=== PATIENT | female | born 1960 | race Caucasian/White ===

== ENCOUNTER → 2024-12-25 | Outpatient (REF) | payer MEDICARE, MEDICAID, SELFPAY ==
[2024-12-25 09:00] LABS: Hematocrit 30.3 % (37-47); Hemoglobin 9.2 g/dL (12.0-15.0); Mean Corp Hgb Conc 30.4 g/dL (32-36); Mean Corpuscular Hgb 22.8 pg (27.0-32.0); Mean Corpuscular Volume 75.2 fL (81-99); Mean Platelet Vol. 8.2 fl (6.2-12.0); Platelet Count 273 K/mm3 (150-450); RBC Distribution Width CV 18.7 % (11.6-14.6); RBC Distribution Width SD 51.8 fl (35.1-43.9); Red Blood Count 4.03 M/mm3 (4.2-5.4); White Blood Count 6.9 K/mm3 (4.4-11.0)
[2024-12-25 09:31] LABS: Cholesterol 108 mg/dL (<=200); High Density Lipoprotein 30 mg/dL; Low Density Lipoprotein Calc. 57 mg/dL; Magnesium 2.3 mg/dL (1.5-2.2); Triglycerides 107 mg/dL; Very Low Density Lipoprotein 21 mg/dL (5-40); Vitamin D,25 Hydroxy 40.4 ng/mL (30-100)
[2024-12-25 09:35] LABS: ALB/GLOB Ratio 0.8 RATIO (0.9-2.4); AST(SGOT) 18 U/L (<=31); Alanine Aminotransfer ALT/SGPT 11 U/L (<=34); Albumin, Serum 3.2 g/dL (3.4-4.8); Alkaline Phosphatase 61 U/L (35-104); Anion Gap 10 (5-15); BUN 22 mg/dL (4-19); BUN/Creat Ratio 24.3 RATIO (10-20); Calcium,Total 8.7 mg/dL (7.6-11.0); Carbon Dioxide 22.4 mmol/L (21.0-32.0); Chloride 106 mmol/L (98-108); Creatinine, Serum 0.89 mg/dL (0.70-1.20); EST Glomerular Filtration Rate 71 (>60); Glucose 84 mg/dL (70-99); Potassium 3.9 mmol/L (3.3-5.1); Protein, Total 7.1 g/dL (5.9-8.4); Sodium Level 139 mmol/L (133-145); Total Bilirubin < 0.15 mg/dL (0.00-1.30)
== END ==
LOC: OLS.ACW300 04:00
PROVIDERS: PCP Student in an Organized Health Care Education/Training Program; Referring Provider Family Medicine; Visit Provider Family Medicine
DX: E55.9 Vitamin D deficiency, unspecified (principal); E11.9 Type 2 diabetes mellitus without complications; E78.5 Hyperlipidemia, unspecified; F42.4 Excoriation (skin-picking) disorder; F03.94 Unspecified dementia, unspecified severity, with anxiety
CPT/HCPCS: 36415; 80053; 80061; 82306; 83735; 84443; 85027

== ENCOUNTER → 2025-01-18 | Outpatient (REF) | payer MEDICARE, MEDICAID, SELFPAY ==
--- OUTSIDE RECORDS SUMMARY | 2025-01-18 04:42 | XMS RPT_ITS | CCD ---
Author Organization [facility] Care Team Providers Care Drums Teacher Name Role Phone Rola Manning LPN Unavailable Unavailab DR DEJON Johnson DO Primary Care Physician [phone] PHYSICIAN, NONE Primary Care Physician Unavailab Dejon Johnson DO Primary Care Provider DR OXANA GRAHAM DO Attending Unavailania e PHYSICIAN, NONE Primary Care Unavailable Cecilia Hassan MD Primary Care Provider GRISELDA LATHAM Attending Unavailable CECILIA HASSAN Primary Care Unavailable Yudy Mantilla MD Primary Care Provider Dr. Aram Morris DO Primary Care Provider Yudy Francois Attending Provider Yudy Harper Referring Provider Aram Butler Primary Care Unavailable Yudy Francois Referring Unavailable Yudy Francois Attending Unavailable YUDY MANTILLA Primary Care Unavailable ANGEL ORTIZ Attending Unavailable SADA SAMUELS Attending Unavailable YUDY MANTILLA Primary Care Unavailable Allergies Allergy Classification Reported Allergen(s) Allergy Type Date of Onset Reaction(s) Facility (13 sources) Morphine; Translations: [Morphine] Drug Allergy 01-29-2013 Mental Status Change, Unknown Pulmonary [facility] Work Phone: Medications Current Medications Medication Drug Class(es) Dates Sig (Normalized) Sig (Original) Albuterol (Eqv-Proventil HFA) 90 mcg/inh inhalation aerosol (1 source) Start: 10-24-2024 take 2 doses by inhalation every six hours Albuterol (Eqv-Proventil HFA) 90 mcg/inh inhalation aerosol Dose : 180 mcg = 2 inh, Inhalation, q6hr, 0 Refill(s) Start Date: 10/24/24 Status: Ordered Repeat number: 1 amitriptyline hydrochloride 50 mg oral tablet (3 sources) Tricyclic Antidepressant Start: 05-21-2021 amitriptyline 50 mg oral tablet Dose : 50 mg = 1 tab(s), Oral, qHS, # 90 tab(s), 0 Refill(s), [facility], 157.5, cm, 06/25/19 15:01:00 EST, Height, kg, 09/25/19 17:06:00 EST, Dosing Weight Start Date: 05/21/21 Status: Ordered Start: 05-20-2017 take 1 tablet by rene th once daily AMITRIPTYLINE HCL 50 MG TABS One tablet by mouth daily AMITRIPTYLINE HCL [id number] Rola Manning LPN atorvastatin 20 mg oral tablet (6 sources) HMG-CoA Reductase Inhibitor Start: 05-21-2021 atorvastatin 20 mg oral tablet Dose : 20 mg = 1 tab(s), Oral, qDay, # 90 tab(s), 0 Refill(s), [email or web address] 157[facility]5, cm, 06/25/19 15:01:00 EST, Height, kg, 09/25/19 17:06:00 EST, Dosing Weight Start Date: 05/21/21 Status: Ordered benztropine mesylate 0.5 mg oral tablet (9 sources) Anticholinergic, Antihistamine Start: 05-21-2021 benztropine 0.5 mg oral tablet Dose : 0.5 mg = 1 tab(s), Oral, qDay, # 90 tab(s), 0 Refill(s), [email or web address], 157.5, cm, 06/25/19 15:01:00 EST, Height, kg, 09/25/19 17:06:00 EST, Dosing Weight Start Date: 05/21/21 Status: Ordered Quantity: 90.0 Unit: tab(s) Repeat number: 1 Start: 05-20-2017 take 1 tablet by rene th once daily BENZTROPINE MESYLATE 0.5 MG TABS One tablet by mouth daily BENZTROPINE MESYLATE [id number] Rola Manning LPN take 1 tablet by rene th twice daily benztropine (Cogentin) 0.5 MG tablet Take 0.5 mg by mouth twice a day. Active 12 hr buPROPion hydrochloride 150 mg extended release oral tablet (6 sources) Aminoketone Start: 05-21-2021 take 1 tablet by mouth every hour, then take 1 tablet by mouth once daily Wellbutrin SR 150 mg/12 hours oral tablet, extended release Dose : 150 mg = 1 tab(s), Oral, qDay, # 90 tab(s), 0 Refill(s), Pharmacy: [address], 157.5, cm, 06/25/19 15:01:00 EST, Height, kg, 09/25/19 17:06:00 EST, Dosing Weight Start Date: 05/21/21 Status: Ordered Start: 05-20-2017 take 1 tablet by rene th once daily BUDEPRION SR 150 MG [id number] One tablet by mouth daily BUPROPION HCL [id number] Rola Manning LPN Start: 01-18-2017 take 1 tablet by rene th once daily buPROPion HCl, smoking deter, 150 mg Tb12 take 1 tablet by mouth once daily 30 tablet 2 01/18/2017 Active Start: 01-29-2013 End: 05-20-2017 take 1 tablet by mouth once daily BUPROPION HCL ER (SR) 150 MG [id number] One tablet by mouth daily BUPROPION HCL [id number] Rola A Rohithho CABLE COVERER busPIRone hydrochloride 10 mg oral tablet (4 sources) busPIRone (Buspa r) 10 MG tablet Take by mouth 2 times daily. Active cephalexin 500 mg oral capsule (1 source) Cephalosporin Antibacterial Start: 10-24-2024 End: 10-31-2024 cephalexin 500 mg oral capsule Dose : 500 mg = 1 cap(s), Oral, TID, X 7 day(s), # 21 cap(s), 0 Refill(s), 10/31/24 9:16:00 PM EDT, 136.4 Start Date: 10/24/24 Stop Date: 10/31/24 Status: Ordered Quantity: 21.0 Unit: cap(s) Repeat number: 1 cetirizine hydrochloride 5 mg chewable tablet (4 sources) Histamine-1 Receptor Antagonist cetirizine (ZyrTEC) 5 MG chewable tablet Chew daily. Active COMPOUNDED PRESCRIPTION (1 source) Start: 11-01-2014 COMPOUNDED PRESCRIPTION KNEE HIGH COMPRESSION STOCKINGS 18 TO 20 COMPRESSION NEGRO HOSE DX 457.1 1 Act 0 11/01/2014 Active CPAP (3 sources) Start: 09-04-2014 CPAP Pt is due for new supplies. Mask (per patient preference) and new filters. Dx. JOHNATHAN 327.23 1 Units 0 09/04/2014 Active Start: 02-18-2014 CPAP Indicatio ns: JOHNATHAN (obstructive sleep apnea) CHIN STRAP, USED WITH CPAP DEVICE 1 Each 0 02/18/2014 Active Start: 01-30-2014 CPAP Initiate CPAP @ 13 cm of water with humidification. Mask (per patient preference) optional chin strap (if indicated) , filters, tubing, humidifier and lifetime supplies. Dx. JOHNATHAN 327.23 1 Units 0 01/30/2014 Active diazePAM 2 mg oral tablet (1 source) Benzodiazepine Start: 11-06-2016 take 1 tablet by mouth three times daily as needed Diazepam 2 MG tablet Active 2 mg PO 3 TIMES DAILY NEEDED as needed for Vertigo November 06, 2016 12:00am causes drowsiness DME [facility] (2 sources) Start: 03-24-2021 DME MISCellane ous See Instructions, freestyle lite test strips for once daily use - QS for 3 month supply. E11.9, # 1 EA, 3 Refill(s), [facility], 157.5, cm, 06/25/19 15:01:00 EST, Height, 129.1, kg, 09/25/19 17:06:00 EST, Dosing Weight Start Date: 03/24/21 Status: Ordered Start: 06-25-2019 DME MISCellane ous See Instructions, Lancets to test glucose daily and PRN, # 1 EA, 3 Refill(s), [facility]acy: [facility] Diabetes mellitus type 2 Start Date: 06/25/19 Status: Ordered docusate sodium 100 mg oral capsule (8 sources) Start: 09-16-2015 Colace 100 mg oral capsule Dose : 100 mg = 1 cap(s), Oral, qDay, # 90 cap(s), 0 Refill(s), [facility], 157.5, cm, 06/25/19 15:01:00 EST, Height, kg, 09/25/19 17:06:00 EST, Dosing Weight Start Date: 05/21/21 Status: Ordered Quantity: 90.0 Unit: cap(s) Repeat number: 1 empagliflozin 10 mg oral tablet (1 source) Sodium-Glucose Cotransporter 2 Inhibitor Start: 10-24-2024 Jardiance 10 mg oral tablet Dose : 10 mg = 1 tab(s), Oral, qAM, 0 Refill(s) Start Date: 10/24/24 Status: Ordered Repeat number: 1 ferrous sulfate 325 mg delayed release oral tablet (4 sources) take 1 tablet by mouth three times daily at mealtime ferrous sulfate 325 (65 Fe) MG EC tablet Take 325 mg by mouth 3 times daily (with meals). Do not crush, chew, or split. Active fluticasone furoate 0.0275 mg/actuat metered dose nasal spray (4 sources) Corticosteroid take 2 spray(s) nasal route once daily fluticasone (Flonase Sensimist) 27.5 MCG/SPRAY nasal spray Administer 2 sprays into each nostril daily. Active glipiZIDE er 5 mg 24 hr extended release oral tablet (6 sources) Sulfonylurea Start: 05-21-2021 glipiZIDE 5 mg oral tablet, extended release Dose : 5 mg = 1 tab(s), Oral, qDay, # 90 tab(s), 0 Refill(s), [facility], 157.5, cm, 06/25/19 15:01:00 EST, Height, kg, 09/25/19 17:06:00 EST, Dosing Weight Start Date: 05/21/21 Status: Ordered Start: 05-21-2021 glipiZIDE 5 mg oral tablet, extended release Dose : 5 mg = 1 tab(s), Oral, qDay, # 90 tab(s), 0 Refill(s), Pharmacy: [facility], 157.5, cm, 06/25/19 15:01:00 EST, Height, kg, 09/25/19 17:06:00 EST, Dosing Weight Start Date: 05/21/21 Status: Ordered hydroCHLOROthiazide 12.5 mg / lisinopril 20 mg oral tablet (1 source) Thiazide Diuretic, Angiotensin Converting Enzyme Inhibitor Start: 10-24-2024 take 1 tablet by mouth once daily hydrochlorothiazide-lisinopril 12.5 mg-20 mg oral tablet Dose = 1 tab(s), Oral, qDay, 0 Refill(s) Start Date: 10/24/24 Status: Ordered Repeat number: 1 24 hr isosorbide mononitrate 60 mg extended release oral tablet (8 sources) Nitrate Vasodilator Start: 05-21-2021 isosorbide mononitrate 60 mg oral tablet, extended release Dose : 60 mg = 1 tab(s), Oral, qAM, # 90 tab(s), 0 Refill(s), [facility], 157.5, cm, 06/25/19 15:01:00 EST, Height, kg, 09/25/19 17:06:00 EST, Dosing Weight Start Date: 05/21/21 Status: Ordered Quantity: 90.0 Unit: tab(s) Repeat number: 1 Start: 05-20-2017 take 1 tablet by rene th once daily ISOSORBIDE MONONITRATE ER 60 MG [id number] One tablet by mouth daily ISOSORBIDE MONONITRATE [id number] Rola Manning LPN take 1 tablet by rene th once daily, then take 1 tablet by mouth every twenty-four hours isosorbide mononitrate ER (Imdur) 60 MG 24 hr tablet Take 60 mg by mouth daily. Do not crush or chew. Active linagliptin 5 mg oral tablet (2 sources) Dipeptidyl Peptidase 4 Inhibitor Start: 05-21-2021 Tradjenta 5 mg oral tablet Dose : 5 mg = 1 tab(s), Oral, Daily, # 90 tab(s), 0 Refill(s), [facility], 157.5, cm, 06/25/19 15:01:00 EST, Height, kg, 09/25/19 17:06:00 EST, Dosing Weight Start Date: 05/21/21 Status: Ordered meclizine hydrochloride 25 mg oral tablet (3 sources) Antiemetic Start: 04-12-2016 meclizine 25 m g oral tablet Dose : 25 mg = 1 tab(s), Oral, TID, PRN vertigo, # 90 tab(s), 1 Refill(s), [facility], 157.5, cm, 06/25/19 15:01:00 EST, Height, kg, 09/25/19 17:06:00 EST, Dosing Weight Start Date: 09/25/19 Status: Ordered omeprazole 20 mg delayed release oral capsule (11 sources) Proton Pump Inhibitor Start: 05-21-2021 omeprazole 20 mg ora l delayed release capsule Dose : 20 mg = 1 cap(s), Oral, qDay, # 90 cap(s), 0 Refill(s), Pharm[facility]: [email or web address], 157.5, cm, 06/25/19 15:01:00 EST, Height, kg, 09/25/19 17:06:00 EST, Dosing Weight Start Date: 05/21/21 Status: Ordered Quantity: 90.0 Unit: cap(s) Repeat number: 1 Start: 05-20-2017 take 1 tablet by mouth once da [facility] OMEPRAZOLE 20 MG TBEC One tablet by mouth daily OMEPRAZOLE [id number] Rola Manning LPN Start: 12-15-2016 take 1 tablet by rene once daily before breakfast Omeprazole 20 mg TbEC take 1 tablet by mouth once daily 1/2 HR BEFORE BREAKFAST 90 tablet 3 12/15/2016 Active Start: 01-29-2013 End: 05-20-2017 take 1 tablet by mouth once daily OMEPRAZOLE 20 MG CPD R One tablet by mouth daily OMEPRAZOLE [id number] Rola Manning LPN potassium chloride 10 meq extended release oral capsule (3 sources) Start: 05-21-2021 potassium chlo ride 10 mEq oral capsule, extended release Dose : 10 mEq = 1 cap(s), Oral, qDay, # 90 cap(s), 0 Refill(s), [facility]: [facility] [place] [address], 157.5, cm, 06/25/19 15:01:00 EST, Height, kg, 09/25/19 17:06:00 EST, Dosing Weight Start Date: 05/21/21 Status: Ordered Quantity: 90.0 Unit: cap(s) Repeat number: 1 Start: 05-21-2021 potassium chlo ride 10 mEq oral capsule, extended release Dose : 10 mEq = 1 cap(s), Oral, qDay, # 90 cap(s), 0 Refill(s), [facility]: [facility] [place] [address], 157.5, cm, 06/25/19 15:01:00 EST, Height, kg, 09/25/19 17:06:00 EST, Dosing Weight Start Date: 05/21/21 Status: Ordered QUEtiapine 25 mg oral tablet (5 sources) Atypical Antipsychotic Start: 10-24-2024 QUEtiap ine 25 mg oral tablet Dose : 25 mg = 1 tab(s), Oral, qHS, 0 Refill(s) Start Date: 10/24/24 Status: Ordered Repeat number: 1 take 1 tablet by mouth once min y QUEtiapine (SEROquel) 50 MG tablet Indications: Agitation Take 50 mg by mouth Nightly. Active risperiDONE 1 mg oral tablet (4 sources) Atypical Antipsychotic Start: 05-21-2021 risperi DONE 1 mg oral tablet Dose : 1 mg = 1 tab(s), Oral, qHS, # 90 tab(s), 0 Refill(s), [facility], 157.5, cm, 06/25/19 15:01:00 EST, Height, kg, 09/25/19 17:06:00 EST, Dosing Weight Start Date: 05/21/21 Status: Ordered Start: 05-20-2017 take 1 tablet by rene th once daily RISPERDAL 1 MG TABS One tablet by mouth daily RISPERIDONE [id number] Rola Manning CABLE COVERER take 1 tablet by rene th twice daily risperiDONE (RISPERDAL) 2 mg tablet Take 2 mg by mouth twice daily. 0 Active rosuvastatin calcium 20 mg oral tablet (1 source) HMG-CoA Reductase Inhibitor Start: 10-24-2024 rosuvastatin 20 mg oral tablet Dose : 20 mg = 1 tab(s), Oral, qPM, 0 Refill(s) Start Date: 10/24/24 Status: Ordered Repeat number: 1 sAXagliptin 5 mg oral tablet (4 sources) Dipeptidyl Peptidase 4 Inhibitor take 1 tablet by mouth once daily sAXagliptin (Onglyza) 5 MG tablet Take 5 mg by mouth daily. Active sertraline 20 mg/ml oral solution (4 sources) Serotonin Reuptake Inhibitor take 25 mg by mouth once daily, then take 125 mg by mouth once daily sertraline (Zoloft) 20 MG/ML concentrated solution Take 25 mg by mouth daily. 125mg day Active Symbicort 160 mcg-4.5 mcg/inh Inhaler (2 sources) Start: 05-21-2021 take 1 dose by inhalation twice daily Symbicort 160 mcg-4.5 mcg/inh Inhaler Dose = 2 puff(s), Inhalation, BID, # 3 EA, 0 Refill(s), Pharmacy: [address], 157.5, cm, 06/25/19 15:01:00 EST, Height, kg, 09/25/19 17:06:00 EST, Dosing Weight Start Date: 05/21/21 Status: Ordered traZODone hydrochloride 150 mg oral tablet (3 sources) Serotonin Reuptake Inhibitor Start: 12-12-2013 take 2 tablets by mouth once daily at bedtime traZODone 150 mg tablet Indications: Depressive disorder, not elsewhere classified Take 2 tablets by mouth daily at bedtime. 30 tablet 6 12/12/2013 Active Start: 01-29-2013 End: 05-20-2017 take 1 tablet by mouth once daily TRAZODONE HCL 150 MG TABS One tablet by mouth daily every night TRAZODONE HCL [id number] Amelia Ayala MD divalproex sodium 250 mg delayed release oral tablet (4 sources) Mood Stabilizer, Anti-epileptic Agent take 1 tablet by mouth three times daily divalproex (Depakote) 250 MG EC tablet Take 250 mg by mouth 3 times daily. Do not crush, chew, or split. Active Vitamin D2 1.25 mg (50,000 intl units) oral capsule (1 source) Start: 5 Vitamin D2 1.25 mg (50,000 intl units) oral capsule Dose : 50,000 International_Unit = 1 cap(s), Oral, qWeek, 0 Refill(s) Start Date: 10/24/24 Status: Ordered Repeat number: 1 Vitamin D3 50 mcg (2000 intl units) oral tablet (2 sources) Start: 1 Vitamin D3 50 mcg (2000 intl units) oral tablet Dose : 2,000 International_Unit = 1 tab(s), Oral, qDay, # 90 tab(s), 0 Refill(s), [facility], 157.5, cm, 06/25/19 15:01:00 EST, Height, kg, 09/25/19 17:06:00 EST, Dosing Weight Start Date: 05/21/21 Status: Ordered Completed/Discontinued Medications Medication Drug Class(es) Dates Sig (Normalized) Sig (Original) albuterol 0.833 mg/ml / ipratropium bromide 0.167 mg/ml inhalation solution (2 sources) Anticholinergic, beta2-Adrenergic Agonist Start: 01-09-2025 End: 01-09-2025 3 mL, Nebulization, Once, On Tue01/09/25 at 2250, For 1 dose Breo Ellipta 200 mcg-25 mcg/inh inhalation powder (2 sources) Start: 05-21-2021 End: 06-20-2021 take 1 dose by inhalation once daily Breo Ellipta 200 mcg-25 mcg/inh inhalation powder Dose = 1 puff(s), Inhalation, Daily, # 3 EA, 0 Refill(s), [email or web address], 157.5, cm, 06/25/19 15:01:00 EST, Height, kg, 09/25/19 17:06:00 EST, Dosing Weight Start Date: 05/21/21 Stop Date: 06/20/21 Status: Ordered 120 actuat budesonide 0.16 mg/actuat / formoterol fumarate 0.0045 mg/actuat metered dose inhaler (1 source) Corticosteroid, beta2-Adrenergic Agonist Start: 05-20-2017 take 2 puff(s) by inhalation twice daily SYMBICORT 160-4.5 MCG/ACT AERO INH 2 puffs twice daily. BUDESONIDE-FORMOTE ROL FUMARATE [id number] Rola A Yensho CABLE COVERER Start: 05-20-2017 take 2 puff(s) by in halation twice daily SYMBICORT 160-4.5 MCG/ACT AERO INH 2 puffs twice daily. BUDESONIDE-FORMOTEROL FUMARATE [id number] Rola A Yensho CABLE COVERER cholecalciferol 2000 unt oral tablet (2 sources) Vitamin D Start: 05-20-2017 take 1 tablet by mouth once daily [facility] D3 2000 UNIT CAPS Take one tablet by mouth once daily CHOLECALCIFEROL [id number] Rola A Leonelnsho CABLE COVERER Start: 09-16-2015 take 1 tablet by rene th once daily Cholecalciferol, Vitamin D3, 2,000 unit cap Indications: Vitamin D deficiency Take 1 tablet by mouth once daily. 30 capsule 6 09/16/2015 Active DOCUSATE SODIUM (1 source) Start: 05-20-2017 take 1 tablet by mouth once daily [facility] STOOL SOFTENER 100 MG CAPS One tablet by mouth daily DOCUSATE SODIUM [id number] Rola A Rohithho CABLE COVERER DULoxetine 60 mg delayed release oral capsule (7 sources) Serotonin and Norepinephrine Reuptake Inhibitor Start: 05-21-2021 End: 08-19-2021 take 1 capsule by mouth once daily in the morning DULoxetine 60 mg oral delayed release capsule Dose : 60 mg =, Oral, qAM, # 90 cap(s), 0 Refill(s), Pharmacy: [address], 157.5, cm, 06/25/19 15:01:00 EST, Height, kg, 09/25/19 17:06:00 EST, Dosing Weight Start Date: 05/21/21 Stop Date: 08/19/21 Status: Ordered Quantity: 90.0 Unit: cap(s) Repeat number: 1 Start: 05-20-2017 take 1 tablet by rene th once daily in the morning CYMBALTA 60 MG CPEP One tablet by mouth daily every morning DULOXETINE HCL [id number] Rola Manning LPN Start: 01-14-2011 End: 05-20-2017 take 1 tablet by mouth once daily CYMBALTA 60 MG CPEP One tablet by mouth daily DULOXETINE HCL [id number] Amelia Ayala MD 14 actuat fluticasone propionate 0.1 mg/actuat / salmeterol 0.05 mg/actuat dry powder inhaler (2 sources) Corticosteroid, beta2-Adrenergic Agonist Start: 01-29-2013 End: 05-20-2017 take 1 puff(s) by mouth once daily ADVAIR DISKUS 100-50 MCG/DOSE AEPB one puff once daily, rinse mouth well after use FLUTICASONE-SALMETEROL [id number] Amelia Ayala MD 14 actuat fluticasone furoate 0.2 mg/actuat / vilanterol 0.025 mg/actuat dry powder inhaler (2 sources) Corticosteroid, beta2-Adrenergic Agonist Start: 05-20-2017 take 1 puff(s) by mouth once daily BREO ELLIPTA 200-25 MCG/INH AEPB INH one puff by mouth daily. FLUTICASONE FUROATE-VILANTEROL [id number] Rola Manning LPN Start: 10-13-2016 take 1 puff(s) by in halation once daily fluticasone-vilanterol (BREO ELLIPTA) 200-25 mcg/dose inhaler Inhale 1 Inhalation as instructed once daily. Inhale one puff once daily. DO NOT CLICK OPEN UNTIL READY FOR DOSE 1 Each 3 10/13/2016 Active hydroCHLOROthiazide 25 mg oral tablet (4 sources) Thiazide Diuretic Start: 05-20-2017 take 1 tablet by mouth once daily HYDROCHLOROTHIAZIDE 25 MG TABS One tablet by mouth daily HYDROCHLOROTHIAZIDE [id number] Rola Manning LPN Start: 01-29-2013 End: 05-20-2017 take 1 tablet by mouth once daily hydroCHLOROthiazide (HYDRODIURIL, ESIDRIX) 25 mg tablet TAKE 1 TABLET BY MOUTH ONCE DAILY. 30 tablet 11 08/09/2016 Active hydrOXYzine pamoate 25 mg oral capsule (14 sources) Antihistamine Start: 01-02-2025 End: 01-02-2025 take 25 mg by mouth once 25 mg, Oral, Once, On Tue01/02/25 at 2014, For 1 dose Start: 01-02-2025 End: 01-05-2025 take 1 tablet by mouth every six hours as needed for anxiety hydrOXYzine HCl (Atarax) 25 MG tablet Take 1 tablet (25 mg) by mouth every 6 hours as needed for anxiety for up to 3 days. 12 tablet 01/02/2025 01/05/2025 Active Start: 05-20-2017 take 1 tablet by rene th twice daily HYDROXYZINE HCL 25 MG TABS One tablet by mouth twice daily HYDROXYZINE HCL [id number] Rola Manning LPN Start: 01-29-2013 End: 05-20-2017 take 1 tablet by mouth twice daily HYDROXYZINE HCL 25 MG TABS One tablet by mouth twice daily HYDROXYZINE HCL [id number] Rola Manning LPN take 1 capsule by mo [facility] every eight hours as needed hydrOXYzine pamoate (VISTARIL) 25 mg capsule Take 25 mg by mouth three times daily as needed. 0 Active lisinopril 10 mg oral tablet (3 sources) Angiotensin Converting Enzyme Inhibitor Start: 01-14-2011 End: 05-20-2017 take 1 tablet by mouth once daily LISINOPRIL 10 MG TABS One tablet by mouth daily LISINOPRIL [id number] Amelia Ayala MD loratadine 10 mg oral tablet (4 sources) Start: 05-21-2021 End: 06-20-2021 Claritin 10 mg oral tablet Dose : 10 mg = 1 tab(s), Oral, qDay, # 30 tab(s), 0 Refill(s), Pharmacy: [address], 157.5, cm, 06/25/19 15:01:00 EST, Height, kg, 09/25/19 17:06:00 EST, Dosing Weight Start Date: 05/21/21 Stop Date: 06/20/21 Status: Ordered Start: 05-20-2017 take 1 tablet by rene once daily as needed ALAVERT 10 MG TABS One tablet by mouth daily as needed for cold or allergy symptoms LORATADINE [id number] Rola A Rohithho CABLE COVERER Start: 12-20-2016 take 1 tablet by rene th once daily as needed loratadine (CLARITIN) 10 mg tablet Take 1 tablet by mouth once daily as needed for Cold/Allergy Symptoms. 90 tablet 3 12/20/2016 Active meloxicam 15 mg oral tablet (2 sources) Nonsteroidal Anti-inflammatory Drug Start: 05-20-2017 take 1 tablet by mouth once daily MELOXICAM 15 MG TABS One tablet by mouth daily MELOXICAM [id number] Rola A Rohithho CABLE COVERER Start: 09-29-2015 take 1 tablet by rene th once daily at mealtime meloxicam (MOBIC) 15 mg tablet TAKE 1 TABLET BY MOUTH ONCE DAILY. TAKE WITH FOOD. 30 tablet 1 09/29/2015 Active metoprolol tartrate 50 mg oral tablet (2 sources) beta-Adrenergic Shelli Start: 01-29-2013 End: 05-20-2017 take 1 tablet by mouth twice daily METOPROLOL TARTRATE 50 MG TABS One tablet by mouth twice daily METOPROLOL TARTRATE [id number] Rola A Leoneljihanho CABLE COVERER nitroglycerin 0.4 mg sublingual tablet (2 sources) Nitrate Vasodilator Start: 06-25-2019 End: 07-25-2019 Nitrostat 0.4 mg sublingual tablet Dose : 0.4 mg = 1 tab(s), Sublingual, q5min, PRN Chest pain, # 100 tab(s), 0 Refill(s), Pharmacy: [address] Start Date: 06/25/19 Stop Date: 07/25/19 Status: Ordered Start: 05-20-2017 NITROGLYCERIN 0.4 MG SUBL One tablet by mouth daily as needed for chest pain, repeat every 5 minutes for a maximum for 3 tablets NITROGLYCERIN [id number] Rola A Leonelnsho CABLE COVERER Nitrostat 0.4 mg sublingual tablet (1 source) Start: 06-25-2019 End: 07-25-2019 Nitrostat 0.4 mg sublingual tablet Dose : 0.4 mg = 1 tab(s), Sublingual, q5min, PRN Chest pain, # 100 tab(s), 0 Refill(s), Pharmacy: [address] Start Date: 06/25/19 Stop Date: 07/25/19 Status: Ordered pravastatin sodium 40 mg oral tablet (4 sources) HMG-CoA Reductase Inhibitor Start: 05-20-2017 take 1 tablet by mouth once daily PRAVACHOL 40 MG TABS One tablet by mouth daily PRAVASTATIN SODIUM [id number] Rola Manning LPN Start: 01-29-2013 End: 05-20-2017 take 1 tablet by mouth once daily at bedtime pravastatin (PRAVACHOL) 40 mg tablet TAKE 1 TABLET BY MOUTH DAILY AT BEDTIME. 30 tablet 11 08/09/2016 Active promethazine hydrochloride 25 mg oral tablet (2 sources) Phenothiazine Start: 05-20-2017 take 1 tablet by mouth once daily PROMETHAZINE HCL 25 MG TABS One tablet by mouth daily PROMETHAZINE HCL [id number] Rola Manning LPN take 1 tablet by rene th every six hours as needed promethazine (PHENERGAN) 25 mg tablet Ta ke 25 mg by mouth every 6 hours as needed. 0 Active 60 actuat tiotropium 0.0025 mg/actuat metered dose inhaler (4 sources) Anticholinergic Start: 05-20-2017 take 2 puff(s) by mouth once daily SPIRIVA RESPIMAT 2.5 MCG/ACT AERS INH 2 puffs by mouth daily. TIOTROPIUM BROMIDE MONOHYDRATE [id number] Rola Manning LPN Start: 10-13-2016 take 2 puff(s) by in halation once daily, then take 2 puff(s) by inhalation once daily tiotropium bromide (SPIRIVA RESPIMAT) 2.5 mcg/actuation mist Inhale 2 Puffs as instructed once daily. Inhale two puffs once daily. 1 Inhaler 3 10/13/2016 Active Start: 01-29-2013 End: 05-20-2017 take 1 capsule by inhalation once daily SPIRIVA HANDIHALER 18 MCG CAPS one capsule INH once daily TIOTROPIUM BROMIDE MONOHYDRATE [id number] Rola Manning LPN Problems Active Problems Problem Classification Problem Date Documented Date Episodic/Chronic Abdominal hernia (3 sources) Hiatal hernia 03-08-2019 Episodic Abdominal pain (1 source) Abdominal pain; Translations: [Unspecified abdominal pain] Onset: 11-05-2021 Episodic Anxiety disorders (9 sources) Panic disorder; Translations: [Anxiety] Onset: 01-02-2025 01-29-2013 Chronic Chronic obstructive pulmonary disease and bronchiectasis (10 sources) Chronic obstructive lung disease; Translations: [Chronic obstructive pulmonary disease, unspecified] Onset: 01-29-2013 01-29-2013 Chronic Coronary atherosclerosis and other heart disease (3 sources) Angina decubitus Onset: 03-22-2017 03-22-2017 Chronic Diabetes mellitus without complication (4 sources) Type 2 diabetes mellitus; Translations: [Type 2 diabetes mellitus without complications] Onset: 01-11-2025 03-08-2019 Chronic Disorders of lipid metabolism (6 sources) Hyperlipidemia; Translations: [Hyperlipidemia, unspecified] Onset: 02-09-2006 01-29-2013 Chronic Esophageal disorders (6 sources) Gastroesophageal reflux disease; Translations: [Gastro-esophageal reflux disease without esophagitis] Onset: 02-09-2006 01-29-2013 Chronic Essential hypertension (5 sources) Essential hypertension; Translations: [Hypertensive disorder] Onset: 12-12-2013 01-29-2013 Chronic Fluid and electrolyte disorders (4 sources) Hypokalemia; Translations: [Hypokalemia] Onset: 07-24-2021 Episodic Genitourinary symptoms and ill-defined conditions (1 source) Female stress incontinence; Translations: [Stress incontinence (female) (male)] Onset: 06-06-2009 06-06-2009 Chronic Mood disorders (5 sources) Major depressive disorder; Translations: [Depressive disorder] Onset: 02-09-2006 01-29-2013 Chronic Nonspecific chest pain (10 sources) Chest pain; Translations: [Chest pain, unspecified] Onset: 12-07-2024 12-07-2024 Episodic Nutritional deficiencies (5 sources) Vitamin D deficiency; Translations: [Vitamin D deficiency, unspecified] Onset: 12-21-2013 09-25-2019 Chronic Osteoarthritis (4 sources) Osteoarthritis; Translations: [Degenerative joint disease involving multiple joints] Onset: 02-09-2006 03-08-2019 Chronic Comment on above: generalized, involvi ng multile sites Other nervous system disorders (3 sources) Tremor 09-25-2019 Episodic Other nutritional; endocrine; and metabolic disorders (3 sources) Morbid obesity 09-25-2019 Chronic Other nutritional; endocrine; and metabolic disorders (1 source) Obesity; Translations: [Obesity, unspecified] Onset: 02-09-2006 02-09-2006 Chronic Other upper respiratory disease (1 source) Allergic rhinitis; Translations: [Allergic rhinitis, unspecified] Onset: 02-09-2006 02-09-2006 Chronic Residual codes; unclassified (1 source) Sleep apnea; Translations: [Sleep apnea, unspecified] Onset: 01-29-2013 01-29-2013 Chronic Residual codes; unclassified (1 source) Breathing-related sleep disorder; Translations: [Sleep apnea, unspecified] Onset: 12-12-2013 12-12-2013 Chronic Residual codes; unclassified (1 source) Obstructive sleep apnea syndrome; Translations: [Obstructive sleep apnea (adult) (pediatric)] Onset: 01-31-2014 07-27-2021 Chronic Residual codes; unclassified (3 sources) Noncompliance with treatment 09-25-2019 Episodic Unclassified (3 sources) Polypharmacy 09-25-2019 Unclassified (1 source) Unspecified dementia, unspecified severity, with anxiety; Translations: [Unspecified dementia, unspecified severity, with anxiety] Onset: 01-11-2025 Past or Other Problems Problem Classification Problem Date Documented Da te Episodic/Chronic Conditions associated with dizziness or vertigo (3 sources) Vertigo Onset: 7 03-22-2017 Episodic Deficiency and other anemia (1 source) Anemia; Translations: [Anemia, unspecified] Onset: 6 07-15-2006 Episodic Esophageal disorders (1 source) Gastroesophageal reflux disease with hiatal hernia; Translations: [Diaphragmatic hernia without obstruction or gangrene] 01-29-2013 Episodic Genitourinary symptoms and ill-defined conditions (1 source) Microscopic hematuria; Translations: [Other microscopic hematuria] Onset: 0 10-01-2009 Episodic Menstrual disorders (1 source) Amenorrhea; Translations: [Amenorrhea, unspecified] Onset: 9 Resolved: 5 04-08-2015 Chronic Other gastrointestinal disorders (1 source) Constipation; Translations: [Constipation, unspecified] Onset: 4 12-12-2013 Episodic Other lower respiratory disease (1 source) Dyspnea on exertion; Translations: [Other forms of dyspnea] Onset: 3 01-29-2013 Episodic Other lower respiratory disease (1 source) Snoring; Translations: [Snoring] Onset: 4 12-12-2013 Episodic Other lower respiratory disease (1 source) Dyspnea; Translations: [Shortness of breath] Onset: 4 12-12-2013 Episodic Residual codes; unclassified (1 source) Insomnia; Translations: [Insomnia, unspecified] Onset: 4 12-12-2013 Episodic Spondylosis; intervertebral disc disorders; other back problems (1 source) Low back pain; Translations: [Lumbago] Onset: 6 02-09-2006 Episodic Urinary tract infections (2 sources) Urinary tract infectious disease; Translations: [Urinary tract infection, site not specified] Onset: 0 Episodic Results Test Name Value Interpretation Reference Range Facility ECG 12-LEADon 01-10-2025 ECG 12-LEAD IMPRESSION: Sinus rhythm Inferior infarct, old Anterior infarct, old Compared to ECG 01/02/25 at 1839 No significant change Electronically Signed On 01-10-2025 04:44:20 EDT by Angel Ortiz [facility] No Panel Informationon 01-10 P [place] 45 degrees [facility] [place] Interval 178 ms [facility] QRS [place] -3 degrees [facility] QRSD Interval 72 ms [facility] QT Interval 402 ms [facility] QTC Interval 437 ms [facility] T Wave [place] 57 degrees [facility] Sinus rhythm Inferior infarct, old Anterior infarct, old Compared to ECG 01/02/25 at 1839 No significant change Electronically Signed On 01-10-2025 04:44:20 EDT by Angel Temple D O - 01/10/2025 IMPRESSION: Sinus rhythm Inferior infarct, old Anterior infarct, old Compared to ECG 01/02/25 at 1839 No significant change Electronically Signed On 01-10-2025 04:44:20 EDT by Angel Ortiz [facility] Vital signson 01-10-2025 Heart rate 71 /min bpm [facility] CBC W Auto Differential pane l (Bld)Ordered By: Guadalupe Lehman on 01-09-2025 Basophils (Bld) [#/Vol] 0.1 10*3/uL 0.0 - 0.2 10*3/uL [facility] Basophils/100 WBC (Bld) 1 % 0.0 - 2.0 % [facility] Eosinophils (Bld) [#/Vol] 0.2 10*3/uL 0.0 - 0.5 10*3/uL [facility] Eosinophils/100 WBC (Bld) 3.6 % 0.0 - 6.0 % [facility] Erythrocyte distribution width (RBC) [Ratio] 18.6 % High 11.5 - 15.0 % [facility] Hematocrit (Bld) [Volume fraction] 31 % Low 35.0 - 47.0 % [facility] Hemoglobin (Bld) [Mass/Vol] 10 g/dL Low 11.7 - 16.0 g/dL [facility] [employer] Immature granulocytes (Bld) [#/Vol] 0.1 10*3/uL High NINF - 0.1 10*3/uL [facility] [employer] Immature granulocytes/100 WBC (Bld) 1.6 % 0.0 - 2.0 % [facility] Interpretation and review of laboratory results Abnormal [facility] Lymphocytes (Bld) [#/Vol] 1.8 10*3/uL 1.0 - 4.3 10*3/uL [facility] Lymphocytes/100 WBC (Bld) 36.4 % 15.0 - 45.0 % [facility] MCH (RBC) [Entitic mass] 23.6 pg Low 26.0 - 34.0 pg [facility] MCHC (RBC) [Mass/Vol] 32.3 % 30.5 - 36.0 % [facility] MCV (RBC) [Entitic vol] 73.1 fL Low 77.0 - 99.0 fL [facility] Monocytes (Bld) [#/Vol] 0.6 10*3/uL 0.0 - 0.9 10*3/uL [facility] Monocytes/100 WBC (Bld) 12.6 % 5.0 - 13.0 % [facility] Neutrophils (Bld) [#/Vol] 2.3 10*3/uL 1.8 - 7.5 10*3/uL [facility] Neutrophils/100 WBC (Bld) 44.8 % 38.0 - 82.0 % [facility] Nucleated RBC/100 WBC (Bld) [Ratio] 0 % [facility] Platelet mean volume (Bld) [Entitic vol] 9 fL 9.0 - 12.7 fL [facility] Comment on above: MPV is a calculated measurement using platelet volume ratio Platelets (Bld) [#/Vol] 171 10*3/uL 140 - 440 10*3/uL [facility] RBC (Bld) [#/Vol] 4.24 10*6/uL 3.80 - 5.2 0 10*6/uL [facility] WBC (Bld) [#/Vol] 5.1 10*3/uL 3.6 - 10.7 10*3/uL [facility] CBC WITH AUTO DIFFERENTIALon 01-09-2025 Basophils (Bld) [#/Vol] 0.1 10*3/uL Normal 0.0-0.2 [facility] Comment on above: Performed By: #### L [id number] #### Press Setup Operator: OLEG DAVIDSON ([id number]) [facility] [place] [employer] ([employer]) [address] [place] [address] [place] Basophils/100 WBC (Bld) 1.0 % Normal 0.0-2.0 [facility] Comment on above: Performed By: #### L [id number] #### Press Setup Operator: OLEG DAVIDSON ([id number]) [facility] [place] [employer] ([employer]) [address] [place] [address] [place] Eosinophils (Bld) [#/Vol] 0.2 10*3/uL Normal 0.0-0.5 [facility] Comment on above: Performed By: #### L [id number] #### Press Setup Operator: OLEG DAVIDSON ([id number]) [facility] [place] [employer] ([employer]) [address] [place] [address] [place] Eosinophils/100 WBC (Bld) 3.6 % Normal 0.0-6.0 [facility] Comment on above: Performed By: #### L [id number] #### Press Setup Operator: OLEG DAVIDSON ([id number]) [facility] [place] [employer] ([employer]) [address] [place] [address] Erythrocyte distribution width (RBC) [Ratio] 18.6 % High 11.5-15.0 [facility] Comment on above: Performed By: #### L [id number] #### Press Setup Operator: OLEG DAVIDSON ([id number]) [facility] [place] [employer] ([employer]) [address] [place] [address] Hematocrit (Bld) [Volume fraction] 31.0 % Low 35.0-47.0 [facility] Comment on above: Performed By: #### L [id number] #### Press Setup Operator: OLEG DAVIDSON ([id number]) [facility] [place] [employer] ([employer]) [address] [place] [address] Hemoglobin (Bld) [Mass/Vol] 10.0 g/dL Low 11.7-16.0 [facility] Comment on above: Performed By: #### L [id number] #### Press Setup Operator: OLEG DAVIDSON ([id number]) [facility] [place] [employer] ([employer]) [address] [place] [address] IMMATURE GRANS % 1.6 % Normal 0.0-2.0 [facility] Comment on above: Performed By: #### L [id number] #### Press Setup Operator: OLEG DAVIDSON ([id number]) [facility] [place] [employer] ([employer]) [address] [place] [address] IMMATURE GRANS ABSOLUTE 0.1 10*3/uL High <0.1 [facility] Comment on above: Performed By: #### L [id number] #### Press Setup Operator: OLEG DAVIDSON ([id number]) [facility] [place] [employer] ([employer]) [address] [place] [address] Lymphocytes (Bld) [#/Vol] 1.8 10*3/uL Normal 1.0-4.3 [facility] Comment on above: Performed By: #### L [id number] #### Press Setup Operator: OLEG DAVIDSON ([id number]) [facility] [place] [employer] ([employer]) [address] [place] [address] Lymphocytes/100 WBC (Bld) 36.4 % Normal 15.0-45.0 [facility] Comment on above: Performed By: #### L [id number] #### Press Setup Operator: OLEG DAVIDSON ([id number]) [facility] [place] [employer] ([employer]) [address] [place] [address] MCH (RBC) [Entitic mass] 23.6 pg Low 26.0-34.0 [facility] Comment on above: Performed By: #### L [id number] #### Press Setup Operator: OLEG DAVIDSON ([id number]) [facility] [place] [employer] ([employer]) [address] [place] [address] MCHC 32.3 % Normal 30.5-36.0 [facility] Comment on above: Performed By: #### L [id number] #### Press Setup Operator: OLEG DAVIDSON ([id number]) [facility] [place] [employer] ([employer]) [address] [place] [address] MCV (RBC) [Entitic vol] 73.1 fL Low 77.0-99.0 [facility] Comment on above: Performed By: #### L [id number] #### Press Setup Operator: OLEG DAVIDSON ([id number]) [facility] [place] [employer] ([employer]) [address] [place] [address] [place] Monocytes (Bld) [#/Vol] 0.6 10*3/uL Normal 0.0-0.9 [facility] Comment on above: Performed By: #### L [id number] #### Press Setup Operator: OLEG DAVIDSON ([id number]) [facility] [place] [employer] ([employer]) [address] [place] [address] [place] Monocytes/100 WBC (Bld) 12.6 % Normal 5.0-13.0 [facility] Comment on above: Performed By: #### L [id number] #### Press Setup Operator: OLEG DAVIDSON ([id number]) [facility] [place] [employer] ([employer]) [address] [place] [address] NEUTROPHILS ABSOLUTE 2.3 10*3/uL Normal 1.8-7.5 [facility] Comment on above: Performed By: #### L [id number] #### Press Setup Operator: OLEG DAVIDSON ([id number]) [facility] [place] [employer] ([employer]) [address] [place] [address] [place] Neutrophils/100 WBC (Bld) 44.8 % Normal 38.0-82.0 [facility] Comment on above: Performed By: #### L [id number] #### Press Setup Operator: OLEG DAVIDSON ([id number]) [facility] [place] [employer] ([employer]) [address] [place] [address] NRBC 0.0 /100 WBCs Normal 0.0-2.0 [facility] Comment on above: Performed By: #### L [id number] #### Press Setup Operator: OLEG DAVIDSON ([id number]) [facility] [place] [employer] ([employer]) [address] [place] [address] Platelet mean volume (Bld) [Entitic vol] 9.0 fL Normal 9.0-12.7 [facility] Comment on above: Result Comment: MPV is a calculated measurement using platelet volume ratio Performed By: #### L [id number] #### Press Setup Operator: OLEG DAVIDSON ([id number]) [facility] [place] [employer] ([employer]) [address] [place] [address] [place] Platelets (Bld) [#/Vol] 171 10*3/uL Normal 140-440 [facility] Comment on above: Performed By: #### L [id number] #### Press Setup Operator: OLEG DAVIDSON ([id number]) [facility] [place] [employer] ([employer]) [address] [place] [address] RBC (Bld) [#/Vol] 4.24 10*6/uL Normal 3.80-5.20 [facility] Comment on above: Performed By: #### L [id number] #### Press Setup Operator: OLEG DAVIDSON ([id number]) [facility] [place] [employer] ([employer]) [address] [place] [address] WBC (Bld) [#/Vol] 5.1 10*3/uL Normal 3.6-10.7 [facility] Comment on above: Performed By: #### L [id number] #### Press Setup Operator: OLEG DAVIDSON ([id number]) [facility] [place] [employer] ([employer]) [address] [place] [address] COMPREHENSIVE METABOLIC PANE Jose 01-09-2025 Albumin [Mass/Vol] 2.6 g/dL Low 3.4-4.8 [facility] Comment on above: Performed By: #### Abdoulaye AB17, [id number] #### Press Setup Operator: OLEG DAVIDSON ([id number]) [facility] [place] [employer] ([employer]) [address] [place] [address] ALP [Catalytic activity/Vol] 83 U/L Normal 40-150 [facility] Comment on above: Performed By: #### Abdoulaye AB17, [id number] #### Press Setup Operator: OLEG DAVIDSON ([id number]) [facility] [place] [employer] ([employer]) [address] [place] [address] ALT [Catalytic activity/Vol] 14 U/L Normal <30 [facility] Comment on above: Performed By: #### L [id number], [id number] #### Press Setup Operator: OLEG DAVIDSON ([id number]) [facility] [place] [employer] ([employer]) [address] [place] [address] Anion gap [Moles/Vol] 9 mmol/L Normal 3-13 [facility] Comment on above: Performed By: #### L [id number], [id number] #### Press Setup Operator: OLEG DAVIDSON ([id number]) [facility] [place] [employer] ([employer]) [address] [place] [address] [place] AST [Catalytic activity/Vol] 31 U/L Normal <34 [facility] Comment on above: Performed By: #### Abdoulaye ROGERS, [id number] #### Press Setup Operator: OLEG DAVIDSON ([id number]) [facility] [place] [employer] ([employer]) [address] [place] [address] Bilirubin [Mass/Vol] 0.1 mg/dL Normal <1.2 [facility] Comment on above: Performed By: #### Abdoulaye ROGERS, [id number] #### Press Setup Operator: OLEG DAVIDSON ([id number]) [facility] [place] [employer] ([employer]) [address] [place] [address] [place] Calcium [Mass/Vol] 8.5 mg/dL Low 8.8-10.0 [facility] Comment on above: Performed By: #### Abdoulaye ROGERS, [id number] #### Press Setup Operator: OLEG DAVIDSON ([id number]) [facility] [place] [employer] ([employer]) [address] [place] [address] [place] Chloride [Moles/Vol] 99 mmol/L Normal 98-107 [facility] Comment on above: Performed By: #### Abdoulaye ROGERS, [id number] #### Press Setup Operator: OLEG DAVIDSON ([id number]) [facility] [place] [employer] ([employer]) [address] [place] [address] [place] CO2 [Moles/Vol] 26 mmol/L Normal 23-31 [facility] Comment on above: Performed By: #### Abdoulaye ROGERS, [id number] #### Press Setup Operator: OLEG DAVIDSON ([id number]) [facility] [place] [employer] ([employer]) [address] [place] [address] [place] Creatinine [Mass/Vol] 0.94 mg/dL Normal 0.57-1.11 [facility] Comment on above: Performed By: #### Abdoulaye ROGERS, [id number] #### Press Setup Operator: OLEG DAVIDSON ([id number]) [facility] [place] ([employer]) [address] [place] [address] [place] GLOMERULAR FILTRATION RATE ML/MIN/1.73 SQ M.PREDICTED 67.1 mL/min/1.73m*2 Normal >60.0 [facility] Comment on above: Result Comment: Calc ulation based on the Chronic Kidney Disease Epidemiology Collaboration (CKD-EPI) equation refit without adjustment for race Performed By: #### Abdoulaye ROGERS, [id number] #### Press Setup Operator: OLEG DAVIDSON ([id number]) [facility] [place] [employer] ([employer]) [address] [place] [address] [place] Glucose [Mass/Vol] 77 mg/dL Low 82-115 [facility] Comment on above: Performed By: #### Abdoulaye ROGERS, [id number] #### Press Setup Operator: OLEG DAVIDSON ([id number]) [facility] [place] [employer] ([employer]) [address] [place] [address] [place] Potassium [Moles/Vol] 4.2 mmol/L Normal 3.5-5.1 [facility] Comment on above: Result Comment: [facility] potassium values may be up to 0.5 mmol/L lower than serum values. Performed By: #### Abdoulaye ROGERS, [id number] #### Press Setup Operator: OLEG DAVIDSON ([id number]) [facility] [place] [employer] ([employer]) [address] [place] [address] [place] Protein [Mass/Vol] 7.6 g/dL Normal 6.4-8.3 [facility] Comment on above: Performed By: #### Abdoulaye ROGERS, [id number] #### Press Setup Operator: OLEG DAVIDSON ([id number]) [facility] [place] [employer] ([employer]) [address] [place] [address] [place] Sodium [Moles/Vol] 134 mmol/L Low 136-145 [facility] Comment on above: Performed By: #### Abdoulaye AB17, [id number] #### Press Setup Operator: OLEG DAVIDSON ([id number]) [facility] ([facility]) [address] [place] [address] Urea nitrogen [Mass/Vol] 24 mg/dL High 9-23 [facility] Comment on above: Performed By: #### Abdoualye AB17, [id number] #### Press Setup Operator: OLEG DAVIDSON ([id number]) [facility] ([employer]) [address] [place] [address] Comprehensive metabolic 1998 panelon 01-09-2025 Albumin [Mass/Vol] 2.6 g/dL Low 3.4 - 4.8 g/dL [facility] ALP [Catalytic activity/Vol] 83 U/L 40 - 150 U/L [facility] ALT [Catalytic activity/Vol] 14 U/L NINF - 30 U/L [facility] Anion gap [Moles/Vol] 9 mmol/L 3 - 13 mmol/L [facility] AST [Catalytic activity/Vol] 31 U/L NINF - 34 U/L [facility] Bilirubin [Mass/Vol] 0.1 mg/dL NINF - 1.2 mg/dL [facility] Calcium [Mass/Vol] 8.5 mg/dL Low 8.8 - 10. 0 mg/dL [facility] Chloride [Moles/Vol] 99 mmol/L 98 - 10 7 mmol/L [facility] CO2 [Moles/Vol] 26 mmol/L 23 - 31 mmol/L [facility] Creatinine [Mass/Vol] 0.94 mg/dL 0.57 - 1.11 mg/dL [facility] GFR/1.73 sq M.predicted (S/P/Bld) [Vol rate/Area] 67.1 mL/min - PINF [facility] Comment on above: Calculation based on the Chronic Kidney Disease Epidemiology Collaboration (CKD-EPI) equation refit without adjustment for race Glucose [Mass/Vol] 77 mg/dL Low 82 - 115 mg/dL [facility] Interpretation and review of laboratory results Abnormal [facility] Potassium [Moles/Vol] 4.2 mmol/L 3.5 - 5.1 mmol/L [facility] Comment on above: Plasma potassium elsy ues may be up to 0.5 mmol/L lower than serum values. Protein [Mass/Vol] 7.6 g/dL 6.4 - 8.3 g/dL [facility] Sodium [Moles/Vol] 134 mmol/L Low 136 - 145 mmol/L [facility] Urea nitrogen [Mass/Vol] 24 mg/dL High 9 - 23 mg/dL [facility] ED Nursing Noteon 01-09-2025 ED Nursing Note WF age 64, alert/oriented x4, to ED via Ems with chief c/o intermittent chest pain. Midstaernal for a couple days. + occassional cough, = sob. Resp even. Skuin warm and dry. EKG done on arival.. IV per EMS left AC benign. . Blood drawn per IV site. Pt placed on radiation monitor. NSR Normal [facility] ED Provider Noteon ED Provider Note Emergency Department Encounter [facility] ED Patient: Carline Pastrana : 1960 Date of Evaluation: 01/09/2025 ED Provider: Angel Ortiz DO Chief Complaint Chief Complaint Patient presents with Chest Pain HOPLANDBridget Pastrana is a 64 y.o. female who presents to the emergency department complaining of chest pain. Patient reports chest pain ongoing for 2 weeks. Has been seen in the department before. States this may be related to stress. Also has COPD and has had some wheezing. Has not used her albuterol inhalers because I did not feel like it ". Additional history obtained from : n/a Barriers to obtaining history from patient: n/a ROS: Review of Systems completed as follows: (Bold = positive, Not bold = negative) GENERAL: fevers, chills, malaise ENT: runny nose, congestion, sore throat, ear pain NEURO: weakness, numbness of tingling, headache CARDIOVASCULAR: chest pain, syncope PULMONARY: shortness of breath, cough, wheezing GASTROINTESTINAL: nausea, vomiting, abdominal pain, diarrhea, constipation, MUSCULOSKELETAL: pain GENITAL/URINARY: dysuria, hematuria, increased urinary frequency, hesitancy, flank pain SKIN: rash, lesions, wound Past History Medical History[1] Surgical History[2] Social History[3] I have reviewed the history above as provided by nursing notes. Medications/Allergies Discharge Medication List as of 01/09/2025 11:56 PM CONTINUE these medications which have NOT CHANGED Details atorvastatin (Lipitor) 20 MG tablet Take 20 mg by mouth daily., Historical Med benztropine (Cogentin) 0.5 MG tablet Take 0.5 mg by mouth twice a day., Historical Med busPIRone (Buspar) 10 MG tablet Take by mouth 2 times daily., Historical Med cetirizine (ZyrTEC) 5 MG chewable tablet Chew daily., Historical Med divalproex (Depakote) 250 MG EC tablet Take 250 mg by mouth 3 times daily. Do not crush, chew, or split., Historical Med docusate sodium (Colace) 100 MG capsule Take 100 mg by mouth 2 times daily., Historical Med ferrous sulfate 325 (65 Fe) MG EC tablet Take 325 mg by mouth 3 times daily (with meals). Do not crush, chew, or split., Historical Med fluticasone (Flonase Sensimist) 27.5 MCG/SPRAY nasal spray Administer 2 sprays into each nostril daily., Historical Med glipiZIDE XL (Glucotrol XL) 5 MG 24 hr tablet Take 5 mg by mouth daily. Do not crush, chew, or split., Historical Med hydrOXYzine HCl (Atarax) 25 MG tablet Take 25 mg by mouth every 6 hours as needed for itching., Historical Med isosorbide mononitrate ER (Imdur) 60 MG 24 hr tablet Take 60 mg by mouth daily. Do not crush or chew., Historical Med omeprazole OTC (PriLOSEC OTC) 20 MG EC tablet Take 20 mg by mouth every morning (before breakfast). Do not crush, chew, or split., Historical Med QUEtiapine (SEROquel) 50 MG tablet Take 50 mg by mouth Nightly., Historical Med sAXagliptin (Onglyza) 5 MG tablet Take 5 mg by mouth daily., Historical Med sertraline (Zoloft) 20 MG/ML concentrated solution Take 25 mg by mouth daily. 125mg day, Historical Med Allergies[4] I have reviewed the history above as provided by nursing notes. Physical Exam ED Triage Vitals [01/09/25 2221] Temp Heart Rate Resp BP 36.8 ?C (98.2 ?F) 72 16 102/58 SpO2 Temp Source Heart Rate Source Patient Position 96 % Tympanic -- -- BP Location FiO2 (%) Right arm -- GENERAL: The patient appears nourished and normally developed. Vital signs as documented. EYES: PERRL. No scleral icterus or orbital trauma noted. HEENT: Mucous membranes moist. Nares patent without copious rhinorrhea. LUNGS: End expiratory wheezing without increased work of breathing. CARDIAC: Rhythm is regular. No murmur appreciated ABDOMEN: Nontender, soft, with no obvious masses, and no peritoneal signs. EXTREMITIES: Non edematous, with no obvious deformities. SKIN: Several areas of ulceration on the scalp, right shoulder from previous picking. No evidence of infection. NEURO: No obvious neurological deficits, normal sensation and strength bilaterally. Diagnostics Labs: Results for orders placed or performed during the hospital encounter of 01/09/25 ECG 12 lead Collection Time: 01/09/25 10:17 PM Result Value Ref Range Heart Rate 71 bpm QRSD Interval 72 ms QT Interval 402 ms QTC Interval 437 ms P [place] 45 degrees QRS [place] -3 degrees T Wave [place] 57 degrees [place] Interval 178 ms CBC auto differential Collection Time: 01/09/25 10:52 PM Result Value Ref Range Auto WBC 5.1 3.6 - 10.7 10*3/uL RBC 4.24 3.80 - 5.20 10*6/uL Hemoglobin 10.0 (L) 11.7 - 16.0 g/dL Hematocrit 31.0 (L) 35.0 - 47.0 % MCV 73.1 (L) 77.0 - 99.0 fL MCH 23.6 (L) 26.0 - 34.0 pg MCHC 32.3 30.5 - 36.0 % RDW 18.6 (H) 11.5 - 15.0 % Platelets 171 140 - 440 10*3/uL MPV 9.0 9.0 - 12.7 fL nRBC 0.0 0.0 - 2.0 /100 WBCs Neutrophils Relative 44.8 38.0 - 82.0 % Lymphocytes Relative 36.4 15.0 - 45.0 % Monocytes Relative 12.6 5.0 - 13.0 % (more content not included)... Normal [facility] HIGH SENSITIVITY TROPONIN, S ERIAL BASELINEon 01-09-2025 TROPONIN HS SERIAL BASELINE <3 Normal <=14 [facility] Comment on above: Result Comment: In i ndividuals presenting with symptoms > 2h, a baseline troponin <= 5 ng/L suggests acute cardiac injury is unlikely and further serial testing is generally not indicated. Performed By: #### L AB17, [id number] #### Press Setup Operator: OLEG DAVIDSON ([id number]) [facility] ([facility]) [address] [place] [address] No Panel Informationon 01-09 Interpretation and review of laboratory results Normal [facility] Troponin HS Serial Baseline ng/L NINF - 14 ng/L [facility] Comment on above: In individuals prese nting with symptoms > 2h, a baseline troponin <= 5 ng/L suggests acute cardiac injury is unlikely and further serial testing is generally not indicated. [facility] XR Chest Single viewon 01-09 Lines, tubes, and devices: None. Lungs and pleura: No consolidation. No pleural effusion or pneumothorax. Cardiomediastinal silhouette: Stable cardiac silhouette. Other: Degenerative changes of the spine and shoulders. Report Dictated on Electronically Signed By: Fred Antonio MD Electronically Signed Date/Time: 01/09/2025 11:48 PM [facility] Patient Name: CARLINE PASTRANA : 1960 Exam Date/Time: 01/09/2025 23:15 Procedure: XR CHEST 1 VIEW Ordering Provider: ORTIZ DUSTIN Reason For Exam: CHEST PAIN; Chest Pain EXAMINATION: CHEST RADIOGRAPH (SINGLE VIEW AP OR PA) Clinical History: CHEST PAIN Comparison: Radiograph 01/02/2025 RESULT: See [facility] RADIOLOGY SYSTEM Fred Antonio MD - 01/09/2025 Patient Name: CARLINE PASTRANA : 1960 Exam Date/Time: 01/09/2025 23:15 Procedure: XR CHEST 1 VIEW Ordering Provider: ORTIZ DUSTIN Reason For Exam: CHEST PAIN; Chest Pain EXAMINATION: CHEST RADIOGRAPH (SINGLE VIEW AP OR PA) Clinical History: CHEST PAIN Comparison: Radiograph 01/02/2025 RESULT: See impression IMPRESSION: Lines, tubes, and devices: None. Lungs and pleura: No consolidation. No pleural effusion or pneumothorax. Cardiomediastinal silhouette: Stable cardiac silhouette. Other: Degenerative changes of the spine and shoulders. Report Dictated on Electronically Signed By: Fred Antonio MD Electronically Signed Date/Time: 01/09/2025 11:48 PM EDT [facility] Radiology Study observation (narrative) [facility] [employer] XR Chest Single viewOrdered By: Fred Antonio on 01-09-2025 [facility] [employer] Work Phone: ECG 12-LEADon 01-03-2025 ECG 12-LEAD IMPRESSION: Sinus rhythm Inferior infarct, old Anterior infarct, old Electronically Signed On 01-03-2025 06:11:05 EDT by Sada Alvarado [facility] No Panel Informationon 01-03 P [place] 58 degrees [facility] [place] Interval 184 ms [facility] QRS [place] -7 degrees [facility] QRSD Interval 70 ms [facility] QT Interval 371 ms [facility] QTC Interval 436 ms [facility] T Wave [place] 46 degrees [facility] Sinus rhythm Inferior infarct, old Anterior infarct, old Electronically Signed On 01-03-2025 06:11:05 EDT by Sada Dubois DO - 01/03/2025 IMPRESSION: Sinus rhythm Inferior infarct, old Anterior infarct, old Electronically Signed On 01-03-2025 06:11:05 EDT by Sada Samuels [facility] Vital signson 01-03-2025 Heart rate 83 /min bpm [facility] [employer] BASIC METABOLIC PANELon Anion gap [Moles/Vol] 11 mmol/L Normal 3-13 [facility] Comment on above: Performed By: #### L AB15, [id number] #### Press Setup Operator: OLEG DAVIDSON ([id number]) [facility] ([facility]) [address] [place] [address] [place] Calcium [Mass/Vol] 8.5 mg/dL Low 8.8-10.0 [facility] Comment on above: Performed By: #### Abdoulaye THOMAS, [id number] #### Press Setup Operator: OLEG DAVIDSON ([id number]) [facility] ([facility]) [address] [place] [address] [place] Chloride [Moles/Vol] 105 mmol/L Normal 98-107 [facility] Comment on above: Performed By: #### Abdoulaye THOMAS, [id number] #### Press Setup Operator: OLEG DAVIDSON ([id number]) [facility] ([facility]) [address] [place] [address] CO2 [Moles/Vol] 23 mmol/L Normal 23-31 [facility] Comment on above: Performed By: #### Abdoulaye THOMAS, [id number] #### Press Setup Operator: OLEG DAVIDSON ([id number]) [facility] ([facility]) [address] [place] [address] [place] Creatinine [Mass/Vol] 0.89 mg/dL Normal 0.57-1.11 [facility] Comment on above: Performed By: #### Abdoulaye KC15, [id number] #### Press Setup Operator: OLEG DAVIDSON ([id number]) [facility] ([facility]) [address] [place] [address] [place] GLOMERULAR FILTRATION RATE ML/MIN/1.73 SQ M.PREDICTED 71.6 mL/min/1.73m*2 Normal >60.0 [facility] Comment on above: Result Comment: Calc ulation based on the Chronic Kidney Disease Epidemiology Collaboration (CKD-EPI) equation refit without adjustment for race Performed By: #### L AB15, [id number] #### Press Setup Operator: OLEG DAVIDSON ([id number]) [facility] ([facility]) [address] [place] [address] [place] Glucose [Mass/Vol] 108 mg/dL Normal 82-115 [facility] Comment on above: Performed By: #### L AB15, [id number] #### Press Setup Operator: OLEG DAVIDSON ([id number]) [facility] ([facility]) [address] [place] [address] Potassium [Moles/Vol] 4.3 mmol/L Normal 3.5-5.1 [facility] Comment on above: Result Comment: [facility] potassium values may be up to 0.5 mmol/L lower than serum values. Performed By: #### Abdoulaye AB15, [id number] #### Press Setup Operator: OLEG DAVIDSON ([id number]) [facility] ([facility]) [address] [place] [address] Sodium [Moles/Vol] 139 mmol/L Normal 136-145 [facility] Comment on above: Performed By: #### Abdoulaye KC15, [id number] #### Press Setup Operator: OLEG DAVIDSON ([id number]) [facility] ([facility]) [address] [place] [address] Urea nitrogen [Mass/Vol] 17 mg/dL Normal 9-23 [facility] Comment on above: Performed By: #### L AB15, [id number] #### Press Setup Operator: OLEG DAVIDSON ([id number]) [facility] ([facility]) [address] [place] [address] Basic metabolic 1998 panelon 01-02-2025 Anion gap [Moles/Vol] 11 mmol/L 3 - 13 mmol/L [facility] Calcium [Mass/Vol] 8.5 mg/dL Low 8.8 - 10. 0 mg/dL [facility] Chloride [Moles/Vol] 105 mmol/L 98 - 10 7 mmol/L [facility] CO2 [Moles/Vol] 23 mmol/L 23 - 31 mmol/L [facility] Creatinine [Mass/Vol] 0.89 mg/dL 0.57 - 1.11 mg/dL [facility] GFR/1.73 sq M.predicted (S/P/Bld) [Vol rate/Area] 71.6 mL/min - PINF [facility] Comment on above: Calculation based on the Chronic Kidney Disease Epidemiology Collaboration (CKD-EPI) equation refit without adjustment for race Glucose [Mass/Vol] 108 mg/dL 82 - 115 mg/dL [facility] [employer] [facility] Interpretation and review of laboratory results Abnormal [facility] Potassium [Moles/Vol] 4.3 mmol/L 3.5 - 5.1 mmol/L [facility] Comment on above: Plasma potassium elsy ues may be up to 0.5 mmol/L lower than serum values. Sodium [Moles/Vol] 139 mmol/L 136 - 145 mmol/L [facility] Urea nitrogen [Mass/Vol] 17 mg/dL 9 - 23 mg/dL [facility] [employer] [facility] CBC W Auto Differential pane l (Bld)Ordered By: Farhan Daily on 01-02-2025 Basophils (Bld) [#/Vol] 0.1 10*3/uL 0.0 - 0.2 10*3/uL [facility] Basophils/100 WBC (Bld) 0.7 % 0.0 - 2.0 % [facility] Eosinophils (Bld) [#/Vol] 0.3 10*3/uL 0.0 - 0.5 10*3/uL [facility] Eosinophils/100 WBC (Bld) 3.2 % 0.0 - 6.0 % [facility] Erythrocyte distribution width (RBC) [Ratio] 18.8 % High 11.5 - 15.0 % [facility] Hematocrit (Bld) [Volume fraction] 31.4 % Low 35.0 - 47.0 % [facility] Hemoglobin (Bld) [Mass/Vol] 10.1 g/dL Low 11.7 - 16.0 g/dL [facility] Immature granulocytes (Bld) [#/Vol] 0.1 10*3/uL High NINF - 0.1 10*3/uL [facility] Immature granulocytes/100 WBC (Bld) 0.8 % 0.0 - 2.0 % [facility] Interpretation and review of laboratory results Abnormal [facility] Lymphocytes (Bld) [#/Vol] 1.9 10*3/uL 1.0 - 4.3 10*3/uL [facility] Lymphocytes/100 WBC (Bld) 22.6 % 15.0 - 45.0 % [facility] MCH (RBC) [Entitic mass] 23.8 pg Low 26.0 - 34.0 pg [facility] MCHC (RBC) [Mass/Vol] 32.2 % 30.5 - 36.0 % [facility] MCV (RBC) [Entitic vol] 73.9 fL Low 77.0 - 99.0 fL [facility] Monocytes (Bld) [#/Vol] 0.9 10*3/uL 0.0 - 0.9 10*3/uL [facility] Monocytes/100 WBC (Bld) 10.4 % 5.0 - 13.0 % [facility] Neutrophils (Bld) [#/Vol] 5.2 10*3/uL 1.8 - 7.5 10*3/uL [facility] Neutrophils/100 WBC (Bld) 62.3 % 38.0 - 82.0 % [facility] Nucleated RBC/100 WBC (Bld) [Ratio] 0 % [facility] Platelet mean volume (Bld) [Entitic vol] 8.6 fL Low 9.0 - 12.7 fL [facility] Comment on above: MPV is a calculated measurement using platelet volume ratio Platelets (Bld) [#/Vol] 265 10*3/uL 140 - 440 10*3/uL [facility] RBC (Bld) [#/Vol] 4.25 10*6/uL 3.80 - 5.2 0 10*6/uL [facility] WBC (Bld) [#/Vol] 8.4 10*3/uL 3.6 - 10.7 10*3/uL [facility] CBC WITH AUTO DIFFERENTIALon 01-02-2025 Basophils (Bld) [#/Vol] 0.1 10*3/uL Normal 0.0-0.2 [facility] Comment on above: Performed By: #### Abdoulaye KC17, [id number] #### Press Setup Operator: OLEG DAVIDSON ([id number]) [facility] ([address] Basophils/100 WBC (Bld) 0.7 % Normal 0.0-2.0 [facility] Comment on above: Performed By: #### Abdoulaye AB17, [id number] #### Press Setup Operator: OLEG DAVIDSON ([id number]) [facility] ([facility]) [address] [place] [address] Eosinophils (Bld) [#/Vol] 0.3 10*3/uL Normal 0.0-0.5 [facility] Comment on above: Performed By: #### Abdoulaye ROGERS, [id number] #### Press Setup Operator: OLEG DAVIDSON ([id number]) [facility] ([facility]) [address] [place] [address] Eosinophils/100 WBC (Bld) 3.2 % Normal 0.0-6.0 [facility] Comment on above: Performed By: #### Abdoulaye ROGERS, [id number] #### Press Setup Operator: OLEG DAVIDSON ([id number]) [facility] ([facility]) [address] [place] [address] Erythrocyte distribution width (RBC) [Ratio] 18.8 % High 11.5-15.0 [facility] Comment on above: Performed By: #### Abdoulaye ROGERS, [id number] #### Press Setup Operator: OLEG DAVIDSON ([id number]) [facility] ([facility]) [address] [place] [address] Hematocrit (Bld) [Volume fraction] 31.4 % Low 35.0-47.0 [facility] Comment on above: Performed By: #### Abdoulaye ROGERS, [id number] #### Press Setup Operator: OLEG DAVIDSON ([id number]) [facility] ([facility]) [address] [place] [address] Hemoglobin (Bld) [Mass/Vol] 10.1 g/dL Low 11.7-16.0 [facility] Comment on above: Performed By: #### Abdoulaye AB17, [id number] #### Press Setup Operator: OLEG DAVIDSON ([id number]) [facility] ([facility]) [address] [place] [address] IMMATURE GRANS % 0.8 % Normal 0.0-2.0 [facility] Comment on above: Performed By: #### Abdoulaye ROGERS, [id number] #### Press Setup Operator: OLEG DAVIDSON ([id number]) [facility] ([facility]) [address] [place] [address] IMMATURE GRANS ABSOLUTE 0.1 10*3/uL High <0.1 [facility] Comment on above: Performed By: #### Abdoulaye ROGERS, [id number] #### Press Setup Operator: OLEG DAVIDSON ([id number]) [facility] ([facility]) [address] [place] [address] Lymphocytes (Bld) [#/Vol] 1.9 10*3/uL Normal 1.0-4.3 [facility] Comment on above: Performed By: #### Abdoulaye ROGERS, [id number] #### Press Setup Operator: OLEG DAVIDSON ([id number]) [facility] ([facility]) [address] [place] [address] Lymphocytes/100 WBC (Bld) 22.6 % Normal 15.0-45.0 [facility] Comment on above: Performed By: #### Abdoulaye ROGERS, [id number] #### Press Setup Operator: OLEG DAVIDSON ([id number]) [facility] ([facility]) [address] [place] [address] MCH (RBC) [Entitic mass] 23.8 pg Low 26.0-34.0 [facility] Comment on above: Performed By: #### Abdoulaye ROGERS, [id number] #### Press Setup Operator: OLEG DAVIDSON ([id number]) [facility] ([facility]) [address] [place] [address] MCHC 32.2 % Normal 30.5-36.0 [facility] Comment on above: Performed By: #### Abdoulaye ROGERS, [id number] #### Press Setup Operator: OLEG DAVIDSON ([id number]) [facility] [place] [facility] ([facility]) [address] [place] [address] [place] MCV (RBC) [Entitic vol] 73.9 fL Low 77.0-99.0 [facility] Comment on above: Performed By: #### Abdoulaye KC17, [id number] #### Press Setup Operator: OLEG DAVIDSON ([id number]) [facility] ([facility]) [address] [place] [address] [place] Monocytes (Bld) [#/Vol] 0.9 10*3/uL Normal 0.0-0.9 [facility] Comment on above: Performed By: #### Abdoulaye ROGERS, [id number] #### Press Setup Operator: OLEG DAVIDSON ([id number]) [facility] ([facility]) [address] [place] [address] [place] Monocytes/100 WBC (Bld) 10.4 % Normal 5.0-13.0 [facility] Comment on above: Performed By: #### Abdoulaye ROGERS, [id number] #### Press Setup Operator: OLEG DAVIDSON ([id number]) [facility] ([facility]) [address] [place] [address] [place] NEUTROPHILS ABSOLUTE 5.2 10*3/uL Normal 1.8-7.5 [facility] Comment on above: Performed By: #### Abdoulaye ROGERS, [id number] #### Press Setup Operator: OLEG DAVIDSON ([id number]) [facility] ([facility]) [address] [place] [address] [place] Neutrophils/100 WBC (Bld) 62.3 % Normal 38.0-82.0 [facility] Comment on above: Performed By: #### Abdoulaye ROGERS, [id number] #### Press Setup Operator: OLEG DAVIDSON ([id number]) [facility] ([facility]) [address] [place] [address] [place] NRBC 0.0 /100 WBCs Normal 0.0-2.0 [facility] Comment on above: Performed By: #### Abdoulaye ROGERS, [id number] #### Press Setup Operator: OLEG DAVIDSON ([id number]) [facility] ([facility]) [address] [place] [address] Platelet mean volume (Bld) [Entitic vol] 8.6 fL Low 9.0-12.7 [facility] Comment on above: Result Comment: MPV is a calculated measurement using platelet volume ratio Performed By: #### Abdoulaye ROGERS, [id number] #### Press Setup Operator: OLEG DAVIDSON ([id number]) [facility] ([facility]) [address] [place] [address] Platelets (Bld) [#/Vol] 265 10*3/uL Normal 140-440 [facility] Comment on above: Performed By: #### Abdoulaye ROGERS, [id number] #### Press Setup Operator: OLEG DAVIDSON ([id number]) [facility] ([facility]) [address] [place] [address] RBC (Bld) [#/Vol] 4.25 10*6/uL Normal 3.80-5.20 [facility] Comment on above: Performed By: #### Abdoulaye ROGERS, [id number] #### Press Setup Operator: OLEG DAVIDSON ([id number]) [facility] ([facility]) [address] [place] [address] WBC (Bld) [#/Vol] 8.4 10*3/uL Normal 3.6-10.7 [facility] Comment on above: Performed By: #### Abdoulaye ROGERS, [id number] #### Press Setup Operator: OLEG DAVIDSON ([id number]) [facility] ([facility]) [address] [place] [address] ED Nursing Noteon 01-02-2025 ED Nursing Note #20 saline lock removed intact from right hand, dressing applied. VS obtained. Normal [facility] ED Nursing Note To rooom 14 via EMS from [facility]. Pt states is "having trouble with my kids" and became very anxious-tearful and hyperventilating. States then started with chest pain and [facility]. EKG on arrival to room. Had 324mg aspirin per EMS. 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 I wore appropriate PPE for the entirety of this encounter. HPI Carline Pastrana is a 64 y.o. who presents to the emergency department for chest pain and anxiety. Patient endorsing nonradiating chest pressure since this morning brought on by anxiety. Patient endorses increased rest and anxiety depression with family relationship issues. Patient was very anxious and tearful and hyperventilating. Patient resides [facility]. Patient was given 324 aspirin by EMS. Patient has no history of CAD unknown family history. She denies any exertional component vomiting diarrhea rash to the chest shortness of breath numbness tingling focal deficits. She endorses some nausea but has been tolerating p.o. without issue. Patient is chest pain-free on my exam. Nursing Notes were reviewed. Limitations to history: Outside historians: REVIEW OF SYSTEMS Review of Systems Pertinent positives and negatives as per HPI PAST MEDICAL HISTORY Medical History[1] SURGICAL HISTORY Surgical History[2] CURRENT MEDICATIONS Current Discharge Medication List CONTINUE these medications which have NOT CHANGED Details atorvastatin (Lipitor) 20 MG tablet Take 20 mg by mouth daily. benztropine (Cogentin) 0.5 MG tablet Take 0.5 mg by mouth twice a day. busPIRone (Buspar) 10 MG tablet Take by mouth 2 times daily. cetirizine (ZyrTEC) 5 MG chewable tablet Chew daily. divalproex (Depakote) 250 MG EC tablet Take 250 mg by mouth 3 times daily. Do not crush, chew, or split. docusate sodium (Colace) 100 MG capsule Take 100 mg by mouth 2 times daily. ferrous sulfate 325 (65 Fe) MG EC tablet Take 325 mg by mouth 3 times daily (with meals). Do not crush, chew, or split. fluticasone (Flonase Sensimist) 27.5 MCG/SPRAY nasal spray Administer 2 sprays into each nostril daily. glipiZIDE XL (Glucotrol XL) 5 MG 24 hr tablet Take 5 mg by mouth daily. Do not crush, chew, or split. !! hydrOXYzine HCl (Atarax) 25 MG tablet Take 25 mg by mouth every 6 hours as needed for itching. isosorbide mononitrate ER (Imdur) 60 MG 24 hr tablet Take 60 mg by mouth daily. Do not crush or chew. omeprazole OTC (PriLOSEC OTC) 20 MG EC tablet Take 20 mg by mouth every morning (before breakfast). Do not crush, chew, or split. QUEtiapine (SEROquel) 50 MG tablet Take 50 mg by mouth Nightly. sAXagliptin (Onglyza) 5 MG tablet Take 5 mg by mouth daily. sertraline (Zoloft) 20 MG/ML concentrated solution Take 25 mg by mouth daily. 125mg day !! - Potential duplicate medications found. Please discuss with provider. ALLERGIES Morphine FAMILY HISTORY Family History[3] SOCIAL HISTORY Social History[4] PHYSICAL EXAM ED Triage Vitals Temp Heart Rate Resp BP 01/02/25 2142 01/02/25 1836 01/02/25 18301/02/251835 36.6 ?C (97.9 ?F) 88 16 113/63 SpO2 Temp Source Heart Rate Source Patient Position 01/02/25183501/02/252141 -- -- 97 % Temporal BP Location FiO2 (%) -- -- Physical Exam Vitals and nursing note reviewed. Constitutional: General: She is not in acute distress. Appearance: She is not toxic-appearing. HENT: Head: Normocephalic and atraumatic. Mouth/Throat: Pharynx: Oropharynx is clear. Eyes: Pupils: Pupils are equal, round, and reactive to light. Cardiovascular: Rate and Rhythm: Normal rate and regular rhythm. Pulses: Normal pulses. Pulmonary: Effort: Pulmonary effort is normal. No respiratory distress. Breath sounds: Normal breath sounds. Abdominal: Palpations: Abdomen is soft. Tenderness: There is no abdominal tenderness. There is no right CVA tenderness, left CVA tenderness, guarding or rebound. Musculoskeletal: General: Normal range of motion. Skin: General: Skin is warm and dry. Neurological: General: No focal deficit present. Mental Status: She is alert and oriented to person, place, and time. GCS: GCS eye subscore is 4. GCS verbal subscore is 5. GCS motor subscore is 6. Psychiatric: Mood and Affect: Mood is anxious. Speech: Speech is rapid and pressured. Behavior: Behavior is cooperative. DIAGNOSTIC RESULTS RADIOLOGY (Per Emergency Physician): Interpretation per the Radiologist below, if available at the time of this note: XR chest 1 view Final Result 1. No acute finding. Report Dictated on Electronically Signed By: Rafita Cardenas MD Electronically Signed Date/Time: 01/02/2025 7:52 PM EDT LABS: Labs Reviewed BASIC METABOLIC PANEL - Abnormal Result Value SODIUM 139 POTASSIUM 4.3 CHLORIDE 105 CARBON DIOXIDE 23 UREA NITROGEN 17 CREATININE 0.8 (more content not included)... Normal [facility] HIGH SENSITIVITY TROPONIN, S ERIAL BASELINEon 01-02-2025 TROPONIN HS SERIAL BASELINE <3 Normal <=14 [facility] Comment on above: Result Comment: In i ndividuals presenting with symptoms > 2h, a baseline troponin <= 5 ng/L suggests acute cardiac injury is unlikely and further serial testing is generally not indicated. Performed By: #### L AB15, [id number] #### Press Setup Operator: OLEG DAVIDSON ([id number]) [facility] [address] [place] [address] No Panel Informationon 01-02 Interpretation and review of laboratory results Normal [facility] Troponin HS Serial Baseline ng/L NINF - 14 ng/L [facility] Comment on above: In individuals prese nting with symptoms > 2h, a baseline troponin <= 5 ng/L suggests acute cardiac injury is unlikely and further serial testing is generally not indicated. [facility] XR Chest Single viewon 01-02 1. No acute finding. Report Dictated on Electronically Signed By: Rafita Cardenas MD Electronically Signed Date/Time: 01/02/2025 7:52 PM EDT [facility] Patient Name: CARLINE PASTRANA : 1960 Exam Date/Time: 01/02/2025 19:21 Procedure: XR CHEST 1 VIEW Ordering Provider: SAMUELS MARY Reason For Exam: CHEST PAIN; Chest Pain SINGLE FRONTAL VIEW OF THE CHEST CLINICAL INDICATION: CHEST PAIN; Chest Pain TECHNIQUE: Single frontal view of the chest COMPARISON: None FINDINGS: Lungs are show no significant consolidation. No pleural effusion or pneumothorax. No vascular congestion. Heart size mildly enlarged. [facility] Rafita Cardenas MD - 01/02/2025 Patient Name: CARLINE PASTRANA : 1960 Exam Date/Time: 01/02/2025 19:21 Procedure: XR CHEST 1 VIEW Ordering Provider: SAMUELS MARY Reason For Exam: CHEST PAIN; Chest Pain SINGLE FRONTAL VIEW OF THE CHEST CLINICAL INDICATION: CHEST PAIN; Chest Pain TECHNIQUE: Single frontal view of the chest COMPARISON: None FINDINGS: Lungs are show no significant consolidation. No pleural effusion or pneumothorax. No vascular congestion. Heart size mildly enlarged. IMPRESSION: 1. No acute finding. Report Dictated on Electronically Signed By: Rafita Cardenas MD Electronically Signed Date/Time: 01/02/2025 7:52 PM EDT [facility] Radiology Study observation (narrative) [facility] [employer] XR Chest Single viewOrdered By: Rafita Cardenas on 01-02-2025 [facility] [employer] Work Phone: Anion gap in Serum or Plasma Ordered By: Yudy Mantilla on 12-25-2024 Anion gap [Moles/Vol] 10 mmol/L 5-15 [facility] BUN/creatinine ratioOrdered By: Yudy Mantilla on 12-25-2024 Urea nitrogen/Creatinine [Mass ratio] 24.3 mg/mg High 10- [facility] Bilirubin, totalOrdered By: Yudy Mantilla on 12-25-2024 Bilirubin [Mass/Vol] mg/dL 0.00-1.30 [facility] Calculated very low density lipoprotein (VLDL) cholesterol measurementOrdered By: Yudy Mantilla on 12-25-2024 Calculated very low density lipoprotein (VLDL) cholesterol measurement 21 mg/dL 5-40 [facility] Carbon dioxide, total [Moles /volume] in Central venous bloodOrdered By: Yudy Mantilla on 12-25-2024 CO2 [Moles/Vol] 22.4 mmol/L 21.0-32.0 [facility] Chloride assayOrdered By: corrie Mantilla on 12-25-2024 Chloride [Moles/Vol] 106 mmol/L 98-108 [facility] Erythrocyte distribution wid th ratioOrdered By: Yudy Mantilla on 12-25-2024 Erythrocyte distribution width (RBC) [Ratio] 18.7 % High 11.6-14.6 [facility] Erythrocyte distribution wid th standard deviationOrdered By: Yudy Mantilla on 12-25-2024 Erythrocyte distribution width (RBC) [Ratio] 51.8 fl High 35.1-43.9 [facility] Glomerular filtration rate ( GFR) estimation/1.73 sq m using serum, plasma, or whole bOrdered By: Yudy Mantilla on 12-25-2024 GFR/1.73 sq M.predicted among non-blacks MDRD (S/P/Bld) [Vol rate/Area] 71 mL/min/{1.73_m2} >60 [facility] Comment on above: mL/min/1.73m2 CKD-EP I Creatinine Equation (2020) Hematocrit Auto (Bld) [Volum e fraction]Ordered By: Yudy Mantilla on 12-25-2024 Hematocrit (Bld) [Volume fraction] 30.3 % Low 37-47 [facility] Hemoglobin measurementOrdere d By: Yudy Mantilla on 12-25-2024 Hemoglobin (Bld) [Mass/Vol] 9.2 g/dL Low 12.0-15.0 [facility] LDL calc ser/plasOrdered By: Yudy Mantilla on 12-25-2024 Cholesterol in LDL [Mass/Vol] 57 mg/dL [facility] Comment on above: Dzsugesjzr=538-101 m g/dL & Higher Yala=327 mg/dL or greater Laboratory - Chemistry and C hemistry - challengeOrdered By: Yudy Mantilla on 12-25-2024 AST [Catalytic activity/Vol] 18 U/L <32 [facility] MCV (mean corpuscular volume ) determinationOrdered By: Yudy Mantilla on 12-25-2024 MCV (RBC) [Entitic vol] 75.2 fL Low 81-99 [facility] Magnesium measurement (mass/ volume)Ordered By: Yudy Mantilla on 12-25-2024 Magnesium (Unsp spec) [Mass/Vol] 2.3 mg/dL High 1.5-2.2 [facility] Mean corpuscular hemoglobin (MCH) determinationOrdered By: Yudy Mantilla on 12-25-2024 MCH (RBC) [Entitic mass] 22.8 pg Low 27.0-32.0 [facility] Mean corpuscular hemoglobin concentration (MCHC) determinationOrdered By: Yudy Mantilla on 12-25-2024 MCHC (RBC) [Mass/Vol] 30.4 g/dL Low 32-36 [facility] Mean platelet volume determi nationOrdered By: Yudy Mantilla on 12-25-2024 Platelet mean volume (Bld) [Entitic vol] 8.2 fL 6.2-12.0 [facility] Platelet countOrdered By: Jose Mantilla on 12-25-2024 Platelets (Bld) [#/Vol] 273 10*3/uL 150-450 [facility] Potassium measurement (mass/ volume)Ordered By: Yudy Mantilla on 12-25-2024 Potassium (Unsp spec) [Mass/Vol] 3.9 mmol/L 3.3-5.1 [facility] RBC Auto (Bld) [#/Vol]Ordere d By: Yudy Mantilla on 12-25-2024 RBC (Bld) [#/Vol] 4.03 10*6/uL Low 4.2-5.4 [facility] total cholesterol/ high density lipoprotein (HDL) cholesterol ratioOrdered By: Yudy Mantilla on 12-25-2024 Cholesterol.total/Chol esterol in HDL [Mass ratio] 3.60 {ratio} [facility] Serum creatinine measurement (mass/volume)Ordered By: Yudy Mantilla on 12-25-2024 Creatinine [Mass/Vol] 0.89 mg/dL 0.70-1.20 [facility] Serum globulin measurementOr dered By: Yudy Mantilla on 12-25-2024 Globulin (S) [Mass/Vol] 4.0 g/dL 2.2-4.2 [facility] Serum glucose measurement (m ass/volume)Ordered By: Yudy Mantilla on 12-25-2024 Glucose [Mass/Vol] 84 mg/dL 70-99 [facility] Serum or plasma alanine jimenez otransferase (ALT) measurementOrdered By: Yudy Mantilla on 12-25-2024 ALT [Catalytic activity/Vol] 11 U/L <35 [facility] Serum or plasma albumin le urement (mass/volume)Ordered By: Yudy Mantilla on 12-25-2024 Albumin [Mass/Vol] 3.2 g/dL Low 3.4-4.8 [facility] Serum or plasma albumin/glob ulin mass ratioOrdered By: Yudy Mantilla on 12-25-2024 Albumin/Globulin [Mass ratio] 0.8 {ratio} Low 0.9-2.4 [facility] Serum or plasma alkaline jaya sphatase measurementOrdered By: Yudy Mantilla on 12-25-2024 ALP [Catalytic activity/Vol] 61 U/L 35-104 [facility] Serum or plasma calcium le urement (mass/volume)Ordered By: Yudy Mantilla on 12-25-2024 Calcium [Mass/Vol] 8.7 mg/dL 7.6-11.0 [facility] Serum or plasma cholesterol in HDL measurement (mass/volume)Ordered By: Yudy Mantilla on 12-25-2024 Cholesterol in HDL [Mass/Vol] 30 mg/dL Low >40 [facility] Comment on above: National Cholesterol Education Program (NCEP) guidelines:<40 mg/dL: Low HDL-cholesterol (major risk factor for CHD)>= 60 mg/dL: High HDL-cholesterol (negative risk factor for CHD)HDL-cholesterol is affected by a number of factors, e.g. smoking, exercise, hormones, sex and age. Serum or plasma cholesterol measurement (mass/volume)Ordered By: Yudy Mantilla on 12-25-2024 Cholesterol [Mass/Vol] 108 mg/dL <201 [facility] Comment on above: Cholesterol level, D esirable <200 mg/dLBorderline high cholesterol 200-239 mg/dLHigh cholesterol >=240 mg/dLRecommendations of the NCEP Adult Treatment Panel for the following risk-cutoff thresholds for the [place] population. Serum or plasma urea nitroge n measurement (mass/volume)Ordered By: Yudy Mantilla on 12-25-2024 Urea nitrogen [Mass/Vol] 22 mg/dL High 4-19 [facility] Sodium levelOrdered By: Jarred Mantilla on 12-25-2024 Sodium [Moles/Vol] 139 mmol/L 133-145 [facility] TSH DL <= 0.005 mIU/L QnOrde red By: Yudy Mantilla on 12-25-2024 TSH Qn 3.430 uIU/mL 0.300-4.200 [facility] Total proteinOrdered By: Abad Mantilla on 12-25-2024 Protein [Mass/Vol] 7.1 g/dL 5.9-8.4 [facility] Triglycerides measurementOrd ered By: Yudy Mantilla on 12-25-2024 Triglyceride [Mass/Vol] 107 mg/dL <199 [facility] Comment on above: The drugs N-Acetylcy steine and Metamizole may falsely depress this assay. Normal range: <150 mg/dLBorderline High: 150-199 mg/dLHigh: 200-499 mg/dLVery High: >500 mg/dL White blood cell (WBC) count Ordered By: Yudy Mantilla on 12-25-2024 WBC (Bld) [#/Vol] 6.9 10*3/uL 4.4-11.0 [facility] CBC W Auto Differential pane l (Bld)on 12-07-2024 Basophils (Bld) [#/Vol] 0.08 10*3/uL [facility] Basophils/100 WBC (Bld) 0.8 % 0.0 - 2.0 % [facility] Eosinophils (Bld) [#/Vol] 0.17 10*3/uL [facility] Eosinophils/100 WBC (Bld) 1.8 % 0.0 - 6.0 % [facility] Erythrocyte distribution width (RBC) [Ratio] 18.9 % High 11.5 - 14.5 % [facility] Hematocrit (Bld) [Volume fraction] 29.8 % Low 36.0 - 46.0 % [facility] Hemoglobin (Bld) [Mass/Vol] 9.1 g/dL Low 12.0 - 16.0 g/dL [facility] Immature granulocytes (Bld) [#/Vol] 0.04 10*3/uL [facility] Immature granulocytes/100 WBC (Bld) 0.4 % 0.0 - 0.9 % [facility] Comment on above: Immature Granulocyte Count (IG) includes promyelocytes, myelocytes and metamyelocytes but does not include bands. Percent differential counts (%) should be interpreted in the context of the absolute cell counts (cells/UL). Interpretation and review of laboratory results Abnormal [facility] Lymphocytes (Bld) [#/Vol] 1.79 10*3/uL [facility] Lymphocytes/100 WBC (Bld) 19 % 13.0 - 44.0 % [facility] MCH (RBC) [Entitic mass] 23.5 pg Low 26.0 - 34.0 pg [facility] MCHC (RBC) [Mass/Vol] 30.5 g/dL Low 32.0 - 36.0 g/dL [facility] MCV (RBC) [Entitic vol] 77 fL Low 80 - 100 fL [facility] Monocytes (Bld) [#/Vol] 0.86 10*3/uL [facility] Monocytes/100 WBC (Bld) 9.1 % 2.0 - 10.0 % [facility] Neutrophils (Bld) [#/Vol] 6.48 10*3/uL [facility] Comment on above: Percent differential counts (%) should be interpreted in the context of the absolute cell counts (cells/uL). Neutrophils/100 WBC (Bld) 68.9 % 40.0 - 80.0 % [facility] Nucleated RBC/100 WBC (Bld) [Ratio] 0 % [facility] Platelets (Bld) [#/Vol] 193 10*3/uL [facility] RBC (Bld) [#/Vol] 3.87 10*6/uL Low [facility] WBC (Bld) [#/Vol] 9.4 10*3/uL [facility] Basophils (Bld) [#/Vol] 0.08 x10*3/uL Normal 0.00-0.10 [facility] Comment on above: Performed By: #### 5 7021-8 #### NUBIA Dutton ([id number]) [facility] ([facility]) [address] [place] [address] Basophils/100 WBC (Bld) 0.8 % Normal 0.0-2.0 [facility] Comment on above: Performed By: #### 5 7021-8 #### NUBIA Dutton ([id number]) [facility] ([facility]) [address] [place] [address] Eosinophils (Bld) [#/Vol] 0.17 x10*3/uL Normal 0.00-0.70 [facility] Comment on above: Performed By: #### 5 7021-8 #### NUBIA Dutton ([id number]) [facility] ([facility]) [address] [place] [address] Eosinophils/100 WBC (Bld) 1.8 % Normal 0.0-6.0 [facility] Comment on above: Performed By: #### 5 7021-8 #### NUBIA Dutton ([id number]) [facility] ([facility]) [address] [place] [address] Erythrocyte distribution width (RBC) [Ratio] 18.9 % High 11.5-14.5 [facility] Comment on above: Performed By: #### 5 7021-8 #### NUBIA Dutton ([id number]) [facility] ([facility]) [address] [facility] [address] Hematocrit (Bld) [Volume fraction] 29.8 % Low 36.0-46.0 [facility] Comment on above: Performed By: #### 5 7021-8 #### NUBIA Dutton ([id number]) [facility] ([facility]) [address] [place] [address] Hemoglobin (Bld) [Mass/Vol] 9.1 g/dL Low 12.0-16.0 [facility] Comment on above: Performed By: #### 5 7021-8 #### NUBIA Dutton ([id number]) [facility] ([facility]) [address] [facility] [place] [address] Immature granulocytes (Bld) [#/Vol] 0.04 x10*3/uL Normal 0.00-0.70 [facility] Comment on above: Performed By: #### 5 7021-8 #### NUBIA Dutton ([id number]) [facility] ([facility]) [address] [place] [address] Immature granulocytes/100 WBC (Bld) 0.4 % Normal 0.0-0.9 [facility] Comment on above: Result Comment: Priscilla ture Granulocyte Count (IG) includes promyelocytes, myelocytes and metamyelocytes but does not include bands. Percent differential counts (%) should be interpreted in the context of the absolute cell counts (cells/UL). Performed By: #### 5 7021-8 #### NUBIA Dutton ([id number]) [facility] ([facility]) [address] [facility] [place] [address] Lymphocytes (Bld) [#/Vol] 1.79 x10*3/uL Normal 1.20-4.80 [facility] Comment on above: Performed By: #### 5 7021-8 #### NUBIA Dutton ([id number]) [facility] ([facility]) [address] [place] [address] Lymphocytes/100 WBC (Bld) 19.0 % Normal 13.0-44.0 [facility] Comment on above: Performed By: #### 5 7021-8 #### NUBIA Dutton ([id number]) [facility] ([facility]) [address] [place] [address] MCH (RBC) [Entitic mass] 23.5 pg Low 26.0-34.0 [facility] Comment on above: Performed By: #### 5 7021-8 #### NUBIA Dutton ([id number]) [facility] ([facility]) [address] [place] [address] MCHC (RBC) [Mass/Vol] 30.5 g/dL Low 32.0-36.0 [facility] Comment on above: Performed By: #### 5 7021-8 #### NUBIA Dutton ([id number]) [facility] ([facility]) [address] [place] [address] MCV (RBC) [Entitic vol] 77 fL Low 80-100 [facility] Comment on above: Performed By: #### 5 7021-8 #### NUBIA Dutton ([id number]) [facility] ([facility]) [address] [place] [address] Monocytes (Bld) [#/Vol] 0.86 x10*3/uL Normal 0.10-1.00 [facility] Comment on above: Performed By: #### 5 7021-8 #### NUBIA Dutton ([id number]) [facility] ([facility]) [address] [place] [address] Monocytes/100 WBC (Bld) 9.1 % Normal 2.0-10.0 [facility] Comment on above: Performed By: #### 5 7021-8 #### NUBIA Dutton ([id number]) [facility] ([facility]) [address] [place] [address] Neutrophils (Bld) [#/Vol] 6.48 x10*3/uL Normal 1.20-7.70 [facility] Comment on above: Result Comment: Perc ent differential counts (%) should be interpreted in the context of the absolute cell counts (cells/uL). Performed By: #### 5 7021-8 #### NUBIA Dutton ([id number]) [facility] ([facility]) [address] [place] [address] Neutrophils/100 WBC (Bld) 68.9 % Normal 40.0-80.0 [facility] Comment on above: Performed By: #### 5 7021-8 #### NUBIA Dutton ([id number]) [facility] ([facility]) [address] [place] [address] Nucleated RBC/100 WBC (Bld) [Ratio] 0.0 /100 WBCs Normal 0.0-0.0 [facility] Comment on above: Performed By: #### 5 7021-8 #### NUBIA Dutton ([id number]) [facility] ([facility]) [address] [place] [address] Platelets (Bld) [#/Vol] 193 x10*3/uL Normal 150-450 [facility] Comment on above: Performed By: #### 5 7021-8 #### NUBIA Dutton ([id number]) [facility] ([facility]) [address] [place] [address] RBC (Bld) [#/Vol] 3.87 x10*6/uL Low 4.00-5.20 [facility] Comment on above: Performed By: #### 5 7021-8 #### NUBIA Dutton ([id number]) [facility] ([facility]) [address] [place] [address] WBC (Bld) [#/Vol] 9.4 x10*3/uL Normal 4.4-11.3 [facility] Comment on above: Performed By: #### 5 7021-8 #### NUBIA Dutton ([id number]) [facility] ([facility]) [address] [place] [address] Comprehensive metabolic 2000 panelon 12-07-2024 Albumin BCP dye [Mass/Vol] 3.2 g/dL Low 3.4 - 5.0 g/dL [facility] ALP [Catalytic activity/Vol] 51 U/L 33 - 136 U/L [facility] ALT With P-5'-P [Catalytic activity/Vol] 9 U/L 7 - 45 U/L [facility] Comment on above: Patients treated wit h Sulfasalazine may generate falsely decreased results for ALT. Anion gap [Moles/Vol] 12 mmol/L 10 - 2 0 mmol/L [facility] AST With P-5'-P [Catalytic activity/Vol] 15 U/L 9 - 39 U/L [facility] Comment on above: MILD HEMOLYSIS DETEC NEGRO. The result may be falsely elevated due to hemolysis or other interferents. Clinical correlation is recommended. Repeat testing may be considered. Bilirubin [Mass/Vol] 0.2 mg/dL 0.0 - 1 .2 mg/dL [facility] Calcium [Mass/Vol] 8.2 mg/dL Low 8.6 - 10. 3 mg/dL [facility] Chloride [Moles/Vol] 100 mmol/L 98 - 10 7 mmol/L [facility] CO2 [Moles/Vol] 26 mmol/L 21 - 32 mmol/L [facility] Creatinine [Mass/Vol] 0.83 mg/dL 0.50 - 1.05 mg/dL [facility] GFR/1.73 sq M.predicted among non-blacks MDRD (S/P/Bld) [Vol rate/Area] 78 mL/min/{1.73_m2} - PINF [facility] Comment on above: Calculations of marva mated GFR are performed using the 2020 CKD-EPI Study Refit equation without the race variable for the IDMS-Traceable creatinine methods. https://jasn.asnjournals.org/content//ASN.24927 61880 Glucose [Mass/Vol] 102 mg/dL High 74 - 99 mg/dL [facility] Interpretation and review of laboratory results Abnormal [facility] Potassium [Moles/Vol] 4.2 mmol/L 3.5 - 5.3 mmol/L [facility] Comment on above: MILD HEMOLYSIS DETEC NEGRO. The result may be falsely elevated due to hemolysis or other interferents. Clinical correlation is recommended. Repeat testing may be considered. Protein [Mass/Vol] 7.5 g/dL 6.4 - 8.2 g/dL [facility] Sodium [Moles/Vol] 134 mmol/L Low 136 - 145 mmol/L [facility] Urea nitrogen [Mass/Vol] 15 mg/dL 6 - 23 mg/dL [facility] Albumin BCP dye [Mass/Vol] 3.2 g/dL Low 3.4-5.0 [facility] Comment on above: Performed By: #### 2 4323-8 #### NUBIA Dutton ([id number]) [facility] ([facility]) [address] [place] [address] ALP [Catalytic activity/Vol] 51 U/L Normal 33-136 [facility] Comment on above: Performed By: #### 2 4323-8 #### NUBIA Dutton ([id number]) [facility] ([facility]) [address] [place] [address] ALT With P-5'-P [Catalytic activity/Vol] 9 U/L Normal 7-45 [facility] Comment on above: Result Comment: Soraya ents treated with Sulfasalazine may generate falsely decreased results for ALT. Performed By: #### 2 4323-8 #### NUBIA Dutton ([id number]) [facility] ([facility]) [address] [place] [address] Anion gap [Moles/Vol] 12 mmol/L Normal 10-20 [facility] Comment on above: Performed By: #### 2 4323-8 #### NUBIA Dutton ([id number]) [facility] ([facility]) [address] [place] [address] AST With P-5'-P [Catalytic activity/Vol] 15 U/L Normal 9-39 [facility] Comment on above: Result Comment: MILD HEMOLYSIS DETECTED. The result may be falsely elevated due to hemolysis or other interferents. Clinical correlation is recommended. Repeat testing may be considered. Performed By: #### 2 4323-8 #### NUBIA Dutton ([id number]) [facility] ([facility]) [address] [place] [address] Bilirubin [Mass/Vol] 0.2 mg/dL Normal 0.0-1.2 [facility] Comment on above: Performed By: #### 2 4323-8 #### NUBIA Dutton ([id number]) [facility] ([facility]) [address] [place] [address] Calcium [Mass/Vol] 8.2 mg/dL Low 8.6-10.3 [facility] Comment on above: Performed By: #### 2 4323-8 #### NUBIA Dutton ([id number]) [facility] ([facility]) [address] [place] [address] Chloride [Moles/Vol] 100 mmol/L Normal 98-107 [facility] Comment on above: Performed By: #### 2 4323-8 #### NUBIA Dutton ([id number]) [facility] ([facility]) [address] [place] [address] CO2 [Moles/Vol] 26 mmol/L Normal 21-32 [facility] Comment on above: Performed By: #### 2 4323-8 #### NUBIA Dutton ([id number]) [facility] ([facility]) [address] [place] [address] Creatinine [Mass/Vol] 0.83 mg/dL Normal 0.50-1.05 [facility] Comment on above: Performed By: #### 2 4323-8 #### NUBIA Dutton ([id number]) [facility] ([facility]) [address] [facility] [place] [address] Glomerular filtration rate/1.73 sq M.predicted 78 mL/min/1.73m*2 Normal >60 [facility] Comment on above: Result Comment: Calc ulations of estimated GFR are performed using the 2020 CKD-EPI Study Refit equation without the race variable for the IDMS-Traceable creatinine methods. https://jasn.asnjournals.org/content//ASN.02328 36760 Performed By: #### 2 4323-8 #### NUBIA Dutton ([id number]) [facility] ([facility]) [address] [place] [address] Glucose [Mass/Vol] 102 mg/dL High 74-99 [facility] Comment on above: Performed By: #### 2 4323-8 #### NUBIA Dutton ([id number]) [facility] ([facility]) [address] [place] [address] Potassium [Moles/Vol] 4.2 mmol/L Normal 3.5-5.3 [facility] Comment on above: Result Comment: MILD HEMOLYSIS DETECTED. The result may be falsely elevated due to hemolysis or other interferents. Clinical correlation is recommended. Repeat testing may be considered. Performed By: #### 2 4323-8 #### NUBIA Dutton ([id number]) [facility] ([facility]) [address] [place] [address] Protein [Mass/Vol] 7.5 g/dL Normal 6.4-8.2 [facility] Comment on above: Performed By: #### 2 4323-8 #### NUBIA Dutton ([id number]) [facility] ([facility]) [address] [place] [address] Sodium [Moles/Vol] 134 mmol/L Low 136-145 [facility] Comment on above: Performed By: #### 2 4323-8 #### NUBIA Dutton ([id number]) [facility] ([facility]) [address] [place] [address] Urea nitrogen [Mass/Vol] 15 mg/dL Normal 6-23 [facility] Comment on above: Performed By: #### 2 4323-8 #### NUBIA Dutton ([id number]) [facility] ([facility]) [address] [place] [address] ECG 12-LEADon 12-07-2024 ECG 12-LEAD Ventricular Rate 78 Atrial Rate 78 P-R Interval 192 QRS Duration 68 Q-T Interval 374 QTC Calculation(Bazett) 426 P [place] 63 R [place] 19 T [place] 58 QRS Count 13 Q Onset 226 P Onset 130 P Offset 180 T Offset 413 QTC Fredericia 408 Diagnosis Normal sinus rhythm Septal infarct (cited on or before 07-DEC-2024) Abnormal ECG When compared with ECG of 07-DEC-2024 18:07, (unconfirmed) No significant change was found See ED provider note for full interpretation and clinical correlation Confirmed by Lala De Anda ([id number]) on 12/13/2024 7:58:52 PM Normal [facility] ECG 12-LEAD Ventricular Rate 84 Atrial Rate 84 P-R Interval 190 QRS Duration 58 Q-T Interval 360 QTC Calculation(Bazett) 425 P Van Buren 73 R Van Buren 18 T [place] 62 QRS Count 14 Q Onset 227 P Onset 132 P Offset 179 T Offset 407 QTC Fredericia 402 Diagnosis Normal sinus rhythm Low voltage QRS Septal infarct , age undetermined Abnormal ECG No previous ECGs available See ED provider note for full interpretation and clinical correlation Confirmed by Lala De Anda ([id number]) on 12/13/2024 7:56:28 PM Normal [facility] Magnesiumon 12-07-2024 Magnesium [Mass/Vol] 2.01 mg/dL 1.60 - 2.40 mg/dL [facility] Magnesium [Mass/Vol] 2.01 mg/dL Normal 1.60-2.40 [facility] Comment on above: Performed By: #### 1 9123-9 #### NUBIA Dutton ([id number]) [facility] ([facility]) [address] [place] [address] Magnesium [Mass/Vol]on 12-07 Interpretation and review of laboratory results Normal [facility] Natriuretic peptide B [Mass/ Vol]on 12-07-2024 Interpretation and review of laboratory results Normal [facility] Natriuretic peptide B (Bld) [Mass/Vol] 48 pg/mL 0 - 99 pg/mL [facility] <100 pg/mL - Heart failure unlikely 100-299 pg/mL - Intermediate probability of acute heart failure exacerbation. Correlate with clinical context and patient history. >=300 pg/mL - Heart Failure likely. Correlate with clinical context and patient history. BNP testing is performed using different testing methodology at [facility] than at other [facility]. Direct result comparisons should only be made within the same method. [facility] Natriuretic peptide B (Bld) [Mass/Vol] 48 pg/mL Normal 0-99 [facility] Comment on above: Order Comment: <100 pg/mL - Heart failure unlikely 100-299 pg/mL - Intermediate probability of acute heart failure exacerbation. Correlate with clinical context and patient history. >=300 pg/mL - Heart Failure likely. Correlate with clinical context and patient history. BNP testing is performed using different testing methodology at [facility] than at other [facility]. Direct result comparisons should only be made within the same method. Performed By: #### 3 0934-4 #### NUBIA Dutton ([id number]) [facility] ([facility]) [address] [place] [address] No Panel Informationon 12-07 [facility] Radiology Study observation (narrative) [facility] Work Phone: Tropinin I.cardiac panel Hig h sensitivity methodon 12-07-2024 Interpretation and review of laboratory results Normal [facility] Less than 99th percentile of normal range cutoff- Female and children under 18 years old <14 ng/L; Male <21 ng/L: Negative Repeat testing should be performed if clinically indicated. Female and children under 18 years old 14-50 ng/L; Male 21-50 ng/L: Consistent with possible cardiac damage and possible increased clinical risk. Serial measurements may help to assess extent of myocardial damage. >50 ng/L: Consistent with cardiac damage, increased clinical risk and myocardial infarction. Serial measurements may help assess extent of myocardial damage. NOTE: Children less than 1 year old may have higher baseline troponin levels and results should be interpreted in conjunction with the overall clinical context. NOTE: Troponin I testing is performed using a different testing methodology at [facility] than at other [facility]. Direct result comparisons should only be made within the same method. [facility] Interpretation and review of laboratory results Normal [facility] Less than 99th percentile of normal range cutoff- Female and children under 18 years old <14 ng/L; Male <21 ng/L: Negative Repeat testing should be performed if clinically indicated. Female and children under 18 years old 14-50 ng/L; Male 21-50 ng/L: Consistent with possible cardiac damage and possible increased clinical risk. Serial measurements may help to assess extent of myocardial damage. >50 ng/L: Consistent with cardiac damage, increased clinical risk and myocardial infarction. Serial measurements may help assess extent of myocardial damage. NOTE: Children less than 1 year old may have higher baseline troponin levels and results should be interpreted in conjunction with the overall clinical context. NOTE: Troponin I testing is performed using a different testing methodology at [facility] than at other [facility]. Direct result comparisons should only be made within the same method. [facility] Troponin I, High Sensitivity , Initialon 12-07-2024 Tropinin I.cardiac panel High sensitivity method 3 ng/L 0 - 13 ng/L [facility] Troponin I.cardiac panelon 0 12-07-2024 Tropinin I.cardiac panel High sensitivity method 3 ng/L Normal 0-13 [facility] Comment on above: Order Comment: Less than 99th percentile of normal range cutoff- Female and children under 18 years old <14 ng/L; Male <21 ng/L: Negative Repeat testing should be performed if clinically indicated. Female and children under 18 years old 14-50 ng/L; Male 21-50 ng/L: Consistent with possible cardiac damage and possible increased clinical risk. Serial measurements may help to assess extent of myocardial damage. >50 ng/L: Consistent with cardiac damage, increased clinical risk and myocardial infarction. Serial measurements may help assess extent of myocardial damage. NOTE: Children less than 1 year old may have higher baseline troponin levels and results should be interpreted in conjunction with the overall clinical context. NOTE: Troponin I testing is performed using a different testing methodology at [facility] than at other [facility]. Direct result comparisons should only be made within the same method. Performed By: #### 8 9577-1 #### NUBIA Dutton ([id number]) [facility] ([facility]) [address] [place] [address] Tropinin I.cardiac panel High sensitivity method 3 ng/L Normal 0-13 [facility] Comment on above: Order Comment: Less than 99th percentile of normal range cutoff- Female and children under 18 years old <14 ng/L; Male <21 ng/L: Negative Repeat testing should be performed if clinically indicated. Female and children under 18 years old 14-50 ng/L; Male 21-50 ng/L: Consistent with possible cardiac damage and possible increased clinical risk. Serial measurements may help to assess extent of myocardial damage. >50 ng/L: Consistent with cardiac damage, increased clinical risk and myocardial infarction. Serial measurements may help assess extent of myocardial damage. NOTE: Children less than 1 year old may have higher baseline troponin levels and results should be interpreted in conjunction with the overall clinical context. NOTE: Troponin I testing is performed using a different testing methodology at [facility] than at other [facility]. Direct result comparisons should only be made within the same method. Performed By: #### 8 9577-1 #### NUBIA Dutton ([id number]) [facility] ([facility]) [address] [place] [address] Troponin, High Sensitivity, 1 Houron 12-07-2024 Tropinin I.cardiac panel High sensitivity method 3 ng/L 0 - 13 ng/L [facility] XR CHEST 2 VIEWSon XR CHEST 2 VIEWS STUDY: Chest Radiographs; 12/07/2024 6:28 PM INDICATION: Chest pain. COMPARISON: None available. ACCESSION NUMBER(S): [id number] ORDERING CLINICIAN: FAITH BEGUM TECHNIQUE: Frontal and lateral chest. FINDINGS: CARDIOMEDIASTINAL SILHOUETTE: Cardiomediastinal silhouette is normal in size and configuration. There is mild elevation of the right hemidiaphragm. LUNGS: Lungs are clear. There is no pneumothorax or pleural effusion. ABDOMEN: No remarkable upper abdominal findings. BONES: No acute osseous changes. There are anterior bridging osteophytes of the thoracic spine. IMPRESSION: No acute cardiopulmonary disease. Signed by Marc Becerra DO [facility] XR Chest 2 Viewson No acute cardiopulmonary disease. Signed by Marc Becerra DO TELERADIOLOGY STUDY: Chest Radiographs; 12/07/2024 6:28 PM INDICATION: Chest pain. COMPARISON: None available. ACCESSION NUMBER(S): [id number] ORDERING CLINICIAN: FAITH BEGUM TECHNIQUE: Frontal and lateral chest. FINDINGS: CARDIOMEDIASTINAL SILHOUETTE: Cardiomediastinal silhouette is normal in size and configuration. There is mild elevation of the right hemidiaphragm. LUNGS: Lungs are clear. There is no pneumothorax or pleural effusion. ABDOMEN: No remarkable upper abdominal findings. BONES: No acute osseous changes. There are anterior bridging osteophytes of the thoracic spine. TELERADIOLOGY Marc Becerra DO - 12/07/2024 STUDY: Chest Radiographs; 12/07/2024 6:28 PM INDICATION: Chest pain. COMPARISON: None available. ACCESSION NUMBER(S): [id number] ORDERING CLINICIAN: FAITH BEGUM TECHNIQUE: Frontal and lateral chest. FINDINGS: CARDIOMEDIASTINAL SILHOUETTE: Cardiomediastinal silhouette is normal in size and configuration. There is mild elevation of the right hemidiaphragm. LUNGS: Lungs are clear. There is no pneumothorax or pleural effusion. ABDOMEN: No remarkable upper abdominal findings. BONES: No acute osseous changes. There are anterior bridging osteophytes of the thoracic spine. IMPRESSION: No acute cardiopulmonary disease. Signed by Marc Becerra DO [facility] Work Phone: XR Chest 2 ViewsOrdered By: Marc Becerra on 12-07-2024 [facility] Work Phone: XR SHOULDER RIGHT 2+ VIEWSon 12-07-2024 XR SHOULDER RIGHT 2+ VIEWS STUDY: Shoulder Radiographs; 12/07/2024 6:28 PM INDICATION: Right shoulder pain. COMPARISON: None available. ACCESSION NUMBER(S): [id number] ORDERING CLINICIAN: FAITH BEGUM TECHNIQUE: Three views of the right shoulder. FINDINGS: There is no displaced fracture. 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 There is mild calcific tendinopathy supraspinatus insertion. There is a small subchondral cystic formation in the humeral head. No soft tissue abnormality is seen. IMPRESSION: No acute fracture or malalignment. Mild degenerative changes. Signed by Macr Becerra DO [facility] XR Shoulder - right 2 Viewso n 12-07-2024 No acute fracture or malalignment. Mild degenerative changes. Signed by Marc Becerra DO TELERADIOLOGY STUDY: Shoulder Radiographs; 12/07/2024 6:28 PM INDICATION: Right shoulder pain. COMPARISON: None available. ACCESSION NUMBER(S): [id number] ORDERING CLINICIAN: FAITH SCHOEFFLER TECHNIQUE: Three views of the right shoulder. FINDINGS: There is no displaced fracture. 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 There is mild calcific tendinopathy supraspinatus insertion. There is a small subchondral cystic formation in the humeral head. No soft tissue abnormality is seen. TELERADIOLOGY Marc Becerra DO - 12/07/2024 STUDY: Shoulder Radiographs; 12/07/2024 6:28 PM INDICATION: Right shoulder pain. COMPARISON: None available. ACCESSION NUMBER(S): [id number] ORDERING CLINICIAN: FAITH BEGUM TECHNIQUE: Three views of the right shoulder. FINDINGS: There is no displaced fracture. 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 There is mild calcific tendinopathy supraspinatus insertion. There is a small subchondral cystic formation in the humeral head. No soft tissue abnormality is seen. IMPRESSION: No acute fracture or malalignment. Mild degenerative changes. Signed by Marc Becerra DO [facility] Work Phone: [facility] Work Phone: .Auto Diffon 10-24-2024 Basophil, Absolute 0.1 10 3/mcL Normal 0.0-0.[address] [facility] Comment on above: Performed By: #### A BARTOLO, GFR, MDW, CBC, CMP, ADIFF #### [address] [address] Basophils/100 WBC (Bld) 1.0 % Normal 0.0-2.5 [facility] Comment on above: Performed By: #### A BARTOLO, GFR, MDW, CBC, CMP, ADIFF #### [address] [address] Eosinophil, Absolute 0.4 10 3/mcL Normal 0.0-0.7 [facility] Comment on above: Performed By: #### A BARTOLO, GFR, MDW, CBC, CMP, ADIFF #### [address] [address] Eosinophils/100 WBC (Bld) 3.8 % Normal 0.0-6.0 [facility] Comment on above: Performed By: #### A BARTOLO, GFR, MDW, CBC, CMP, ADIFF #### [address] [address] Lymphocyte, Absolute 1.7 10 3/mcL Normal 0.9-4.3 [facility] Comment on above: Performed By: #### A BARTOLO, GFR, MDW, CBC, CMP, ADIFF #### [address] [address] Lymphocytes/100 WBC (Bld) 17.7 % Low 20.0-40.0 [facility] Comment on above: Performed By: #### A BARTOLO, GFR, MDW, CBC, CMP, ADIFF #### [address] [address] Monocyte, Absolute 0.7 10 3/mcL Normal 0.1-1.[address] [facility] Comment on above: Performed By: #### A BARTOLO, GFR, MDW, CBC, CMP, ADIFF #### [address] [address] Monocytes/100 WBC (Bld) 6.7 % Normal 2.0-13.0 [facility] Comment on above: Performed By: #### A BARTOLO, GFR, MDW, CBC, CMP, ADIFF #### [address] [address] Neutrophils/100 WBC (Bld) 70.8 % Normal 50.0-75.0 [facility] Comment on above: Performed By: #### A BARTOLO, GFR, MDW, CBC, CMP, ADIFF #### [address] [address] .GFRon 10-24-2024 Estimated Glomerular Filtration Rate 82 ml/min/1.73sqm Normal [facility] Comment on above: Result Comment: Stages of Chronic Kidney Disease (CKD) Stage Description eGFR(ml/min/1.73 sq.m.) CKD 1 Normal kidney function or >=90 normal kindney function with possible kidney damage (ex. Proteinuria) CKD 2 Kidney damage with mild loss 60-89 of kidney function CKD 3a Mild to moderate loss of kidney 45-59 function CKD 3b Moderate to severe loss of 30-44 of kindey function CKD 4 Severe loss of kidney function 15-29 CKD 5 Kidney failure <15 Note: (go live 2024) the eGFR calculation was updated to the 2020 CKD-EPI creatinine equation without a race factor to calculate the eGFR results. Performed By: #### A BARTOLO, GFR, MDW, CBC, CMP, ADIFF #### [place] [address] .MDWon 10-24-2024 Monocyte Distribution Width 18.42 Normal 0.00-20.00 [facility] Comment on above: Result Comment: For ED adult patients suspected of sepsis, MDW<=20.0 does not rule out sepsis or risk of sepsis Performed By: #### A BARTOLO, GFR, MDW, CBC, CMP, ADIFF #### [place] [address] .NEUABSon 10-24-2024 Neutrophil, Absolute 6.9 10 3/mcL Normal 2.3-8.1 [facility] Comment on above: Performed By: #### A BARTOLO, GFR, MDW, CBC, CMP, ADIFF #### [place] [address] CBCon 10-24-2024 Erythrocyte distribution width (RBC) [Ratio] 19.4 % High 11.5-15.5 [facility] Comment on above: Performed By: #### A BARTOLO, GFR, MDW, CBC, CMP, ADIFF #### [place] [address] Hematocrit (Bld) [Volume fraction] 30.3 % Low 34.0-46.0 [facility] Comment on above: Performed By: #### A BARTOLO, GFR, MDW, CBC, CMP, ADIFF #### [place] [address] Hgb 9.7 G/dL Low 12.0-16.0 [facility] Comment on above: Performed By: #### A BARTOLO, GFR, MDW, CBC, CMP, ADIFF #### [place] [address] MCH (RBC) [Entitic mass] 22.6 pg Low 27.0-33.0 [facility] Comment on above: Performed By: #### A BARTOLO, GFR, MDW, CBC, CMP, ADIFF #### [place] [address] MCHC 32.1 G/dL Normal 32.0-36.0 [facility] Comment on above: Performed By: #### A BARTOLO, GFR, MDW, CBC, CMP, ADIFF #### [place] [address] MCV (RBC) [Entitic vol] 70.6 fL Low 80.0-99.0 [facility] Comment on above: Performed By: #### A BARTOLO, GFR, MDW, CBC, CMP, ADIFF #### [place] [address] Platelet 515 10 3/mcL High 150-450 [facility] Comment on above: Performed By: #### A BARTOLO, GFR, MDW, CBC, CMP, ADIFF #### [place] [address] Platelet mean volume (Bld) [Entitic vol] 5.9 fL Low 6.6-10.5 [facility] Comment on above: Performed By: #### A BARTOLO, GFR, MDW, CBC, CMP, ADIFF #### [place] [id number] RBC 4.29 10 6/mcL Normal 4.10-5.30 [facility] Comment on above: Performed By: #### A BARTOLO, GFR, MDW, CBC, CMP, ADIFF #### [place] [id number] WBC 9.7 10 3/mcL Normal 4.5-10.8 [facility] Comment on above: Performed By: #### A BARTOLO, GFR, MDW, CBC, CMP, ADIFF #### [place] [address] CMPon 10-24-2024 Albumin Level 2.6 G/dL Low 3.2-4.8 [facility] Comment on above: Performed By: #### A BARTOLO, GFR, MDW, CBC, CMP, ADIFF #### [place] [id number] Albumin/Globulin [Mass ratio] 0.4 {ratio} Low 0.9-1.6 [facility] Comment on above: Performed By: #### A BARTOLO, GFR, MDW, CBC, CMP, ADIFF #### [address] [address] ALP [Catalytic activity/Vol] 120 U/L Normal 38-126 [facility] Comment on above: Performed By: #### A BARTOLO, GFR, MDW, CBC, CMP, ADIFF #### [place] [id number] ALT [Catalytic activity/Vol] 14 U/L Normal 10-49 [facility] Comment on above: Performed By: #### A BARTOLO, GFR, MDW, CBC, CMP, ADIFF #### [place] [id number] AST [Catalytic activity/Vol] 16 U/L Normal 8-34 [facility] Comment on above: Performed By: #### A BARTOLO, GFR, MDW, CBC, CMP, ADIFF #### [place] [id number] Bili Total 0.40 mg/dL Normal 0.20-1.20 [facility] Comment on above: Result Comment: Use of this assay is not recommended for patients undergoing treatment with eltrombopag due to the potential for falsely elevated results. Performed By: #### A BARTOLO, GFR, MDW, CBC, CMP, ADIFF #### [place] [id number] BUN/Creatinine Ratio 12.7 ratio Normal 10.0-22.[address] [facility] Comment on above: Performed By: #### A BARTOLO, GFR, MDW, CBC, CMP, ADIFF #### [place] [id number] Calcium [Mass/Vol] 9.5 mg/dL Normal 8.7-10.4 [facility] Comment on above: Performed By: #### A BARTOLO, GFR, MDW, CBC, CMP, ADIFF #### [address] [address] Chloride [Moles/Vol] 102 mmol/L Normal 98-[address] [facility] Comment on above: Performed By: #### A BARTOLO, GFR, MDW, CBC, CMP, ADIFF #### [address] [address] CO2 [Moles/Vol] 26 mmol/L Normal 22-32 [facility] Comment on above: Performed By: #### A BARTOLO, GFR, MDW, CBC, CMP, ADIFF #### [address] [address] Creatinine [Mass/Vol] 0.79 mg/dL Normal 0.50-1.20 [facility] Comment on above: Result Comment: Test ing performed on goBalto analyzer using enzymatic creatinine methodology. Performed By: #### A BARTOLO, GFR, MDW, CBC, CMP, ADIFF #### [address] [address] Electrolyte Balance 5.0 mEq/L Normal 4.0-15.0 [facility] Comment on above: Performed By: #### A BARTOLO, GFR, MDW, CBC, CMP, ADIFF #### [address] [address] Globulin 6.6 G/dL High 1.5-3.8 [facility] Comment on above: Performed By: #### A BARTOLO, GFR, MDW, CBC, CMP, ADIFF #### [address] [address] Glucose [Mass/Vol] 143 mg/dL High 82-115 [facility] Comment on above: Performed By: #### A BARTOLO, GFR, MDW, CBC, CMP, ADIFF #### [address] [address] Potassium [Moles/Vol] 4.1 mmol/L Normal 3.5-5.0 [facility] Comment on above: Performed By: #### A BARTOLO, GFR, MDW, CBC, CMP, ADIFF #### [place] [address] Sodium [Moles/Vol] 133 mmol/L Low 136-145 [facility] Comment on above: Performed By: #### A BARTOLO, GFR, MDW, CBC, CMP, ADIFF #### [place] [address] Total Protein 9.2 G/dL High 5.7-8.2 [facility] Comment on above: Performed By: #### A BARTOLO, GFR, MDW, CBC, CMP, ADIFF #### [place] [address] Urea nitrogen [Mass/Vol] 10.0 mg/dL Normal 8.0-22.0 [facility] Comment on above: Performed By: #### A BARTOLO, GFR, MDW, CBC, CMP, ADIFF #### [place] [address] CVFLURVon 10-24-2024 FLU A PCR Negative Normal Negative [facility] Comment on above: Result Comment: [place] s [id number] Performed By: #### D RUGS #### [place] [address] FLU B PCR Negative Normal Negative [facility] Comment on above: Result Comment: [place] s [id number] Performed By: #### D RUGS #### [place] [address] RSV PCR Negative Normal Negative [facility] Comment on above: Result Comment: Note s [id number] Performed By: #### D RUGS #### [place] [address] SARS-CoV-2 (COVID-19) RNA LEMUEL+probe Ql (Unsp spec) Negative Normal Negative [facility] Comment on above: Result Comment: Note s [id number] This test has been authorized by FDA under an EUA for use by authorized laboratories and has not been FDA cleared or approved. Results from the Xpert Xpress SARS-CoV-2/Flu/RSV or Xpert Xpress SARS-CoV-2 only test should be correlated with the clinical history, epidemiological data, and other data available to the clinician evaluating the patient. Performance of the Xpert Xpress SARS-CoV-2/Flu/RSV or Xpert Xpress SARS-CoV-2 only test has only been established in nasopharyngeal swab specimens. Erroneous test results might occur from improper specimen collection; failure to follow the recommended sample collection, handling, and storage procedures; technical error; or sample mix-up.False negative results may occur if virus is present at levels below the analytical limit of detection. Viral nucleic acid may persist in vivo, independent of virus viability. Detection of analyte target(s) does not imply that the corresponding virus(es) are infectious or are the causative agents for clinical symptoms.Recent patient exposure to FluMist or other live attenuated influenza vaccines may cause inaccurate positive results. Performed By: #### D RUGS #### [place] [address] DRUGSon 10-24-2024 Acetaminophen [Mass/Vol] ug/mL Low 10.0-20.0 [facility] Comment on above: Performed By: #### D RUGS #### [place] [address] Ethanol Level <10.0 [facility] Comment on above: Performed By: #### D RUGS #### [place] [address] Salicylate Lvl (ds) <3.0 Low 10.0-25.0 [facility] Comment on above: Performed By: #### D RUGS #### [place] [address] Serum Drugs screened: See Below Normal [facility] Comment on above: Result Comment: This drug screen is a presumptive screening only. No confirmation will be performed unless requested. Drugs included in the serum drug screen are: Threshold Ethanol 10.0 mg/dL Salicylate 2.0 mg/dl Acetaminophen 2.0 mcg/mL Testing has been performed FOR MEDICAL PURPOSES ONLY. Performed By: #### D RUGS #### [place] [address] LABORATORYOrdered By: Remi Galeas on 10-24-2024 Acetaminophen [Mass/Vol] mcg/mL Low 10.0 - 20.0 mcg/mL ADM SS Ethanol [Mass/Vol] mg/dL Invalid Interpretation Code AH ADM SS Salicylates [Mass/Vol] mg/dL Low 10.0 - 25.0 mg/dL AH ADM SS Serum Drugs screened: See Below 5 (10/24/24 9:48 PM) Normal AH Chemistry S Comment on above: Interpretive Data: T his drug screen is a presumptive screening only. No confirmation will be performed unless requested. Drugs included in the serum drug screen are: Threshold Ethanol 10.0 mg/dL Salicylate 2.0 mg/dl Acetaminophen 2.0 mcg/mL Testing has been performed FOR MEDICAL PURPOSES ONLY. LABORATORYOrdered By: Erin Morillo on 10-24-2024 FLUAV RNA LEMUEL+probe Ql (Resp) Negative 9 (10/24/24 9:48 PM) Normal Negative AH Auto Viro/Sero SS Comment on above: [place]: [place] [id number] FLUBV RNA LEMUEL+probe Ql (Resp) Negative 10 (10/24/24 9:48 PM) Normal Negative AH Auto Viro/Sero SS Comment on above: Result Comment: [place] [id number] RSV PCR Negative 11 (10/24/24 9:48 PM) Normal Negative AH Auto Viro/Sero SS Comment on above: Result Comment: [place] [id number] SARS-CoV-2 (COVID-19) RNA LEMUEL+probe Ql (Resp) Negative 7, 8 (10/24/24 9:48 PM) Normal Negative AH Auto Viro/Sero SS Comment on above: Result Comment: Note s [id number] Interpretive Data: T his test has been authorized by FDA under an EUA for use by authorized laboratories and has not been FDA cleared or approved. Results from the Xpert Xpress SARS-CoV-2/Flu/RSV or Xpert Xpress SARS-CoV-2 only test should be correlated with the clinical history, epidemiological data, and other data available to the clinician evaluating the patient. Performance of the Xpert Xpress SARS-CoV-2/Flu/RSV or Xpert Xpress SARS-CoV-2 only test has only been established in nasopharyngeal swab specimens. Erroneous test results might occur from improper specimen collection; failure to follow the recommended sample collection, handling, and storage procedures; technical error; or sample mix-up.False negative results may occur if virus is present at levels below the analytical limit of detection. Viral nucleic acid may persist in vivo, independent of virus viability. Detection of analyte target(s) does not imply that the corresponding virus(es) are infectious or are the causative agents for clinical symptoms.Recent patient exposure to FluMist or other live attenuated influenza vaccines may cause inaccurate positive results. LABORATORYOrdered By: SYSTEM SYSTEM on 10-24-2024 Albumin BCP dye [Mass/Vol] 2.6 G/dL Low 3.2 - 4.8 G/dL ADM SS Albumin/Globulin [Mass ratio] 0.4 {ratio} Low 0.9 - 1.6 ratio AH ADM SS ALP [Catalytic activity/Vol] 120 U/L Normal 38 - 126 U/L ADM SS ALT No additional P-5'-P [Catalytic activity/Vol] 14 U/L Normal 10 - 49 U/L ADM SS AST [Catalytic activity/Vol] 16 U/L Normal 8 - 34 U/L ADM SS Basophils (Bld) [#/Vol] 0.1 103/mcL Normal 0.0 - 0.3 10^3/mcL Workflow SS Basophils/100 WBC (Bld) 1.0 % Normal 0.0 - 2.5 % Workflow SS Bilirubin [Mass/Vol] 0.40 mg/dL Normal 0.20 - 1.20 mg/dL ADM SS Comment on above: Interpretive Data: U se of this assay is not recommended for patients undergoing treatment with eltrombopag due to the potential for falsely elevated results. Calcium [Mass/Vol] 9.5 mg/dL Normal 8.7 - 10. 4 mg/dL ADM SS Chloride [Moles/Vol] 102 mmol/L Normal 98 - 11 0 mEq/L ADM SS CO2 [Moles/Vol] 26 mmol/L Normal 22 - 32 mEq/L ADM SS Creatinine [Mass/Vol] 0.79 mg/dL Normal 0.50 - 1.20 mg/dL ADM SS Comment on above: Interpretive Data: T esting performed on goBalto analyzer using enzymatic creatinine methodology. Electrolyte Balance 5.0 mEq/L Normal 4.0 - 15 .0 mEq/L ADM SS Eosinophils (Bld) [#/Vol] 0.4 103/mcL Normal 0.0 - 0.7 10^3/mcL Workflow SS Eosinophils/100 WBC (Bld) 3.8 % Normal 0.0 - 6.0 % Workflow SS Erythrocyte distribution width (RBC) [Ratio] 19.4 % High 11.5 - 15.5 % Workflow SS Estimated Glomerular Filtration Rate 82 ml/min/1.73sqm Invalid Interpretation Code ADM Comment on above: Interpretive Data: Stages of Chronic Kidney Disease (CKD) Stage Description eGFR(ml/min/1.73 sq.m.) CKD 1 Normal kidney function or >=90 normal kindney function with possible kidney damage (ex. Proteinuria) CKD 2 Kidney damage with mild loss 60-89 of kidney function CKD 3a Mild to moderate loss of kidney 45-59 function CKD 3b Moderate to severe loss of 30-44 of kindey function CKD 4 Severe loss of kidney function 15-29 CKD 5 Kidney failure <15 Note: (go live 2024) the eGFR calculation was updated to the 2020 CKD-EPI creatinine equation without a race factor to calculate the eGFR results. Globulin 6.6 G/dL High 1.5 - 3.8 G/dL ADM SS Glucose [Mass/Vol] 143 mg/dL High 82 - 115 mg/dL ADM SS Hematocrit (Bld) [Volume fraction] 30.3 % Low 34.0 - 46.0 % Workflow SS Hemoglobin (Bld) [Mass/Vol] 9.7 G/dL Low 12.0 - 16.0 G/dL Workflow SS Lymphocytes (Bld) [#/Vol] 1.7 103/mcL Normal 0.9 - 4.3 10^3/mcL AH Workflow SS Lymphocytes/100 WBC (Bld) 17.7 % Low 20.0 - 40.0 % AH Workflow SS MCH (RBC) [Entitic mass] 22.6 pg Low 27.0 - 33.0 pg AH Workflow SS MCHC 32.1 G/dL Normal 32.0 - 36.0 G/dL Workflow SS MCV (RBC) [Entitic vol] 70.6 fL Low 80.0 - 99.0 fL Workflow SS Monocyte distribution width Auto (Bld) [Entitic vol] 18.42 1 Normal 0.00 - 20.00 Workflow SS Comment on above: Result Comment: For ED adult patients suspected of sepsis, MDW<=20.0 does not rule out sepsis or risk of sepsis Monocytes (Bld) [#/Vol] 0.7 103/mcL Normal 0.1 - 1.4 10^3/mcL AH Workflow SS Monocytes/100 WBC (Bld) 6.7 % Normal 2.0 - 13.0 % AH Workflow SS Neutrophils (Bld) [#/Vol] 6.9 103/mcL Normal 2.3 - 8.1 10^3/mcL AH Workflow SS Neutrophils/100 WBC (Bld) 70.8 % Normal 50.0 - 75.0 % AH Workflow SS Platelet mean volume (Bld) [Entitic vol] 5.9 fL Low 6.6 - 10.5 fL AH Workflow SS Platelets (Bld) [#/Vol] 515 103/mcL High 150 - 450 10^3/mcL AH Workflow SS Potassium [Moles/Vol] 4.1 mmol/L Normal 3.5 - 5.0 mEq/L AH ADM SS Protein [Mass/Vol] 9.2 G/dL High 5.7 - 8.2 G/dL AH ADM SS RBC (Bld) [#/Vol] 4.29 106/mcL Normal 4.10 - 5.3 0 10^6/mcL AH Workflow SS Sodium [Moles/Vol] 133 mmol/L Low 136 - 145 mEq/L AH ADM SS Urea nitrogen [Mass/Vol] 10.0 mg/dL Normal 8.0 - 22.0 mg/dL AH ADM SS Urea nitrogen/Creatinine [Mass ratio] 12.7 ratio Normal 10.0 - 22.0 ratio AH ADM SS WBC (Bld) [#/Vol] 9.7 103/mcL Normal 4.5 - 10.8 10^3/mcL AH Workflow SS LABORATORYOrdered By: Rosa Bee on 10-24-2024 Appearance (U) Clear (10/24/24 7:10 PM) Normal Clear AH Auto Urine SS Bacteria LM.HPF (Urine sed) [#/Area] 3 /[HPF] Invalid Interpretation Code Negative AH Auto Urine SS Bilirubin Ql (U) Negative (10/24/24 7:10 PM) Normal Neg-Trace AH Auto Urine SS Color (U) Yellow (10/24/24 7:10 PM) Normal AH Auto Urine SS Glucose Test strip (U) [Mass/Vol] Negative Normal Negative AH Auto Urine SS Hemoglobin Auto test strip (U) [Mass/Vol] Moderate *ABN* (10/24/24 7:10 PM) Invalid Interpretation Code Neg-Trace AH Auto Urine SS Ketones Ql (U) Negative Normal Neg-Trace AH Auto Ur ine SS UA Fine Granular Casts Rare /LPF Normal AH Auto Urine SS UA Hyal Cast 0-2 /LPF Invalid Interpretation Code AH Auto Urine SS UA Leuk Est Small *ABN* (10/24/24 7:10 PM) Invalid Interpretation Code Negative AH Auto Urine SS UA Mucous 4+ /HPF Normal Auto Urine SS UA Nitrite Negative (10/24/24 7:10 PM) Normal Negative Auto Urine SS UA pH 5.5 (10/24/24 7:10 PM) Normal 5.0 - 8.0 AH Auto Urine SS UA Protein 30 mg/dL Normal Negative AH Auto Urine SS UA RBC 3-5 /HPF Invalid Interpretation Code 0-2 AH Auto Urine SS UA Spec Grav 1.015 (10/24/24 7:10 PM) Normal 1.006-1.029 Auto Urine SS UA Specimen Type Clean Catch (10/24/24 7:10 PM) Normal Auto Urine SS UA Squam Epithelial 3-5 /HPF Normal 0-20 Au to Urine SS UA Urobilinogen 0.2 E.U./dL Normal 0.2-1.0 Auto Urine SS WBC LM.HPF (Urine sed) [#/Area] 3-5 /HPF Normal 0-5 Auto Urine SS UAon 10-24-2024 Color (U) Yellow Normal [facility] Comment on above: Performed By: #### U AMIC, UA #### [address] [address] Glucose (U) [Mass/Vol] Negative Normal Negative [facility] Comment on above: Performed By: #### U AMIC, UA #### [address] [address] Ketones Ql (U) Negative Normal Neg-Trace [facility] Comment on above: Performed By: #### U AMIC, UA #### [address] [address] UA Appear Clear Normal Clear [facility] Comment on above: Performed By: #### U AMIC, UA #### [address] [address] UA Blood Moderate Abnormal Neg-Trace [facility] Comment on above: Performed By: #### U AMIC, UA #### [place] [address] UA Leuk Est Small Abnormal Negative [facility] Comment on above: Performed By: #### U AMIC, UA #### [place] [address] UA Nitrite Negative Normal Negative [facility] Comment on above: Performed By: #### U AMIC, UA #### [place] [address] UA pH 5.5 Normal 5.0 - 8.0 [facility] Comment on above: Performed By: #### U AMIC, UA #### [place] [address] UA Protein 30 mg/dL Normal Negative [facility] Comment on above: Performed By: #### U AMIC, UA #### [place] [address] UA Spec Grav 1.015 Normal 1.006-1.029 [facility] Comment on above: Performed By: #### U AMIC, UA #### [place] [address] UA Specimen Type Clean Catch Normal [facility] Comment on above: Performed By: #### U AMIC, UA #### [place] [address] UA Urobilinogen 0.2 E.U./dL Normal 0.2-1.0 [facility] Comment on above: Performed By: #### U AMIC, UA #### [place] [address] Urobilinogen (U) [Mass/Vol] Negative Normal Neg-Trace [facility] Comment on above: Performed By: #### U AMIC, UA #### [place] [address] UAMICon 10-24-2024 UA Bacteria 3+ /hpf Abnormal Negative [facility] Comment on above: Performed By: #### U AMIC, UA #### [place] [address] UA Fine Granular Casts Rare Normal [facility] Comment on above: Performed By: #### U AMIC, UA #### [facility] [address] [place] [address] UA Hyal Cast 0-2 Abnormal [facility] Comment on above: Performed By: #### U AMIC, UA #### [facility] [address] [place] [address] UA Mucous 4+ /hpf Normal [facility] Comment on above: Performed By: #### U AMIC, UA #### [facility] [address] [place] [address] UA RBC 3-5 Abnormal 0-2 [facility] Comment on above: Performed By: #### U AMIC, UA #### [facility] [address] [place], [place] [id number] UA Squam Epithelial 3-5 Normal 0-20 [facility] Comment on above: Performed By: #### U AMIC, UA #### [facility] [address] [place], [place] [id number] UA WBC 3-5 Normal 0-5 [facility] Comment on above: Performed By: #### U AMIC, UA #### [facility] [address] [place] [address] XR CHEST 1 VIEWon 10-24-2024 XR CHEST 1 VIEW ORIGINAL EXAMINATION: ONE XRAY VIEW OF THE CHEST 10/24/2024 8:53 pm COMPARISON: Radiograph of the chest November 05, 2021. HISTORY: ORDERING SYSTEM PROVIDED HISTORY: Reason for Exam: medical clearance FINDINGS: Suboptimal exam due to patient rotation. Cardiomediastinal silhouette is probably unchanged in size. Costophrenic angles are sharp. No radiographic pneumothorax. No definite focal consolidation. Osseous structures grossly unchanged. IMPRESSION: Suboptimal exam. No definite focal consolidation. Interpreted by: Rigoberto Page Preliminary Report By: Rigoberto Page Electronically signed By Rigoberto Page Dictated Date: 10/24/2024 8:55:10 PM Prelim Date: 10/24/2024 8:55:38 PM Sign Date: 10/24/2024 8:55:38 PM Ordering Provider: OXANA GRAHAM [facility] [place] 12-12-2023 THIEN Telephone ([facility]) CARLINE PASTRANA ([id number]) 1960 F Date Time Provider Department 12/12/23 JENNYFER LOCK During your visit today, we recorded the following information about you: Qi Tsang MA 12/12/2023 3:00 PM Signed Tried to contact patient regarding no show for appointment today. Her phone is not accepting calls at this time. Qi Tsang MA Allergies As of Date: 12/12/2023 Noted Allergy Reaction MORPHINE 01/07/2014 1 - Mental Status Change Date Reviewed: 04/12/2016 Reviewed by: Nahomy Segal LPN - Fully Assessed Reason for Visit: Appointment [186] Cmt: No Show #2 Prescriptions as of 12/12/2023 - buPROPion HCl, smoking deter, 150 mg Tb12 take 1 tablet by mouth once daily - loratadine (CLARITIN) 10 mg tablet Take 1 tablet by mouth once daily as needed for Cold/Allergy Symptoms. - Omeprazole 20 mg TbEC take 1 tablet by mouth once daily 1/2 HR BEFORE BREAKFAST - tiotropium bromide (SPIRIVA RESPIMAT) 2.5 mcg/actuation mist Inhale 2 Puffs as instructed once daily. Inhale two puffs once daily. - fluticasone-vilantero l (BREO ELLIPTA) 200-25 mcg/dose inhaler Inhale 1 Inhalation as instructed once daily. Inhale one puff once daily. DO NOT CLICK OPEN UNTIL READY FOR DOSE - hydroCHLOROthiazide (HYDRODIURIL, ESIDRIX) 25 mg tablet TAKE 1 TABLET BY MOUTH ONCE DAILY. - pravastatin (PRAVACHOL) 40 mg tablet TAKE 1 TABLET BY MOUTH DAILY AT BEDTIME. - promethazine (PHENERGAN) 25 mg tablet Take 25 mg by mouth every 6 hours as needed. - meclizine (ANTIVERT) 25 mg tab Take 1 tablet by mouth three times daily as needed (vertigo). - meloxicam (MOBIC) 15 mg tablet TAKE 1 TABLET BY MOUTH ONCE DAILY. TAKE WITH FOOD. - docusate sodium (COLACE) 100 mg capsule Take 1 capsule by mouth twice daily. - Cholecalciferol, Vitamin D3, 2,000 unit cap Take 1 tablet by mouth once daily. - risperiDONE (RISPERDAL) 2 mg tablet Take 2 mg by mouth twice daily. - benztropine (COGENTIN) 0.5 mg tablet Take 0.5 mg by mouth twice daily. - hydrOXYzine pamoate (VISTARIL) 25 mg capsule Take 25 mg by mouth three times daily as needed. - COMPOUNDED PRESCRIPTION KNEE HIGH COMPRESSION STOCKINGS 18 TO 20 COMPRESSION NEGRO HOSE DX 457.1 - CPAP Pt is due for new supplies. Mask (per patient preference) and new filters. Dx. JOHNATHAN 327.23 - CPAP CHIN STRAP, USED WITH CPAP DEVICE - CPAP Initiate CPAP @ 13 cm of water with humidification. Mask (per patient preference) optional chin strap (if indicated) , filters, tubing, humidifier and lifetime supplies. Dx. JOHNATHAN 327.23 - traZODone 150 mg tablet Take 2 tablets by mouth daily at bedtime. - duloxetine (CYMBALTA) 60 mg ORAL capsule Take 1 capsule by mouth once daily. - lisinopril (PRINIVIL) 10 mg ORAL tablet Take 1 tablet by mouth once daily. Problem List As Of Date 12/12/2023 Noted Resolved HYPERLIPIDEMIA NEC/NOS [E78.5] 02/09/2006 DEPRESSIVE DISORDER NEC [F32.89] 02/09/2006 GENERAL OSTEOARTHROSIS [M15.9] 02/09/2006 LUMBAGO [M54.50] 02/09/2006 ALLERGIC RHINITIS NOS [J30.9] 02/09/2006 OBESITY NOS [E66.9] 02/09/2006 ESOPHAGEAL REFLUX [K21.9] 02/09/2006 ANEMIA NOS [D64.9] 07/15/2006 Urine, Incontinence, Stress Female [N39.3] 06/06/2009 Amenorrhea [N91.2] 06/06/2009 04/08/2015 Microscopic Hematuria [R31.29] 10/01/2009 Trigonitis [N30.30] 10/01/2009 COPD (chronic obstructive pulmonary disease) (H*12/12/2013 Constipation [K59.00] 12/12/2013 GERD (gastroesophageal reflux disease) [K21.9] 12/12/2013 Hypertension [I10] 12/12/2013 Insomnia [G47.00] 12/12/2013 Snoring [R06.83] 12/12/2013 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0-2.5 [facility] ([place]) Comment on above: Performed By: #### L AC, APTT #### [address] [address] Eosinophil, Absolute 0.20 10 3/mcL Normal 0.00-0.65 [facility] ([place]) Comment on above: Performed By: #### L AC, APTT #### [address] [address] Eosinophils/100 WBC (Bld) 1.4 % Normal 0.0-6.0 [facility] ([place]) Comment on above: Performed By: #### L AC, APTT #### [address] [address] Lymphocyte, Absolute 2.20 10 3/mcL Normal 0.90-4.32 [facility] ([place]) Comment on above: Performed By: #### L AC, APTT #### [address] [address] Lymphocytes/100 WBC (Bld) 20.3 % Normal 20.0-40.0 [facility] ([place]) Comment on above: Performed By: #### L AC, APTT #### [address] [address] Monocyte, Absolute 0.50 10 3/mcL Normal 0.09-1.40 [facility] ([place]) Comment on above: Performed By: #### L AC, APTT #### [address] [address] Monocytes/100 WBC (Bld) 4.5 % Normal 2.0-13.0 [facility] ([place]) Comment on above: Performed By: #### L AC, APTT #### [address] [address] Neutrophils/100 WBC (Bld) 73.0 % Normal 50.0-75.0 [facility] ([place]) Comment on above: Performed By: #### L AC, APTT #### [address] [address] .GFRon 11-05-2021 GFR >60 Normal [facility] ([place]) Comment on above: Result Comment: GFR Population mean for , Non- Americans Ages 20-29 = 116 mL/min/1.73 sq.m. Ages 30-39 = 107 mL/min/1.73 sq.m. Ages 40-49 = 99 mL/min/1.73 sq.m. Ages 50-59 = 93 mL/min/1.73 sq.m. Ages 60-69 = 85 mL/min/1.73 sq.m. Ages 70+ = 75 mL/min/1.73 sq.m. Chronic Kidney Disease: Less than 60 mL/min/1.73 square meters End Stage Renal Disease: Less than 15 mL/min/1.73 square meters Performed By: #### L AC, APTT #### [address] [address] GFR Non- >60 Normal [facility] ([place]) Comment on above: Result Comment: GFR Population mean for , Non- Americans Ages 20-29 = 116 mL/min/1.73 sq.m. Ages 30-39 = 107 mL/min/1.73 sq.m. Ages 40-49 = 99 mL/min/1.73 sq.m. Ages 50-59 = 93 mL/min/1.73 sq.m. Ages 60-69 = 85 mL/min/1.73 sq.m. Ages 70+ = 75 mL/min/1.73 sq.m. Chronic Kidney Disease: Less than 60 mL/min/1.73 square meters End Stage Renal Disease: Less than 15 mL/min/1.73 square meters Performed By: #### L AC, APTT #### [address] [address] .NEUABSon 11-05-2021 Neutrophil, Absolute 8.00 10 3/mcL Normal 2.25-8.10 [facility] ([place]) Comment on above: Performed By: #### L AC, APTT #### [address] [address] CBCon 11-05-2021 Erythrocyte distribution width (RBC) [Ratio] 16.8 % High 11.5-15.5 [facility] ([place]) Comment on above: Performed By: #### L AC, APTT #### [place] [address] Hematocrit (Bld) [Volume fraction] 37.2 % Normal 34.0-46.0 [facility] ([place]) Comment on above: Performed By: #### L AC, APTT #### [place] [id number] Hgb 12.1 G/dL Normal 12.0-16.0 [facility] ([place]) Comment on above: Performed By: #### L AC, APTT #### [place] [id number] MCH (RBC) [Entitic mass] 26.4 pg Low 27.0-33.0 [facility] ([place]) Comment on above: Performed By: #### L AC, APTT #### [place] [id number] MCHC 32.5 G/dL Normal 32.0-36.0 [facility] ([place]) Comment on above: Performed By: #### L AC, APTT #### [address] [address] MCV (RBC) [Entitic vol] 81.1 fL Normal 80.0-99.0 [facility] ([place]) Comment on above: Performed By: #### L AC, APTT #### [address] [address] Platelet 409 10 3/mcL Normal 150-450 [facility] ([place]) Comment on above: Performed By: #### L AC, APTT #### [place] [address] Platelet mean volume (Bld) [Entitic vol] 6.7 fL Normal 6.6-10.5 [facility] ([place]) Comment on above: Performed By: #### L AC, APTT #### [place] [id number] RBC 4.59 10 6/mcL Normal 4.10-5.30 [facility] ([place]) Comment on above: Performed By: #### L AC, APTT #### [place] [id number] WBC 11.00 10 3/mcL High 4.50-10.80 [facility] ([place]) Comment on above: Performed By: #### L AC, APTT #### [address] [address] CMPon 11-05-2021 Albumin Level 3.0 G/dL Low 3.2-4.8 [facility] ([place]) Comment on above: Performed By: #### L AC, APTT #### [place] [id number] Albumin/Globulin [Mass ratio] 0.5 {ratio} Low 0.9-1.6 [facility] ([place]) Comment on above: Performed By: #### L AC, APTT #### [place] [phone] ALP [Catalytic activity/Vol] 136 U/L High 38-126 [facility] ([place]) Comment on above: Performed By: #### L AC, APTT #### [address] [address] ALT [Catalytic activity/Vol] 22 U/L Normal 10-49 [facility] ([place]) Comment on above: Performed By: #### L AC, APTT #### [address] [address] AST [Catalytic activity/Vol] 16 U/L Normal 8-34 [facility] ([place]) Comment on above: Performed By: #### L AC, APTT #### [address] [address] Bili Total 0.40 mg/dL Normal 0.20-1.20 [facility] ([place]) Comment on above: Result Comment: Use of this assay is not recommended for patients undergoing treatment with eltrombopag due to the potential for falsely elevated results. Performed By: #### L AC, APTT #### [place] [id number] BUN/Creatinine Ratio 18.8 ratio Normal 10.0-22.0 [facility] ([place]) Comment on above: Performed By: #### L AC, APTT #### [place] [phone] Calcium [Mass/Vol] 9.8 mg/dL Normal 8.4-10.1 [facility] ([place]) Comment on above: Result Comment: No te - New Reference Range in effect 20 Performed By: #### L AC, APTT #### [address] [address] Chloride [Moles/Vol] 95 mmol/L Low 98-110 [facility] ([place]) Comment on above: Performed By: #### L AC, APTT #### [address] [address] CO2 [Moles/Vol] 27 mmol/L Normal 22-32 [facility] ([place]) Comment on above: Performed By: #### L AC, APTT #### [address] [address] Creatinine [Mass/Vol] 0.64 mg/dL Normal 0.50-1.20 [facility] ([place]) Comment on above: Performed By: #### L AC, APTT #### [address] [address] Electrolyte Balance 10.0 mEq/L Normal 4.0-15.0 [facility] ([place]) Comment on above: Performed By: #### L AC, APTT #### [address] [address] Globulin 5.8 G/dL High 1.5-3.8 [facility] ([place]) Comment on above: Performed By: #### L AC, APTT #### [address] [address] Glucose [Mass/Vol] 374 mg/dL High 82-115 [facility] ([place]) Comment on above: Performed By: #### L AC, APTT #### [address] [address] Potassium [Moles/Vol] 3.5 mmol/L Normal 3.5-5.0 [facility] ([place]) Comment on above: Performed By: #### L AC, APTT #### [address] [address] Sodium [Moles/Vol] 132 mmol/L Low 136-145 [facility] ([place]) Comment on above: Performed By: #### L AC, APTT #### [address] [address] Total Protein 8.8 G/dL High 6.0-8.5 [facility] ([place]) Comment on above: Result Comment: No te - New Reference Range in effect 20 Performed By: #### L AC, APTT #### [address] [address] Urea nitrogen [Mass/Vol] 12.0 mg/dL Normal 8.0-22.0 [facility] ([place]) Comment on above: Performed By: #### L AC, APTT #### [facility] [address] [place] [address] CT ABD/PELVIS W/ IV CONTRAST ONLYon 11-05-2021 CT ABD/PELVIS W/ IV CONTRAST ONLY ORIGINAL EXAMINATION: CT OF THE ABDOMEN AND PELVIS WITH CONTRAST 11/05/2021 3:01 pm TECHNIQUE: CT of the abdomen and pelvis was performed with the administration of intravenous contrast. Multiplanar reformatted images are provided for review. Dose modulation, iterative reconstruction, and/or weight based adjustment of the mA/kV was utilized to reduce the radiation dose to as low as reasonably achievable. COMPARISON: None. HISTORY: ORDERING SYSTEM PROVIDED HISTORY: Reason for Exam: abd pain Lower abdominal pain and nausea for 2 days. FINDINGS: The visualized lung bases are clear. There is no pleural or pericardial effusion. The heart is not enlarged. The liver demonstrates a hypodense appearance indicative of hepatic steatosis. The gallbladder is surgically absent. The spleen, bilateral adrenal glands, and pancreas are normal. Calcified splenic artery aneurysm is noted. The kidneys enhance symmetrically bilaterally. Small exophytic hypodensity of the inferior pole of the right kidney is nonspecific however is likely a 9 mm cyst. There is no hydronephrosis or obstructive uropathy. Evaluation of the gastrointestinal tract demonstrates no evidence of obstruction. The appendix is normal. There is demonstration of a 2 cm hypodense lesion seen of the mucosal wall of the gastric body with an overall appearance for gastric lipoma. There is no free intra-abdominal air or free fluid identified. No enlarged lymphadenopathy is appreciated. The aorta is nondilated. The bladder is unremarkable. The uterus and bilateral adnexa are unremarkable. The visualized subcutaneous soft tissues are unremarkable. The bony structures demonstrate no acute fracture or subluxation. Moderate degenerative changes are noted. No aggressive osseous lesion is identified. IMPRESSION: 2 cm gastric lipoma. Consider direct visualization for more definitive characterization. Hepatic steatosis. Likely right renal cyst. Otherwise no acute process is noted. Interpreted by: William Ferris MD Preliminary Report By: William Ferris MD Electronically signed By William Ferris MD Dictated Date: 11/05/2021 3:31:19 PM Prelim Date: 11/05/2021 3:37:42 PM Sign Date: 11/05/2021 3:37:42 PM Ordering Provider: BOLIVAR SHAW [facility] ([place]) LABORATORYOrdered By: SYSTEM SYSTEM on 11-05-2021 Albumin [Mass/Vol] 3.0 G/dL Invalid Interpretation Code 3.2 - 4.8 G/dL AH ADM SS Albumin/Globulin [Mass ratio] 0.5 {ratio} Invalid Interpretation Code 0.9 - 1.6 ratio AH ADM SS ALP [Catalytic activity/Vol] 136 U/L Invalid Interpretation Code 38 - 126 U/L AH ADM SS ALT [Catalytic activity/Vol] 22 U/L Invalid Interpretation Code 10 - 49 U/L AH ADM SS AST [Catalytic activity/Vol] 16 U/L Invalid Interpretation Code 8 - 34 U/L AH ADM SS Base excess Calc (BldMV) [Moles/Vol] 10.0 mEq/L Invalid Interpretation Code 4.0 - 15.0 mEq/L AH ADM SS Basophils (Bld) [#/Vol] 0.10 103/mcL Invalid Interpretation Code 0.00 - 0.27 10^3/mcL AH Remisol SS Basophils/100 WBC (Bld) 0.8 % Invalid Interpretation Code 0.0 - 2.5 % AH Remisol SS Bilirubin [Mass/Vol] 0.40 mg/dL Invalid Interpretation Code 0.20 - 1.20 mg/dL AH ADM SS Calcium [Mass/Vol] 9.8 mg/dL Invalid Interpretation Code 8.4 - 10.1 mg/dL AH ADM SS Chloride [Moles/Vol] 95 mmol/L Invalid Interpretation Code 98 - 110 mEq/L AH ADM SS CO2 [Moles/Vol] 27 mmol/L Invalid Interpretation Code 22 - 32 mEq/L AH ADM SS Creatinine [Mass/Vol] 0.64 mg/dL Invalid Interpretation Code 0.50 - 1.20 mg/dL AH ADM SS Eosinophils (Bld) [#/Vol] 0.20 103/mcL Invalid Interpretation Code 0.00 - 0.65 10^3/mcL AH Remisol SS Eosinophils/100 WBC (Bld) 1.4 % Invalid Interpretation Code 0.0 - 6.0 % AH Remisol SS Erythrocyte distribution width (RBC) [Ratio] 16.8 % Invalid Interpretation Code 11.5 - 15.5 % AH Remisol SS GFR/1.73 sq M.predicted among blacks MDRD (S/P/Bld) [Vol rate/Area] ml/min/1.73sqm Invalid Interpretation Code ADM SS GFR/1.73 sq M.predicted among non-blacks MDRD (S/P/Bld) [Vol rate/Area] ml/min/1.73sqm Invalid Interpretation Code AH ADM SS Globulin (S) [Mass/Vol] 5.8 G/dL Invalid Interpretation Code 1.5 - 3.8 G/dL AH ADM SS Glucose [Mass/Vol] 374 mg/dL Invalid Interpretation Code 82 - 115 mg/dL AH ADM SS Hematocrit (Bld) [Volume fraction] 37.2 % Invalid Interpretation Code 34.0 - 46.0 % Remisol SS Hemoglobin (Bld) [Mass/Vol] 12.1 G/dL Invalid Interpretation Code 12.0 - 16.0 G/dL Remisol SS Lipase [Catalytic activity/Vol] 21 U/L Invalid Interpretation Code 12 - 53 U/L AH ADM SS Lymphocytes (Bld) [#/Vol] 2.20 103/mcL Invalid Interpretation Code 0.90 - 4.32 10^3/mcL AH Remisol SS Lymphocytes/100 WBC (Bld) 20.3 % Invalid Interpretation Code 20.0 - 40.0 % Remisol SS MCH (RBC) [Entitic mass] 26.4 pg Invalid Interpretation Code 27.0 - 33.0 pg AH Remisol SS MCHC (RBC) [Mass/Vol] 32.5 G/dL Invalid Interpretation Code 32.0 - 36.0 G/dL AH Remisol SS MCV (RBC) [Entitic vol] 81.1 fL Invalid Interpretation Code 80.0 - 99.0 fL AH Remisol SS Monocytes (Bld) [#/Vol] 0.50 103/mcL Invalid Interpretation Code 0.09 - 1.40 10^3/mcL AH Remisol SS Monocytes/100 WBC (Bld) 4.5 % Invalid Interpretation Code 2.0 - 13.0 % AH Remisol SS Neutrophils (Bld) [#/Vol] 8.00 103/mcL Invalid Interpretation Code 2.25 - 8.10 10^3/mcL AH Remisol SS Neutrophils/100 WBC (Bld) 73.0 % Invalid Interpretation Code 50.0 - 75.0 % AH Remisol SS Platelet mean volume (Bld) [Entitic vol] 6.7 fL Invalid Interpretation Code 6.6 - 10.5 fL AH Remisol SS Platelets (Bld) [#/Vol] 409 103/mcL Invalid Interpretation Code 150 - 450 10^3/mcL AH Remisol SS Potassium [Moles/Vol] 3.5 mmol/L Invalid Interpretation Code 3.5 - 5.0 mEq/L AH ADM SS Protein [Mass/Vol] 8.8 G/dL Invalid Interpretation Code 6.0 - 8.5 G/dL AH ADM SS RBC (Bld) [#/Vol] 4.59 106/mcL Invalid Interpretation Code 4.10 - 5.30 10^6/mcL AH Remisol SS Sodium [Moles/Vol] 132 mmol/L Invalid Interpretation Code 136 - 145 mEq/L AH ADM SS Troponin I.cardiac DL <= 0.01 ng/mL [Mass/Vol] ng/L Invalid Interpretation Code 0.00 - 34.00 ng/L AH ADM SS Urea nitrogen [Mass/Vol] 12.0 mg/dL Invalid Interpretation Code 8.0 - 22.0 mg/dL AH ADM SS Urea nitrogen/Creatinine [Mass ratio] 18.8 ratio Invalid Interpretation Code 10.0 - 22.0 ratio AH ADM SS WBC (Bld) [#/Vol] 11.00 103/mcL Invalid Interpretation Code 4.50 - 10.80 10^3/mcL AH Remisol SS LIPon 11-05-2021 Lipase Level 21 U/L Normal 12-53 [facility] ([place]) Comment on above: Result Comment: No te - New Reference Range in effect 20 Performed By: #### L AC, APTT #### [address] [address] TROPHSon 11-05-2021 Troponin I High Sensitivity <2.50 Normal 0.00-34.00 [facility] ([place]) Comment on above: Performed By: #### L AC, APTT #### [address] [address] XR CHEST 1 VIEWon 11-05-2021 XR CHEST 1 VIEW ORIGINAL EXAMINATION: ONE XRAY VIEW OF THE CHEST11/05/2021 1:55 pm XR Chest portable upright COMPARISON: 07/28/2021 HISTORY: ORDERING SYSTEM PROVIDED HISTORY: Reason for Exam: CP, FINDINGS: No acute infiltrate, consolidation,mass, pneumothorax, pleural fluid, or vascular congestion is seen. Heart size and mediastinal contours are within normal limits for age and projection. No acute skeletal abnormality. IMPRESSION: No acute cardiopulmonary process. Interpreted by: Rhett Bailey MD Preliminary Report By: Rhett Bailey MD Electronically signed By Rhett Bailey MD Dictated Date: 11/05/2021 2:15:57 PM Prelim Date: 11/05/2021 2:16:14 PM Sign Date: 11/05/2021 2:16:14 PM Ordering Provider: BOLIVAR Alvarado [facility] ([place]) LABORATORYOrdered By: Kendra Ramirez on 08-06-2021 Glucose [Mass/Vol] 220 mg/dL Invalid Interpretation Code 82 - 115 mg/dL [facility] Glucose [Mass/Vol] 166 mg/dL Invalid Interpretation Code 82 - 115 mg/dL [facility] LABORATORYOrdered By: Poppy Haro on 08-05-2021 Blood Glucose Testing Reason Routine (08/05/21 9:29 PM) [facility] Glucose [Mass/Vol] 151 mg/dL Invalid Interpretation Code 82 - 115 mg/dL [facility] LABORATORYOrdered By: Jannet Bowie on 08-05-2021 Blood Glucose Testing Reason Routine (08/05/21 4:18 PM) [facility] LABORATORYOrdered By: Kari Castro on 08-04-2021 Blood Glucose Testing Reason Routine (08/04/21 9:49 PM) [facility] .Auto Diffon 08-02-2021 Basophil, Absolute 0.00 10 3/mcL Normal 0.00-0.27 [facility] ([place]) Comment on above: Performed By: #### L AC, APTT #### [facility] [address] [place] [id number] Basophils/100 WBC (Bld) 0.8 % Normal 0.0-2.5 [facility] ([place]) Comment on above: Performed By: #### L AC, APTT #### [address] [address] Eosinophil, Absolute 0.10 10 3/mcL Normal 0.00-0.65 [facility] ([place]) Comment on above: Performed By: #### L AC, APTT #### [address] [address] Eosinophils/100 WBC (Bld) 1.8 % Normal 0.0-6.0 [facility] ([place]) Comment on above: Performed By: #### L AC, APTT #### [address] [address] Lymphocyte, Absolute 1.50 10 3/mcL Normal 0.90-4.32 [facility] ([place]) Comment on above: Performed By: #### L AC, APTT #### [address] [address] Lymphocytes/100 WBC (Bld) 34.3 % Normal 20.0-40.0 [facility] ([place]) Comment on above: Performed By: #### L AC, APTT #### [address] [address] Monocyte, Absolute 0.40 10 3/mcL Normal 0.09-1.40 [facility] ([place]) Comment on above: Performed By: #### L AC, APTT #### [address] [address] Monocytes/100 WBC (Bld) 9.1 % Normal 2.0-13.0 [facility] ([place]) Comment on above: Performed By: #### L AC, APTT #### [address] [address] Neutrophils/100 WBC (Bld) 54.0 % Normal 50.0-75.0 [facility] ([place]) Comment on above: Performed By: #### L AC, APTT #### [address] [address] .GFRon 08-02-2021 GFR Non- >60 Normal [facility] ([place]) Comment on above: Result Comment: GFR Population mean for , Non- Americans Ages 20-29 = 116 mL/min/1.73 sq.m. Ages 30-39 = 107 mL/min/1.73 sq.m. Ages 40-49 = 99 mL/min/1.73 sq.m. Ages 50-59 = 93 mL/min/1.73 sq.m. Ages 60-69 = 85 mL/min/1.73 sq.m. Ages 70+ = 75 mL/min/1.73 sq.m. Chronic Kidney Disease: Less than 60 mL/min/1.73 square meters End Stage Renal Disease: Less than 15 mL/min/1.73 square meters Performed By: #### L AC, APTT #### [address] [address] GFR >60 Normal [facility] ([place]) Comment on above: Result Comment: GFR Population mean for , Non- Americans Ages 20-29 = 116 mL/min/1.73 sq.m. Ages 30-39 = 107 mL/min/1.73 sq.m. Ages 40-49 = 99 mL/min/1.73 sq.m. Ages 50-59 = 93 mL/min/1.73 sq.m. Ages 60-69 = 85 mL/min/1.73 sq.m. Ages 70+ = 75 mL/min/1.73 sq.m. Chronic Kidney Disease: Less than 60 mL/min/1.73 square meters End Stage Renal Disease: Less than 15 mL/min/1.73 square meters Performed By: #### L AC, APTT #### [address] [address] .NEUABSon 08-02-2021 Neutrophil, Absolute 2.40 10 3/mcL Normal 2.25-8.10 [facility] ([place]) Comment on above: Performed By: #### L AC, APTT #### [address] [address] APTTon 08-02-2021 aPTT Coag (Bld) [Time] 24.8 s Low 25.0-35.0 [facility] ([place]) Comment on above: Result Comment: For Heparin anticoagulation therapy, the recommended therapeutic range is: 54-77 seconds (APTT Correlation with Anti-Xa therapeutic range of 0.3-0.7 units/ml). PLEASE REFERENCE THE PHARMACY PROTOCOL FOR DOSING. Performed By: #### L AC, APTT #### [place] [address] Heparin dose (APTT) Unknown Normal [facility] ([place]) Comment on above: Performed By: #### L AC, APTT #### [address] [address] CBCon 08-02-2021 Erythrocyte distribution width (RBC) [Ratio] 20.1 % High 11.5-15.5 [facility] ([place]) Comment on above: Performed By: #### L AC, APTT #### [place] [address] Hematocrit (Bld) [Volume fraction] 29.0 % Low 34.0-46.0 [facility] ([place]) Comment on above: Performed By: #### L AC, APTT #### [place] [id number] Hgb 9.7 G/dL Low 12.0-16.0 [facility] ([place]) Comment on above: Performed By: #### L AC, APTT #### [address] [address] MCH (RBC) [Entitic mass] 27.5 pg Normal 27.0-33.0 [facility] ([place]) Comment on above: Performed By: #### L AC, APTT #### [place] [id number] MCHC 33.4 G/dL Normal 32.0-36.0 [facility] ([place]) Comment on above: Performed By: #### L AC, APTT #### [place] [id number] MCV (RBC) [Entitic vol] 82.4 fL Normal 80.0-99.0 [facility] ([place]) Comment on above: Performed By: #### L AC, APTT #### [address] [address] Platelet 372 10 3/mcL Normal 150-450 [facility] ([place]) Comment on above: Performed By: #### L AC, APTT #### [address] [address] Platelet mean volume (Bld) [Entitic vol] 6.5 fL Low 6.6-10.5 [facility] ([place]) Comment on above: Performed By: #### L AC, APTT #### [address] [address] RBC 3.52 10 6/mcL Low 4.10-5.30 [facility] ([place]) Comment on above: Performed By: #### L AC, APTT #### [address] [address] WBC 4.50 10 3/mcL Normal 4.50-10.80 [facility] ([place]) Comment on above: Performed By: #### L AC, APTT #### [address] [address] CMPon 08-02-2021 Albumin Level 2.2 G/dL Low 3.2-4.8 [facility] ([place]) Comment on above: Performed By: #### L AC, APTT #### [address] [address] Albumin/Globulin [Mass ratio] 0.6 {ratio} Low 0.9-1.6 [facility] ([place]) Comment on above: Performed By: #### L AC, APTT #### [address] [address] ALP [Catalytic activity/Vol] 93 U/L Normal 38-126 [facility] ([place]) Comment on above: Performed By: #### L AC, APTT #### [address] [address] ALT [Catalytic activity/Vol] 16 U/L Normal 10-49 [facility] ([place]) Comment on above: Performed By: #### L AC, APTT #### [address] [address] AST [Catalytic activity/Vol] 28 U/L Normal 8-34 [facility] ([place]) Comment on above: Performed By: #### L AC, APTT #### [address] [address] Bili Total 0.40 mg/dL Normal 0.20-1.20 [facility] ([place]) Comment on above: Result Comment: Use of this assay is not recommended for patients undergoing treatment with eltrombopag due to the potential for falsely elevated results. Performed By: #### L AC, APTT #### [address] [address] BUN/Creatinine Ratio 14.3 ratio Normal 10.0-22.0 [facility] ([place]) Comment on above: Performed By: #### L AC, APTT #### [address] [address] Calcium [Mass/Vol] 9.0 mg/dL Normal 8.7-10.4 [facility] ([place]) Comment on above: Result Comment: No te - New Reference Range in effect 20 Performed By: #### L AC, APTT #### [address] [address] Chloride [Moles/Vol] 108 mmol/L Normal 98-110 [facility] ([place]) Comment on above: Performed By: #### L AC, APTT #### [address] [address] CO2 [Moles/Vol] 28 mmol/L Normal 22-32 [facility] ([place]) Comment on above: Performed By: #### L AC, APTT #### [address] [address] Creatinine [Mass/Vol] 0.77 mg/dL Normal 0.50-1.20 [facility] ([place]) Comment on above: Performed By: #### L AC, APTT #### [address] [address] Electrolyte Balance 8.0 mEq/L Normal 4.0-15.0 [facility] ([place]) Comment on above: Performed By: #### L AC, APTT #### [address] [address] Globulin 3.8 G/dL Normal 1.5-3.8 [facility] ([place]) Comment on above: Performed By: #### L AC, APTT #### [address] [address] Glucose [Mass/Vol] 158 mg/dL High 82-115 [facility] ([place]) Comment on above: Performed By: #### L AC, APTT #### [address] [address] Potassium [Moles/Vol] 3.9 mmol/L Normal 3.5-5.0 [facility] ([place]) Comment on above: Performed By: #### L AC, APTT #### [address] [address] Sodium [Moles/Vol] 144 mmol/L Normal 136-145 [facility] ([place]) Comment on above: Performed By: #### L AC, APTT #### [address] [address] Total Protein 6.0 G/dL Normal 5.7-8.2 [facility] ([place]) Comment on above: Result Comment: No te - New Reference Range in effect 20 Performed By: #### L AC, APTT #### [address] [address] Urea nitrogen [Mass/Vol] 11.0 mg/dL Normal 8.0-22.0 [facility] ([place]) Comment on above: Performed By: #### L AC, APTT #### [address] [address] CRPon 08-02-2021 C-Reactive Protein 0.8 mg/dL Normal 0.0-1.0 [facility] ([place]) Comment on above: Result Comment: No te - New Reference Range in effect 20 Performed By: #### L AC, APTT #### [place] [id number] DIMERon 08-02-2021 D-Dimer 223 ng/mL D-DU Normal 0-230 [facility] ([place]) Comment on above: Result Comment: Resu lts reported in D-DU ng/ml. Negative for D-dimer. DVT/PE is highly unlikely. Note: False negative results may be seen in patients on anticoagulant therapy. The result of the D-Dimer test should be evaluated in the context of all the clinical and laboratory data available. In those instances where the laboratory result does not agree with the clinical evaluation, additional tests should be performed accordingly. Performed By: #### L AC, APTT #### [place] [id number] Mario 08-02-2021 Ferritin [Mass/Vol] 103.3 ng/mL Normal 8.0-252.0 [facility] ([place]) Comment on above: Performed By: #### L AC, APTT #### [place] [id number] FIBon 08-02-2021 Fibrinogen 588 mg/dL High 250-550 [facility] ([place]) Comment on above: Performed By: #### L AC, APTT #### [place] [address] LABORATORYOrdered By: SYSTEM SYSTEM on 08-02-2021 Albumin BCP dye [Mass/Vol] 2.2 G/dL Invalid Interpretation Code 3.2 - 4.8 G/dL ADM SS Albumin/Globulin [Mass ratio] 0.6 {ratio} Invalid Interpretation Code 0.9 - 1.6 ratio ADM SS ALP [Catalytic activity/Vol] 93 U/L Invalid Interpretation Code 38 - 126 U/L ADM SS ALT No additional P-5'-P [Catalytic activity/Vol] 16 U/L Invalid Interpretation Code 10 - 49 U/L ADM SS AST [Catalytic activity/Vol] 28 U/L Invalid Interpretation Code 8 - 34 U/L AH ADM SS Basophils (Bld) [#/Vol] 0.00 103/mcL Invalid Interpretation Code 0.00 - 0.27 10^3/mcL AH Remisol SS Basophils/100 WBC (Bld) 0.8 % Invalid Interpretation Code 0.0 - 2.5 % AH Remisol SS Bilirubin [Mass/Vol] 0.40 mg/dL Invalid Interpretation Code 0.20 - 1.20 mg/dL AH ADM SS Calcium [Mass/Vol] 9.0 mg/dL Invalid Interpretation Code 8.7 - 10.4 mg/dL AH ADM SS Chloride [Moles/Vol] 108 mmol/L Invalid Interpretation Code 98 - 110 mEq/L AH ADM SS CO2 [Moles/Vol] 28 mmol/L Invalid Interpretation Code 22 - 32 mEq/L ADM SS Creatinine [Mass/Vol] 0.77 mg/dL Invalid Interpretation Code 0.50 - 1.20 mg/dL AH ADM SS CRP [Mass/Vol] 0.8 mg/dL Invalid Interpretation Code 0.0 - 1.0 mg/dL AH ADM SS Electrolyte Balance 8.0 mEq/L Invalid Interpretation Code 4.0 - 15.0 mEq/L AH ADM SS Eosinophils (Bld) [#/Vol] 0.10 103/mcL Invalid Interpretation Code 0.00 - 0.65 10^3/mcL Remisol SS Eosinophils/100 WBC (Bld) 1.8 % Invalid Interpretation Code 0.0 - 6.0 % AH Remisol SS Erythrocyte distribution width (RBC) [Ratio] 20.1 % Invalid Interpretation Code 11.5 - 15.5 % Remisol SS Ferritin [Mass/Vol] 103.3 ng/mL Invalid Interpretation Code 8.0 - 252.0 ng/mL AH ADM SS GFR/1.73 sq M.predicted among blacks MDRD (S/P/Bld) [Vol rate/Area] ml/min/1.73sqm Invalid Interpretation Code AH Chemistry S GFR/1.73 sq M.predicted among non-blacks MDRD (S/P/Bld) [Vol rate/Area] ml/min/1.73sqm Invalid Interpretation Code Chemistry S Globulin 3.8 G/dL Invalid Interpretation Code 1.5 - 3.8 G/dL ADM SS Glucose [Mass/Vol] 158 mg/dL Invalid Interpretation Code 82 - 115 mg/dL AH ADM SS Hematocrit (Bld) [Volume fraction] 29.0 % Invalid Interpretation Code 34.0 - 46.0 % AH Remisol SS Hemoglobin (Bld) [Mass/Vol] 9.7 G/dL Invalid Interpretation Code 12.0 - 16.0 G/dL AH Remisol SS Lymphocytes (Bld) [#/Vol] 1.50 103/mcL Invalid Interpretation Code 0.90 - 4.32 10^3/mcL AH Remisol SS Lymphocytes/100 WBC (Bld) 34.3 % Invalid Interpretation Code 20.0 - 40.0 % AH Remisol SS MCH (RBC) [Entitic mass] 27.5 pg Invalid Interpretation Code 27.0 - 33.0 pg AH Remisol SS MCHC (RBC) [Mass/Vol] 33.4 G/dL Invalid Interpretation Code 32.0 - 36.0 G/dL AH Remisol SS MCV (RBC) [Entitic vol] 82.4 fL Invalid Interpretation Code 80.0 - 99.0 fL AH Remisol SS Monocytes (Bld) [#/Vol] 0.40 103/mcL Invalid Interpretation Code 0.09 - 1.40 10^3/mcL AH Remisol SS Monocytes/100 WBC (Bld) 9.1 % Invalid Interpretation Code 2.0 - 13.0 % AH Remisol SS Neutrophils (Bld) [#/Vol] 2.40 103/mcL Invalid Interpretation Code 2.25 - 8.10 10^3/mcL AH Remisol SS Neutrophils/100 WBC (Bld) 54.0 % Invalid Interpretation Code 50.0 - 75.0 % AH Remisol SS Platelet mean volume (Bld) [Entitic vol] 6.5 fL Invalid Interpretation Code 6.6 - 10.5 fL AH Remisol SS Platelets (Bld) [#/Vol] 372 103/mcL Invalid Interpretation Code 150 - 450 10^3/mcL AH Remisol SS Potassium [Moles/Vol] 3.9 mmol/L Invalid Interpretation Code 3.5 - 5.0 mEq/L AH ADM SS Protein [Mass/Vol] 6.0 G/dL Invalid Interpretation Code 5.7 - 8.2 G/dL AH ADM SS RBC (Bld) [#/Vol] 3.52 106/mcL Invalid Interpretation Code 4.10 - 5.30 10^6/mcL AH Remisol SS Sodium [Moles/Vol] 144 mmol/L Invalid Interpretation Code 136 - 145 mEq/L AH ADM SS Troponin I.cardiac DL <= 0.01 ng/mL [Mass/Vol] ng/L Invalid Interpretation Code 0.00 - 34.00 ng/L ADM SS Urea nitrogen [Mass/Vol] 11.0 mg/dL Invalid Interpretation Code 8.0 - 22.0 mg/dL ADM SS Urea nitrogen/Creatinine [Mass ratio] 14.3 ratio Invalid Interpretation Code 10.0 - 22.0 ratio AH ADM SS WBC (Bld) [#/Vol] 4.50 103/mcL Invalid Interpretation Code 4.50 - 10.80 10^3/mcL Remisol SS LABORATORYOrdered By: Fernanda on 08-02-2021 aPTT Coag (PPP) [Time] 24.8 s Invalid Interpretation Code 25.0 - 35.0 seconds AH Auto Coag SS Fibrin D-dimer DDU (PPP) [Mass/Vol] 223 ng/mL D-DU Invalid Interpretation Code 0 - 230 ng/mL D-DU AH Auto Coag SS Comment on above: Result Comment: Resu lts reported in D-DU ng/ml. Negative for D-dimer. DVT/PE is highly unlikely. Note: False negative results may be seen in patients on anticoagulant therapy. Fibrinogen Coag (PPP) [Mass/Vol] 588 mg/dL Invalid Interpretation Code 250 - 550 mg/dL Auto Coag SS Heparin dose (APTT) Unknown (08/02/21 5:12 AM) Invalid Interpretation Code AH Auto Coag SS INR Coag (PPP) [Relative time] 1.0 {INR} Invalid Interpretation Code AH Auto Coag SS PT Coag (PPP) [Time] 11.9 s Invalid Interpretation Code 9.0 - 14.8 seconds AH Auto Coag SS PROon 08-02-2021 INR Coag (PPP) [Relative time] 1.0 {INR} Normal [facility] ([place]) Comment on above: Result Comment: [employer] (CHEST, 1992, 102:312S-[id number]) recommended therapeutic range for oral anticoagulant therapy is: LOW RISK: Prophylaxis of venous thrombosis INR: 2.0-3.0 Treatment of pulmonary embolism 2.0-3.0 Prevention of systemic embolism 2.0-3.0 HIGH RISK: Mechanical prosthetic valves 2.5-3.5 Performed By: #### L AC, APTT #### [place] [address] PT Coag (PPP) [Time] 11.9 s Normal 9.0-14.8 [facility] ([place]) Comment on above: Result Comment: Effe ctive 02/13/08, Protime results may be affected by some antibiotics (i.e. Ciprofloxacin, Azithromycin, Bactrim) which may potentiate the action of oral anticoagulants, with further increases in Protime/INR. Performed By: #### L AC, APTT #### [address] [address] TROPHSon 08-02-2021 Troponin I High Sensitivity <2.50 Normal 0.00-34.00 [facility] ([place]) Comment on above: Performed By: #### L AC, APTT #### [address] [address] XR ABDOMEN APon 08-02-2021 XR ABDOMEN AP ORIGINAL EXAMINATION: ONE SUPINE XRAY VIEW(S) OF THE ABDOMEN08/02/2021 8:07 am TECHNIQUE: Supine AP abdomen and upright portable chest COMPARISON: 07/30/2021 HISTORY: ORDERING SYSTEM PROVIDED HISTORY: Reason for Exam: colon distension, pain FINDINGS: There is a nonobstructive bowel gas pattern. There is moderate gas throughout the large bowel most of which is nondilated. A solitary prominent segment of colon is mildly dilated of no clinical significance in isolation. No supine evidence of free air. Frontal chest shows normal heart and mediastinum for projection. There are some coarse interstitial opacities bilaterally but no discrete consolidation, pleural effusion or pneumothorax. IMPRESSION: Nonobstructive bowel gas pattern. Interstitial prominence in the lungs may be interstitial edema. No consolidation or pleural effusion. Interpreted by: Rhett Bailey MD Preliminary Report By: Rhett Bailey MD Electronically signed By Rhett Bailey MD Dictated Date: 08/02/2021 8:13:43 AM Prelim Date: 08/02/2021 8:15:56 AM Sign Date: 08/02/2021 8:15:56 AM Ordering Provider: LOURDES Alvarado [facility] ([place]) .Auto Diffon 08-01-2021 Basophil, Absolute 0.00 10 3/mcL Normal 0.00-0.27 [facility] ([place]) Comment on above: Performed By: #### L AC, APTT #### [address] [address] Basophils/100 WBC (Bld) 0.9 % Normal 0.0-2.5 [facility] ([place]) Comment on above: Performed By: #### L AC, APTT #### [address] [address] Eosinophil, Absolute 0.10 10 3/mcL Normal 0.00-0.65 [facility] ([place]) Comment on above: Performed By: #### L AC, APTT #### [address] [address] Eosinophils/100 WBC (Bld) 2.3 % Normal 0.0-6.0 [facility] ([place]) Comment on above: Performed By: #### L AC, APTT #### [address] [address] Lymphocyte, Absolute 1.50 10 3/mcL Normal 0.90-4.32 [facility] ([place]) Comment on above: Performed By: #### L AC, APTT #### [address] [address] Lymphocytes/100 WBC (Bld) 37.9 % Normal 20.0-40.0 [facility] ([place]) Comment on above: Performed By: #### L AC, APTT #### [address] [address] Monocyte, Absolute 0.40 10 3/mcL Normal 0.09-1.40 [facility] ([place]) Comment on above: Performed By: #### L AC, APTT #### [address] [address] Monocytes/100 WBC (Bld) 10.0 % Normal 2.0-13.0 [facility] ([place]) Comment on above: Performed By: #### L AC, APTT #### [address] [address] Neutrophils/100 WBC (Bld) 48.9 % Low 50.0-75.0 [facility] ([place]) Comment on above: Performed By: #### L AC, APTT #### [facility] [address] [place], [place] [address] .GFRon 08-01-2021 GFR Non- >60 Normal [facility] ([place]) Comment on above: Result Comment: GFR Population mean for , Non- Americans Ages 20-29 = 116 mL/min/1.73 sq.m. Ages 30-39 = 107 mL/min/1.73 sq.m. Ages 40-49 = 99 mL/min/1.73 sq.m. Ages 50-59 = 93 mL/min/1.73 sq.m. Ages 60-69 = 85 mL/min/1.73 sq.m. Ages 70+ = 75 mL/min/1.73 sq.m. Chronic Kidney Disease: Less than 60 mL/min/1.73 square meters End Stage Renal Disease: Less than 15 mL/min/1.73 square meters Performed By: #### L AC, APTT #### [address] [address] GFR >60 Normal [facility] ([place]) Comment on above: Result Comment: GFR Population mean for , Non- Americans Ages 20-29 = 116 mL/min/1.73 sq.m. Ages 30-39 = 107 mL/min/1.73 sq.m. Ages 40-49 = 99 mL/min/1.73 sq.m. Ages 50-59 = 93 mL/min/1.73 sq.m. Ages 60-69 = 85 mL/min/1.73 sq.m. Ages 70+ = 75 mL/min/1.73 sq.m. Chronic Kidney Disease: Less than 60 mL/min/1.73 square meters End Stage Renal Disease: Less than 15 mL/min/1.73 square meters Performed By: #### L AC, APTT #### [address] [address] .Morphon 08-01-2021 Anisocytosis Ql (Bld) Slight Normal [facility] ([place]) Comment on above: Performed By: #### L AC, APTT #### [address] [address] Platelet Estimate Normal Normal [facility] ([place]) Comment on above: Performed By: #### L AC, APTT #### [address] [address] .NEUABSon 08-01-2021 Neutrophil, Absolute 1.90 10 3/mcL Low 2.25-8.10 [facility] ([place]) Comment on above: Performed By: #### L AC, APTT #### [place] [id number] APTTon 08-01-2021 aPTT Coag (Bld) [Time] 26.9 s Normal 25.0-35.0 [facility] ([place]) Comment on above: Result Comment: For Heparin anticoagulation therapy, the recommended therapeutic range is: 54-77 seconds (APTT Correlation with Anti-Xa therapeutic range of 0.3-0.7 units/ml). PLEASE REFERENCE THE PHARMACY PROTOCOL FOR DOSING. Performed By: #### L AC, APTT #### [place] [address] Heparin dose (APTT) Unknown Normal [facility] ([place]) Comment on above: Performed By: #### L AC, APTT #### [place] [id number] CBCon 08-01-2021 Erythrocyte distribution width (RBC) [Ratio] 20.6 % High 11.5-15.5 [facility] ([place]) Comment on above: Performed By: #### L AC, APTT #### [place] [address] Hematocrit (Bld) [Volume fraction] 29.2 % Low 34.0-46.0 [facility] ([place]) Comment on above: Performed By: #### L AC, APTT #### [place] [id number] Hgb 9.6 G/dL Low 12.0-16.0 [facility] ([place]) Comment on above: Performed By: #### L AC, APTT #### [place] [address] MCH (RBC) [Entitic mass] 27.1 pg Normal 27.0-33.0 [facility] ([place]) Comment on above: Performed By: #### L AC, APTT #### [address] [address] MCHC 32.9 G/dL Normal 32.0-36.0 [facility] ([place]) Comment on above: Performed By: #### L AC, APTT #### [address] [address] MCV (RBC) [Entitic vol] 82.3 fL Normal 80.0-99.0 [facility] ([place]) Comment on above: Performed By: #### L AC, APTT #### [address] [address] Platelet 356 10 3/mcL Normal 150-450 [facility] ([place]) Comment on above: Performed By: #### L AC, APTT #### [address] [address] Platelet mean volume (Bld) [Entitic vol] 6.7 fL Normal 6.6-10.5 [facility] ([place]) Comment on above: Performed By: #### L AC, APTT #### [address] [address] RBC 3.55 10 6/mcL Low 4.10-5.30 [facility] ([place]) Comment on above: Performed By: #### L AC, APTT #### [address] [address] WBC 3.90 10 3/mcL Low 4.50-10.80 [facility] ([place]) Comment on above: Performed By: #### L AC, APTT #### [address] [address] CMPon 08-01-2021 Albumin Level 2.0 G/dL Low 3.2-4.8 [facility] ([place]) Comment on above: Performed By: #### L AC, APTT #### [address] [address] Albumin/Globulin [Mass ratio] 0.5 {ratio} Low 0.9-1.6 [facility] ([place]) Comment on above: Performed By: #### L AC, APTT #### [address] [address] ALP [Catalytic activity/Vol] 95 U/L Normal 38-126 [facility] ([place]) Comment on above: Performed By: #### L AC, APTT #### [address] [address] ALT [Catalytic activity/Vol] 15 U/L Normal 10-49 [facility] ([place]) Comment on above: Performed By: #### L AC, APTT #### [address] [address] AST [Catalytic activity/Vol] 29 U/L Normal 8-34 [facility] ([place]) Comment on above: Performed By: #### L AC, APTT #### [place] [address] Bili Total 0.40 mg/dL Normal 0.20-1.20 [facility] ([place]) Comment on above: Result Comment: Use of this assay is not recommended for patients undergoing treatment with eltrombopag due to the potential for falsely elevated results. Performed By: #### L AC, APTT #### [place] [address] BUN/Creatinine Ratio 13.0 ratio Normal 10.0-22.0 [facility] ([place]) Comment on above: Performed By: #### L AC, APTT #### [address] [address] Calcium [Mass/Vol] 8.7 mg/dL Normal 8.7-10.4 [facility] ([place]) Comment on above: Result Comment: No te - New Reference Range in effect 20 Performed By: #### L AC, APTT #### [place] [phone] Chloride [Moles/Vol] 109 mmol/L Normal 98-110 [facility] ([place]) Comment on above: Performed By: #### L AC, APTT #### [address] [address] CO2 [Moles/Vol] 26 mmol/L Normal 22-32 [facility] ([place]) Comment on above: Performed By: #### L AC, APTT #### [address] [address] Creatinine [Mass/Vol] 0.77 mg/dL Normal 0.50-1.20 [facility] ([place]) Comment on above: Performed By: #### L AC, APTT #### [address] [address] Electrolyte Balance 8.0 mEq/L Normal 4.0-15.0 [facility] ([place]) Comment on above: Performed By: #### L AC, APTT #### [address] [address] Globulin 3.8 G/dL Normal 1.5-3.8 [facility] ([place]) Comment on above: Performed By: #### L AC, APTT #### [address] [address] Glucose [Mass/Vol] 179 mg/dL High 82-115 [facility] ([place]) Comment on above: Performed By: #### L AC, APTT #### [address] [address] Potassium [Moles/Vol] 3.8 mmol/L Normal 3.5-5.0 [facility] ([place]) Comment on above: Performed By: #### L AC, APTT #### [address] [address] Sodium [Moles/Vol] 143 mmol/L Normal 136-145 [facility] ([place] Comment on above: Performed By: #### L AC, APTT #### [address] [address] Total Protein 5.8 G/dL Normal 5.7-8.2 [facility] ([place]) Comment on above: Result Comment: No te - New Reference Range in effect 20 Performed By: #### L AC, APTT #### [place] [id number] Urea nitrogen [Mass/Vol] 10.0 mg/dL Normal 8.0-22.0 [facility] ([place]) Comment on above: Performed By: #### L AC, APTT #### [place] [id number] CRPon 08-01-2021 C-Reactive Protein 1.1 mg/dL High 0.0-1.0 [facility] ([place]) Comment on above: Result Comment: No te - New Reference Range in effect 20 Performed By: #### L AC, APTT #### [place] [address] DIMERon 08-01-2021 D-Dimer 215 ng/mL D-DU Normal 0-230 [facility] ([place]) Comment on above: Result Comment: Resu lts reported in D-DU ng/ml. Negative for D-dimer. DVT/PE is highly unlikely. Note: False negative results may be seen in patients on anticoagulant therapy. The result of the D-Dimer test should be evaluated in the context of all the clinical and laboratory data available. In those instances where the laboratory result does not agree with the clinical evaluation, additional tests should be performed accordingly. Performed By: #### L DARRICK, APTT #### [place] [address] Mario 08-01-2021 Ferritin [Mass/Vol] 112.4 ng/mL Normal 8.0-252.0 [facility] ([place]) Comment on above: Performed By: #### L DARRICK, APTT #### [place] [id number] FIBon 08-01-2021 Fibrinogen 609 mg/dL High 250-550 [facility] ([place]) Comment on above: Performed By: #### L AC, APTT #### [place] [address] LABORATORYOrdered By: SYSTEM SYSTEM on 08-01-2021 Albumin BCP dye [Mass/Vol] 2.0 G/dL Invalid Interpretation Code 3.2 - 4.8 G/dL AH ADM SS Albumin/Globulin [Mass ratio] 0.5 {ratio} Invalid Interpretation Code 0.9 - 1.6 ratio AH ADM SS ALP [Catalytic activity/Vol] 95 U/L Invalid Interpretation Code 38 - 126 U/L ADM SS ALT No additional P-5'-P [Catalytic activity/Vol] 15 U/L Invalid Interpretation Code 10 - 49 U/L AH ADM SS Anisocytosis Ql (Bld) Slight *NA* (08/01/21 5:17 AM) Invalid Interpretation Code AH Remisol SS AST [Catalytic activity/Vol] 29 U/L Invalid Interpretation Code 8 - 34 U/L AH ADM SS Basophils (Bld) [#/Vol] 0.00 103/mcL Invalid Interpretation Code 0.00 - 0.27 10^3/mcL AH Remisol SS Basophils/100 WBC (Bld) 0.9 % Invalid Interpretation Code 0.0 - 2.5 % Remisol SS Bilirubin [Mass/Vol] 0.40 mg/dL Invalid Interpretation Code 0.20 - 1.20 mg/dL AH ADM SS Calcium [Mass/Vol] 8.7 mg/dL Invalid Interpretation Code 8.7 - 10.4 mg/dL ADM SS Chloride [Moles/Vol] 109 mmol/L Invalid Interpretation Code 98 - 110 mEq/L ADM SS CO2 [Moles/Vol] 26 mmol/L Invalid Interpretation Code 22 - 32 mEq/L AH ADM SS Creatinine [Mass/Vol] 0.77 mg/dL Invalid Interpretation Code 0.50 - 1.20 mg/dL AH ADM SS CRP [Mass/Vol] 1.1 mg/dL Invalid Interpretation Code 0.0 - 1.0 mg/dL AH ADM SS Electrolyte Balance 8.0 mEq/L Invalid Interpretation Code 4.0 - 15.0 mEq/L AH ADM SS Eosinophils (Bld) [#/Vol] 0.10 103/mcL Invalid Interpretation Code 0.00 - 0.65 10^3/mcL AH Remisol SS Eosinophils/100 WBC (Bld) 2.3 % Invalid Interpretation Code 0.0 - 6.0 % AH Remisol SS Erythrocyte distribution width (RBC) [Ratio] 20.6 % Invalid Interpretation Code 11.5 - 15.5 % AH Remisol SS Ferritin [Mass/Vol] 112.4 ng/mL Invalid Interpretation Code 8.0 - 252.0 ng/mL AH ADM SS GFR/1.73 sq M.predicted among blacks MDRD (S/P/Bld) [Vol rate/Area] ml/min/1.73sqm Invalid Interpretation Code AH Chemistry S GFR/1.73 sq M.predicted among non-blacks MDRD (S/P/Bld) [Vol rate/Area] ml/min/1.73sqm Invalid Interpretation Code Chemistry S Globulin 3.8 G/dL Invalid Interpretation Code 1.5 - 3.8 G/dL ADM SS Glucose [Mass/Vol] 179 mg/dL Invalid Interpretation Code 82 - 115 mg/dL ADM SS Hematocrit (Bld) [Volume fraction] 29.2 % Invalid Interpretation Code 34.0 - 46.0 % Remisol SS Hemoglobin (Bld) [Mass/Vol] 9.6 G/dL Invalid Interpretation Code 12.0 - 16.0 G/dL Remisol SS Lymphocytes (Bld) [#/Vol] 1.50 103/mcL Invalid Interpretation Code 0.90 - 4.32 10^3/mcL AH Remisol SS Lymphocytes/100 WBC (Bld) 37.9 % Invalid Interpretation Code 20.0 - 40.0 % Remisol SS MCH (RBC) [Entitic mass] 27.1 pg Invalid Interpretation Code 27.0 - 33.0 pg AH Remisol SS MCHC (RBC) [Mass/Vol] 32.9 G/dL Invalid Interpretation Code 32.0 - 36.0 G/dL Remisol SS MCV (RBC) [Entitic vol] 82.3 fL Invalid Interpretation Code 80.0 - 99.0 fL Remisol SS Monocytes (Bld) [#/Vol] 0.40 103/mcL Invalid Interpretation Code 0.09 - 1.40 10^3/mcL AH Remisol SS Monocytes/100 WBC (Bld) 10.0 % Invalid Interpretation Code 2.0 - 13.0 % AH Remisol SS Neutrophils (Bld) [#/Vol] 1.90 103/mcL Invalid Interpretation Code 2.25 - 8.10 10^3/mcL AH Remisol SS Neutrophils/100 WBC (Bld) 48.9 % Invalid Interpretation Code 50.0 - 75.0 % AH Remisol SS Platelet mean volume (Bld) [Entitic vol] 6.7 fL Invalid Interpretation Code 6.6 - 10.5 fL AH Remisol SS Platelets (Bld) [#/Vol] 356 103/mcL Invalid Interpretation Code 150 - 450 10^3/mcL AH Remisol SS Platelets LM Ql (Bld) Normal *NA* (08/01/21 5:17 AM) Invalid Interpretation Code AH Remisol SS Potassium [Moles/Vol] 3.8 mmol/L Invalid Interpretation Code 3.5 - 5.0 mEq/L AH ADM SS Protein [Mass/Vol] 5.8 G/dL Invalid Interpretation Code 5.7 - 8.2 G/dL AH ADM SS RBC (Bld) [#/Vol] 3.55 106/mcL Invalid Interpretation Code 4.10 - 5.30 10^6/mcL AH Remisol SS Sodium [Moles/Vol] 143 mmol/L Invalid Interpretation Code 136 - 145 mEq/L AH ADM SS Troponin I.cardiac DL <= 0.01 ng/mL [Mass/Vol] ng/L Invalid Interpretation Code 0.00 - 34.00 ng/L AH ADM SS Urea nitrogen [Mass/Vol] 10.0 mg/dL Invalid Interpretation Code 8.0 - 22.0 mg/dL AH ADM SS Urea nitrogen/Creatinine [Mass ratio] 13.0 ratio Invalid Interpretation Code 10.0 - 22.0 ratio AH ADM SS WBC (Bld) [#/Vol] 3.90 103/mcL Invalid Interpretation Code 4.50 - 10.80 10^3/mcL AH Remisol SS LABORATORYOrdered By: Julio Cesar Serna on 08-01-2021 aPTT Coag (PPP) [Time] 26.9 s Invalid Interpretation Code 25.0 - 35.0 seconds AH Auto Coag SS Fibrin D-dimer DDU (PPP) [Mass/Vol] 215 ng/mL D-DU Invalid Interpretation Code 0 - 230 ng/mL D-DU AH Auto Coag SS Comment on above: Result Comment: Resu lts reported in D-DU ng/ml. Negative for D-dimer. DVT/PE is highly unlikely. Note: False negative results may be seen in patients on anticoagulant therapy. Fibrinogen Coag (PPP) [Mass/Vol] 609 mg/dL Invalid Interpretation Code 250 - 550 mg/dL AH Auto Coag SS Heparin dose (APTT) Unknown (08/01/21 5:17 AM) Invalid Interpretation Code AH Auto Coag SS INR Coag (PPP) [Relative time] 1.0 {INR} Invalid Interpretation Code AH Auto Coag SS PT Coag (PPP) [Time] 12.1 s Invalid Interpretation Code 9.0 - 14.8 seconds AH Auto Coag SS PROon 08-01-2021 INR Coag (PPP) [Relative time] 1.0 {INR} Normal [facility] ([place]) Comment on above: Result Comment: [employer] (CHEST, 1992, 102:312S-[id number]) recommended therapeutic range for oral anticoagulant therapy is: LOW RISK: Prophylaxis of venous thrombosis INR: 2.0-3.0 Treatment of pulmonary embolism 2.0-3.0 Prevention of systemic embolism 2.0-3.0 HIGH RISK: Mechanical prosthetic valves 2.5-3.5 Performed By: #### L AC, APTT #### [address] [address] PT Coag (PPP) [Time] 12.1 s Normal 9.0-14.8 [facility] ([place]) Comment on above: Result Comment: Effe ctive 02/13/08, Protime results may be affected by some antibiotics (i.e. Ciprofloxacin, Azithromycin, Bactrim) which may potentiate the action of oral anticoagulants, with further increases in Protime/INR. Performed By: #### L AC, APTT #### [address] [address] TROPHSon 08-01-2021 Troponin I High Sensitivity <2.50 Normal 0.00-34.00 [facility] ([place]) Comment on above: Performed By: #### L AC, APTT #### [address] [address] .Auto Diffon 07-31-2021 Basophil, Absolute 0.00 10 3/mcL Normal 0.00-0.27 [facility] ([place]) Comment on above: Performed By: #### L AC, APTT #### [address] [address] Basophils/100 WBC (Bld) 0.7 % Normal 0.0-2.5 [facility] ([place]) Comment on above: Performed By: #### L AC, APTT #### [address] [address] Eosinophil, Absolute 0.10 10 3/mcL Normal 0.00-0.65 [facility] ([place]) Comment on above: Performed By: #### L AC, APTT #### [address] [address] Eosinophils/100 WBC (Bld) 1.6 % Normal 0.0-6.0 [facility] ([place]) Comment on above: Performed By: #### L AC, APTT #### [address] [address] Lymphocyte, Absolute 1.20 10 3/mcL Normal 0.90-4.32 [facility] ([place]) Comment on above: Performed By: #### L AC, APTT #### [address] [address] Lymphocytes/100 WBC (Bld) 35.2 % Normal 20.0-40.0 [facility] ([place]) Comment on above: Performed By: #### L AC, APTT #### [address] [address] Monocyte, Absolute 0.30 10 3/mcL Normal 0.09-1.40 [facility] ([place]) Comment on above: Performed By: #### L AC, APTT #### [address] [address] Monocytes/100 WBC (Bld) 9.5 % Normal 2.0-13.0 [facility] ([place]) Comment on above: Performed By: #### L AC, APTT #### [address] [address] Neutrophils/100 WBC (Bld) 53.0 % Normal 50.0-75.0 [facility] ([place]) Comment on above: Performed By: #### L AC, APTT #### [address] [address] .GFRon 07-31-2021 GFR >60 Normal [facility] ([place]) Comment on above: Result Comment: GFR Population mean for , Non- Americans Ages 20-29 = 116 mL/min/1.73 sq.m. Ages 30-39 = 107 mL/min/1.73 sq.m. Ages 40-49 = 99 mL/min/1.73 sq.m. Ages 50-59 = 93 mL/min/1.73 sq.m. Ages 60-69 = 85 mL/min/1.73 sq.m. Ages 70+ = 75 mL/min/1.73 sq.m. Chronic Kidney Disease: Less than 60 mL/min/1.73 square meters End Stage Renal Disease: Less than 15 mL/min/1.73 square meters Performed By: #### L AC, APTT #### [address] [address] GFR Non- >60 Normal [facility] ([place]) Comment on above: Result Comment: GFR Population mean for , Non- Americans Ages 20-29 = 116 mL/min/1.73 sq.m. Ages 30-39 = 107 mL/min/1.73 sq.m. Ages 40-49 = 99 mL/min/1.73 sq.m. Ages 50-59 = 93 mL/min/1.73 sq.m. Ages 60-69 = 85 mL/min/1.73 sq.m. Ages 70+ = 75 mL/min/1.73 sq.m. Chronic Kidney Disease: Less than 60 mL/min/1.73 square meters End Stage Renal Disease: Less than 15 mL/min/1.73 square meters Performed By: #### L DARRICK APTT #### [address] [address] .NEUABSon 07-31-2021 Neutrophil, Absolute 1.90 10 3/mcL Low 2.25-8.10 A [facility] ([place]) Comment on above: Performed By: #### L AC APTT #### [address] [address] Brad 07-31-2021 Ammonia 35 mcmol/l High 11-32 [facility] ([place]) Comment on above: Result Comment: Spec imen slightly hemolyzed. Performed By: #### L AC, APTT #### [place] [address] APTTon 07-31-2021 aPTT Coag (Bld) [Time] 31.4 s Normal 25.0-35.0 [facility] ([place]) Comment on above: Result Comment: For Heparin anticoagulation therapy, the recommended therapeutic range is: 54-77 seconds (APTT Correlation with Anti-Xa therapeutic range of 0.3-0.7 units/ml). PLEASE REFERENCE THE PHARMACY PROTOCOL FOR DOSING. Performed By: #### L AC, APTT #### [place] [address] Heparin dose (APTT) LMW Heparin Normal [facility] ([place]) Comment on above: Performed By: #### L AC, APTT #### [place] [address] CBCon 07-31-2021 Erythrocyte distribution width (RBC) [Ratio] 20.5 % High 11.5-15.5 [facility] ([place]) Comment on above: Performed By: #### L AC, APTT #### [place] [address] Hematocrit (Bld) [Volume fraction] 31.2 % Low 34.0-46.0 [facility] ([place]) Comment on above: Performed By: #### L AC, APTT #### [place] [address] Hgb 10.1 G/dL Low 12.0-16.0 [facility] ([place]) Comment on above: Performed By: #### L AC, APTT #### [address] [address] MCH (RBC) [Entitic mass] 26.7 pg Low 27.0-33.0 [facility] ([place]) Comment on above: Performed By: #### L AC, APTT #### [place] [id number] MCHC 32.5 G/dL Normal 32.0-36.0 [facility] ([place]) Comment on above: Performed By: #### L AC, APTT #### [facility] [address] [place], [place] [address] MCV (RBC) [Entitic vol] 82.4 fL Normal 80.0-99.0 [facility] ([place]) Comment on above: Performed By: #### L AC, APTT #### [address] [address] Platelet 360 10 3/mcL Normal 150-450 [facility] ([place]) Comment on above: Performed By: #### L AC, APTT #### [address] [address] Platelet mean volume (Bld) [Entitic vol] 6.9 fL Normal 6.6-10.5 [facility] ([place]) Comment on above: Performed By: #### L AC, APTT #### [place] [id number] RBC 3.79 10 6/mcL Low 4.10-5.30 [facility] ([place]) Comment on above: Performed By: #### L AC, APTT #### [place] [id number] WBC 3.50 10 3/mcL Low 4.50-10.80 [facility] ([place]) Comment on above: Performed By: #### L AC, APTT #### [address] [address] CMPon 07-31-2021 Albumin Level 2.2 G/dL Low 3.2-4.8 [facility] ([place]) Comment on above: Performed By: #### L AC, APTT #### [address] [address] Albumin/Globulin [Mass ratio] 0.6 {ratio} Low 0.9-1.6 [facility] ([place]) Comment on above: Performed By: #### L AC, APTT #### [address] [address] ALP [Catalytic activity/Vol] 110 U/L Normal 38-126 [facility] ([place]) Comment on above: Performed By: #### L AC, APTT #### [address] [address] ALT [Catalytic activity/Vol] 20 U/L Normal 10-49 [facility] ([place]) Comment on above: Performed By: #### L AC, APTT #### [address] [address] AST [Catalytic activity/Vol] 44 U/L High 8-34 [facility] ([place]) Comment on above: Performed By: #### L AC, APTT #### [address] [address] Bili Total 0.40 mg/dL Normal 0.20-1.20 [facility] ([place]) Comment on above: Result Comment: Use of this assay is not recommended for patients undergoing treatment with eltrombopag due to the potential for falsely elevated results. Performed By: #### L AC, APTT #### [address] [address] BUN/Creatinine Ratio 11.4 ratio Normal 10.0-22.0 [facility] ([place] Comment on above: Performed By: #### L AC, APTT #### [address] [address] Calcium [Mass/Vol] 8.7 mg/dL Normal 8.7-10.4 [facility] ([place]) Comment on above: Result Comment: No te - New Reference Range in effect 20 Performed By: #### L AC, APTT #### [address] [address] Chloride [Moles/Vol] 107 mmol/L Normal 98-110 [facility] ([place]) Comment on above: Performed By: #### L AC, APTT #### [address] [address] CO2 [Moles/Vol] 22 mmol/L Normal 22-32 [facility] ([place]) Comment on above: Performed By: #### L AC, APTT #### [address] [address] Creatinine [Mass/Vol] 0.70 mg/dL Normal 0.50-1.20 [facility] ([place]) Comment on above: Performed By: #### L AC, APTT #### [address] [address] Electrolyte Balance 9.0 mEq/L Normal 4.0-15.0 [facility] ([place]) Comment on above: Performed By: #### L AC, APTT #### [address] [address] Globulin 4.0 G/dL High 1.5-3.8 [facility] ([place]) Comment on above: Performed By: #### L AC, APTT #### [address] [address] Glucose [Mass/Vol] 174 mg/dL High 82-115 [facility] ([place] Comment on above: Performed By: #### L AC, APTT #### [address] [address] Potassium [Moles/Vol] 4.1 mmol/L Normal 3.5-5.0 [facility] ([place]) Comment on above: Performed By: #### L AC, APTT #### [address] [address] Sodium [Moles/Vol] 138 mmol/L Normal 136-145 [facility] ([place] Comment on above: Performed By: #### L AC, APTT #### [address] [address] Total Protein 6.2 G/dL Normal 5.7-8.2 [facility] ([place] Comment on above: Result Comment: No te - New Reference Range in effect 20 Performed By: #### L AC, APTT #### [address] [address] Urea nitrogen [Mass/Vol] 8.0 mg/dL Normal 8.0-22.0 [facility] ([place]) Comment on above: Performed By: #### L AC, APTT #### [address] [address] CRPon 07-31-2021 C-Reactive Protein 1.9 mg/dL High 0.0-1.0 [facility] ([place]) Comment on above: Result Comment: No te - New Reference Range in effect 20 Performed By: #### L AC, APTT #### [address] [address] DIMERon 07-31-2021 D-Dimer 243 ng/mL D-DU High 0-230 [facility] ([place]) Comment on above: Result Comment: Resu lts reported in D-DU ng/ml. Positive for D-dimer. A positive D-dimer may occur in the following: DVT, PE, DIC, Trauma, Cancer, Sepsis, , Rheumatoid arthritis, Myocardial infarction and Cirrhosis. Note: Not affected by Rheumatoid Factor <=1400 IU/mL The result of the D-Dimer test should be evaluated in the context of all the clinical and laboratory data available. In those instances where the laboratory result does not agree with the clinical evaluation, additional tests should be performed accordingly. Performed By: #### L AC, APTT #### [place] [id number] Mario 07-31-2021 Ferritin [Mass/Vol] 157.8 ng/mL Normal 8.0-252.0 [facility] ([place]) Comment on above: Performed By: #### L DARRICK, APTT #### [place] [id number] FIBon 07-31-2021 Fibrinogen >700 High 250-550 [facility] ([place]) Comment on above: Performed By: #### L AC, APTT #### [place] [address] LABORATORYOrdered By: SYSTEM SYSTEM on 07-31-2021 Albumin BCP dye [Mass/Vol] 2.2 G/dL Invalid Interpretation Code 3.2 - 4.8 G/dL AH ADM SS Albumin/Globulin [Mass ratio] 0.6 {ratio} Invalid Interpretation Code 0.9 - 1.6 ratio AH ADM SS ALP [Catalytic activity/Vol] 110 U/L Invalid Interpretation Code 38 - 126 U/L AH ADM SS ALT No additional P-5'-P [Catalytic activity/Vol] 20 U/L Invalid Interpretation Code 10 - 49 U/L AH ADM SS Ammonia (P) [Moles/Vol] 35 umol/L Invalid Interpretation Code 11 - 32 mcmol/L AH ADM SS Comment on above: Result Comment: Spec imen slightly hemolyzed. AST [Catalytic activity/Vol] 44 U/L Invalid Interpretation Code 8 - 34 U/L AH ADM SS Basophils (Bld) [#/Vol] 0.00 103/mcL Invalid Interpretation Code 0.00 - 0.27 10^3/mcL AH Remisol SS Basophils/100 WBC (Bld) 0.7 % Invalid Interpretation Code 0.0 - 2.5 % Remisol SS Bilirubin [Mass/Vol] 0.40 mg/dL Invalid Interpretation Code 0.20 - 1.20 mg/dL AH ADM SS Calcium [Mass/Vol] 8.7 mg/dL Invalid Interpretation Code 8.7 - 10.4 mg/dL AH ADM SS Chloride [Moles/Vol] 107 mmol/L Invalid Interpretation Code 98 - 110 mEq/L ADM SS CO2 [Moles/Vol] 22 mmol/L Invalid Interpretation Code 22 - 32 mEq/L ADM SS Creatinine [Mass/Vol] 0.70 mg/dL Invalid Interpretation Code 0.50 - 1.20 mg/dL ADM SS CRP [Mass/Vol] 1.9 mg/dL Invalid Interpretation Code 0.0 - 1.0 mg/dL AH ADM SS Electrolyte Balance 9.0 mEq/L Invalid Interpretation Code 4.0 - 15.0 mEq/L AH ADM SS Eosinophils (Bld) [#/Vol] 0.10 103/mcL Invalid Interpretation Code 0.00 - 0.65 10^3/mcL Remisol SS Eosinophils/100 WBC (Bld) 1.6 % Invalid Interpretation Code 0.0 - 6.0 % AH Remisol SS Erythrocyte distribution width (RBC) [Ratio] 20.5 % Invalid Interpretation Code 11.5 - 15.5 % AH Remisol SS Ferritin [Mass/Vol] 157.8 ng/mL Invalid Interpretation Code 8.0 - 252.0 ng/mL AH ADM SS GFR/1.73 sq M.predicted among blacks MDRD (S/P/Bld) [Vol rate/Area] ml/min/1.73sqm Invalid Interpretation Code Chemistry S GFR/1.73 sq M.predicted among non-blacks MDRD (S/P/Bld) [Vol rate/Area] ml/min/1.73sqm Invalid Interpretation Code Chemistry S Globulin 4.0 G/dL Invalid Interpretation Code 1.5 - 3.8 G/dL AH ADM SS Glucose [Mass/Vol] 174 mg/dL Invalid Interpretation Code 82 - 115 mg/dL AH ADM SS Hematocrit (Bld) [Volume fraction] 31.2 % Invalid Interpretation Code 34.0 - 46.0 % AH Remisol SS Hemoglobin (Bld) [Mass/Vol] 10.1 G/dL Invalid Interpretation Code 12.0 - 16.0 G/dL AH Remisol SS Lymphocytes (Bld) [#/Vol] 1.20 103/mcL Invalid Interpretation Code 0.90 - 4.32 10^3/mcL AH Remisol SS Lymphocytes/100 WBC (Bld) 35.2 % Invalid Interpretation Code 20.0 - 40.0 % AH Remisol SS MCH (RBC) [Entitic mass] 26.7 pg Invalid Interpretation Code 27.0 - 33.0 pg AH Remisol SS MCHC (RBC) [Mass/Vol] 32.5 G/dL Invalid Interpretation Code 32.0 - 36.0 G/dL AH Remisol SS MCV (RBC) [Entitic vol] 82.4 fL Invalid Interpretation Code 80.0 - 99.0 fL AH Remisol SS Monocytes (Bld) [#/Vol] 0.30 103/mcL Invalid Interpretation Code 0.09 - 1.40 10^3/mcL AH Remisol SS Monocytes/100 WBC (Bld) 9.5 % Invalid Interpretation Code 2.0 - 13.0 % AH Remisol SS Neutrophils (Bld) [#/Vol] 1.90 103/mcL Invalid Interpretation Code 2.25 - 8.10 10^3/mcL AH Remisol SS Neutrophils/100 WBC (Bld) 53.0 % Invalid Interpretation Code 50.0 - 75.0 % AH Remisol SS Platelet mean volume (Bld) [Entitic vol] 6.9 fL Invalid Interpretation Code 6.6 - 10.5 fL AH Remisol SS Platelets (Bld) [#/Vol] 360 103/mcL Invalid Interpretation Code 150 - 450 10^3/mcL AH Remisol SS Potassium [Moles/Vol] 4.1 mmol/L Invalid Interpretation Code 3.5 - 5.0 mEq/L AH ADM SS Protein [Mass/Vol] 6.2 G/dL Invalid Interpretation Code 5.7 - 8.2 G/dL AH ADM SS RBC (Bld) [#/Vol] 3.79 106/mcL Invalid Interpretation Code 4.10 - 5.30 10^6/mcL AH Remisol SS Sodium [Moles/Vol] 138 mmol/L Invalid Interpretation Code 136 - 145 mEq/L AH ADM SS Troponin I.cardiac DL <= 0.01 ng/mL [Mass/Vol] ng/L Invalid Interpretation Code 0.00 - 34.00 ng/L AH ADM SS Urea nitrogen [Mass/Vol] 8.0 mg/dL Invalid Interpretation Code 8.0 - 22.0 mg/dL AH ADM SS Urea nitrogen/Creatinine [Mass ratio] 11.4 ratio Invalid Interpretation Code 10.0 - 22.0 ratio AH ADM SS WBC (Bld) [#/Vol] 3.50 103/mcL Invalid Interpretation Code 4.50 - 10.80 10^3/mcL AH Remisol SS LABORATORYOrdered By: Qian Atwood on 07-31-2021 aPTT Coag (PPP) [Time] 31.4 s Invalid Interpretation Code 25.0 - 35.0 seconds AH Auto Coag SS Fibrin D-dimer DDU (PPP) [Mass/Vol] 243 ng/mL D-DU Invalid Interpretation Code 0 - 230 ng/mL D-DU AH Auto Coag SS Comment on above: Result Comment: Resu lts reported in D-DU ng/ml. Positive for D-dimer. A positive D-dimer may occur in the following: DVT, PE, DIC, Trauma, Cancer, Sepsis, , Rheumatoid arthritis, Myocardial infarction and Cirrhosis. Note: Not affected by Rheumatoid Factor <=1400 IU/mL Fibrinogen Coag (PPP) [Mass/Vol] mg/dL Invalid Interpretation Code 250 - 550 mg/dL AH Auto Coag SS Heparin dose (APTT) LMW Heparin (07/31/21 11:27 AM) Invalid Interpretation Code AH Auto Coag SS INR Coag (PPP) [Relative time] 1.1 {INR} Invalid Interpretation Code AH Auto Coag SS PT Coag (PPP) [Time] 13.1 s Invalid Interpretation Code 9.0 - 14.8 seconds AH Auto Coag SS PROon 07-31-2021 INR Coag (PPP) [Relative time] 1.1 {INR} Normal [facility] ([place]) Comment on above: Result Comment: [employer] (CHEST, 1992, 102:312S-25S) recommended therapeutic range for oral anticoagulant therapy is: LOW RISK: Prophylaxis of venous thrombosis INR: 2.0-3.0 Treatment of pulmonary embolism 2.0-3.0 Prevention of systemic embolism 2.0-3.0 HIGH RISK: Mechanical prosthetic valves 2.5-3.5 Performed By: #### L AC, APTT #### [address] [address] PT Coag (PPP) [Time] 13.1 s Normal 9.0-14.8 [facility] ([place]) Comment on above: Result Comment: Effe ctive 02/13/08, Protime results may be affected by some antibiotics (i.e. Ciprofloxacin, Azithromycin, Bactrim) which may potentiate the action of oral anticoagulants, with further increase in Protime/INR. Performed By: #### L AC, APTT #### [address] [address] TROPHSon 07-31-2021 Troponin I High Sensitivity <2.50 Normal 0.00-34.00 [facility] ([place]) Comment on above: Performed By: #### L AC, APTT #### [address] [address] .Auto Diffon 07-30-2021 Basophil, Absolute 0.00 10 3/mcL Normal 0.00-0.27 [facility] ([place]) Comment on above: Performed By: #### L AC, APTT #### [address] [address] Basophils/100 WBC (Bld) 0.3 % Normal 0.0-2.5 [facility] ([place]) Comment on above: Performed By: #### L AC, APTT #### [address] [address] Eosinophil, Absolute 0.10 10 3/mcL Normal 0.00-0.65 [facility] ([place]) Comment on above: Performed By: #### L AC, APTT #### [address] [address] Eosinophils/100 WBC (Bld) 1.8 % Normal 0.0-6.0 [facility] ([place]) Comment on above: Performed By: #### L AC, APTT #### [address] [address] Lymphocyte, Absolute 1.10 10 3/mcL Normal 0.90-4.32 [facility] ([place]) Comment on above: Performed By: #### L AC, APTT #### [address] [address] Lymphocytes/100 WBC (Bld) 35.2 % Normal 20.0-40.0 [facility] ([place]) Comment on above: Performed By: #### L AC, APTT #### [address] [address] Monocyte, Absolute 0.30 10 3/mcL Normal 0.09-1.40 [facility] ([place]) Comment on above: Performed By: #### L AC, APTT #### [address] [address] Monocytes/100 WBC (Bld) 9.4 % Normal 2.0-13.0 [facility] ([place]) Comment on above: Performed By: #### L AC, APTT #### [address] [address] Neutrophils/100 WBC (Bld) 53.3 % Normal 50.0-75.0 [facility] ([place]) Comment on above: Performed By: #### L AC, APTT #### [address] [address] .GFRon 07-30-2021 GFR >60 Normal [facility] ([place]) Comment on above: Result Comment: GFR Population mean for , Non- Americans Ages 20-29 = 116 mL/min/1.73 sq.m. Ages 30-39 = 107 mL/min/1.73 sq.m. Ages 40-49 = 99 mL/min/1.73 sq.m. Ages 50-59 = 93 mL/min/1.73 sq.m. Ages 60-69 = 85 mL/min/1.73 sq.m. Ages 70+ = 75 mL/min/1.73 sq.m. Chronic Kidney Disease: Less than 60 mL/min/1.73 square meters End Stage Renal Disease: Less than 15 mL/min/1.73 square meters Performed By: #### L AC, APTT #### [address] [address] GFR Non- >60 Normal [facility] ([place]) Comment on above: Result Comment: GFR Population mean for , Non- Americans Ages 20-29 = 116 mL/min/1.73 sq.m. Ages 30-39 = 107 mL/min/1.73 sq.m. Ages 40-49 = 99 mL/min/1.73 sq.m. Ages 50-59 = 93 mL/min/1.73 sq.m. Ages 60-69 = 85 mL/min/1.73 sq.m. Ages 70+ = 75 mL/min/1.73 sq.m. Chronic Kidney Disease: Less than 60 mL/min/1.73 square meters End Stage Renal Disease: Less than 15 mL/min/1.73 square meters Performed By: #### L AC, APTT #### [place] [address] .NEUABSon 07-30-2021 Neutrophil, Absolute 1.70 10 3/mcL Low 2.25-8.10 [facility] ([place]) Comment on above: Performed By: #### L AC, APTT #### [place] [address] APTTon 07-30-2021 aPTT Coag (Bld) [Time] 28.4 s Normal 25.0-35.0 [facility] ([place]) Comment on above: Result Comment: For Heparin anticoagulation therapy, the recommended therapeutic range is: 54-77 seconds (APTT Correlation with Anti-Xa therapeutic range of 0.3-0.7 units/ml). PLEASE REFERENCE THE PHARMACY PROTOCOL FOR DOSING. Performed By: #### L AC, APTT #### [address] [address] Heparin dose (APTT) LMW Heparin Normal [facility] ([place]) Comment on above: Performed By: #### L AC, APTT #### [place] [id number] CBCon 07-30-2021 Erythrocyte distribution width (RBC) [Ratio] 20.3 % High 11.5-15.5 [facility] ([place]) Comment on above: Performed By: #### L AC, APTT #### [place] [address] Hematocrit (Bld) [Volume fraction] 29.0 % Low 34.0-46.0 [facility] ([place]) Comment on above: Performed By: #### L AC, APTT #### [place] [id number] Hgb 9.4 G/dL Low 12.0-16.0 [facility] ([place]) Comment on above: Performed By: #### L AC, APTT #### [place] [id number] MCH (RBC) [Entitic mass] 26.6 pg Low 27.0-33.0 [facility] ([place]) Comment on above: Performed By: #### L AC, APTT #### [place] [address] MCHC 32.5 G/dL Normal 32.0-36.0 [facility] ([place]) Comment on above: Performed By: #### L AC, APTT #### [place] [id number] MCV (RBC) [Entitic vol] 81.9 fL Normal 80.0-99.0 [facility] ([place]) Comment on above: Performed By: #### L AC, APTT #### [place] [id number] Platelet 285 10 3/mcL Normal 150-450 [facility] ([place]) Comment on above: Performed By: #### L AC, APTT #### [place] [id number] Platelet mean volume (Bld) [Entitic vol] 6.8 fL Normal 6.6-10.5 [facility] ([place]) Comment on above: Performed By: #### L AC, APTT #### [address] [address] RBC 3.54 10 6/mcL Low 4.10-5.30 [facility] ([place]) Comment on above: Performed By: #### L AC, APTT #### [place] [address] WBC 3.20 10 3/mcL Low 4.50-10.80 [facility] ([place]) Comment on above: Performed By: #### L AC, APTT #### [place] [address] CMPon 07-30-2021 Albumin Level 1.8 G/dL Low 3.2-4.8 [facility] ([place]) Comment on above: Performed By: #### U A UAMIC #### [place] [address] Albumin/Globulin [Mass ratio] 0.5 {ratio} Low 0.9-1.6 [facility] ([place]) Comment on above: Performed By: #### U A UAMIC #### [address] [address] ALP [Catalytic activity/Vol] 91 U/L Normal 38-126 [facility] ([place]) Comment on above: Performed By: #### U A UAMIC #### [place] [id number] ALT [Catalytic activity/Vol] 19 U/L Normal 10-49 [facility] ([place]) Comment on above: Performed By: #### U A UAMIC #### [address] [address] AST [Catalytic activity/Vol] 45 U/L High 8-34 [facility] ([place]) Comment on above: Performed By: #### U A UAMIC #### [place] [address] Bili Total 0.50 mg/dL Normal 0.20-1.20 [facility] ([place]) Comment on above: Result Comment: Use of this assay is not recommended for patients undergoing treatment with eltrombopag due to the potential for falsely elevated results. Performed By: #### U A UAMIC #### [place] [id number] BUN/Creatinine Ratio 11.9 ratio Normal 10.0-22.0 [facility] ([place]) Comment on above: Performed By: #### U A, UAMIC #### [place] [id number] Calcium [Mass/Vol] 7.6 mg/dL Low 8.7-10.4 [facility] ([place]) Comment on above: Result Comment: No te - New Reference Range in effect 20 Performed By: #### U David UAMIC #### [place] [id number] Chloride [Moles/Vol] 108 mmol/L Normal 98-110 [facility] ([place]) Comment on above: Performed By: #### U A UAMIC #### [place] [id number] CO2 [Moles/Vol] 27 mmol/L Normal 22-32 [facility] ([place]) Comment on above: Performed By: #### U A, UAMIC #### [address] [address] Creatinine [Mass/Vol] 0.67 mg/dL Normal 0.50-1.20 [facility] ([place]) Comment on above: Performed By: #### U A, UAMIC #### [address] [address] Electrolyte Balance 6.0 mEq/L Normal 4.0-15.0 [facility] ([place]) Comment on above: Performed By: #### U A, UAMIC #### [address] [address] Globulin 3.6 G/dL Normal 1.5-3.8 [facility] ([place]) Comment on above: Performed By: #### U A UAMIC #### [address] [address] Glucose [Mass/Vol] 140 mg/dL High 82-115 [facility] ([place]) Comment on above: Performed By: #### U A, UAMIC #### [address] [address] Potassium [Moles/Vol] 3.6 mmol/L Normal 3.5-5.0 [facility] ([place]) Comment on above: Performed By: #### U A, UAMIC #### [address] [address] Sodium [Moles/Vol] 141 mmol/L Normal 136-145 [facility] ([place] Comment on above: Performed By: #### U A, UAMIC #### [address] [address] Total Protein 5.4 G/dL Low 5.7-8.2 [facility] ([place]) Comment on above: Result Comment: No te - New Reference Range in effect 20 Performed By: #### U A, UAMIC #### [address] [address] Urea nitrogen [Mass/Vol] 8.0 mg/dL Normal 8.0-22.0 [facility] ([place]) Comment on above: Performed By: #### U A, UAMIC #### [address] [address] CRPon 07-30-2021 C-Reactive Protein 2.9 mg/dL High 0.0-1.0 [facility] ([place]) Comment on above: Result Comment: No te - New Reference Range in effect 20 Performed By: #### U A, UAMIC #### [address] [address] DIMERon 07-30-2021 D-Dimer <200 Normal 0-230 [facility] ([place]) Comment on above: Result Comment: Resu lts reported in D-DU ng/ml. Negative for D-dimer. DVT/PE is highly unlikely. Note: False negative results may be seen in patients on anticoagulant therapy. The result of the D-Dimer test should be evaluated in the context of all the clinical and laboratory data available. In those instances where the laboratory result does not agree with the clinical evaluation, additional tests should be performed accordingly. Performed By: #### L AC, APTT #### [place] [id number] Mario 07-30-2021 Ferritin [Mass/Vol] 171.0 ng/mL Normal 8.0-252.0 [facility] ([place]) Comment on above: Performed By: #### U A, UAMIC #### [place] [id number] FIBon 07-30-2021 Fibrinogen >700 High 250-550 [facility] ([place]) Comment on above: Performed By: #### L AC, APTT #### [place] [id number] PROon 07-30-2021 INR Coag (PPP) [Relative time] 1.0 {INR} Normal [facility] ([place]) Comment on above: Result Comment: [employer] (CHEST, 1992, 102:312S-25S) recommended therapeutic range for oral anticoagulant therapy is: LOW RISK: Prophylaxis of venous thrombosis INR: 2.0-3.0 Treatment of pulmonary embolism 2.0-3.0 Prevention of systemic embolism 2.0-3.0 HIGH RISK: Mechanical prosthetic valves 2.5-3.5 Performed By: #### L AC, APTT #### [place] [address] PT Coag (PPP) [Time] 12.3 s Normal 9.0-14.8 [facility] ([place]) Comment on above: Result Comment: Effe ctive 02/13/08, Protime results may be affected by some antibiotics (i.e. Ciprofloxacin, Azithromycin, Bactrim) which may potentiate the action of oral anticoagulants, with further increases in Protime/INR. Performed By: #### L AC, APTT #### [place] [id number] TROPHSon 07-30-2021 Troponin I High Sensitivity <2.50 Normal 0.00-34.00 [facility] ([place]) Comment on above: Performed By: #### L AC, APTT #### [address] [address] XR ABDOMEN APon 07-30-2021 XR ABDOMEN AP ORIGINAL HISTORY: Pain COMPARISON: Previous day FINDINGS: The study is somewhat limited by habitus. There are distended loops of large bowel, up to about 9.5 cm in diameter. Small bowel is mostly obscured and not well evaluated. Free air is not well evaluated. IMPRESSION: Mild shifting of bowel gas; overall distension may be mildly improved since the comparison. Interpreted by: Flaco Coles MD Preliminary Report By: Flaco Coles MD Electronically signed By Flaco Coles MD Dictated Date: 07/30/2021 7:51:59 PM Prelim Date: 07/30/2021 7:53:24 PM Sign Date: 07/30/2021 7:53:24 PM Ordering Provider: LOURDES Alvarado [facility] ([place]) .Auto Diffon 07-29-2021 Basophil, Absolute 0.00 10 3/mcL Normal 0.00-0.27 [facility] ([place]) Comment on above: Performed By: #### U A UAMIC #### [address] [address] Basophils/100 WBC (Bld) 0.3 % Normal 0.0-2.5 [facility] ([place]) Comment on above: Performed By: #### U A, UAMIC #### [address] [address] Eosinophil, Absolute 0.00 10 3/mcL Normal 0.00-0.65 [facility] ([place]) Comment on above: Performed By: #### U A, UAMIC #### [address] [address] Eosinophils/100 WBC (Bld) 1.4 % Normal 0.0-6.0 [facility] ([place]) Comment on above: Performed By: #### U A, UAMIC #### [address] [address] Lymphocyte, Absolute 1.10 10 3/mcL Normal 0.90-4.32 [facility] ([place]) Comment on above: Performed By: #### U A, UAMIC #### [address] [address] Lymphocytes/100 WBC (Bld) 35.0 % Normal 20.0-40.0 [facility] ([place]) Comment on above: Performed By: #### U A, UAMIC #### [address] [address] Monocyte, Absolute 0.40 10 3/mcL Normal 0.09-1.40 [facility] ([place]) Comment on above: Performed By: #### U A, UAMIC #### [address] [address] Monocytes/100 WBC (Bld) 11.6 % Normal 2.0-13.0 [facility] ([place]) Comment on above: Performed By: #### U A, UAMIC #### [address] [address] Neutrophils/100 WBC (Bld) 51.7 % Normal 50.0-75.0 [facility] ([place]) Comment on above: Performed By: #### U A, UAMIC #### [address] [address] .GFRon 07-29-2021 GFR >60 Normal [facility] ([place]) Comment on above: Result Comment: GFR Population mean for , Non- Americans Ages 20-29 = 116 mL/min/1.73 sq.m. Ages 30-39 = 107 mL/min/1.73 sq.m. Ages 40-49 = 99 mL/min/1.73 sq.m. Ages 50-59 = 93 mL/min/1.73 sq.m. Ages 60-69 = 85 mL/min/1.73 sq.m. Ages 70+ = 75 mL/min/1.73 sq.m. Chronic Kidney Disease: Less than 60 mL/min/1.73 square meters End Stage Renal Disease: Less than 15 mL/min/1.73 square meters Performed By: #### U A, UAMIC #### [address] [address] GFR Non- >60 Normal [facility] ([place]) Comment on above: Result Comment: GFR Population mean for , Non- Americans Ages 20-29 = 116 mL/min/1.73 sq.m. Ages 30-39 = 107 mL/min/1.73 sq.m. Ages 40-49 = 99 mL/min/1.73 sq.m. Ages 50-59 = 93 mL/min/1.73 sq.m. Ages 60-69 = 85 mL/min/1.73 sq.m. Ages 70+ = 75 mL/min/1.73 sq.m. Chronic Kidney Disease: Less than 60 mL/min/1.73 square meters End Stage Renal Disease: Less than 15 mL/min/1.73 square meters Performed By: #### CATHY Hoyt #### [place] [address] .NEUABSon 07-29-2021 Neutrophil, Absolute 1.70 10 3/mcL Low 2.25-8.10 [facility] ([place]) Comment on above: Performed By: #### Anthony Hernandez UAMIC #### [place] [address] A1Con 07-29-2021 HbA1c (Bld) [Mass fraction] 11.7 % High 4.0-6.0 [facility] ([place]) Comment on above: Performed By: #### Anthony Hernandez UAMIC #### [place] [address] APTTon 07-29-2021 aPTT Coag (Bld) [Time] 28.3 s Normal 25.0-35.0 [facility] ([place]) Comment on above: Result Comment: For Heparin anticoagulation therapy, the recommended therapeutic range is: 54-77 seconds (APTT Correlation with Anti-Xa therapeutic range of 0.3-0.7 units/ml). PLEASE REFERENCE THE PHARMACY PROTOCOL FOR DOSING. Performed By: #### U CATHY Hernandez #### [place] [address] Heparin dose (APTT) Unknown Normal [facility] ([place]) Comment on above: Performed By: #### U A, UAMIC #### [address] [address] CBCon 07-29-2021 Erythrocyte distribution width (RBC) [Ratio] 20.2 % High 11.5-15.5 [facility] ([place]) Comment on above: Performed By: #### U A, UAMIC #### [address] [address] Hematocrit (Bld) [Volume fraction] 29.8 % Low 34.0-46.0 [facility] ([place]) Comment on above: Performed By: #### U A, UAMIC #### [address] [address] Hgb 9.8 G/dL Low 12.0-16.0 [facility] ([place]) Comment on above: Performed By: #### Anthony Hernandez, UAMIC #### [address] [address] MCH (RBC) [Entitic mass] 26.8 pg Low 27.0-33.0 [facility] ([place]) Comment on above: Performed By: #### U A, UAMIC #### [place] [id number] MCHC 32.7 G/dL Normal 32.0-36.0 [facility] ([place]) Comment on above: Performed By: #### U A, UAMIC #### [address] [address] MCV (RBC) [Entitic vol] 82.0 fL Normal 80.0-99.0 [facility] ([place]) Comment on above: Performed By: #### U A, UAMIC #### [address] [address] Platelet 228 10 3/mcL Normal 150-450 [facility] ([place]) Comment on above: Performed By: #### U A, UAMIC #### [place] [id number] Platelet mean volume (Bld) [Entitic vol] 6.6 fL Normal 6.6-10.5 [facility] ([place]) Comment on above: Performed By: #### U A, UAMIC #### [address] [address] RBC 3.64 10 6/mcL Low 4.10-5.30 [facility] ([place]) Comment on above: Performed By: #### Anthony Hernandez, UAMIC #### [address] [address] WBC 3.20 10 3/mcL Low 4.50-10.80 [facility] ([place]) Comment on above: Performed By: #### Anthony Hernandez UAMIC #### [address] [address] CMPon 07-29-2021 Albumin Level 1.8 G/dL Low 3.2-4.8 [facility] ([place] Comment on above: Performed By: #### Anthony Hernandez UAMIC #### [place] [address] Albumin/Globulin [Mass ratio] 0.5 {ratio} Low 0.9-1.6 [facility] ([place]) Comment on above: Performed By: #### Anthony Hernandez UAMIC #### [address] [address] ALP [Catalytic activity/Vol] 90 U/L Normal 38-126 [facility] ([place]) Comment on above: Performed By: #### Anthony Hernandez UAMIC #### [place] [address] ALT [Catalytic activity/Vol] 12 U/L Normal 10-49 [facility] ([place]) Comment on above: Performed By: #### U David UAMIC #### [address] [address] AST [Catalytic activity/Vol] 37 U/L High 8-34 [facility] ([place]) Comment on above: Performed By: #### Anthony Hernandez UAMIC #### [place] [id number] Bili Total 0.50 mg/dL Normal 0.20-1.20 [facility] ([place]) Comment on above: Result Comment: Use of this assay is not recommended for patients undergoing treatment with eltrombopag due to the potential for falsely elevated results. Performed By: #### U A UAMIC #### [place] [id number] BUN/Creatinine Ratio 9.2 ratio Low 10.0-22.0 [facility] ([place]) Comment on above: Performed By: #### U A, UAMIC #### [place] [id number] Calcium [Mass/Vol] 7.1 mg/dL Low 8.7-10.4 [facility] ([place]) Comment on above: Result Comment: No te - New Reference Range in effect 20 Performed By: #### U David UAMIC #### [place] [address] Chloride [Moles/Vol] 107 mmol/L Normal 98-110 [facility] ([place]) Comment on above: Performed By: #### U A UAMIC #### [place] [id number] CO2 [Moles/Vol] 28 mmol/L Normal 22-32 [facility] ([place]) Comment on above: Performed By: #### U David UAMIC #### [place] [address] Creatinine [Mass/Vol] 0.65 mg/dL Normal 0.50-1.20 [facility] ([place]) Comment on above: Performed By: #### U A UAMIC #### [place] [address] Electrolyte Balance 6.0 mEq/L Normal 4.0-15.0 [facility] ([place]) Comment on above: Performed By: #### U A UAMIC #### [place] [id number] Globulin 3.5 G/dL Normal 1.5-3.8 [facility] ([place]) Comment on above: Performed By: #### U A, UAMIC #### [place] [id number] Glucose [Mass/Vol] 126 mg/dL High 82-115 [facility] ([place]) Comment on above: Performed By: #### U A, UAMIC #### [address] [address] Potassium [Moles/Vol] 3.3 mmol/L Low 3.5-5.0 [facility] ([place]) Comment on above: Performed By: #### U A, UAMIC #### [address] [address] Sodium [Moles/Vol] 141 mmol/L Normal 136-145 [facility] ([place]) Comment on above: Performed By: #### U A, UAMIC #### [address] [address] Total Protein 5.3 G/dL Low 5.7-8.2 [facility] ([place]) Comment on above: Result Comment: No te - New Reference Range in effect 20 Performed By: #### U A, UAMIC #### [address] [address] Urea nitrogen [Mass/Vol] 6.0 mg/dL Low 8.0-22.0 [facility] ([place]) Comment on above: Performed By: #### U A, UAMIC #### [address] [address] CRPon 07-29-2021 C-Reactive Protein 4.5 mg/dL High 0.0-1.0 [facility] ([place]) Comment on above: Result Comment: No te - New Reference Range in effect 20 Performed By: #### U A, UAMIC #### [address] [address] DIMERon 07-29-2021 D-Dimer 221 ng/mL D-DU Normal 0-230 [facility] ([place]) Comment on above: Result Comment: Resu lts reported in D-DU ng/ml. Negative for D-dimer. DVT/PE is highly unlikely. Note: False negative results may be seen in patients on anticoagulant therapy. The result of the D-Dimer test should be evaluated in the context of all the clinical and laboratory data available. In those instances where the laboratory result does not agree with the clinical evaluation, additional tests should be performed accordingly. Performed By: #### CATHY Hoyt #### [place] [id number] Mario 07-29-2021 Ferritin [Mass/Vol] 216.2 ng/mL Normal 8.0-252.0 [facility] ([place]) Comment on above: Performed By: #### CATHY Hoyt #### [place] [address] FIBon 07-29-2021 Fibrinogen >700 High 250-550 [facility] ([place]) Comment on above: Performed By: #### CATHY Hoyt #### [place] [address] LABORATORYOrdered By: SYSTEM SYSTEM on 07-29-2021 HbA1c (Bld) [Mass fraction] 11.7 % Invalid Interpretation Code 4.0 - 6.0 % Auto Chem SS Magnesium [Mass/Vol] 1.6 mg/dL Invalid Interpretation Code 1.6 - 2.4 mg/dL ADM SS TSH Qn 4.285 mIU/mL Invalid Interpretation Code 0.550 - 4.780 mIU/mL AH ADM SS MGon 07-29-2021 Magnesium [Mass/Vol] 1.6 mg/dL Normal 1.6-2.4 [facility] ([place]) Comment on above: Performed By: #### CATHY Hoyt #### [place] [id number] PROon 07-29-2021 INR Coag (PPP) [Relative time] 1.1 {INR} Normal [facility] ([place]) Comment on above: Result Comment: [employer] (CHEST, 1992, 102:312S-25S) recommended therapeutic range for oral anticoagulant therapy is: LOW RISK: Prophylaxis of venous thrombosis INR: 2.0-3.0 Treatment of pulmonary embolism 2.0-3.0 Prevention of systemic embolism 2.0-3.0 HIGH RISK: Mechanical prosthetic valves 2.5-3.5 Performed By: #### CATHY Hoyt #### [address] [address] PT Coag (PPP) [Time] 12.9 s Normal 9.0-14.8 [facility] ([place]) Comment on above: Result Comment: Effe ctive 02/13/08, Protime results may be affected by some antibiotics (i.e. Ciprofloxacin, Azithromycin, Bactrim) which may potentiate the action of oral anticoagulants, with further increases in Protime/INR. Performed By: #### U A, UAMIC #### [place] [id number] TROPHSon 07-29-2021 Troponin I High Sensitivity 3.12 ng/L Normal 0.00-34.00 [facility] ([place]) Comment on above: Performed By: #### U A, UAMIC #### [place] [address] TSHon 07-29-2021 TSH 4.285 mIU/mL Normal 0.550-4.780 [facility] ([place]) Comment on above: Result Comment: No te - New Reference Range in effect 20 Performed By: #### U A, UAMIC #### [place] [address] XR ABDOMEN APon 07-29-2021 XR ABDOMEN AP ORIGINAL EXAMINATION: ONE SUPINE XRAY VIEW(S) OF THE ABDOMEN 07/29/2021 7:31 pm COMPARISON: None. HISTORY: ORDERING SYSTEM PROVIDED HISTORY: Reason for Exam: Constipation FINDINGS: Somewhat dilated colonic loops are seen, maximum 11 cm in diameter. However, no significantly dilated small bowel loops are visualized. No apparent pneumoperitoneum on these supine films. No significant stool burden is seen. IMPRESSION: Colonic dilatation, maximum 11 cm. In the absence of significant small bowel dilatation, this may be due to colonic ileus although distal colonic obstruction not excluded. Depending on clinical grounds, follow-up in 24-[address] evaluation suggested. Interpreted by: Grady Olivia DO Preliminary Report By: Grady Olivia DO Electronically signed By Grady Olivia DO Dictated Date: 07/29/2021 8:39:14 PM Prelim Date: 07/29/2021 8:52:07 PM Sign Date: 07/29/2021 8:52:07 PM Ordering Provider: LOURDES Alvarado [facility] ([place]) .Auto Diffon 07-28-2021 Basophil, Absolute 0.00 10 3/mcL Normal 0.00-0.27 [facility] ([place]) Comment on above: Performed By: #### C BC, ADIFF, ANEU, BMP, GFR, TROPHS #### [address] [address] Basophils/100 WBC (Bld) 0.3 % Normal 0.0-2.5 [facility] ([place]) Comment on above: Performed By: #### C BC, ADIFF, ANEU, BMP, GFR, TROPHS #### [address] [address] Eosinophil, Absolute 0.00 10 3/mcL Normal 0.00-0.65 [facility] ([place]) Comment on above: Performed By: #### C BC, ADIFF, ANEU, BMP, GFR, TROPHS #### [address] [address] Eosinophils/100 WBC (Bld) 1.0 % Normal 0.0-6.0 [facility] ([place]) Comment on above: Performed By: #### C BC, ADIFF, ANEU, BMP, GFR, TROPHS #### [address] [address] Lymphocyte, Absolute 1.10 10 3/mcL Normal 0.90-4.32 [facility] ([place]) Comment on above: Performed By: #### C BC, ADIFF, ANEU, BMP, GFR, TROPHS #### [address] [address] Lymphocytes/100 WBC (Bld) 33.4 % Normal 20.0-40.0 [facility] ([place]) Comment on above: Performed By: #### C BC, ADIFF, ANEU, BMP, GFR, TROPHS #### [address] [address] Monocyte, Absolute 0.30 10 3/mcL Normal 0.09-1.40 [facility] ([place]) Comment on above: Performed By: #### C BC, ADIFF, ANEU, BMP, GFR, TROPHS #### [address] [address] Monocytes/100 WBC (Bld) 8.2 % Normal 2.0-13.0 [facility] ([place]) Comment on above: Performed By: #### C BC, ADIFF, ANEU, BMP, GFR, TROPHS #### [address] [address] Neutrophils/100 WBC (Bld) 57.1 % Normal 50.0-75.0 [facility] ([place]) Comment on above: Performed By: #### C BC, ADIFF, ANEU, BMP, GFR, TROPHS #### [address] [address] .GFRon 07-28-2021 GFR >60 Normal [facility] ([place]) Comment on above: Result Comment: GFR Population mean for , Non- Americans Ages 20-29 = 116 mL/min/1.73 sq.m. Ages 30-39 = 107 mL/min/1.73 sq.m. Ages 40-49 = 99 mL/min/1.73 sq.m. Ages 50-59 = 93 mL/min/1.73 sq.m. Ages 60-69 = 85 mL/min/1.73 sq.m. Ages 70+ = 75 mL/min/1.73 sq.m. Chronic Kidney Disease: Less than 60 mL/min/1.73 square meters End Stage Renal Disease: Less than 15 mL/min/1.73 square meters Performed By: #### C BC, ADIFF, ANEU, BMP, GFR, TROPHS #### [address] [address] GFR Non- >60 Normal [facility] ([place]) Comment on above: Result Comment: GFR Population mean for , Non- Americans Ages 20-29 = 116 mL/min/1.73 sq.m. Ages 30-39 = 107 mL/min/1.73 sq.m. Ages 40-49 = 99 mL/min/1.73 sq.m. Ages 50-59 = 93 mL/min/1.73 sq.m. Ages 60-69 = 85 mL/min/1.73 sq.m. Ages 70+ = 75 mL/min/1.73 sq.m. Chronic Kidney Disease: Less than 60 mL/min/1.73 square meters End Stage Renal Disease: Less than 15 mL/min/1.73 square meters Performed By: #### C BC, ADIFF, ANEU, BMP, GFR, TROPHS #### [address] [address] .NEUABSon 07-28-2021 Neutrophil, Absolute 1.90 10 3/mcL Low 2.25-8.10 [facility] ([place]) Comment on above: Performed By: #### C BC, ADIFF, ANEU, BMP, GFR, TROPHS #### [place] [address] APTTon 07-28-2021 aPTT Coag (Bld) [Time] 31.0 s Normal 25.0-35.0 [facility] ([place]) Comment on above: Result Comment: For Heparin anticoagulation therapy, the recommended therapeutic range is: 54-77 seconds (APTT Correlation with Anti-Xa therapeutic range of 0.3-0.7 units/ml). PLEASE REFERENCE THE PHARMACY PROTOCOL FOR DOSING. Performed By: #### C BC, ADIFF, ANEU, BMP, GFR, TROPHS #### [place] [address] Heparin dose (APTT) Unknown Normal [facility] ([place]) Comment on above: Performed By: #### C BC, ADIFF, ANEU, BMP, GFR, TROPHS #### [address] [address] CBCon 07-28-2021 Erythrocyte distribution width (RBC) [Ratio] 20.3 % High 11.5-15.5 [facility] ([place]) Comment on above: Performed By: #### C BC, ADIFF, ANEU, BMP, GFR, TROPHS #### [address] [address] Hematocrit (Bld) [Volume fraction] 30.3 % Low 34.0-46.0 [facility] ([place]) Comment on above: Performed By: #### C BC, ADIFF, ANEU, BMP, GFR, TROPHS #### [place] [address] Hgb 9.9 G/dL Low 12.0-16.0 [facility] ([place]) Comment on above: Performed By: #### C BC, ADIFF, ANEU, BMP, GFR, TROPHS #### [place] [address] MCH (RBC) [Entitic mass] 26.9 pg Low 27.0-33.0 [facility] ([place]) Comment on above: Performed By: #### C BC, ADIFF, ANEU, BMP, GFR, TROPHS #### [place] [address] MCHC 32.6 G/dL Normal 32.0-36.0 [facility] ([place]) Comment on above: Performed By: #### C BC, ADIFF, ANEU, BMP, GFR, TROPHS #### [place] [address] MCV (RBC) [Entitic vol] 82.5 fL Normal 80.0-99.0 [facility] ([place]) Comment on above: Performed By: #### C BC, ADIFF, ANEU, BMP, GFR, TROPHS #### [place] [address] Platelet 198 10 3/mcL Normal 150-450 [facility] ([place]) Comment on above: Performed By: #### C BC, ADIFF, ANEU, BMP, GFR, TROPHS #### [place] [address] Platelet mean volume (Bld) [Entitic vol] 6.7 fL Normal 6.6-10.5 [facility] ([place]) Comment on above: Performed By: #### C BC, ADIFF, ANEU, BMP, GFR, TROPHS #### [place] [address] RBC 3.67 10 6/mcL Low 4.10-5.30 [facility] ([place]) Comment on above: Performed By: #### C BC, ADIFF, ANEU, BMP, GFR, TROPHS #### [address] [address] WBC 3.20 10 3/mcL Low 4.50-10.80 [facility] ([place]) Comment on above: Performed By: #### C BC, ADIFF, ANEU, BMP, GFR, TROPHS #### [address] [address] CMPon 07-28-2021 Calcium [Mass/Vol] 6.6 mg/dL Critically abnormal 8.7-10.4 [facility] ([place]) Comment on above: Result Comment: No te - New Reference Range in effect 20 Performed By: #### C BC, ADIFF, ANEU, BMP, GFR, TROPHS #### [place] [address] Albumin Level 1.8 G/dL Low 3.2-4.8 [facility] ([place]) Comment on above: Performed By: #### C BC, ADIFF, ANEU, BMP, GFR, TROPHS #### [place] [address] Albumin/Globulin [Mass ratio] 0.5 {ratio} Low 0.9-1.6 [facility] ([place]) Comment on above: Performed By: #### C BC, ADIFF, ANEU, BMP, GFR, TROPHS #### [address] [address] ALP [Catalytic activity/Vol] 90 U/L Normal 38-126 [facility] ([place]) Comment on above: Performed By: #### C BC, ADIFF, ANEU, BMP, GFR, TROPHS #### [address] [address] ALT [Catalytic activity/Vol] 10 U/L Normal 10-49 [facility] ([place]) Comment on above: Performed By: #### C BC, ADIFF, ANEU, BMP, GFR, TROPHS #### [address] [address] AST [Catalytic activity/Vol] 30 U/L Normal 8-34 [facility] ([place]) Comment on above: Performed By: #### C BC, ADIFF, ANEU, BMP, GFR, TROPHS #### [address] [address] Bili Total 0.50 mg/dL Normal 0.20-1.20 [facility] ([place]) Comment on above: Result Comment: Use of this assay is not recommended for patients undergoing treatment with eltrombopag due to the potential for falsely elevated results. Performed By: #### C BC, ADIFF, ANEU, BMP, GFR, TROPHS #### [place] [id number] BUN/Creatinine Ratio 12.9 ratio Normal 10.0-22.0 [facility] ([place]) Comment on above: Performed By: #### C BC, ADIFF, ANEU, BMP, GFR, TROPHS #### [address] [address] Chloride [Moles/Vol] 108 mmol/L Normal 98-110 [facility] ([place]) Comment on above: Performed By: #### C BC, ADIFF, ANEU, BMP, GFR, TROPHS #### [address] [address] CO2 [Moles/Vol] 28 mmol/L Normal 22-32 [facility] ([place]) Comment on above: Performed By: #### C BC, ADIFF, ANEU, BMP, GFR, TROPHS #### [address] [address] Creatinine [Mass/Vol] 0.62 mg/dL Normal 0.50-1.20 [facility] ([place]) Comment on above: Performed By: #### C BC, ADIFF, ANEU, BMP, GFR, TROPHS #### [address] [address] Electrolyte Balance 4.0 mEq/L Normal 4.0-15.0 [facility] ([place]) Comment on above: Performed By: #### C BC, ADIFF, ANEU, BMP, GFR, TROPHS #### [address] [address] Globulin 3.6 G/dL Normal 1.5-3.8 [facility] ([place]) Comment on above: Performed By: #### C BC, ADIFF, ANEU, BMP, GFR, TROPHS #### [address] [address] Glucose [Mass/Vol] 136 mg/dL High 82-115 [facility] ([place]) Comment on above: Performed By: #### C BC, ADIFF, ANEU, BMP, GFR, TROPHS #### [address] [address] Potassium [Moles/Vol] 3.0 mmol/L Low 3.5-5.0 [facility] ([place]) Comment on above: Performed By: #### C BC, ADIFF, ANEU, BMP, GFR, TROPHS #### [address] [address] Sodium [Moles/Vol] 140 mmol/L Normal 136-145 [facility] ([place]) Comment on above: Performed By: #### C BC, ADIFF, ANEU, BMP, GFR, TROPHS #### [address] [address] Total Protein 5.4 G/dL Low 5.7-8.2 [facility] ([place]) Comment on above: Result Comment: No te - New Reference Range in effect 20 Performed By: #### C BC, ADIFF, ANEU, BMP, GFR, TROPHS #### [address] [address] Urea nitrogen [Mass/Vol] 8.0 mg/dL Normal 8.0-22.0 [facility] ([place]) Comment on above: Performed By: #### C BC, ADIFF, ANEU, BMP, GFR, TROPHS #### [address] [address] CRPon 07-28-2021 C-Reactive Protein 6.0 mg/dL High 0.0-1.0 [facility] ([place]) Comment on above: Result Comment: No te - New Reference Range in effect 20 Performed By: #### C BC, ADIFF, ANEU, BMP, GFR, TROPHS #### [place] [id number] DIMERon 07-28-2021 D-Dimer <200 Normal 0-230 [facility] ([place]) Comment on above: Result Comment: Resu lts reported in D-DU ng/ml. Negative for D-dimer. DVT/PE is highly unlikely. Note: False negative results may be seen in patients on anticoagulant therapy. The result of the D-Dimer test should be evaluated in the context of all the clinical and laboratory data available. In those instances where the laboratory result does not agree with the clinical evaluation, additional tests should be performed accordingly. Performed By: #### C BC, MYRNA, ANEU, BMP, GFR, TROPHS #### [place] [address] Mario 07-28-2021 Ferritin [Mass/Vol] 213.9 ng/mL Normal 8.0-252.0 [facility] ([place]) Comment on above: Performed By: #### C MYRNA CAMPBELL, ANEU, BMP, GFR, TROPHS #### [place] [address] FIBon 07-28-2021 Fibrinogen >700 High 250-550 [facility] ([place]) Comment on above: Performed By: #### C BCMYRNA, ANEU, BMP, GFR, TROPHS #### [place] [address] LABORATORYOrdered By: SYSTEM SYSTEM on 07-28-2021 Magnesium [Mass/Vol] 1.6 mg/dL Invalid Interpretation Code 1.6 - 2.4 mg/dL ADM SS MGon 07-28-2021 Magnesium [Mass/Vol] 1.6 mg/dL Normal 1.6-2.4 [facility] ([place]) Comment on above: Performed By: #### C BC, ADIFF, ANEU, BMP, GFR, TROPHS #### [place] [address] PROon 07-28-2021 INR Coag (PPP) [Relative time] 1.1 {INR} Normal [facility] ([place]) Comment on above: Result Comment: [employer] (CHEST, 1992, 102:312S-25S) recommended therapeutic range for oral anticoagulant therapy is: LOW RISK: Prophylaxis of venous thrombosis INR: 2.0-3.0 Treatment of pulmonary embolism 2.0-3.0 Prevention of systemic embolism 2.0-3.0 HIGH RISK: Mechanical prosthetic valves 2.5-3.5 Performed By: #### C BC, ADIFF, ANEU, BMP, GFR, TROPHS #### [place] [id number] [address] [place] [address] PT Coag (PPP) [Time] 13.4 s Normal 9.0-14.8 [facility] ([place]) Comment on above: Result Comment: Effe ctive 02/13/08, Protime results may be affected by some antibiotics (i.e. Ciprofloxacin, Azithromycin, Bactrim) which may potentiate the action of oral anticoagulants, with further increases in Protime/INR. Performed By: #### C BC, ADIFF, ANEU, BMP, GFR, TROPHS #### [place] [id number] TROPHSon 07-28-2021 Troponin I High Sensitivity 4.93 ng/L Normal 0.00-34.00 [facility] ([place]) Comment on above: Performed By: #### C BC, ADIFF, ANEU, BMP, GFR, TROPHS #### [place] [id number] XR CHEST 1 VIEWon 07-28-2021 XR CHEST 1 VIEW ORIGINAL EXAMINATION: ONE XRAY VIEW OF THE CHEST 07/28/2021 11:44 am COMPARISON: 07/26/2021 HISTORY: ORDERING SYSTEM PROVIDED HISTORY: Reason for Exam: SOB Shortness of breath FINDINGS: Examination is compromised by patient body habitus and portable technique. The heart appears mildly enlarged but not significantly changed. There is mild opacity at the left costophrenic angle, perhaps mild airspace disease. No large effusion, vascular congestion, or pneumothorax. Degenerative changes are visible in the spine. IMPRESSION: Mild airspace opacity at the left base, perhaps mild airspace disease. Interpreted by: Eva Otto MD Preliminary Report By: Eva Otto MD Electronically signed By Eva Otto MD Dictated Date: 07/28/2021 12:42:12 PM Prelim Date: 07/28/2021 12:43:13 PM Sign Date: 07/28/2021 12:43:13 PM Ordering Provider: LOURDES Alvarado [facility] ([place]) .Auto Diffon 07-27-2021 Basophil, Absolute 0.00 10 3/mcL Normal 0.00-0.27 [facility] ([place]) Comment on above: Performed By: #### C BC, ADIFF, ANEU, BMP, GFR, TROPHS #### [address] [address] Basophils/100 WBC (Bld) 0.2 % Normal 0.0-2.5 [facility] ([place]) Comment on above: Performed By: #### C BC, ADIFF, ANEU, BMP, GFR, TROPHS #### [address] [address] Eosinophil, Absolute 0.00 10 3/mcL Normal 0.00-0.65 A [facility] ([place]) Comment on above: Performed By: #### C BC, ADIFF, ANEU, BMP, GFR, TROPHS #### [address] [address] Eosinophils/100 WBC (Bld) 0.9 % Normal 0.0-6.0 [facility] ([place]) Comment on above: Performed By: #### C BC, ADIFF, ANEU, BMP, GFR, TROPHS #### [address] [address] Lymphocyte, Absolute 1.20 10 3/mcL Normal 0.90-4.32 [facility] ([place]) Comment on above: Performed By: #### C BC, ADIFF, ANEU, BMP, GFR, TROPHS #### [address] [address] Lymphocytes/100 WBC (Bld) 34.1 % Normal 20.0-40.0 [facility] ([place]) Comment on above: Performed By: #### C BC, ADIFF, ANEU, BMP, GFR, TROPHS #### [address] [address] Monocyte, Absolute 0.20 10 3/mcL Normal 0.09-1.40 [facility] ([place]) Comment on above: Performed By: #### C BC, ADIFF, ANEU, BMP, GFR, TROPHS #### [address] [address] Monocytes/100 WBC (Bld) 6.0 % Normal 2.0-13.0 [facility] ([place]) Comment on above: Performed By: #### C BC, ADIFF, ANEU, BMP, GFR, TROPHS #### [address] [address] Neutrophils/100 WBC (Bld) 58.8 % Normal 50.0-75.0 [facility] ([place]) Comment on above: Performed By: #### C BC, ADIFF, ANEU, BMP, GFR, TROPHS #### [address] [address] .GFRon 07-27-2021 GFR >60 Normal [facility] ([place]) Comment on above: Result Comment: GFR Population mean for , Non- Americans Ages 20-29 = 116 mL/min/1.73 sq.m. Ages 30-39 = 107 mL/min/1.73 sq.m. Ages 40-49 = 99 mL/min/1.73 sq.m. Ages 50-59 = 93 mL/min/1.73 sq.m. Ages 60-69 = 85 mL/min/1.73 sq.m. Ages 70+ = 75 mL/min/1.73 sq.m. Chronic Kidney Disease: Less than 60 mL/min/1.73 square meters End Stage Renal Disease: Less than 15 mL/min/1.73 square meters Performed By: #### C BC, ADIFF, ANEU, BMP, GFR, TROPHS #### [address] [address] GFR Non- >60 Normal [facility] ([place]) Comment on above: Result Comment: GFR Population mean for , Non- Americans Ages 20-29 = 116 mL/min/1.73 sq.m. Ages 30-39 = 107 mL/min/1.73 sq.m. Ages 40-49 = 99 mL/min/1.73 sq.m. Ages 50-59 = 93 mL/min/1.73 sq.m. Ages 60-69 = 85 mL/min/1.73 sq.m. Ages 70+ = 75 mL/min/1.73 sq.m. Chronic Kidney Disease: Less than 60 mL/min/1.73 square meters End Stage Renal Disease: Less than 15 mL/min/1.73 square meters Performed By: #### C BC, ADIFF, ANEU, BMP, GFR, TROPHS #### [address] [address] .NEUABSon 07-27-2021 Neutrophil, Absolute 2.00 10 3/mcL Low 2.25-8.10 [facility] ([place]) Comment on above: Performed By: #### C BC, ADIFF, ANEU, BMP, GFR, TROPHS #### [place] [address] APTTon 07-27-2021 aPTT Coag (Bld) [Time] 32.2 s Normal 25.0-35.0 [facility] ([place]) Comment on above: Result Comment: For Heparin anticoagulation therapy, the recommended therapeutic range is: 54-77 seconds (APTT Correlation with Anti-Xa therapeutic range of 0.3-0.7 units/ml). PLEASE REFERENCE THE PHARMACY PROTOCOL FOR DOSING. Performed By: #### C BC, ADIFF, ANEU, BMP, GFR, TROPHS #### [place] [address] Heparin dose (APTT) Unknown Normal [facility] ([place]) Comment on above: Performed By: #### C BC, ADIFF, ANEU, BMP, GFR, TROPHS #### [address] [address] CBCon 07-27-2021 Erythrocyte distribution width (RBC) [Ratio] 20.4 % High 11.5-15.5 [facility] ([place]) Comment on above: Performed By: #### C BC, ADIFF, ANEU, BMP, GFR, TROPHS #### [address] [address] Hematocrit (Bld) [Volume fraction] 30.4 % Low 34.0-46.0 [facility] ([place]) Comment on above: Performed By: #### C BC, ADIFF, ANEU, BMP, GFR, TROPHS #### [place] [address] Hgb 10.0 G/dL Low 12.0-16.0 [facility] ([place]) Comment on above: Performed By: #### C BC, ADIFF, ANEU, BMP, GFR, TROPHS #### [place] [address] MCH (RBC) [Entitic mass] 26.9 pg Low 27.0-33.0 [facility] ([place]) Comment on above: Performed By: #### C BC, ADIFF, ANEU, BMP, GFR, TROPHS #### [place] [address] MCHC 33.0 G/dL Normal 32.0-36.0 [facility] ([place]) Comment on above: Performed By: #### C BC, ADIFF, ANEU, BMP, GFR, TROPHS #### [place] [address] MCV (RBC) [Entitic vol] 81.3 fL Normal 80.0-99.0 [facility] ([place]) Comment on above: Performed By: #### C BC, ADIFF, ANEU, BMP, GFR, TROPHS #### [place] [address] Platelet 155 10 3/mcL Normal 150-450 [facility] ([place]) Comment on above: Performed By: #### C BC, ADIFF, ANEU, BMP, GFR, TROPHS #### [place] [address] Platelet mean volume (Bld) [Entitic vol] 6.7 fL Normal 6.6-10.5 [facility] ([place]) Comment on above: Performed By: #### C BC, ADIFF, ANEU, BMP, GFR, TROPHS #### [place] [address] RBC 3.73 10 6/mcL Low 4.10-5.30 [facility] ([place]) Comment on above: Performed By: #### C BC, ADIFF, ANEU, BMP, GFR, TROPHS #### [place] [id number] WBC 3.50 10 3/mcL Low 4.50-10.80 [facility] [facility] ([place]) Comment on above: Performed By: #### C BC, ADIFF, ANEU, BMP, GFR, TROPHS #### [place] [id number] CKon 07-27-2021 CK [Catalytic activity/Vol] 102 U/L Normal 7-185 [facility] ([place]) Comment on above: Performed By: #### C BC, ADIFF, ANEU, BMP, GFR, TROPHS #### [place] [address] CMPon 07-27-2021 Albumin Level 1.9 G/dL Low 3.2-4.8 [facility] ([place]) Comment on above: Performed By: #### C BC, ADIFF, ANEU, BMP, GFR, TROPHS #### [place] [address] Albumin/Globulin [Mass ratio] 0.5 {ratio} Low 0.9-1.6 [facility] ([place]) Comment on above: Performed By: #### C BC, ADIFF, ANEU, BMP, GFR, TROPHS #### [address] [address] ALP [Catalytic activity/Vol] 88 U/L Normal 38-126 [facility] ([place]) Comment on above: Performed By: #### C BC, ADIFF, ANEU, BMP, GFR, TROPHS #### [place] [address] ALT/SGPT <7 Low 10-49 [facility] ([place]) Comment on above: Performed By: #### C BC, ADIFF, ANEU, BMP, GFR, TROPHS #### [place] [address] AST [Catalytic activity/Vol] 30 U/L Normal 8-34 [facility] ([place]) Comment on above: Performed By: #### C BC, ADIFF, ANEU, BMP, GFR, TROPHS #### [address] [address] Bili Total 0.50 mg/dL Normal 0.20-1.20 [facility] ([place]) Comment on above: Result Comment: Use of this assay is not recommended for patients undergoing treatment with eltrombopag due to the potential for falsely elevated results. Performed By: #### C BC, ADIFF, ANEU, BMP, GFR, TROPHS #### [place] [phone] BUN/Creatinine Ratio 9.1 ratio Low 10.0-22.0 [facility] ([place]) Comment on above: Performed By: #### C BC, ADIFF, ANEU, BMP, GFR, TROPHS #### [place] [address] Calcium [Mass/Vol] 7.0 mg/dL Low 8.7-10.4 [facility] ([place]) Comment on above: Result Comment: No te - New Reference Range in effect 20 Performed By: #### C BC, ADIFF, ANEU, BMP, GFR, TROPHS #### [place] [phone] Chloride [Moles/Vol] 104 mmol/L Normal 98-110 [facility] ([place]) Comment on above: Performed By: #### C BC, ADIFF, ANEU, BMP, GFR, TROPHS #### [place] [phone] CO2 [Moles/Vol] 31 mmol/L Normal 22-32 [facility] ([place]) Comment on above: Performed By: #### C BC, ADIFF, ANEU, BMP, GFR, TROPHS #### [place] [phone] Creatinine [Mass/Vol] 0.66 mg/dL Normal 0.50-1.20 [facility] ([place]) Comment on above: Performed By: #### C BC, ADIFF, ANEU, BMP, GFR, TROPHS #### [place] [phone] Electrolyte Balance 5.0 mEq/L Normal 4.0-15.0 [facility] ([place]) Comment on above: Performed By: #### C BC, ADIFF, ANEU, BMP, GFR, TROPHS #### [address] [address] Globulin 3.5 G/dL Normal 1.5-3.8 [facility] ([place]) Comment on above: Performed By: #### C BC, ADIFF, ANEU, BMP, GFR, TROPHS #### [address] [address] Glucose [Mass/Vol] 142 mg/dL High 82-115 [facility] ([place]) Comment on above: Performed By: #### C BC, ADIFF, ANEU, BMP, GFR, TROPHS #### [address] [address] Potassium [Moles/Vol] 2.7 mmol/L Critically abnormal 3.5-5.0 [facility] ([place]) Comment on above: Performed By: #### C BC, ADIFF, ANEU, BMP, GFR, TROPHS #### [address] [address] Sodium [Moles/Vol] 140 mmol/L Normal 136-145 [facility] ([place]) Comment on above: Performed By: #### C BC, ADIFF, ANEU, BMP, GFR, TROPHS #### [address] [address] Total Protein 5.4 G/dL Low 5.7-8.2 [facility] ([place]) Comment on above: Result Comment: No te - New Reference Range in effect 20 Performed By: #### C BC, ADIFF, ANEU, BMP, GFR, TROPHS #### [address] [address] Urea nitrogen [Mass/Vol] 6.0 mg/dL Low 8.0-22.0 [facility] ([place]) Comment on above: Performed By: #### C BC, ADIFF, ANEU, BMP, GFR, TROPHS #### [place] [address] CRPon 07-27-2021 C-Reactive Protein 6.5 mg/dL High 0.0-1.0 [facility] ([place]) Comment on above: Result Comment: No te - New Reference Range in effect 20 Performed By: #### C BC, ADIFF, ANEU, BMP, GFR, TROPHS #### [place] [address] DIMERon 07-27-2021 D-Dimer <200 Normal 0-230 [facility] ([place]) Comment on above: Result Comment: Resu lts reported in D-DU ng/ml. Negative for D-dimer. DVT/PE is highly unlikely. Note: False negative results may be seen in patients on anticoagulant therapy. The result of the D-Dimer test should be evaluated in the context of all the clinical and laboratory data available. In those instances where the laboratory result does not agree with the clinical evaluation, additional tests should be performed accordingly. Performed By: #### C BC, ADIFF, ANEU, BMP, GFR, TROPHS #### [place] [address] Mario 07-27-2021 Ferritin [Mass/Vol] 259.7 ng/mL High 8.0-252.0 [facility] ([place]) Comment on above: Performed By: #### C BC, ADIFF, ANEU, BMP, GFR, TROPHS #### [place] [address] FIBon 07-27-2021 Fibrinogen >700 High 250-550 [facility] ([place]) Comment on above: Performed By: #### C BC, ADIFF, ANEU, BMP, GFR, TROPHS #### [place] [phone] Trevor 07-27-2021 Potassium [Moles/Vol] 3.3 mmol/L Low 3.5-5.0 [facility] ([place]) Comment on above: Performed By: #### C BC, ADIFF, ANEU, BMP, GFR, TROPHS #### [place] [address] LABORATORYOrdered By: SYSTEM SYSTEM on 07-27-2021 CK [Catalytic activity/Vol] 102 U/L Invalid Interpretation Code 7 - 185 U/L AH ADM SS LDH Lactate to pyruvate reaction [Catalytic activity/Vol] 209 1 Invalid Interpretation Code 120 - 246 U/L AH ADM SS Magnesium [Mass/Vol] 1.1 mg/dL Invalid Interpretation Code 1.6 - 2.4 mg/dL AH ADM SS LDHon 07-27-2021 LDH 209 U/L Normal 120-246 [facility] ([place]) Comment on above: Performed By: #### C BC, ADIFF, ANEU, BMP, GFR, TROPHS #### [facility] [address] [place] [address] MGon 07-27-2021 Magnesium [Mass/Vol] 1.1 mg/dL Low 1.6-2.4 [facility] ([place]) Comment on above: Performed By: #### C BC, ADIFF, ANEU, BMP, GFR, TROPHS #### [address] [address] PROon 07-27-2021 INR Coag (PPP) [Relative time] 1.2 {INR} Normal [facility] ([place]) Comment on above: Result Comment: [employer] (CHEST, 1992, 102:312S-25S) recommended therapeutic range for oral anticoagulant therapy is: LOW RISK: Prophylaxis of venous thrombosis INR: 2.0-3.0 Treatment of pulmonary embolism 2.0-3.0 Prevention of systemic embolism 2.0-3.0 HIGH RISK: Mechanical prosthetic valves 2.5-3.5 Performed By: #### C BC, ADIFF, ANEU, BMP, GFR, TROPHS #### [facility] [address] [place] [id number] PT Coag (PPP) [Time] 13.9 s Normal 9.0-14.8 [facility] ([place]) Comment on above: Result Comment: Effe ctive 02/13/08, Protime results may be affected by some antibiotics (i.e. Ciprofloxacin, Azithromycin, Bactrim) which may potentiate the action of oral anticoagulants, with further increases in Protime/INR. Performed By: #### C BC, ADIFF, ANEU, BMP, GFR, TROPHS #### [address] [address] TROPHSon 07-27-2021 Troponin I High Sensitivity 8.69 ng/L Normal 0.00-34.00 [facility] ([place]) Comment on above: Performed By: #### C BC, ADIFF, ANEU, BMP, GFR, TROPHS #### [address] [address] .Auto Diffon 07-26-2021 Basophil, Absolute 0.00 10 3/mcL Normal 0.00-0.27 [facility] ([place]) Comment on above: Performed By: #### C BC, ADIFF, ANEU, BMP, GFR, TROPHS #### [address] [address] Basophils/100 WBC (Bld) 0.4 % Normal 0.0-2.5 [facility] ([place]) Comment on above: Performed By: #### C BC, ADIFF, ANEU, BMP, GFR, TROPHS #### [address] [address] Eosinophil, Absolute 0.00 10 3/mcL Normal 0.00-0.65 [facility] ([place]) Comment on above: Performed By: #### C BC, ADIFF, ANEU, BMP, GFR, TROPHS #### [address] [address] Eosinophils/100 WBC (Bld) 0.6 % Normal 0.0-6.0 [facility] ([place]) Comment on above: Performed By: #### C BC, ADIFF, ANEU, BMP, GFR, TROPHS #### [address] [address] Lymphocyte, Absolute 1.00 10 3/mcL Normal 0.90-4.32 [facility] ([place]) Comment on above: Performed By: #### C BC, ADIFF, ANEU, BMP, GFR, TROPHS #### [address] [address] Lymphocytes/100 WBC (Bld) 29.7 % Normal 20.0-40.0 [facility] ([place]) Comment on above: Performed By: #### C BC, ADIFF, ANEU, BMP, GFR, TROPHS #### [address] [address] Monocyte, Absolute 0.20 10 3/mcL Normal 0.09-1.40 [facility] ([place]) Comment on above: Performed By: #### C BC, ADIFF, ANEU, BMP, GFR, TROPHS #### [address] [address] Monocytes/100 WBC (Bld) 5.3 % Normal 2.0-13.0 [facility] ([place]) Comment on above: Performed By: #### C BC, ADIFF, ANEU, BMP, GFR, TROPHS #### [address] [address] Neutrophils/100 WBC (Bld) 64.0 % Normal 50.0-75.0 [facility] ([place]) Comment on above: Performed By: #### C BC, ADIFF, ANEU, BMP, GFR, TROPHS #### [address] [address] .GFRon 07-26-2021 GFR >60 Normal [facility] ([place]) Comment on above: Result Comment: GFR Population mean for , Non- Americans Ages 20-29 = 116 mL/min/1.73 sq.m. Ages 30-39 = 107 mL/min/1.73 sq.m. Ages 40-49 = 99 mL/min/1.73 sq.m. Ages 50-59 = 93 mL/min/1.73 sq.m. Ages 60-69 = 85 mL/min/1.73 sq.m. Ages 70+ = 75 mL/min/1.73 sq.m. Chronic Kidney Disease: Less than 60 mL/min/1.73 square meters End Stage Renal Disease: Less than 15 mL/min/1.73 square meters Performed By: #### C BC, ADIFF, ANEU, BMP, GFR, TROPHS #### [address] [address] GFR Non- >60 Normal [facility] ([place]) Comment on above: Result Comment: GFR Population mean for , Non- Americans Ages 20-29 = 116 mL/min/1.73 sq.m. Ages 30-39 = 107 mL/min/1.73 sq.m. Ages 40-49 = 99 mL/min/1.73 sq.m. Ages 50-59 = 93 mL/min/1.73 sq.m. Ages 60-69 = 85 mL/min/1.73 sq.m. Ages 70+ = 75 mL/min/1.73 sq.m. Chronic Kidney Disease: Less than 60 mL/min/1.73 square meters End Stage Renal Disease: Less than 15 mL/min/1.73 square meters Performed By: #### C BC, ADIFF, ANEU, BMP, GFR, TROPHS #### [address] [address] .NEUABSon 07-26-2021 Neutrophil, Absolute 2.20 10 3/mcL Low 2.25-8.10 [facility] ([place]) Comment on above: Performed By: #### C BC, ADIFF, ANEU, BMP, GFR, TROPHS #### [place] [address] APTTon 07-26-2021 aPTT Coag (Bld) [Time] 31.9 s Normal 25.0-35.0 [facility] ([place]) Comment on above: Result Comment: For Heparin anticoagulation therapy, the recommended therapeutic range is: 54-77 seconds (APTT Correlation with Anti-Xa therapeutic range of 0.3-0.7 units/ml). PLEASE REFERENCE THE PHARMACY PROTOCOL FOR DOSING. Performed By: #### C BC, ADIFF, ANEU, BMP, GFR, TROPHS #### [place] [address] Heparin dose (APTT) Unknown Normal [facility] ([place]) Comment on above: Performed By: #### C BC, ADIFF, ANEU, BMP, GFR, TROPHS #### [place] [address] CBCon 07-26-2021 Erythrocyte distribution width (RBC) [Ratio] 20.1 % High 11.5-15.5 [facility] ([place]) Comment on above: Performed By: #### C BC, ADIFF, ANEU, BMP, GFR, TROPHS #### [place] [address] Hematocrit (Bld) [Volume fraction] 31.1 % Low 34.0-46.0 [facility] ([place]) Comment on above: Performed By: #### C BC, ADIFF, ANEU, BMP, GFR, TROPHS #### [place] [phone] Hgb 10.2 G/dL Low 12.0-16.0 [facility] ([place]) Comment on above: Performed By: #### C BC, ADIFF, ANEU, BMP, GFR, TROPHS #### [place] [address] MCH (RBC) [Entitic mass] 26.5 pg Low 27.0-33.0 [facility] ([place]) Comment on above: Performed By: #### C BC, ADIFF, ANEU, BMP, GFR, TROPHS #### [place] [address] MCHC 32.8 G/dL Normal 32.0-36.0 [facility] ([place]) Comment on above: Performed By: #### C BC, ADIFF, ANEU, BMP, GFR, TROPHS #### [place] [address] MCV (RBC) [Entitic vol] 80.9 fL Normal 80.0-99.0 [facility] ([place]) Comment on above: Performed By: #### C BC, ADIFF, ANEU, BMP, GFR, TROPHS #### [place] [address] Platelet 162 10 3/mcL Normal 150-450 [facility] ([place]) Comment on above: Performed By: #### C BC, ADIFF, ANEU, BMP, GFR, TROPHS #### [place] [address] Platelet mean volume (Bld) [Entitic vol] 6.6 fL Normal 6.6-10.5 [facility] ([place]) Comment on above: Performed By: #### C BC, ADIFF, ANEU, BMP, GFR, TROPHS #### [place] [phone] RBC 3.84 10 6/mcL Low 4.10-5.30 [facility] ([place]) Comment on above: Performed By: #### C BC, ADIFF, ANEU, BMP, GFR, TROPHS #### [place] [address] WBC 3.40 10 3/mcL Low 4.50-10.80 [facility] ([place]) Comment on above: Performed By: #### C BC, ADIFF, ANEU, BMP, GFR, TROPHS #### [place] [address] CMPon 07-26-2021 Albumin Level 2.0 G/dL Low 3.2-4.8 [facility] ([place]) Comment on above: Performed By: #### C BC, ADIFF, ANEU, BMP, GFR, TROPHS #### [place] [address] Albumin/Globulin [Mass ratio] 0.5 {ratio} Low 0.9-1.6 [facility] ([place]) Comment on above: Performed By: #### C BC, ADIFF, ANEU, BMP, GFR, TROPHS #### [place] [address] ALP [Catalytic activity/Vol] 91 U/L Normal 38-126 [facility] ([place]) Comment on above: Performed By: #### C BC, ADIFF, ANEU, BMP, GFR, TROPHS #### [place] [address] ALT [Catalytic activity/Vol] 9 U/L Low 10-49 [facility] ([place]) Comment on above: Performed By: #### C BC, ADIFF, ANEU, BMP, GFR, TROPHS #### [place] [address] AST [Catalytic activity/Vol] 30 U/L Normal 8-34 [facility] ([place]) Comment on above: Performed By: #### C BC, ADIFF, ANEU, BMP, GFR, TROPHS #### [address] [address] Bili Total 0.50 mg/dL Normal 0.20-1.20 [facility] ([place]) Comment on above: Result Comment: Use of this assay is not recommended for patients undergoing treatment with eltrombopag due to the potential for falsely elevated results. Performed By: #### C BC, ADIFF, ANEU, BMP, GFR, TROPHS #### [place] [phone] BUN/Creatinine Ratio 10.4 ratio Normal 10.0-22.0 [facility] ([place]) Comment on above: Performed By: #### C BC, ADIFF, ANEU, BMP, GFR, TROPHS #### [address] [address] Calcium [Mass/Vol] 7.3 mg/dL Low 8.7-10.4 [facility] ([place]) Comment on above: Result Comment: No te - New Reference Range in effect 20 Performed By: #### C BC, ADIFF, ANEU, BMP, GFR, TROPHS #### [address] [address] Chloride [Moles/Vol] 104 mmol/L Normal 98-110 [facility] ([place]) Comment on above: Performed By: #### C BC, ADIFF, ANEU, BMP, GFR, TROPHS #### [address] [address] CO2 [Moles/Vol] 32 mmol/L Normal 22-32 [facility] ([place]) Comment on above: Performed By: #### C BC, ADIFF, ANEU, BMP, GFR, TROPHS #### [address] [address] Creatinine [Mass/Vol] 0.67 mg/dL Normal 0.50-1.20 [facility] ([place]) Comment on above: Performed By: #### C BC, ADIFF, ANEU, BMP, GFR, TROPHS #### [address] [address] Electrolyte Balance 4.0 mEq/L Normal 4.0-15.0 [facility] ([place]) Comment on above: Performed By: #### C BC, ADIFF, ANEU, BMP, GFR, TROPHS #### [address] [address] Globulin 3.8 G/dL Normal 1.5-3.8 [facility] ([place]) Comment on above: Performed By: #### C BC, ADIFF, ANEU, BMP, GFR, TROPHS #### [address] [address] Glucose [Mass/Vol] 145 mg/dL High 82-115 [facility] ([place]) Comment on above: Performed By: #### C BC, ADIFF, ANEU, BMP, GFR, TROPHS #### [address] [address] Potassium [Moles/Vol] 2.9 mmol/L Low 3.5-5.0 [facility] ([place]) Comment on above: Performed By: #### C BC, ADIFF, ANEU, BMP, GFR, TROPHS #### [address] [address] Sodium [Moles/Vol] 140 mmol/L Normal 136-145 [facility] ([place]) Comment on above: Performed By: #### C BC, ADIFF, ANEU, BMP, GFR, TROPHS #### [address] [address] Total Protein 5.8 G/dL Normal 5.7-8.2 [facility] ([place]) Comment on above: Result Comment: No te - New Reference Range in effect 20 Performed By: #### C BC, ADIFF, ANEU, BMP, GFR, TROPHS #### [address] [address] Urea nitrogen [Mass/Vol] 7.0 mg/dL Low 8.0-22.0 [facility] ([place]) Comment on above: Performed By: #### C BC, ADIFF, ANEU, BMP, GFR, TROPHS #### [address] [address] CRPon 07-26-2021 C-Reactive Protein 6.6 mg/dL High 0.0-1.0 [facility] ([place]) Comment on above: Result Comment: No te - New Reference Range in effect 20 Performed By: #### C BC, ADIFF, ANEU, BMP, GFR, TROPHS #### [address] [address] DIMERon 07-26-2021 D-Dimer <200 Normal 0-230 [facility] ([place]) Comment on above: Result Comment: Resu lts reported in D-DU ng/ml. Negative for D-dimer. DVT/PE is highly unlikely. Note: False negative results may be seen in patients on anticoagulant therapy. The result of the D-Dimer test should be evaluated in the context of all the clinical and laboratory data available. In those instances where the laboratory result does not agree with the clinical evaluation, additional tests should be performed accordingly. Performed By: #### C BC, ADIFF, ANEU, BMP, GFR, TROPHS #### [place] [id number] Mario 07-26-2021 Ferritin [Mass/Vol] 288.0 ng/mL High 8.0-252.0 [facility] ([place]) Comment on above: Performed By: #### C BC, ADIFF, ANEU, BMP, GFR, TROPHS #### [address] [address] FIBon 07-26-2021 Fibrinogen >700 High 250-550 [facility] ([place]) Comment on above: Performed By: #### C BC, ADIFF, ANEU, BMP, GFR, TROPHS #### [address] [address] LABORATORYOrdered By: Leesa Villeda on 07-26-2021 Cholesterol [Mass/Vol] 71 mg/dL Invalid Interpretation Code 50 - 199 mg/dL AH ADM SS Cholesterol in HDL [Mass/Vol] mg/dL Invalid Interpretation Code 40 - 59 mg/dL AH ADM SS Cholesterol in LDL [Mass/Vol] Unable to Calculate Invalid Interpretation Code 0 - 129 AH ADM SS Comment on above: Result Comment: Unab le to calculate this test result accurately. Results used to calculate this test are outside the reportable range. Unable to calculate this test result accurately. Results used to calculate this test are outside the reportable range. Triglyceride [Mass/Vol] 115 mg/dL Invalid Interpretation Code 3 - 149 mg/dL ADM SS LABORATORYOrdered By: Dina Hartmann on 07-26-2021 Blood Glucose Interventions Administered agent to decrease blood sugar (07/26/21 4:21 PM) [facility] LIPIDon 07-26-2021 Cholesterol [Mass/Vol] 71 mg/dL Normal 50-199 [facility] ([place]) Comment on above: Result Comment: Chol esterol Reference Interval: Less than 200 Desirable 200-239 Borderline high risk 240 and above High risk Performed By: #### C BC, ADIFF, ANEU, BMP, GFR, TROPHS #### [address] [address] Cholesterol in HDL [Mass/Vol] mg/dL Low 40-59 [facility] ([place]) Comment on above: Performed By: #### C BC, ADIFF, ANEU, BMP, GFR, TROPHS #### [address] [address] LDL Cholesterol Unable to Calculate Normal 0-129 [facility] ([place]) Comment on above: Result Comment: Unab le to calculate this test result accurately. Results used to calculate this test are outside the reportable range. Unable to calculate this test result accurately. Results used to calculate this test are outside the reportable range. Performed By: #### C BC, ADIFF, ANEU, BMP, GFR, TROPHS #### [address] [address] Triglyceride [Mass/Vol] 115 mg/dL Normal 3-149 [facility] ([place]) Comment on above: Performed By: #### C BC, ADIFF, ANEU, BMP, GFR, TROPHS #### [address] [address] MGon 07-26-2021 Magnesium [Mass/Vol] 1.1 mg/dL Low 1.6-2.4 [facility] ([place]) Comment on above: Performed By: #### C BC, ADIFF, ANEU, BMP, GFR, TROPHS #### [address] [address] PROon 07-26-2021 INR Coag (PPP) [Relative time] 1.1 {INR} Normal [facility] ([place]) Comment on above: Result Comment: [employer] (CHEST, 1992, 102:312S-25S) recommended therapeutic range for oral anticoagulant therapy is: LOW RISK: Prophylaxis of venous thrombosis INR: 2.0-3.0 Treatment of pulmonary embolism 2.0-3.0 Prevention of systemic embolism 2.0-3.0 HIGH RISK: Mechanical prosthetic valves 2.5-3.5 Performed By: #### C ADRIAN, ADIFF, ANEU, BMP, GFR, TROPHS #### [place] [address] PT Coag (PPP) [Time] 13.5 s Normal 9.0-14.8 [facility] ([place]) Comment on above: Result Comment: Effe ctive 02/13/08, Protime results may be affected by some antibiotics (i.e. Ciprofloxacin, Azithromycin, Bactrim) which may potentiate the action of oral anticoagulants, with further increases in Protime/INR. Performed By: #### C BC ADIFF, ANEU, BMP, GFR, TROPHS #### [place] [address] TROPHSon 07-26-2021 Troponin I High Sensitivity 8.56 ng/L Normal 0.00-34.00 [facility] ([place]) Comment on above: Performed By: #### C BC ADIFF, ANEU, BMP, GFR, TROPHS #### [address] [address] XR CHEST 1 VIEWon 07-26-2021 XR CHEST 1 VIEW ORIGINAL EXAMINATION: ONE XRAY VIEW OF THE CHEST07/26/2021 6:18 pm COMPARISON: 07/24/2021 HISTORY: ORDERING SYSTEM PROVIDED HISTORY: Reason for Exam: cough/short of breath FINDINGS: The patient is markedly rotated which limits evaluation. There are also hypoventilatory change in the lower lungs. Within these constraints, no significant consolidation, pleural effusion or pneumothorax is seen. IMPRESSION: Suboptimal evaluation due to patient rotation and hypoventilatory changes. Within these constraints, no definite acute process. Interpreted by: Rhett Bailey MD Preliminary Report By: Rhett Bailey MD Electronically signed By Rhett Bailey MD Dictated Date: 07/26/2021 6:35:14 PM Prelim Date: 07/26/2021 6:36:02 PM Sign Date: 07/26/2021 6:36:02 PM Ordering Provider: VIMAL Alvarado [facility] ([place]) .Auto Diffon 07-25-2021 Basophil, Absolute 0.00 10 3/mcL Normal 0.00-0.27 [facility] ([place]) Comment on above: Performed By: #### L AC, APTT #### [address] [address] Basophils/100 WBC (Bld) 0.5 % Normal 0.0-2.5 [facility] ([place]) Comment on above: Performed By: #### L AC, APTT #### [address] [address] Eosinophil, Absolute 0.00 10 3/mcL Normal 0.00-0.65 [facility] ([place]) Comment on above: Performed By: #### L AC, APTT #### [address] [address] Eosinophils/100 WBC (Bld) 0.5 % Normal 0.0-6.0 [facility] ([place]) Comment on above: Performed By: #### L AC, APTT #### [address] [address] Lymphocyte, Absolute 0.80 10 3/mcL Low 0.90-4.32 [facility] ([place]) Comment on above: Performed By: #### L AC, APTT #### [address] [address] Lymphocytes/100 WBC (Bld) 23.9 % Normal 20.0-40.0 [facility] ([place]) Comment on above: Performed By: #### L AC, APTT #### [address] [address] Monocyte, Absolute 0.30 10 3/mcL Normal 0.09-1.40 [facility] ([place]) Comment on above: Performed By: #### L AC, APTT #### [address] [address] Monocytes/100 WBC (Bld) 7.8 % Normal 2.0-13.0 [facility] ([place]) Comment on above: Performed By: #### L AC, APTT #### [address] [address] Neutrophils/100 WBC (Bld) 67.3 % Normal 50.0-75.0 [facility] ([place]) Comment on above: Performed By: #### L AC, APTT #### [address] [address] .GFRon 07-25-2021 GFR >60 Normal [facility] ([place]) Comment on above: Result Comment: GFR Population mean for , Non- Americans Ages 20-29 = 116 mL/min/1.73 sq.m. Ages 30-39 = 107 mL/min/1.73 sq.m. Ages 40-49 = 99 mL/min/1.73 sq.m. Ages 50-59 = 93 mL/min/1.73 sq.m. Ages 60-69 = 85 mL/min/1.73 sq.m. Ages 70+ = 75 mL/min/1.73 sq.m. Chronic Kidney Disease: Less than 60 mL/min/1.73 square meters End Stage Renal Disease: Less than 15 mL/min/1.73 square meters Performed By: #### C BC, ADIFF, ANEU, BMP, GFR, TROPHS #### [address] [address] GFR Non- >60 Normal [facility] ([place]) Comment on above: Result Comment: GFR Population mean for , Non- Americans Ages 20-29 = 116 mL/min/1.73 sq.m. Ages 30-39 = 107 mL/min/1.73 sq.m. Ages 40-49 = 99 mL/min/1.73 sq.m. Ages 50-59 = 93 mL/min/1.73 sq.m. Ages 60-69 = 85 mL/min/1.73 sq.m. Ages 70+ = 75 mL/min/1.73 sq.m. Chronic Kidney Disease: Less than 60 mL/min/1.73 square meters End Stage Renal Disease: Less than 15 mL/min/1.73 square meters Performed By: #### C BC, ADIFF, ANEU, BMP, GFR, TROPHS #### [place] [address] .NEUABSon 07-25-2021 Neutrophil, Absolute 2.20 10 3/mcL Low 2.25-8.10 [facility] ([place]) Comment on above: Performed By: #### L AC, APTT #### [place] [address] A1Con 07-25-2021 HbA1c (Bld) [Mass fraction] 12.2 % High 4.0-6.0 [facility] ([place]) Comment on above: Performed By: #### C BC, ADIFF, ANEU, BMP, GFR, TROPHS #### [place] [address] APTTon 07-25-2021 aPTT Coag (Bld) [Time] 25.6 s Normal 25.0-35.0 [facility] ([place]) Comment on above: Result Comment: For Heparin anticoagulation therapy, the recommended therapeutic range is: 54-77 seconds (APTT Correlation with Anti-Xa therapeutic range of 0.3-0.7 units/ml). PLEASE REFERENCE THE PHARMACY PROTOCOL FOR DOSING. Performed By: #### C BC, ADIFF, ANEU, BMP, GFR, TROPHS #### [place] [address] Heparin dose (APTT) Unknown Normal [facility] ([place]) Comment on above: Performed By: #### C BC, ADIFF, ANEU, BMP, GFR, TROPHS #### [place] [address] CBCon 07-25-2021 Erythrocyte distribution width (RBC) [Ratio] 20.1 % High 11.5-15.5 [facility] ([place]) Comment on above: Performed By: #### L AC, APTT #### [address] [address] Hematocrit (Bld) [Volume fraction] 31.5 % Low 34.0-46.0 [facility] ([place]) Comment on above: Performed By: #### L AC, APTT #### [address] [address] Hgb 10.4 G/dL Low 12.0-16.0 [facility] ([place]) Comment on above: Performed By: #### L AC, APTT #### [address] [address] MCH (RBC) [Entitic mass] 26.8 pg Low 27.0-33.0 [facility] ([place]) Comment on above: Performed By: #### L AC, APTT #### [address] [address] MCHC 33.0 G/dL Normal 32.0-36.0 [facility] ([place]) Comment on above: Performed By: #### L AC, APTT #### [address] [address] MCV (RBC) [Entitic vol] 81.2 fL Normal 80.0-99.0 [facility] ([place]) Comment on above: Performed By: #### L AC, APTT #### [address] [address] Platelet 157 10 3/mcL Normal 150-450 [facility] ([place]) Comment on above: Performed By: #### L AC, APTT #### [address] [address] Platelet mean volume (Bld) [Entitic vol] 6.5 fL Low 6.6-10.5 [facility] ([place]) Comment on above: Performed By: #### L AC, APTT #### [address] [address] RBC 3.89 10 6/mcL Low 4.10-5.30 [facility] ([place]) Comment on above: Performed By: #### L AC, APTT #### [address] [address] WBC 3.30 10 3/mcL Low 4.50-10.80 [facility] ([place]) Comment on above: Performed By: #### L AC, APTT #### [place] [id number] CKon 07-25-2021 CK [Catalytic activity/Vol] 112 U/L Normal 7-185 [facility] ([place]) Comment on above: Performed By: #### C BC, ADIFF, ANEU, BMP, GFR, TROPHS #### [address] [address] CMPon 07-25-2021 Albumin Level 1.9 G/dL Low 3.2-4.8 [facility] ([place]) Comment on above: Performed By: #### C BC, ADIFF, ANEU, BMP, GFR, TROPHS #### [place] [id number] Albumin/Globulin [Mass ratio] 0.4 {ratio} Low 0.9-1.6 [facility] ([place]) Comment on above: Performed By: #### C BC, ADIFF, ANEU, BMP, GFR, TROPHS #### [place] [address] ALP [Catalytic activity/Vol] 83 U/L Normal 38-126 [facility] ([place]) Comment on above: Performed By: #### C BC, ADIFF, ANEU, BMP, GFR, TROPHS #### [place] [id number] ALT [Catalytic activity/Vol] 14 U/L Normal 10-49 [facility] ([place]) Comment on above: Performed By: #### C BC, ADIFF, ANEU, BMP, GFR, TROPHS #### [place] [id number] AST [Catalytic activity/Vol] 28 U/L Normal 8-34 [facility] ([place]) Comment on above: Performed By: #### C BC, ADIFF, ANEU, BMP, GFR, TROPHS #### [place] [id number] Bili Total 0.3 mg/dL Normal 0.2-1.2 [facility] ([place]) Comment on above: Result Comment: Use of this assay is not recommended for patients undergoing treatment with eltrombopag due to the potential for falsely elevated results. Performed By: #### C BC, ADIFF, ANEU, BMP, GFR, TROPHS #### [address] [address] BUN/Creatinine Ratio 9.7 ratio Low 10.0-22.0 [facility] ([place]) Comment on above: Performed By: #### C BC, ADIFF, ANEU, BMP, GFR, TROPHS #### [place] [id number] Calcium [Mass/Vol] 7.6 mg/dL Low 8.4-10.1 [facility] ([place]) Comment on above: Result Comment: No te - New Reference Range in effect 20 Performed By: #### C BC, ADIFF, ANEU, BMP, GFR, TROPHS #### [place] [address] Chloride [Moles/Vol] 102 mmol/L Normal 98-110 [facility] ([place]) Comment on above: Performed By: #### C BC, ADIFF, ANEU, BMP, GFR, TROPHS #### [place] [phone] CO2 [Moles/Vol] 31 mmol/L Normal 22-32 [facility] ([place]) Comment on above: Performed By: #### C BC, ADIFF, ANEU, BMP, GFR, TROPHS #### [address] [address] Creatinine [Mass/Vol] 0.72 mg/dL Normal 0.50-1.20 [facility] ([place]) Comment on above: Performed By: #### C BC, ADIFF, ANEU, BMP, GFR, TROPHS #### [address] [address] Electrolyte Balance 6.0 mEq/L Normal 4.0-15.0 [facility] ([place]) Comment on above: Performed By: #### C BC, ADIFF, ANEU, BMP, GFR, TROPHS #### [address] [address] Globulin 4.6 G/dL High 1.5-3.8 [facility] ([place]) Comment on above: Performed By: #### C BC, ADIFF, ANEU, BMP, GFR, TROPHS #### [address] [address] Glucose [Mass/Vol] 209 mg/dL High 82-115 [facility] ([place]) Comment on above: Performed By: #### C BC, ADIFF, ANEU, BMP, GFR, TROPHS #### [address] [address] Potassium [Moles/Vol] 2.4 mmol/L Critically abnormal 3.5-5.0 [facility] ([place]) Comment on above: Performed By: #### C BC, ADIFF, ANEU, BMP, GFR, TROPHS #### [address] [address] Sodium [Moles/Vol] 139 mmol/L Normal 136-145 [facility] ([place]) Comment on above: Performed By: #### C BC, ADIFF, ANEU, BMP, GFR, TROPHS #### [address] [address] Total Protein 6.5 G/dL Normal 6.0-8.5 [facility] ([place]) Comment on above: Result Comment: No te - New Reference Range in effect 20 Performed By: #### C BC, ADIFF, ANEU, BMP, GFR, TROPHS #### [address] [address] Urea nitrogen [Mass/Vol] 7.0 mg/dL Low 8.0-22.0 [facility] ([place]) Comment on above: Performed By: #### C BC, ADIFF, ANEU, BMP, GFR, TROPHS #### [address] [address] CRPon 07-25-2021 C-Reactive Protein 4.6 mg/dL High 0.0-1.0 [facility] ([place]) Comment on above: Result Comment: No te - New Reference Range in effect 20 Performed By: #### C BC, ADIFF, ANEU, BMP, GFR, TROPHS #### [facility] [address] [place], [place] [id number] CT HEAD OR BRAIN W/O CONTRAS Ton 07-25-2021 CT HEAD OR BRAIN W/O CONTRAST ORIGINAL EXAMINATION: CT OF THE HEAD WITHOUT CONTRAST 07/24/2021 11:56 pm TECHNIQUE: CT of the head was performed without the administration of intravenous contrast. Dose modulation, iterative reconstruction, and/or weight based adjustment of the mA/kV was utilized to reduce the radiation dose to as low as reasonably achievable. COMPARISON: Earlier today 1318 hours HISTORY: ORDERING SYSTEM PROVIDED HISTORY: Reason for Exam: Fall FINDINGS: BRAIN/VENTRICLES: There is no acute intracranial hemorrhage, mass effect or midline shift. No abnormal extra-axial fluid collection. The brothers-white differentiation is maintained without evidence of an acute infarct. There is no evidence of hydrocephalus. ORBITS: The visualized portion of the orbits demonstrate no acute abnormality. SINUSES: Mild mucosal thickening is again demonstrated in the right maxillary and sphenoid sinus, and posterior ethmoid air cells. SOFT TISSUES/SKULL: No acute abnormality of the visualized skull or soft tissues. IMPRESSION: No interval change or acute intracranial abnormality. Incidental paranasal sinus disease. Interpreted by: Yudy Merritt MD Preliminary Report By: Yudy Merritt MD Electronically signed By Yudy Merritt MD Dictated Date: 07/25/2021 12:03:02 AM Prelim Date: 07/25/2021 12:06:17 AM Sign Date: 07/25/2021 12:06:17 AM Ordering Provider: BLAS DARLING Normal [facility] ([place]) DIMERon 07-25-2021 D-Dimer 212 ng/mL D-DU Normal 0-230 [facility] ([place]) Comment on above: Result Comment: Resu lts reported in D-DU ng/ml. Negative for D-dimer. DVT/PE is highly unlikely. Note: False negative results may be seen in patients on anticoagulant therapy. The result of the D-Dimer test should be evaluated in the context of all the clinical and laboratory data available. In those instances where the laboratory result does not agree with the clinical evaluation, additional tests should be performed accordingly. Performed By: #### C BC, ADIFF, ANEU, BMP, GFR, TROPHS #### [address] [address] Mario 07-25-2021 Ferritin [Mass/Vol] 228.2 ng/mL Normal 8.0-252.0 [facility] ([place]) Comment on above: Performed By: #### C BC, ADIFF, ANEU, BMP, GFR, TROPHS #### [place] [address] FIBon 07-25-2021 Fibrinogen >700 High 250-550 [facility] ([place]) Comment on above: Performed By: #### C BC, ADIFF, ANEU, BMP, GFR, TROPHS #### [place] [address] Trevor 07-25-2021 Potassium [Moles/Vol] 3.2 mmol/L Low 3.5-5.0 [facility] ([place]) Comment on above: Performed By: #### C BC, ADIFF, ANEU, BMP, GFR, TROPHS #### [place] [address] LABORATORYOrdered By: SYSTEM SYSTEM on 07-25-2021 TSH Qn 2.913 mIU/mL Invalid Interpretation Code 0.550 - 4.780 mIU/mL ADM SS CK [Catalytic activity/Vol] 112 U/L Invalid Interpretation Code 7 - 185 U/L ADM SS HbA1c (Bld) [Mass fraction] 12.2 % Invalid Interpretation Code 4.0 - 6.0 % Auto Chem SS LDH [Catalytic activity/Vol] 153 U/L Invalid Interpretation Code 120 - 246 U/L AH ADM SS LDHon 07-25-2021 LDH 153 U/L Normal 120-246 [facility] ([place]) Comment on above: Performed By: #### C BC, ADIFF, ANEU, BMP, GFR, TROPHS #### [place] [address] MGon 07-25-2021 Magnesium [Mass/Vol] 1.6 mg/dL Normal 1.6-2.4 [facility] ([place]) Comment on above: Performed By: #### C BC, ADIFF, ANEU, BMP, GFR, TROPHS #### [place] [id number] [address] [place] [address] PROon 07-25-2021 INR Coag (PPP) [Relative time] 1.0 {INR} Normal [facility] ([place]) Comment on above: Result Comment: [employer] (CHEST, 1991, 102:312S-[id number]) recommended therapeutic range for oral anticoagulant therapy is: LOW RISK: Prophylaxis of venous thrombosis INR: 2.0-3.0 Treatment of pulmonary embolism 2.0-3.0 Prevention of systemic embolism 2.0-3.0 HIGH RISK: Mechanical prosthetic valves 2.5-3.5 Performed By: #### C BC, ADIFF, ANEU, BMP, GFR, TROPHS #### [address] [address] PT Coag (PPP) [Time] 12.3 s Normal 9.0-14.8 [facility] ([place]) Comment on above: Result Comment: Effe ctive 02/13/08, Protime results may be affected by some antibiotics (i.e. Ciprofloxacin, Azithromycin, Bactrim) which may potentiate the action of oral anticoagulants, with further increases in Protime/INR. Performed By: #### C BC, ADIFF, ANEU, BMP, GFR, TROPHS #### [place] [address] TROPHSon 07-25-2021 Troponin I High Sensitivity 11.16 ng/L Normal 0.00-34.00 [facility] ([place]) Comment on above: Performed By: #### C BC, ADIFF, ANEU, BMP, GFR, TROPHS #### [address] [address] TSHon 07-25-2021 TSH 2.913 mIU/mL Normal 0.550-4.780 [facility] ([place]) Comment on above: Result Comment: No te - New Reference Range in effect 20 Performed By: #### C BC, ADIFF, ANEU, BMP, GFR, TROPHS #### [address] [address] .Auto Diffon 07-24-2021 Basophil, Absolute 0.00 10 3/mcL Normal 0.00-0.27 [facility] ([place]) Comment on above: Performed By: #### C BC, ADIFF, ANEU, BMP, GFR, TROPHS #### [address] [address] Basophils/100 WBC (Bld) 0.2 % Normal 0.0-2.5 [facility] ([place]) Comment on above: Performed By: #### C BC, ADIFF, ANEU, BMP, GFR, TROPHS #### [address] [address] Eosinophil, Absolute 0.00 10 3/mcL Normal 0.00-0.65 [facility] ([place]) Comment on above: Performed By: #### C BC, ADIFF, ANEU, BMP, GFR, TROPHS #### [address] [address] Eosinophils/100 WBC (Bld) 0.2 % Normal 0.0-6.0 [facility] ([place]) Comment on above: Performed By: #### C BC, ADIFF, ANEU, BMP, GFR, TROPHS #### [address] [address] Lymphocyte, Absolute 0.40 10 3/mcL Low 0.90-4.32 [facility] ([place]) Comment on above: Performed By: #### C BC, ADIFF, ANEU, BMP, GFR, TROPHS #### [address] [address] Lymphocytes/100 WBC (Bld) 9.4 % Low 20.0-40.0 [facility] ([place]) Comment on above: Performed By: #### C BC, ADIFF, ANEU, BMP, GFR, TROPHS #### [address] [address] Monocyte, Absolute 0.30 10 3/mcL Normal 0.09-1.40 [facility] ([place]) Comment on above: Performed By: #### C BC, ADIFF, ANEU, BMP, GFR, TROPHS #### [address] [address] Monocytes/100 WBC (Bld) 5.9 % Normal 2.0-13.0 [facility] ([place]) Comment on above: Performed By: #### C BC, ADIFF, ANEU, BMP, GFR, TROPHS #### [address] [address] Neutrophils/100 WBC (Bld) 84.3 % High 50.0-75.0 [facility] ([place]) Comment on above: Performed By: #### C BC, ADIFF, ANEU, BMP, GFR, TROPHS #### [address] [address] .GFRon 07-24-2021 GFR >60 Normal [facility] ([place]) Comment on above: Result Comment: GFR Population mean for , Non- Americans Ages 20-29 = 116 mL/min/1.73 sq.m. Ages 30-39 = 107 mL/min/1.73 sq.m. Ages 40-49 = 99 mL/min/1.73 sq.m. Ages 50-59 = 93 mL/min/1.73 sq.m. Ages 60-69 = 85 mL/min/1.73 sq.m. Ages 70+ = 75 mL/min/1.73 sq.m. Chronic Kidney Disease: Less than 60 mL/min/1.73 square meters End Stage Renal Disease: Less than 15 mL/min/1.73 square meters Performed By: #### C BC, ADIFF, ANEU, BMP, GFR, TROPHS #### [address] [address] GFR Non- >60 Normal [facility] ([place]) Comment on above: Result Comment: GFR Population mean for , Non- Americans Ages 20-29 = 116 mL/min/1.73 sq.m. Ages 30-39 = 107 mL/min/1.73 sq.m. Ages 40-49 = 99 mL/min/1.73 sq.m. Ages 50-59 = 93 mL/min/1.73 sq.m. Ages 60-69 = 85 mL/min/1.73 sq.m. Ages 70+ = 75 mL/min/1.73 sq.m. Chronic Kidney Disease: Less than 60 mL/min/1.73 square meters End Stage Renal Disease: Less than 15 mL/min/1.73 square meters Performed By: #### C BC, ADIFF, ANEU, BMP, GFR, TROPHS #### [address] [address] .NEUABSon 07-24-2021 Neutrophil, Absolute 3.90 10 3/mcL Normal 2.25-8.10 [facility] ([place]) Comment on above: Performed By: #### C BC, ADIFF, ANEU, BMP, GFR, TROPHS #### [address] [address] APTTon 07-24-2021 aPTT Coag (Bld) [Time] 29.7 s Normal 25.0-35.0 [facility] ([place]) Comment on above: Result Comment: For Heparin anticoagulation therapy, the recommended therapeutic range is: 54-77 seconds (APTT Correlation with Anti-Xa therapeutic range of 0.3-0.7 units/ml). PLEASE REFERENCE THE PHARMACY PROTOCOL FOR DOSING. Performed By: #### L AC, APTT #### [place] [address] Heparin dose (APTT) Unknown Normal [facility] ([place]) Comment on above: Performed By: #### L AC, APTT #### [address] [address] BMPon 07-24-2021 BUN/Creatinine Ratio 15.7 ratio Normal 10.0-22.0 [facility] ([place]) Comment on above: Performed By: #### C BC, ADIFF, ANEU, BMP, GFR, TROPHS #### [address] [address] Calcium [Mass/Vol] 9.2 mg/dL Normal 8.4-10.1 [facility] ([place]) Comment on above: Result Comment: No te - New Reference Range in effect 20 Performed By: #### C BC, ADIFF, ANEU, BMP, GFR, TROPHS #### [address] [address] Chloride [Moles/Vol] 92 mmol/L Low 98-110 [facility] ([place]) Comment on above: Performed By: #### C BC, ADIFF, ANEU, BMP, GFR, TROPHS #### [address] [address] CO2 [Moles/Vol] 29 mmol/L Normal 22-32 [facility] ([place]) Comment on above: Performed By: #### C BC, ADIFF, ANEU, BMP, GFR, TROPHS #### [address] [address] Creatinine [Mass/Vol] 0.83 mg/dL Normal 0.50-1.20 [facility] ([place]) Comment on above: Performed By: #### C BC, ADIFF, ANEU, BMP, GFR, TROPHS #### [place] [address] Electrolyte Balance 11.0 mEq/L Normal 4.0-15.0 [facility] ([place]) Comment on above: Performed By: #### C BC, ADIFF, ANEU, BMP, GFR, TROPHS #### [place] [address] Glucose [Mass/Vol] 296 mg/dL High 82-115 [facility] ([place]) Comment on above: Performed By: #### C BC, ADIFF, ANEU, BMP, GFR, TROPHS #### [place] [address] Potassium [Moles/Vol] 2.6 mmol/L Critically abnormal 3.5-5.0 [facility] ([place]) Comment on above: Performed By: #### C BC, ADIFF, ANEU, BMP, GFR, TROPHS #### [address] [address] Sodium [Moles/Vol] 132 mmol/L Low 136-145 [facility] ([place]) Comment on above: Performed By: #### C BC, ADIFF, ANEU, BMP, GFR, TROPHS #### [address] [address] Urea nitrogen [Mass/Vol] 13.0 mg/dL Normal 8.0-22.0 [facility] ([place]) Comment on above: Performed By: #### C BC, ADIFF, ANEU, BMP, GFR, TROPHS #### [place] [address] CBCon 07-24-2021 Erythrocyte distribution width (RBC) [Ratio] 19.8 % High 11.5-15.5 [facility] ([place]) Comment on above: Performed By: #### C BC, ADIFF, ANEU, BMP, GFR, TROPHS #### [place] [address] Hematocrit (Bld) [Volume fraction] 34.3 % Normal 34.0-46.0 [facility] ([place]) Comment on above: Performed By: #### C BC, ADIFF, ANEU, BMP, GFR, TROPHS #### [place] [address] Hgb 11.3 G/dL Low 12.0-16.0 [facility] ([place]) Comment on above: Performed By: #### C BC, ADIFF, ANEU, BMP, GFR, TROPHS #### [place] [address] MCH (RBC) [Entitic mass] 26.7 pg Low 27.0-33.0 [facility] ([place]) Comment on above: Performed By: #### C BC, ADIFF, ANEU, BMP, GFR, TROPHS #### [place] [address] MCHC 33.0 G/dL Normal 32.0-36.0 [facility] ([place]) Comment on above: Performed By: #### C BC, ADIFF, ANEU, BMP, GFR, TROPHS #### [place] [address] MCV (RBC) [Entitic vol] 80.9 fL Normal 80.0-99.0 [facility] ([place]) Comment on above: Performed By: #### C BC, ADIFF, ANEU, BMP, GFR, TROPHS #### [address] [address] Platelet 191 10 3/mcL Normal 150-450 [facility] ([place]) Comment on above: Performed By: #### C BC, ADIFF, ANEU, BMP, GFR, TROPHS #### [address] [address] Platelet mean volume (Bld) [Entitic vol] 6.4 fL Low 6.6-10.5 [facility] ([place]) Comment on above: Performed By: #### C BC, ADIFF, ANEU, BMP, GFR, TROPHS #### [place] [address] RBC 4.24 10 6/mcL Normal 4.10-5.30 [facility] ([place]) Comment on above: Performed By: #### C BC, ADIFF, ANEU, BMP, GFR, TROPHS #### [place] [phone] WBC 4.70 10 3/mcL Normal 4.50-10.80 [facility] ([place]) Comment on above: Performed By: #### C BC, ADIFF, ANEU, BMP, GFR, TROPHS #### [place] [address] CT HEAD OR BRAIN W/O CONTRAS Ton 07-24-2021 CT HEAD OR BRAIN W/O CONTRAST ORIGINAL EXAMINATION: CT OF THE HEAD WITHOUT CONTRAST 07/24/2021 1:31 pm TECHNIQUE: CT of the head was performed without the administration of intravenous contrast. Dose modulation, iterative reconstruction, and/or weight based adjustment of the mA/kV was utilized to reduce the radiation dose to as low as reasonably achievable. COMPARISON: None. HISTORY: ORDERING SYSTEM PROVIDED HISTORY: Reason for Exam: Altered mental status FINDINGS: Motion artifacts obscure some details despite reimaging. BRAIN/VENTRICLES: Within the constraints of this exam, no acute intracranial abnormality. There is mild generalized parenchymal volume loss. ORBITS: The visualized portion of the orbits demonstrate no acute abnormality. SINUSES: The mastoid air cells are predominantly clear. There is mild mucosal thickening of the ethmoidal air cells, right sphenoid sinus and right maxillary sinus. SOFT TISSUES/SKULL: No acute abnormality of the visualized skull or soft tissues. IMPRESSION: Within the constraints of this exam, no acute intracranial abnormality visualized. I have personally reviewed the images of this examination and agree with the resident's findings and interpretation. Interpreted by: Jorge Castillo Preliminary Report By: Aster Ellis Electronically signed By Jorge Castillo Dictated Date: 07/24/2021 1:41:09 PM Prelim Date: 07/24/2021 1:45:39 PM Sign Date: 07/24/2021 2:17:39 PM Ordering Provider: JENNIFER BAJWA [facility] ([place]) CVFLURVon 07-24-2021 Date of Onset [id number] Invalid Interpretation Code [facility] ([place]) Comment on above: Performed By: #### L AC, APTT #### [place] [address] [employer]ed in [employer] [facility] ([place] Comment on above: Performed By: #### L AC, APTT #### [place] [address] First Test [facility] ([place]) Comment on above: Performed By: #### L AC, APTT #### [place] [address] FLU A PCR Negative Normal [facility] ([place]) Comment on above: Result Comment: Note s Performed By: #### L AC, APTT #### [place] [address] FLU B PCR Negative Normal Negative [facility] ([place]) Comment on above: Result Comment: Note s [id number] Performed By: #### L AC, APTT #### [place] [address] Hospitalized [facility] ([place]) Comment on above: Performed By: #### L AC, APTT #### [place] [address] ICU No [facility] ([place]) Comment on above: Performed By: #### L AC, APTT #### [place] [address] Not [facility] ([place]) Comment on above: Performed By: #### L AC, APTT #### [facility] [address] [place] [id number] Resides in Congregate Care Setting No Normal [facility] ([place]) Comment on above: Performed By: #### L AC, APTT #### [facility] [address] [place] [phone] RSV PCR Negative Normal Negative [facility] ([place]) Comment on above: Result Comment: Note s Performed By: #### L AC, APTT #### [facility] [address] [place] [address] SARS-CoV-2 (COVID-19) RNA LEMUEL+probe Ql (Unsp spec) Positive Abnormal Negative [facility] ([place]) Comment on above: Result Comment: This test has been authorized by FDA under an EUA for use by authorized laboratories and has not been FDA cleared or approved. Results from the Xpert Xpress SARS-CoV-2/Flu/RSV or Xpert Xpress SARS-CoV-2 only test should be correlated with the clinical history, epidemiological data, and other data available to the clinician evaluating the patient. Performance of the Xpert Xpress SARS-CoV-2/Flu/RSV or Xpert Xpress SARS-CoV-2 only test has only been established in nasopharyngeal swab specimens. Erroneous test results might occur from improper specimen collection; failure to follow the recommended sample collection, handling, and storage procedures; technical error; or sample mix-up. False negative results may occur if virus is present at levels below the analytical limit of detection. Viral nucleic acid may persist in vivo, independent of virus viability. Detection of analyte target(s) does not imply that the corresponding virus(es) are infectious or are the causative agents for clinical symptoms. Recent patient exposure to FluMist or other live attenuated influenza vaccines may cause inaccurate positive results. This organism causes a reportable disease. Infection Control has been notified. Results have been reported to the [facility] [place] [facility]. Notes Performed By: #### L AC, APTT #### [facility] [address] [place] [phone] Symptomatic as Defined by CDC No Normal [facility] ([place]) Comment on above: Performed By: #### L AC, APTT #### [facility] [address] [place] [address] LABORATORYOrdered By: Jakob Thomson on 07-24-2021 Lactate [Moles/Vol] 1.8 mmol/L Invalid Interpretation Code 0.2 - 2.0 mmol/L AH Auto Chem SS Appearance (U) Hazy *ABN* (07/24/21 12:20 PM) Invalid Interpretation Code AH Auto Urine SS Bacteria LM.HPF (Urine sed) [#/Area] 1 /[HPF] Invalid Interpretation Code Negative/HP F AH Auto Urine SS Bilirubin Ql (U) Negative (07/24/21 12:20 PM) Invalid Interpretation Code Neg-Trace AH Auto Urine SS Color (U) Yellow (07/24/21 12:20 PM) Invalid Interpretation Code AH Auto Urine SS Glucose Test strip (U) [Mass/Vol] Negative Invalid Interpretation Code Negativemg/ dL AH Auto Urine SS Hemoglobin Auto test strip (U) [Mass/Vol] Small *ABN* (07/24/21 12:20 PM) Invalid Interpretation Code Neg-Trace AH Auto Urine SS Ketones Ql (U) Negative Invalid Interpretation Code Neg-Tracemg /dL AH Auto Urine SS Lactate [Moles/Vol] 2.7 mmol/L Invalid Interpretation Code 0.2 - 2.0 mmol/L AH Auto Chem SS UA Hyal Cast 10-20 /LPF Invalid Interpretation Code AH Auto Urine SS UA Leuk Est Negative (07/24/21 12:20 PM) Invalid Interpretation Code Negative AH Auto Urine SS UA Mucous Trace /HPF Invalid Interpretation Code AH Auto Urine SS UA Nitrite Negative (07/24/21 12:20 PM) Invalid Interpretation Code Negative AH Auto Urine SS UA pH 5.5 (07/24/21 12:20 PM) Invalid Interpretation Code 5.0 - 8.0 AH Auto Urine SS UA Protein 100 mg/dL Invalid Interpretation Code Negativemg/ dL AH Auto Urine SS UA RBC 5-10 /HPF Invalid Interpretation Code 0-2/HPF AH Auto Urine SS UA Spec Grav 1.025 (07/24/21 12:20 PM) Invalid Interpretation Code AH Auto Urine SS UA Specimen Type Catheter (07/24/21 12:20 PM) Invalid Interpretation Code AH Auto Urine SS UA Squam Epithelial 0-2 /HPF Invalid Interpretation Code 0-20/HPF AH Auto Urine SS UA Urobilinogen 2.0 E.U./dL Invalid Interpretation Code AH Auto Urine SS WBC LM.HPF (Urine sed) [#/Area] 10-20 /HPF Invalid Interpretation Code 0-5/HPF AH Auto Urine SS LABORATORYOrdered By: Yasmeen Kirby on 07-24-2021 Date of Onset [id number] Invalid Interpretation Code AH Auto Viro/Sero SS Employed in Healthcare No (07/24/21 2:32 PM) Invalid Interpretation Code AH Auto Viro/Sero SS First Test No (07/24/21 2:32 PM) Invalid Interpretation Code AH Auto Viro/Sero SS FLU A PCR Negative 7 (07/24/21 2:32 PM) Invalid Interpretation Code Negative AH Auto Viro/Sero SS Comment on above: Result Comment: Note s FLU B PCR Negative 8 (07/24/21 2:32 PM) Invalid Interpretation Code Negative AH Auto Viro/Sero SS Comment on above: Result Comment: Note s Hospitalized No (07/24/21 2:32 PM) Invalid Interpretation Code AH Auto Viro/Sero SS ICU No (07/24/21 2:32 PM) Invalid Interpretation Code AH Auto Viro/Sero SS Not (07/24/21 2:32 PM) Invalid Interpretation Code AH Auto Viro/Sero SS Resides in Congregate Care Setting No (07/24/21 2:32 PM) Invalid Interpretation Code AH Auto Viro/Sero SS RSV PCR Negative 9 (07/24/21 2:32 PM) Invalid Interpretation Code Negative AH Auto Viro/Sero SS Comment on above: Result Comment: Note s SARS-CoV-2 (COVID-19) RNA LEMUEL+probe Ql (Unsp spec) Positive 6 *ABN* (07/24/21 2:32 PM) Invalid Interpretation Code Negative AH Auto Viro/Sero SS Comment on above: Result Comment: This organism causes a reportable disease. Infection Control has been notified. Results have been reported to the [facility] [place] [facility]. Notes Symptomatic as Defined by CDC No (07/24/21 2:32 PM) Invalid Interpretation Code AH Auto Viro/Sero SS LACon 07-24-2021 Lactic Acid Lvl 1.8 mmol/L Normal 0.2-2.0 [facility] ([place]) Comment on above: Performed By: #### L AC, APTT #### [place] [address] Lactic Acid Lvl 2.7 mmol/L High 0.2-2.0 [facility] ([place]) Comment on above: Performed By: #### L AC, APTT #### [place] [address] No Panel Informationon 07-24 Culture Urine No growth at 48 hours. [facility] Microscopic examination of blood, culture Blood Culture: No Growth at 5 days. [facility] TROPHSon 07-24-2021 Troponin I High Sensitivity 6.53 ng/L Normal 0.00-34.00 [facility] ([place]) Comment on above: Performed By: #### C BC, ADIFF, ANEU, BMP, GFR, TROPHS #### [place] [address] UAon 07-24-2021 Color (U) Yellow Normal [facility] ([place]) Comment on above: Performed By: #### U A, UAMIC #### [place] [address] Glucose (U) [Mass/Vol] Negative Normal Negative [facility] ([place]) Comment on above: Performed By: #### U A, UAMIC #### [place] [address] Ketones Ql (U) Negative Normal Neg-Trace [facility] ([place]) Comment on above: Performed By: #### U A, UAMIC #### [place] [address] UA Appear Hazy Abnormal [facility] ([place]) Comment on above: Performed By: #### U A, UAMIC #### [place] [address] UA Blood Small Abnormal Neg-Trace [facility] ([place] Comment on above: Performed By: #### U A, UAMIC #### [place] [id number] UA Leuk Est Negative Normal Negative [facility] ([place]) Comment on above: Performed By: #### U A, UAMIC #### [address] [address] UA Nitrite Negative Normal Negative [facility] ([place]) Comment on above: Performed By: #### U A, UAMIC #### [place] [address] UA pH 5.5 Normal 5.0 - 8.0 [facility] ([place]) Comment on above: Performed By: #### U A, UAMIC #### [place] [address] UA Protein 100 mg/dL Abnormal Negative [facility] ([place] Comment on above: Performed By: #### U A, UAMIC #### [place] [address] UA Spec Grav 1.025 Normal [facility] ([place]) Comment on above: Performed By: #### U A, UAMIC #### [place] [address] UA Specimen Type Catheter Normal [facility] ([place]) Comment on above: Performed By: #### U A, UAMIC #### [place] [address] UA Urobilinogen 2.0 E.U./dL Abnormal [facility] ([place]) Comment on above: Performed By: #### U A, UAMIC #### [place] [address] Urobilinogen (U) [Mass/Vol] Negative Normal Neg-Trace [facility] ([place]) Comment on above: Performed By: #### U A, UAMIC #### [place] [address] UAMICon 07-24-2021 UA Bacteria 1+ /hpf Abnormal Negative [facility] ([place]) Comment on above: Performed By: #### U A, UAMIC #### [place] [address] UA Hyal Cast 10-20 Abnormal [facility] ([place]) Comment on above: Performed By: #### U A, UAMIC #### [facility] [address] [place] [address] UA Mucous Trace Normal [facility] ([place]) Comment on above: Performed By: #### U A, UAMIC #### [facility] [address] [place] [id number] UA RBC 5-10 Abnormal 0-2 [facility] ([place]) Comment on above: Performed By: #### U A, UAMIC #### [facility] [address] [place] [address] UA Squam Epithelial 0-2 Normal 0-20 [facility] ([place]) Comment on above: Performed By: #### U A, UAMIC #### [facility] [address] [place] [address] UA WBC 10-20 Abnormal 0-5 [facility] ([place]) Comment on above: Performed By: #### U A, UAMIC #### [place] [address] XR CHEST 2 VIEWSon 1 XR CHEST 2 VIEWS ORIGINAL EXAMINATION: TWO XRAY VIEWS OF THE CHEST 07/24/2021 1:13 pm COMPARISON: Chest radiograph 03/22/2017, 07/03/2016 HISTORY: ORDERING SYSTEM PROVIDED HISTORY: Reason for Exam: Abdominal pain Possible confusion FINDINGS: Cardiomediastinal contours are normal. The head and lower neck obscures the left apex. There is a possible left apical nodular opacity. The lungs are otherwise clear. No pneumothorax or pleural effusion. IMPRESSION: The head and lower neck obscures the left apex, but possible left apical nodular opacity cannot be excluded. Can consider follow-up PA view of the chest versus further evaluation with a non emergent CT chest without contrast. Interpreted by: Diana Castillo Preliminary Report By: Diana Castillo Electronically signed By Diana Castillo Dictated Date: 07/24/2021 1:16:36 PM Prelim Date: 07/24/2021 1:24:21 PM Sign Date: 07/24/2021 1:24:21 PM Ordering Provider: JENNIFER BAJWA [facility] ([place]) Clinical Lists Update: Prelo ad- new patienton 05-20-2017 Tobacco smoking status NHIS Former smoker Invalid Interpretation Code [facility] Work Phone: Office Visiton 08-01-2009 Protein mass conc Colonoscopy (procedure) Invalid Interpretation Code [facility] Work Phone: Vital Signs Date Time Vital Sign Value Performing Clinician Facility 01-10-2025 00:30-0400 Heart rate 69 /min Angel Nesheim DO Work Phone: [facility] 01-10-2025 00:30-0400 Respiratory rate 18 /min Angel Nesheim DO Work Phone: [facility] 01-10-2025 00:30-0400 SaO2% (BldA) [Mass fraction] 95 % Angel Nesheim DO Work Phone: [facility] 01-10-2025 00:15-0400 Diastolic blood pressure 70 mm[Hg] Angel Nesheim DO Work Phone: [facility] 01-10-2025 00:15-0400 Systolic blood pressure 118 mm[Hg] Angel Nesheim DO Work Phone: [facility] 01-09-2025 22:21-0400 Body height 157.5 cm Angel Nesheim DO Work Phone: [facility] 01-09-2025 22:21-0400 Body mass index (BMI) [Ratio] 28.35 kg/m2 Angel Nesheim DO Work Phone: [facility] 01-09-2025 22:21-0400 Body temperature 98.2 [degF] Angel Nesheim DO Work Phone: [facility] 01-09-2025 22:21-0400 Body weight 70.31 kg Angel Nesheim DO Work Phone: [facility] 01-02-2025 23:21-0400 Diastolic blood pressure 63 mm[Hg] Sada Samuels DO Work Phone: [facility] 01-02-2025 23:21-0400 Heart rate 72 /min Sada Samuels DO Work Phone: [facility] 01-02-2025 23:21-0400 Respiratory rate 16 /min Sada Samuels DO Work Phone: [facility] 01-02-2025 23:21-0400 SaO2% (BldA) [Mass fraction] 98 % Sada Samuels DO Work Phone: [facility] 01-02-2025 23:21-0400 Systolic blood pressure 124 mm[Hg] Sada Samuels DO Work Phone: [facility] 01-02-2025 21:42-0400 Body temperature 97.9 [degF] Sada Samuels DO Work Phone: [facility] 01-02-2025 18:36-0400 Body height 160 cm Sada Samuels DO Work Phone: [facility] 01-02-2025 18:36-0400 Body mass index (BMI) [Ratio] 27.46 kg/m2 Sada Samuels DO Work Phone: [facility] 01-02-2025 18:36-0400 Body weight 70.31 kg Sada Samuels DO Work Phone: [facility] 12-07-2024 23:38-0400 Diastolic blood pressure 78 mm[Hg] Griselda Latham MD Work Phone: [facility] 12-07-2024 23:38-0400 Heart rate 74 /min Griselda Latham MD Work Phone: [facility] 12-07-2024 23:38-0400 Respiratory rate 16 /min Griselda Latham MD Work Phone: [facility] 12-07-2024 23:38-0400 SaO2% (BldA) [Mass fraction] 97 % Griselda Latham MD Work Phone: [facility] 12-07-2024 23:38-0400 Systolic blood pressure 138 mm[Hg] Griselda Latham MD Work Phone: [facility] 12-07-2024 18:02-0400 Body height 157.5 cm Griselda Latham MD Work Phone: [facility] 12-07-2024 18:02-0400 Body mass index (BMI) [Ratio] 36.58 kg/m2 Griselda Latham MD Work Phone: [facility] 12-07-2024 18:02-0400 Body temperature 97.5 [degF] Griselda Latham MD Work Phone: [facility] 12-07-2024 18:02-0400 Body weight 90.72 kg Griselda Latham MD Work Phone: [facility] 10-25-2024 21:39-0400 Diastolic Blood Pressure Non-Invasive 73 mm[Hg] DR OXANA GRAHAM DO [facility] 10-25-2024 21:39-0400 Heart rate 83 /min DR OXANA GRAHAM DO [facility] 10-25-2024 21:39-0400 Respiratory rate 18 /min DR OXANA GRAHAM DO [facility] 10-25-2024 21:39-0400 Systolic Blood Pressure Non-Invasive 139 mm[Hg] DR OXANA GRAHAM DO [facility] 10-25-2024 16:38-0400 Diastolic Blood Pressure Non-Invasive 75 mm[Hg] DR OXANA GRAHAM DO [facility] 10-25-2024 16:38-0400 Heart rate 90 /min DR OXANA GRAHAM DO [facility] 10-25-2024 16:38-0400 Respiratory rate 19 /min DR OXANA GRAHAM DO [facility] 10-25-2024 16:38-0400 Systolic Blood Pressure Non-Invasive 128 mm[Hg] DR OXANA GRAHAM DO [facility] 10-25-2024 04:00-0400 Diastolic Blood Pressure Non-Invasive 72 mm[Hg] DR OXANA GRAHAM DO [facility] 10-25-2024 04:00-0400 Heart rate 87 /min DR OXANA GRAHAM DO [facility] 10-25-2024 04:00-0400 Respiratory rate 20 /min DR OXANA GRAHAM DO [facility] 10-25-2024 04:00-0400 Systolic Blood Pressure Non-Invasive 112 mm[Hg] DR OXANA GRAHAM DO [facility] 10-24-2024 14:52-0400 Body temperature 98.6 [degF] DR OXANA GRAHAM DO [facility] 11-05-2021 17:36-0400 Diastolic blood pressure 69 mm[Hg] TONY RAMIREZT [employer] [facility] 11-05-2021 17:36-0400 Heart rate 82 /min TONY HENDERSON [employer] [facility] 11-05-2021 17:36-0400 Mean blood pressure 95 mm[Hg] TONY RAMIREZT [employer] [facility] 11-05-2021 17:36-0400 Respiratory rate 18 /min TONY RAMIREZT DO [facility] 11-05-2021 17:36-0400 Systolic blood pressure 148 mm[Hg] TONY RAMIREZT DO [facility] 11-05-2021 17:00-0400 Heart rate 89 /min TONY RAMIREZT [employer] [facility] 11-05-2021 11:06-0400 Body temperature 97.7 [degF] [facility] 11-05-2021 11:06-0400 Body weight 136.4 kg [facility] 11-05-2021 11:06-0400 Diastolic blood pressure 79 mm[Hg] [facility] 11-05-2021 11:06-0400 Heart rate 93 /min [facility] 11-05-2021 11:06-0400 Respiratory rate 18 /min [facility] 11-05-2021 11:06-0400 Systolic blood pressure 141 mm[Hg] [facility] 08-06-2021 07:28-0500 Body temperature 97.88 [degF] VIMAL VAUGHAN MD [facility] 08-06-2021 07:28-0500 Diastolic blood pressure 81 mm[Hg] VIMAL VAUGHAN MD [facility] 08-06-2021 07:28-0500 Heart rate 81 /min VIMAL VAUGHAN MD [facility] 08-06-2021 07:28-0500 Reason For Taking VItal Signs VIMAL VAUGHAN MD [facility] 08-06-2021 07:28-0500 Respiratory rate 18 /min VIMAL VAUGHAN MD [facility] 08-06-2021 07:28-0500 Systolic blood pressure 148 mm[Hg] VIMAL VAUGHAN MD [facility] 08-05-2021 21:03-0500 Body temperature 97.7 [degF] VIMAL VAUGHAN MD [facility] 08-05-2021 21:03-0500 Diastolic blood pressure 89 mm[Hg] VIMAL VAUGHAN MD [facility] 08-05-2021 21:03-0500 Heart rate 95 /min VIMAL VAUGHAN MD [facility] 08-05-2021 21:03-0500 Reason For Taking VItal Signs VIMLA VAUGHAN MD [facility] 08-05-2021 21:03-0500 Respiratory rate 18 /min VIMAL VAUGHAN MD [facility] 08-05-2021 21:03-0500 Systolic blood pressure 126 mm[Hg] VIMAL VAUGHAN MD [facility] 08-05-2021 16:18-0500 Body temperature 98.24 [degF] VIMAL VAUGHAN MD [facility] 08-05-2021 16:18-0500 Diastolic blood pressure 78 mm[Hg] VIMAL VAUGHAN MD [facility] 08-05-2021 16:18-0500 Heart rate 88 /min VIMAL VAUGHAN MD [facility] 08-05-2021 16:18-0500 Reason For Taking VItal Signs VIMAL VAUGHAN MD [facility] 08-05-2021 16:18-0500 Respiratory rate 18 /min VIMAL VAUGHAN MD [facility] 08-05-2021 16:18-0500 Systolic blood pressure 124 mm[Hg] VIMAL VAUGHAN MD [facility] 08-05-2021 07:24-0500 Heart rate 80 /min VIMAL VAUGHAN MD [facility] 08-04-2021 20:45-0500 Heart rate 90 /min VIMAL VAUGHAN MD [facility] 08-04-2021 14:58-0500 Mean blood pressure 84 mm[Hg] VIMAL VAUGHAN MD [facility] 08-03-2021 21:30-0500 Mean blood pressure 90 mm[Hg] VIMAL VAUGHAN MD [facility] 08-03-2021 07:40-0500 Heart rate 81 /min VIMAL VAUGHAN MD [facility] 08-03-2021 07:40-0500 Mean blood pressure 94 mm[Hg] VIMAL VAUGHAN MD [facility] 08-01-2021 07:42-0500 Heart rate 94 /min VIMAL VAUGHAN MD [facility] 07-31-2021 22:18-0500 Heart rate 89 /min VIMAL VAUGHAN MD [facility] 07-31-2021 19:45-0500 Heart rate 95 /min VIMAL VAUGHAN MD [facility] 07-29-2021 23:51-0500 Body temperature 97.52 [degF] VIMAL VAUGHAN MD [facility] 07-29-2021 06:50-0500 Body temperature 98.06 [degF] VIMAL VAUGHAN MD [facility] 07-29-2021 04:36-0500 Body temperature 97.16 [degF] VIMAL VAUGHAN MD [facility] 07-26-2021 11:36-0500 Body height 157.5 cm VIMAL VAUGHAN MD [facility] 07-26-2021 11:36-0500 Body weight 112.5 kg VIMAL VAUGHAN MD [facility] 07-26-2021 11:36-0500 Body weight 45.35 kg/m2 VIMAL VAUGHAN MD [facility] 01-29-2013 15:29-0400 BMI (Body Mass Index) 57.74 kg/m2 Rola Manning LPN [facility] Work Phone: 01-29-2013 15:29-0400 Body Temperature 97.5 [degF] Rola Yensho CABLE COVERER [facility] Work Phone: 01-29-2013 15:29-0400 BP Diastolic 85 mm[Hg] Rola Yensho CABLE COVERER [facility] Work Phone: 01-29-2013 15:29-0400 BP Systolic 120 mm[Hg] Rola Yensho CABLE COVERER [facility] Work Phone: 01-29-2013 15:29-0400 BSA (Body Surface Area) 2.38 m2 Rola Yensho CABLE COVERER [facility] Work Phone: 01-29-2013 15:29-0400 Height 160.02 cm Rola Yensho CABLE COVERER [facility] Work Phone: 01-29-2013 15:29-0400 Pulse (Heart Rate) 71 /min Rola Yensho CABLE COVERER [facility] Work Phone: 01-29-2013 15:29-0400 Respiratory Rate 20 /min Rola Yensho CABLE COVERER [facility] Work Phone: 01-29-2013 15:29-0400 Weight 147.33 kg Rola Yensho CABLE COVERER [facility] Phone: Encounters Encounter Date Encounter Type Care Provider Facility Start: 01-09-2025 End: 01-10-2025 Emergency department patient visit Angel Ortiz DO Work Phone: [facility] Comment on above: Chest pain, unspecif ied type (Primary Dx); Chronic obstructive pulmonary disease, unspecified COPD type (HCC) Start: 01-02-2025 End: 01-02-2025 Emergency department patient visit Sada Samuels DO [employer] Phone: [facility] Comment on above: Anxiety (Primary Dx) ; Chest pain, unspecified type Start: 12-25-2024 End: 12-25-[address] Aram Morris DO Work Phone: [facility] Work Phone: Start: 12-25-2024 End: 12-25-2024 Departed Referred Yudy Mantilla -[facility] [address] Start: 12-25-2024 End: 12-25-2024 ambulatory Aram Morris Facility:[facility] Start: 12-07-2024 End: 12-07-2024 Emergency department patient visit Griselda Latham MD Work Phone: [facility] Comment on above: Chest pain, unspecif ied type (Primary Dx) Start: 10-24-2024 End: 10-25-2024 Emergency department patient visit DR OXANA GRAHAM DO [facility] Start: 12-12-2023 Telephone encounter Jennyfer diane DO Work Phone: [facility] Comment on above: Appointment (No Show #2) Start: 11-05-2021 End: 11-05-2021 Emergency department patient visit TONY HENDERSON DO [facility] Start: 07-24-2021 End: 08-06-2021 Evaluation and management of inpatient MONCHO FLORES MD [facility] Procedures Date Procedure Procedure Detail Performing Clinician Start: 01-09-2025 Radiologic exam ches t single view Angel G Nesheim DO Work Phone: Start: 01-09-2025 Comprehensive metabo lic panel Angel G Nesheim DO Work Phone: Start: 01-09-2025 Ecg routine ecg w/le ast 12 lds trcg only w/o i&r Angel G Nesheim DO Work Phone: Start: 01-02-2025 Basic metabolic pane l calcium total Sada Moran Antoine DO Work Phone: Start: 01-02-2025 Radiologic exam ches t single view Sada Samuels DO Work Phone: Start: 01-02-2025 Ecg routine ecg w/le ast 12 lds i&r only Sada Samuels DO Work Phone: Start: 12-25-2024 Vitamin D, 25-hydrox y measurement Dr. Aram Morris DO Work Phone: Comment on above: Vitamin D StatusDefi ciency: <20 ng/mL (50nmol/L)Insufficiency: 20-30 ng/mL (50-75 nmol/L)Sufficiency: 30-100 ng/mL (75-250 nmol/L)Toxicity: >100 ng/mL (>250 nmol/L) Start: 12-07-2024 Assay of troponin quantitative Faith Begum MD Work Phone: Start: 12-07-2024 Comprehensive metabo lic panel Faith Begum MD Work Phone: Start: 12-07-2024 Troponin I.cardiac p ayala - Serum or Plasma by High sensitivity method Faith Begum MD Work Phone: Start: 12-07-2024 Radex shoulder compl ete minimum 2 views Faith Begum MD Work Phone: Start: 12-07-2024 Radiologic exam ches t 2 views Faith Begum MD Work Phone: Start: 01-19-2016 Lipid 1996 panel - S forrest or Plasma Jennyfer Lock DO Work Phone: Start: 12-24-2009 Colonoscopy Jennyfer diane DO Work Phone: Cholecystectomy VIMAL GONZALEZ MD Cholecystectomy VIMAL GONZALEZ MD Cyst form of protozo a (organism) VIMAL VAUGHAN MD Comment on above: removed from lower a bdomen Cyst of fallopian tu be (disorder) VIMAL VAUGHAN MD Plan of Treatment Date Care Activity Detail Author Start: 2033 RSV High Risk: (Elde rly (60+) or Population) (1 - 1-dose 75+ series) RSV High Risk: (Elderly (60+) or Population) (1 - 1-dose 75+ series) [facility] Start: 04-01-2025 Influenza vaccination Influenz a Vaccine (Season Ended) [facility] Start: 08-01-2024 Medicare Advantage A nnual Wellness Visit Medicare Advantage Annual Wellness Visit [facility] Start: 06-07-2024 DTaP/Tdap/Td Vaccine s (2 - Td or Tdap) DTaP/Tdap/Td Vaccines (2 - Td or Tdap) [facility] Start: 06-07-2024 Urine microalbumin profile DTa P,Tdap,Td Vaccine (2 - Td or Tdap) [facility] Start: 04-01-2024 COVID-19 Vaccine ( season) COVID-19 Vaccine ( season) [facility] Start: 04-01-2024 Influenza vaccination Influenz a Vaccine (Season Ended) [facility] Start: 08-01-2023 Advance Directive Discussion Advance Directive Discussion [facility] Start: 04-01-2023 Covid-19 Vaccine ( season) Covid-19 Vaccine ( season) [facility] Start: 2023 Screening for osteoporosis Bone Dens ity Screening [facility] Start: 01-18-2021 Lipid panel Lipid Screening [facility] Start: 12-25-2019 Screening for malign ant neoplasm of colon [facility] Start: 01-18-2019 Diabetes Screening Diabetes Screenin g [facility] Start: 2018 RSV Immunization for Adults (1 - Risk 60-74 years 1-dose series) RSV Immunization for Adults (1 - Risk 60-74 years 1-dose series) [facility] Start: 2018 RSV Vaccine (1 - 1-d ose 60+ series) RSV Vaccine (1 - 1-dose 60+ series) [facility] Start: 06-16-2017 End: 06-16-2017 Appointment Appointment [facility] Work Phone: Start: 04-08-2016 Screening for malign ant neoplasm of breast Mammogram Screening [facility] Start: 04-05-2014 Pneumococcal Vaccine : 50+ Years (2 of 2 - PCV) Pneumococcal Vaccine: 50+ Years (2 of 2 - PCV) [facility] Start: 04-05-2014 Pneumococcal Vaccine : 65+ (2 of 2 - PCV) Pneumococcal Vaccine: 65+ (2 of 2 - PCV) [facility] Start: 01-29-2013 End: 01-29-2013 Complete sleep workup (PSG,CPAP as indicated) & Follow up Complete sleep workup (PSG,CPAP as indicated) & Follow up [facility] Work Phone: Start: 01-29-2013 End: 01-29-2013 Echocardiography Echocardiogram (complete) [facility] Work Phone: Start: 02-22-2008 Pneumococcal vaccination Pneum ococcal Vaccine (1 of 1 - PCV) [facility] Start: 02-22-2008 Shingrix Vaccine (1 of 2) Rosen grix Vaccine (1 of 2) [facility] Start: 02-22-2008 Zoster Vaccines (1 of 2) Zoste r Vaccines (1 of 2) [facility] Start: 2003 Screening for malign ant neoplasm of colon [facility] Start: 1998 Screening for malign ant neoplasm of breast Mammogram [facility] Start: 02-22-1988 Zoledronic acid therapy Alpha- 1 Antitrypsin Deficiency Screening [facility] Start: 02-22-1980 DTaP/Tdap/Td Vaccine s (1 - Tdap) DTaP/Tdap/Td Vaccines (1 - Tdap) [facility] Start: 02-22-1976 Annual PCP Team [employer]cel[employer]er germán Disease Visit Annual PCP Team Chronic Disease Visit [facility] Start: 02-22-1976 BP Controlled (<130/80) BP Controlle d (<130/80) [facility] Start: 02-22-1976 Diabetes mellitus screening Diabetes Screening [facility] Start: 02-22-1976 Hepatitis C screening Hepatitis C [facility] Start: 02-22-1976 HIV screening HIV Screening [facility] Start: 1970 Depression Monitoring Depression Mon itoring [facility] Start: 1959 MMR Vaccines (1 of 1 - Standard series) MMR Vaccines (1 of 1 - Standard series) [facility] Start: 1958 Annual wellness visit Welcome to Medicare Visit [facility] Start: 1958 Lipid panel Lipid Panel [facility] Start: 1958 Screening for malign ant neoplasm of colon [facility] Start: 1958 Screening for osteoporosis Bone Dens ity Scan [facility] End: 12-07-2024 ECG 12 lead [facility] Service Area Work Phone: Comment on above: Every 1 hour for 2 O ccurrences starting 12/07/2024 until 12/07/2024 As needed until disc ontinued starting 12/07/2024 Immunizations Immunization Date Immunization Notes Care Provider Melissa mathew 06-07-2014 tetanus toxoid, redu [place] diphtheria toxoid, and acellular pertussis vaccine, adsorbed VIMAL VAUGHAN MD [facility] 05-08-2014 influenza virus vacc ine, unspecified formulation VIMAL VAUGHAN MD [facility] 05-08-2014 influenza, seasonal, injectable Jennyfer Lock DO Work Phone: [facility] 04-05-2013 pneumococcal polysaccharide vaccine, 23 valent VIMAL VAUGHAN MD [facility] 06-06-2009 influenza virus vacc ine, unspecified formulation Jennyfer Lock DO Work Phone: [facility] Work Phone: 07-15-2006 influenza virus vacc ine, unspecified formulation Jennyfer Lock DO Work Phone: [facility] Payers Date Payer Category Payer Medicare [facility] Address: [address] [place] [address] [id number] 2024 Self-pay 2024 Unknown [id number] 2024 Private Health Insurance [id number] 2024 Private Health Insurance [id number] 2023 Dual Eligibility Medicare/Medicaid Organization [id number] 2023 Medicaid [facility] EDICAID ONLY [id number] 2023 Medicare UHC MEDICARE [facility] MEDICARE [id number] 2023-Present [phone] [place] [id number] Medicare [id number] 2018 Medicaid [id number] 2018 Unknown [id number] 2009 Private Health Insurance [id number] 2009 Unknown [facility] [id number] 1960 Unknown [id number] 1960 Unknown [id number] Unknown [id number] Social History Date Type Detail Facility Start: 11-06-2016 End: 03-08-2019 Ex-smoker (finding) [facility] Start: 1960 Sex Assigned At Female A [facility] End: 07-15-2009 History of tobacco use Current smoker [facility] End: 07-15-2009 History of tobacco use Cigarette Smoker [facility] Start: 08-18-2009 End: 01-09-2025 Cigarettes smoked current (pack per day) - Reported 1.5 [facility] Start: 03-17-2022 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) [facility] Start: 12-12-2023 End: 01-09-2025 Area Deprivation Index [facility] National Score (1-10 0), lower number is lower risk 100 [facility] Start: 1960 Sex Assigned At Not on file [facility] Start: 06-26-2019 End: 03-01-2022 Sex Female (finding) [facility] Start: 12-07-2024 End: 01-02-2025 Tobacco smoking status NHIS Never smoked tobacco [facility] Work Phone: Start: 12-07-2024 End: 01-02-2025 Tobacco use and exposure Smokeless tobacco non-user [facility] Work Phone: Start: 12-07-2024 Alcoholic beverage intake Lifetime non-drinker (finding) [facility] Work Phone: Start: 11-27-2024 End: 12-07-2024 Exposure to SARS-CoV-2 (event) Not sure [facility] Work Phone: Start: 01-02-2025 End: 01-09-2025 Alcoholic beverage intake Ex-drinker (finding) [facility] How often to you hav e a drink containing alcohol? Never [facility] Medical Equipment Procedure Code Equipment Code Equipment Origin al Text Equipment Identifier Dates See Instructions , freestyle lite test strips for once daily use - QS for 3 month supply. E11.9, # 1 EA, 3 Refill(s), Pharmacy: [id number], 157.5, cm, 06/25/19 15:01:00 EST, Height, 129.1, kg, 09/25/19 17:06:00 EST, Dosing Weight Start: 03-24-2021 See Instructions , Lancets to test glucose daily and PRN, # 1 EA, 3 Refill(s), Pharmacy: 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 [C-SSRS] [facility] Work Phone: 10-25-2024 Functional Status Assistive Device None A [facility] 10-24-2024 Functional Status N/A [facility] 11-05-2021 Functional Status [facility] Mental Status Date Assessment Result Facility 10-25-2024 Mental Status Orientation Oriented x 4 [facility] 10-24-2024 [facility] 11-05-[facility]21 [facility] Status [facility] Clinical Notes 07-24-2021 to 01-09-2025 Discharge InstructionsAttachmentsAngel Ortiz DO - 01/09/2025 10:08 PM Chula Hayes RN - 01/09/2025 10:08 PM EDRobert Hayes RN - 01/09/2025 10:08 PM EDTAttachments Note Date & Type Note Facility 01-09-2025 Hospital Discharg e instructions Angel Ortiz DO - 01/09/2025 11:56 PM EDT Please use your inhaler as discussed. Follow-up with your primary care doctor. The following attachments cannot be sent through Care Everywhere.COPD Exacerbation, Adult ED (Swedish)Chest Pain, Adult ED (Swedish)documented in this encounter [facility] 01-09-2025 Emergency department Note Emergency Department Encounter [facility] ED Patient: Carline Pastrana : 1960 Date of Evaluation: 01/09/2025 ED Provider: Angel Ortiz DO Chief Complaint Chief Complaint Patient presents with Chest Pain [place] Carline Pastrana is a 64 y.o. female who presents to the emergency department complaining of chest pain. Patient reports chest pain ongoing for 2 weeks. Has been seen in the department before. States this may be related to stress. Also has COPD and has had some wheezing. Has not used her albuterol inhalers because "I did not feel like it ". Additional history obtained from : n/a Barriers to obtaining history from patient: n/a ROS: Review of Systems completed as follows: (Bold = positive, Not bold = negative) GENERAL: fevers, chills, malaise ENT: runny nose, congestion, sore throat, ear pain NEURO: weakness, numbness of tingling, headache CARDIOVASCULAR: chest pain, syncope PULMONARY: shortness of breath, cough, wheezing GASTROINTESTINAL: nausea, vomiting, abdominal pain, diarrhea, constipation, MUSCULOSKELETAL: pain GENITAL/URINARY: dysuria, hematuria, increased urinary frequency, hesitancy, flank pain SKIN: rash, lesions, wound Past History Medical History[1] Surgical History[2] Social History[3] I have reviewed the history above as provided by nursing notes. Medications/Allergies Discharge Medication List as of 01/09/2025 11:56 PM CONTINUE these medications which have NOT CHANGED Details atorvastatin (Lipitor) 20 MG tablet Take 20 mg by mouth daily., Historical Med benztropine (Cogentin) 0.5 MG tablet Take 0.5 mg by mouth twice a day., Historical Med busPIRone (Buspar) 10 MG tablet Take by mouth 2 times daily., Historical Med cetirizine (ZyrTEC) 5 MG chewable tablet Chew daily., Historical Med divalproex (Depakote) 250 MG EC tablet Take 250 mg by mouth 3 times daily. Do not crush, chew, or split., Historical Med docusate sodium (Colace) 100 MG capsule Take 100 mg by mouth 2 times daily., Historical Med ferrous sulfate 325 (65 Fe) MG EC tablet Take 325 mg by mouth 3 times daily (with meals). Do not crush, chew, or split., Historical Med fluticasone (Flonase Sensimist) 27.5 MCG/SPRAY nasal spray Administer 2 sprays into each nostril daily., Historical Med glipiZIDE XL (Glucotrol XL) 5 MG 24 hr tablet Take 5 mg by mouth daily. Do not crush, chew, or split., Historical Med hydrOXYzine HCl (Atarax) 25 MG tablet Take 25 mg by mouth every 6 hours as needed for itching., Historical Med isosorbide mononitrate ER (Imdur) 60 MG 24 hr tablet Take 60 mg by mouth daily. Do not crush or chew., Historical Med omeprazole OTC (PriLOSEC OTC) 20 MG EC tablet Take 20 mg by mouth every morning (before breakfast). Do not crush, chew, or split., Historical Med QUEtiapine (SEROquel) 50 MG tablet Take 50 mg by mouth Nightly., Historical Med sAXagliptin (Onglyza) 5 MG tablet Take 5 mg by mouth daily., Historical Med sertraline (Zoloft) 20 MG/ML concentrated solution Take 25 mg by mouth daily. 125mg day, Historical Med Allergies[4] I have reviewed the history above as provided by nursing notes. Physical Exam ED Triage Vitals [01/09/251] Temp Heart Rate Resp BP 36.8 C (98.2 F) 72 16 102/58 SpO2 Temp Source Heart Rate Source Patient Position 96 % Tympanic -- -- BP Location FiO2 (%) Right arm -- GENERAL: The patient appears nourished and normally developed. Vital signs as documented. EYES: PERRL. No scleral icterus or orbital trauma noted. HEENT: Mucous membranes moist. Nares patent without copious rhinorrhea. LUNGS: End expiratory wheezing without increased work of breathing. CARDIAC: Rhythm is regular. No murmur appreciated ABDOMEN: Nontender, soft, with no obvious masses, and no peritoneal signs. EXTREMITIES: Non edematous, with no obvious deformities. SKIN: Several areas of ulceration on the scalp, right shoulder from previous picking. No evidence of infection. NEURO: No obvious neurological deficits, normal sensation and strength bilaterally. Diagnostics Labs: Results for orders placed or performed during the hospital encounter of 01/09/25 ECG 12 lead Collection Time: 01/09/25 10:17 PM Result Value Ref Range Heart Rate 71 bpm QRSD Interval 72 ms QT Interval 402 ms QTC Interval 437 ms P [place] 45 degrees QRS [place] -3 degrees T Wave [place] 57 degrees [place] Interval 178 ms CBC auto differential Collection Time: 01/09/25 10:52 PM Result Value Ref Range Auto WBC 5.1 3.6 - 10.7 10*3/uL RBC 4.24 3.80 - 5.20 10*6/uL Hemoglobin 10.0 (L) 11.7 - 16.0 g/dL Hematocrit 31.0 (L) 35.0 - 47.0 % MCV 73.1 (L) 77.0 - 99.0 fL MCH 23.6 (L) 26.0 - 34.0 pg MCHC 32.3 30.5 - 36.0 % RDW 18.6 (H) 11.5 - 15.0 % Platelets 171 140 - 440 10*3/uL MPV 9.0 9.0 - 12.7 fL nRBC 0.0 0.0 - 2.0 /100 WBCs Neutrophils Relative 44.8 38.0 - 82.0 % Lymphocytes Relative 36.4 15.0 - 45.0 % Monocytes Relative 12.6 5.0 - 13.0 % Eosinophils Relative 3.6 0.0 - 6.0 % Basophils Relative 1.0 0.0 - 2.0 % Immature Grans % 1.6 0.0 - 2.0 % Neutrophils Absolute 2.3 1.8 - 7.5 10*3/uL Lymphocytes Absolute 1.8 1.0 - 4.3 10*3/uL Monocytes Absolute 0.6 0.0 - 0.9 10*3/uL Eosinophils Absolute 0.2 0.0 - 0.5 10*3/uL Basophils Absolute 0.1 0.0 - 0.2 10*3/uL Immature Grans Absolute 0.1 (H) <0.1 10*3/uL Serial Troponin, High Sensitivity Collection Time: 01/09/25 10:52 PM Result Value Ref Range Troponin HS Serial Baseline <3 <=14 ng/L Comprehensive metabolic panel Collection Time: 01/09/25 10:52 PM Result Value Ref Range SODIUM 134 (L) 136 - 145 mmol/L POTASSIUM 4.2 3.5 - 5.1 mmol/L CHLORIDE 99 98 - 107 mmol/L CARBON DIOXIDE 26 23 - 31 mmol/L ANION GAP 9 3 - 13 mmol/L UREA NITROGEN 24 (H) 9 - 23 mg/dL CREATININE 0.94 0.57 - 1.11 mg/dL GLUCOSE 77 (L) 82 - 115 mg/dL CALCIUM 8.5 (L) 8.8 - 10.0 mg/dL AST (SGOT) 31 <34 U/L ALT 14 <30 U/L ALKALINE PHOSPHATASE 83 40 - 150 U/L ALBUMIN 2.6 (L) 3.4 - 4.8 g/dL BILIRUBIN, TOTAL 0.1 <1.2 mg/dL TOTAL PROTEIN 7.6 6.4 - 8.3 g/dL eGFR 67.1 >60.0 mL/min/1.73m*2 Radiographs: XR chest 1 view Final Result Lines, tubes, and devices: None. Lungs and pleura: No consolidation. No pleural effusion or pneumothorax. Cardiomediastinal silhouette: Stable cardiac silhouette. Other: Degenerative changes of the spine and shoulders. Report Dictated on Electronically Signed By: Fred Antonio MD Electronically Signed Date/Time: 01/09/2025 11:48 PM EDT Procedures/EKG: EKG Interpreted in [employer] software by myself SCREENINGS EMERGENCY DEPARTMENT COURSE and DIFFERENTIAL DIAGNOSIS/MDM: Vitals: Vitals: 01/09/25 2330 01/10/25 0000 01/10/25 0015 01/10/25 0030 BP: (!) 113/49 118/70 BP Location: Pulse: 80 72 72 69 Resp: 20 25 16 18 Temp: TempSrc: SpO2: 96% 97% 96% 95% Weight: Height: The patient presented with a chief complaint of chest pain. Vital signs reviewed. Concern for acute coronary syndrome, COPD exacerbation, electrolyte abnormalities, arrhythmia among other conditions. I checked labs. Labs are unremarkable with a glucose of 77. Patient did consume some food. Her high-sensitivity troponin was negative. Her EKG is personally interpreted showing sinus rhythm without acute ischemic findings. Her chest x-ray is personally interpreted showing no consolidation. Ultimately her heart score is 2 points for age, 1.4 risk factors for total score of 3. I feel she be appropriate for discharge and outpatient follow-up. She was feeling better after breathing treatment. Suspect this is a combination of COPD exacerbation and anxiety. Diagnoses as of 01/10/25612 Chest pain, unspecified type Chronic obstructive pulmonary disease, unspecified COPD type (HCC) ED Medications managed: Medications ipratropium-albuterol (Duo-Neb) 0.5-2.5 mg/3 mL nebulizer solution 3 mL (3 mL Nebulization Given 01/09/25 6414) Patients symptoms are consistent with sepsis, severe sepsis or septic shock (if yes, use ".sepsiscoremeasure") - no Final Impression 1. Chest pain, unspecified type 2. Chronic obstructive pulmonary disease, unspecified COPD type (HCC) DISPOSITION discharge Comment: Please note this report has been produced using speech recognition software and may contain errors related to that system including errors in grammar, punctuation, and spelling, as well as words and phrases that may be inappropriate. If there are any questions or concerns please feel free to contact the dictating provider for clarification. Angel Ortiz DO [employer] [1] Past Medical History: Diagnosis Date Anxiety Asthma Depression Diabetes mellitus (HCC) Hypertension [2] History reviewed. No pertinent surgical history. [3] Social History Socioeconomic History Marital status: Single Tobacco Use Smoking status: Never Smokeless tobacco: Never Substance and Sexual Activity Alcohol use: Not Currently Drug use: Not Currently [4] Allergies Allergen Reactions Morphine Angel Ortiz DO 01/10/25 0616 WF age 64, alert/oriented x4, to ED via Ems with chief c/o intermittent chest pain. Midstaernal for a couple days. + occassional cough, = sob. Resp even. Skuin warm and dry. EKG done on arival.. IV per EMS left AC benign. . Blood drawn per IV site. Pt placed on radiation monitor. NSR documented in this encounter [facility] 01-09-2025 Emergency department Triage note WF age 64, alert/oriented x4, to ED via Ems with chief c/o intermittent chest pain. Midstaernal for a couple days. + occassional cough, = sob. Resp even. Skuin warm and dry. EKG done on arival.. IV per EMS left AC benign. . Blood drawn per IV site. Pt placed on radiation monitor. NSR [facility] 01-09-2025 Physician Emergency department Note Emergency Department Encounter [facility] ED Patient: Carline Pastrana : 1960 Date of Evaluation: 01/09/2025 ED Provider: Angel Ortiz DO Chief Complaint Chief Complaint Patient presents with Chest Pain MERCEDES Pastrana is a 64 y.o. female who presents to the emergency department complaining of chest pain. Patient reports chest pain ongoing for 2 weeks. Has been seen in the department before. States this may be related to stress. Also has COPD and has had some wheezing. Has not used her albuterol inhalers because "I did not feel like it ". Additional history obtained from : n/a Barriers to obtaining history from patient: n/a ROS: Review of Systems completed as follows: (Bold = positive, Not bold = negative) GENERAL: fevers, chills, malaise ENT: runny nose, congestion, sore throat, ear pain NEURO: weakness, numbness of tingling, headache CARDIOVASCULAR: chest pain, syncope PULMONARY: shortness of breath, cough, wheezing GASTROINTESTINAL: nausea, vomiting, abdominal pain, diarrhea, constipation, MUSCULOSKELETAL: pain GENITAL/URINARY: dysuria, hematuria, increased urinary frequency, hesitancy, flank pain SKIN: rash, lesions, wound Past History Medical History[1] Surgical History[2] Social History[3] I have reviewed the history above as provided by nursing notes. Medications/Allergies Discharge Medication List as of 01/09/2025 11:56 PM CONTINUE these medications which have NOT CHANGED Details atorvastatin (Lipitor) 20 MG tablet Take 20 mg by mouth daily., Historical Med benztropine (Cogentin) 0.5 MG tablet Take 0.5 mg by mouth twice a day., Historical Med busPIRone (Buspar) 10 MG tablet Take by mouth 2 times daily., Historical Med cetirizine (ZyrTEC) 5 MG chewable tablet Chew daily., Historical Med divalproex (Depakote) 250 MG EC tablet Take 250 mg by mouth 3 times daily. Do not crush, chew, or split., Historical Med docusate sodium (Colace) 100 MG capsule Take 100 mg by mouth 2 times daily., Historical Med ferrous sulfate 325 (65 Fe) MG EC tablet Take 325 mg by mouth 3 times daily (with meals). Do not crush, chew, or split., Historical Med fluticasone (Flonase Sensimist) 27.5 MCG/SPRAY nasal spray Administer 2 sprays into each nostril daily., Historical Med glipiZIDE XL (Glucotrol XL) 5 MG 24 hr tablet Take 5 mg by mouth daily. Do not crush, chew, or split., Historical Med hydrOXYzine HCl (Atarax) 25 MG tablet Take 25 mg by mouth every 6 hours as needed for itching., Historical Med isosorbide mononitrate ER (Imdur) 60 MG 24 hr tablet Take 60 mg by mouth daily. Do not crush or chew., Historical Med omeprazole OTC (PriLOSEC OTC) 20 MG EC tablet Take 20 mg by mouth every morning (before breakfast). Do not crush, chew, or split., Historical Med QUEtiapine (SEROquel) 50 MG tablet Take 50 mg by mouth Nightly., Historical Med sAXagliptin (Onglyza) 5 MG tablet Take 5 mg by mouth daily., Historical Med sertraline (Zoloft) 20 MG/ML concentrated solution Take 25 mg by mouth daily. 125mg day, Historical Med Allergies[4] I have reviewed the history above as provided by nursing notes. Physical Exam ED Triage Vitals [01/09/25 2221] Temp Heart Rate Resp BP 36.8 C (98.2 F) 72 16 102/58 SpO2 Temp Source Heart Rate Source Patient Position 96 % Tympanic -- -- BP Location FiO2 (%) Right arm -- GENERAL: The patient appears nourished and normally developed. Vital signs as documented. EYES: PERRL. No scleral icterus or orbital trauma noted. HEENT: Mucous membranes moist. Nares patent without copious rhinorrhea. LUNGS: End expiratory wheezing without increased work of breathing. CARDIAC: Rhythm is regular. No murmur appreciated ABDOMEN: Nontender, soft, with no obvious masses, and no peritoneal signs. EXTREMITIES: Non edematous, with no obvious deformities. SKIN: Several areas of ulceration on the scalp, right shoulder from previous picking. No evidence of infection. NEURO: No obvious neurological deficits, normal sensation and strength bilaterally. Diagnostics Labs: Results for orders placed or performed during the hospital encounter of 01/09/25 ECG 12 lead Collection Time: 01/09/25 10:17 PM Result Value Ref Range Heart Rate 71 bpm QRSD Interval 72 ms QT Interval 402 ms QTC Interval 437 ms P [place] 45 degrees QRS [place] -3 degrees T Wave [place] 57 degrees [place] Interval 178 ms CBC auto differential Collection Time: 01/09/25 10:52 PM Result Value Ref Range Auto WBC 5.1 3.6 - 10.7 10*3/uL RBC 4.24 3.80 - 5.20 10*6/uL Hemoglobin 10.0 (L) 11.7 - 16.0 g/dL Hematocrit 31.0 (L) 35.0 - 47.0 % MCV 73.1 (L) 77.0 - 99.0 fL MCH 23.6 (L) 26.0 - 34.0 pg MCHC 32.3 30.5 - 36.0 % RDW 18.6 (H) 11.5 - 15.0 % Platelets 171 140 - 440 10*3/uL MPV 9.0 9.0 - 12.7 fL nRBC 0.0 0.0 - 2.0 /100 WBCs Neutrophils Relative 44.8 38.0 - 82.0 % Lymphocytes Relative 36.4 15.0 - 45.0 % Monocytes Relative 12.6 5.0 - 13.0 % Eosinophils Relative 3.6 0.0 - 6.0 % Basophils Relative 1.0 0.0 - 2.0 % Immature Grans % 1.6 0.0 - 2.0 % Neutrophils Absolute 2.3 1.8 - 7.5 10*3/uL Lymphocytes Absolute 1.8 1.0 - 4.3 10*3/uL Monocytes Absolute 0.6 0.0 - 0.9 10*3/uL Eosinophils Absolute 0.2 0.0 - 0.5 10*3/uL Basophils Absolute 0.1 0.0 - 0.2 10*3/uL Immature Grans Absolute 0.1 (H) <0.1 10*3/uL Serial Troponin, High Sensitivity Collection Time: 01/09/25 10:52 PM Result Value Ref Range Troponin HS Serial Baseline <3 <=14 ng/L Comprehensive metabolic panel Collection Time: 01/09/25 10:52 PM Result Value Ref Range SODIUM 134 (L) 136 - 145 mmol/L POTASSIUM 4.2 3.5 - 5.1 mmol/L CHLORIDE 99 98 - 107 mmol/L CARBON DIOXIDE 26 23 - 31 mmol/L ANION GAP 9 3 - 13 mmol/L UREA NITROGEN 24 (H) 9 - 23 mg/dL CREATININE 0.94 0.57 - 1.11 mg/dL GLUCOSE 77 (L) 82 - 115 mg/dL CALCIUM 8.5 (L) 8.8 - 10.0 mg/dL AST (SGOT) 31 <34 U/L ALT 14 <30 U/L ALKALINE PHOSPHATASE 83 40 - 150 U/L ALBUMIN 2.6 (L) 3.4 - 4.8 g/dL BILIRUBIN, TOTAL 0.1 <1.2 mg/dL TOTAL PROTEIN 7.6 6.4 - 8.3 g/dL eGFR 67.1 >60.0 mL/min/1.73m*2 Radiographs: XR chest 1 view Final Result Lines, tubes, and devices: None. Lungs and pleura: No consolidation. No pleural effusion or pneumothorax. Cardiomediastinal silhouette: Stable cardiac silhouette. Other: Degenerative changes of the spine and shoulders. Report Dictated on Electronically Signed By: Fred Antonio MD Electronically Signed Date/Time: 01/09/2025 11:48 PM EDT Procedures/EKG: EKG Interpreted in [employer] software by myself SCREENINGS EMERGENCY DEPARTMENT COURSE and DIFFERENTIAL DIAGNOSIS/MDM: Vitals: Vitals: 01/09/25 2330 01/10/25 0000 01/10/25 0015 01/10/25 0030 BP: (!) 113/49 118/70 BP Location: Pulse: 80 72 72 69 Resp: 20 25 16 18 Temp: TempSrc: SpO2: 96% 97% 96% 95% Weight: Height: The patient presented with a chief complaint of chest pain. Vital signs reviewed. Concern for acute coronary syndrome, COPD exacerbation, electrolyte abnormalities, arrhythmia among other conditions. I checked labs. Labs are unremarkable with a glucose of 77. Patient did consume some food. Her high-sensitivity troponin was negative. Her EKG is personally interpreted showing sinus rhythm without acute ischemic findings. Her chest x-ray is personally interpreted showing no consolidation. Ultimately her heart score is 2 points for age, 1.4 risk factors for total score of 3. I feel she be appropriate for discharge and outpatient follow-up. She was feeling better after breathing treatment. Suspect this is a combination of COPD exacerbation and anxiety. Diagnoses as of 01/10/25 0613 Chest pain, unspecified type Chronic obstructive pulmonary disease, unspecified COPD type (HCC) ED Medications managed: Medications ipratropium-albuterol (Duo-Neb) 0.5-2.5 mg/3 mL nebulizer solution 3 mL (3 mL Nebulization Given 01/09/25 5204) Patients symptoms are consistent with sepsis, severe sepsis or septic shock (if yes, use ".sepsiscoremeasure") - no Final Impression 1. Chest pain, unspecified type 2. Chronic obstructive pulmonary disease, unspecified COPD type (HCC) DISPOSITION discharge Comment: Please note this report has been produced using speech recognition software and may contain errors related to that system including errors in grammar, punctuation, and spelling, as well as words and phrases that may be inappropriate. If there are any questions or concerns please feel free to contact the dictating provider for clarification. Angel Ortiz, DO [employer] [1] Past Medical History: Diagnosis Date Anxiety Asthma Depression Diabetes mellitus (HCC) Hypertension [2] History reviewed. No pertinent surgical history. [3] Social History Socioeconomic History Marital status: Single Tobacco Use Smoking status: Never Smokeless tobacco: Never Substance and Sexual Activity Alcohol use: Not Currently Drug use: Not Currently [4] Allergies Allergen Reactions Morphine Angel Ortiz DO 01/10/25 0616 [facility] 01-02-2025 Emergency department Note #20 saline lock removed intact from right hand, dressing applied. VS obtained. [facility] 01-02-2025 Emergency department Note #20 saline lock removed intact from right hand, dressing applied. VS obtained. EMERGENCY DEPARTMENT ENCOUNTER Pt Name: Carline Pastrana Birthdate 1960 Date of evaluation: 01/02/2025 ED Provider: Sada Samuels DO CHIEF COMPLAINT Chief Complaint Patient presents with Chest Pain Anxiety HISTORY OF PRESENT ILLNESS (Location/Symptom, Timing/Onset, Context/Setting, Quality, Duration, Modifying Factors, Severity) Note limiting factors. I wore appropriate PPE for the entirety of this encounter. HPI Carline Pastrana is a 64 y.o. who presents to the emergency department for chest pain and anxiety. Patient endorsing nonradiating chest pressure since this morning brought on by anxiety. Patient endorses increased rest and anxiety depression with family relationship issues. Patient was very anxious and tearful and hyperventilating. Patient resides at [facility]. Patient was given 324 aspirin by EMS. Patient has no history of CAD unknown family history. She denies any exertional component vomiting diarrhea rash to the chest shortness of breath numbness tingling focal deficits. She endorses some nausea but has been tolerating p.o. without issue. Patient is chest pain-free on my exam. Nursing Notes were reviewed. Limitations to history: Outside historians: REVIEW OF SYSTEMS Review of Systems Pertinent positives and negatives as per HPI PAST MEDICAL HISTORY Medical History[1] SURGICAL HISTORY Surgical History[2] CURRENT MEDICATIONS Current Discharge Medication List CONTINUE these medications which have NOT CHANGED Details atorvastatin (Lipitor) 20 MG tablet Take 20 mg by mouth daily. benztropine (Cogentin) 0.5 MG tablet Take 0.5 mg by mouth twice a day. busPIRone (Buspar) 10 MG tablet Take by mouth 2 times daily. cetirizine (ZyrTEC) 5 MG chewable tablet Chew daily. divalproex (Depakote) 250 MG EC tablet Take 250 mg by mouth 3 times daily. Do not crush, chew, or split. docusate sodium (Colace) 100 MG capsule Take 100 mg by mouth 2 times daily. ferrous sulfate 325 (65 Fe) MG EC tablet Take 325 mg by mouth 3 times daily (with meals). Do not crush, chew, or split. fluticasone (Flonase Sensimist) 27.5 MCG/SPRAY nasal spray Administer 2 sprays into each nostril daily. glipiZIDE XL (Glucotrol XL) 5 MG 24 hr tablet Take 5 mg by mouth daily. Do not crush, chew, or split. !! hydrOXYzine HCl (Atarax) 25 MG tablet Take 25 mg by mouth every 6 hours as needed for itching. isosorbide mononitrate ER (Imdur) 60 MG 24 hr tablet Take 60 mg by mouth daily. Do not crush or chew. omeprazole OTC (PriLOSEC OTC) 20 MG EC tablet Take 20 mg by mouth every morning (before breakfast). Do not crush, chew, or split. QUEtiapine (SEROquel) 50 MG tablet Take 50 mg by mouth Nightly. sAXagliptin (Onglyza) 5 MG tablet Take 5 mg by mouth daily. sertraline (Zoloft) 20 MG/ML concentrated solution Take 25 mg by mouth daily. 125mg day !! - Potential duplicate medications found. Please discuss with provider. ALLERGIES Morphine FAMILY HISTORY Family History[3] SOCIAL HISTORY Social History[4] PHYSICAL EXAM ED Triage Vitals Temp Heart Rate Resp BP 01/02/25214101/02/25183501/02/25183501/02/251835 36.6 C (97.9 F) 88 16 113/63 SpO2 Temp Source Heart Rate Source Patient Position 01/02/25183501/02/252141 -- -- 97 % Temporal BP Location FiO2 (%) -- -- Physical Exam Vitals and nursing note reviewed. Constitutional: General: She is not in acute distress. Appearance: She is not toxic-appearing. HENT: Head: Normocephalic and atraumatic. Mouth/Throat: Pharynx: Oropharynx is clear. Eyes: Pupils: Pupils are equal, round, and reactive to light. Cardiovascular: Rate and Rhythm: Normal rate and regular rhythm. Pulses: Normal pulses. Pulmonary: Effort: Pulmonary effort is normal. No respiratory distress. Breath sounds: Normal breath sounds. Abdominal: Palpations: Abdomen is soft. Tenderness: There is no abdominal tenderness. There is no right CVA tenderness, left CVA tenderness, guarding or rebound. Musculoskeletal: General: Normal range of motion. Skin: General: Skin is warm and dry. Neurological: General: No focal deficit present. Mental Status: She is alert and oriented to person, place, and time. GCS: GCS eye subscore is 4. GCS verbal subscore is 5. GCS motor subscore is 6. Psychiatric: Mood and Affect: Mood is anxious. Speech: Speech is rapid and pressured. Behavior: Behavior is cooperative. DIAGNOSTIC RESULTS RADIOLOGY (Per Emergency Physician): Interpretation per the Radiologist below, if available at the time of this note: XR chest 1 view Final Result 1. No acute finding. Report Dictated on Electronically Signed By: Rafita Cardenas MD Electronically Signed Date/Time: 01/02/2025 7:52 PM EDT LABS: Labs Reviewed BASIC METABOLIC PANEL - Abnormal Result Value SODIUM 139 POTASSIUM 4.3 CHLORIDE 105 CARBON DIOXIDE 23 UREA NITROGEN 17 CREATININE 0.89 GLUCOSE 108 CALCIUM 8.5 (*) ANION GAP 11 eGFR 71.6 CBC WITH AUTO DIFFERENTIAL - Abnormal Auto WBC 8.4 RBC 4.25 Hemoglobin 10.1 (*) Hematocrit 31.4 (*) MCV 73.9 (*) MCH 23.8 (*) MCHC 32.2 RDW 18.8 (*) Platelets 265 MPV 8.6 (*) nRBC 0.0 Neutrophils Relative 62.3 Lymphocytes Relative 22.6 Monocytes Relative 10.4 Eosinophils Relative 3.2 Basophils Relative 0.7 Immature Grans % 0.8 Neutrophils Absolute 5.2 Lymphocytes Absolute 1.9 Monocytes Absolute 0.9 Eosinophils Absolute 0.3 Basophils Absolute 0.1 Immature Grans Absolute 0.1 (*) HIGH SENSITIVITY TROPONIN, SERIAL BASELINE - Normal Troponin HS Serial Baseline <3 All other labs were within normal range or not returned as of this dictation. EMERGENCY DEPARTMENT COURSE and DIFFERENTIAL DIAGNOSIS/MDM: Vitals: Vitals: 01/02/25 1836 01/02/25 2142 BP: 113/63 Pulse: 88 Resp: 16 Temp: 36.6 C (97.9 F) TempSrc: Temporal SpO2: 97% Weight: 70.3 kg (155 lb) Height: 1.6 m (5' 3") Medications hydrOXYzine pamoate (Vistaril) capsule 25 mg (25 mg Oral Given 01/02/252036) 64-year-old female present to the ED for nonradiating intermittent chest pain worse with anxiety and stress detailed above. Exam as above. Differential diagnosis includes anxiety, arrhythmia, dehydration, ACS. Patient given hydroxyzine for anxiety. Workup revealed EKG sinus without signs of acute ischemia, chest x-ray without acute findings, undetectable troponin would not repeat this as chest pain had started more than 4 hours ago chest pain-free story not consistent with ACS BMP calcium 8.5 otherwise otherwise unremarkable CBC without leukocytosis leukopenia, microcytic anemia 10.1 otherwise unremarkable. Low heart score. Patient stable for discharge with supportive care, return precautions, outpatient follow-up. Patient in agreement with plan. SCREENINGS HEART Score History: Slightly suspicious ECG: Normal Age: 65+ Risk Factors: 1-2 risk factors Troponin: Less than or equal to normal limit HEART Score: 3 PROCEDURES: Unless otherwise noted below, none Procedures CRITICAL CARE TIME FINAL IMPRESSION 1. Anxiety 2. Chest pain, unspecified type DISPOSITION Discharge 01/02/2025 09:20:20 PM PATIENT REFERRED TO: Yudy Mantilla MD [address] [place] [address] [id number] [facility] [id number] DISCHARGE MEDICATIONS: Current Discharge Medication List START taking these medications Details !! hydrOXYzine HCl (Atarax) 25 MG tablet Take 1 tablet (25 mg) by mouth every 6 hours as needed for anxiety for up to 3 days. Qty: 12 tablet, Refills: 0 !! - Potential duplicate medications found. Please discuss with provider. (Comment: Please note this report has been produced using speech recognition software and may contain errors related to that system including errors in grammar, punctuation, and spelling, as well as words and phrases that may be inappropriate. If there are any questions or concerns please feel free to contact the dictating provider for clarification.) Sada Samuels DO (electronically signed) Emergency Medicine Provider [1] Past Medical History: Diagnosis Date Anxiety Asthma Depression Diabetes mellitus (HCC) Hypertension [2] History reviewed. No pertinent surgical history. [3] No family history on file. [4] Social History Socioeconomic History Marital status: Single Tobacco Use Smoking status: Never Smokeless tobacco: Never Substance and Sexual Activity Alcohol use: Not Currently Drug use: Not Currently Sada Samuels DO 01/02/256 To [facility] via EMS from [facility]. Pt states is having trouble with my kids and became very anxious-tearful and hyperventilating. States then started with chest pain and [place]. EKG on arrival to room. Had 324mg aspirin per EMS. 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 Return for new or concerning symptoms. Follow-up with PCP for continued issues and anxiety management. The following attachments cannot be sent through Care Everywhere.Chest Pain Discharge Instructions (Swedish)documented in this encounter [facility] 01-02-2025 Emergency department Triage note To [facility] via EMS from [facility]. Pt states is having trouble with my kids and became very anxious-tearful and hyperventilating. States then started with chest pain and [facility]. EKG on arrival to room. Had 324mg aspirin per EMS. 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 I wore appropriate PPE for the entirety of this encounter. HPI Carline Pastrana is a 64 y.o. who presents to the emergency department for chest pain and anxiety. Patient endorsing nonradiating chest pressure since this morning brought on by anxiety. Patient endorses increased rest and anxiety depression with family relationship issues. Patient was very anxious and tearful and hyperventilating. Patient resides at [facility]. Patient was given 324 aspirin by EMS. Patient has no history of CAD unknown family history. She denies any exertional component vomiting diarrhea rash to the chest shortness of breath numbness tingling focal deficits. She endorses some nausea but has been tolerating p.o. without issue. Patient is chest pain-free on my exam. Nursing Notes were reviewed. Limitations to history: Outside historians: REVIEW OF SYSTEMS Review of Systems Pertinent positives and negatives as per HPI PAST MEDICAL HISTORY Medical History[1] SURGICAL HISTORY Surgical History[2] CURRENT MEDICATIONS Current Discharge Medication List CONTINUE these medications which have NOT CHANGED Details atorvastatin (Lipitor) 20 MG tablet Take 20 mg by mouth daily. benztropine (Cogentin) 0.5 MG tablet Take 0.5 mg by mouth twice a day. busPIRone (Buspar) 10 MG tablet Take by mouth 2 times daily. cetirizine (ZyrTEC) 5 MG chewable tablet Chew daily. divalproex (Depakote) 250 MG EC tablet Take 250 mg by mouth 3 times daily. Do not crush, chew, or split. docusate sodium (Colace) 100 MG capsule Take 100 mg by mouth 2 times daily. ferrous sulfate 325 (65 Fe) MG EC tablet Take 325 mg by mouth 3 times daily (with meals). Do not crush, chew, or split. fluticasone (Flonase Sensimist) 27.5 MCG/SPRAY nasal spray Administer 2 sprays into each nostril daily. glipiZIDE XL (Glucotrol XL) 5 MG 24 hr tablet Take 5 mg by mouth daily. Do not crush, chew, or split. !! hydrOXYzine HCl (Atarax) 25 MG tablet Take 25 mg by mouth every 6 hours as needed for itching. isosorbide mononitrate ER (Imdur) 60 MG 24 hr tablet Take 60 mg by mouth daily. Do not crush or chew. omeprazole OTC (PriLOSEC OTC) 20 MG EC tablet Take 20 mg by mouth every morning (before breakfast). Do not crush, chew, or split. QUEtiapine (SEROquel) 50 MG tablet Take 50 mg by mouth Nightly. sAXagliptin (Onglyza) 5 MG tablet Take 5 mg by mouth daily. sertraline (Zoloft) 20 MG/ML concentrated solution Take 25 mg by mouth daily. 125mg day !! - Potential duplicate medications found. Please discuss with provider. ALLERGIES Morphine FAMILY HISTORY Family History[3] SOCIAL HISTORY Social History[4] PHYSICAL EXAM ED Triage Vitals Temp Heart Rate Resp BP 01/02/25214101/02/25183501/02/25183501/02/251835 36.6 C (97.9 F) 88 16 113/63 SpO2 Temp Source Heart Rate Source Patient Position 01/02/25183501/02/252141 -- -- 97 % Temporal BP Location FiO2 (%) -- -- Physical Exam Vitals and nursing note reviewed. Constitutional: General: She is not in acute distress. Appearance: She is not toxic-appearing. HENT: Head: Normocephalic and atraumatic. Mouth/Throat: Pharynx: Oropharynx is clear. Eyes: Pupils: Pupils are equal, round, and reactive to light. Cardiovascular: Rate and Rhythm: Normal rate and regular rhythm. Pulses: Normal pulses. Pulmonary: Effort: Pulmonary effort is normal. No respiratory distress. Breath sounds: Normal breath sounds. Abdominal: Palpations: Abdomen is soft. Tenderness: There is no abdominal tenderness. There is no right CVA tenderness, left CVA tenderness, guarding or rebound. Musculoskeletal: General: Normal range of motion. Skin: General: Skin is warm and dry. Neurological: General: No focal deficit present. Mental Status: She is alert and oriented to person, place, and time. GCS: GCS eye subscore is 4. GCS verbal subscore is 5. GCS motor subscore is 6. Psychiatric: Mood and Affect: Mood is anxious. Speech: Speech is rapid and pressured. Behavior: Behavior is cooperative. DIAGNOSTIC RESULTS RADIOLOGY (Per Emergency Physician): Interpretation per the Radiologist below, if available at the time of this note: XR chest 1 view Final Result 1. No acute finding. Report Dictated on Electronically Signed By: Rafita Cardenas MD Electronically Signed Date/Time: 01/02/2025 7:52 PM EDT LABS: Labs Reviewed BASIC METABOLIC PANEL - Abnormal Result Value SODIUM 139 POTASSIUM 4.3 CHLORIDE 105 CARBON DIOXIDE 23 UREA NITROGEN 17 CREATININE 0.89 GLUCOSE 108 CALCIUM 8.5 (*) ANION GAP 11 eGFR 71.6 CBC WITH AUTO DIFFERENTIAL - Abnormal Auto WBC 8.4 RBC 4.25 Hemoglobin 10.1 (*) Hematocrit 31.4 (*) MCV 73.9 (*) MCH 23.8 (*) MCHC 32.2 RDW 18.8 (*) Platelets 265 MPV 8.6 (*) nRBC 0.0 Neutrophils Relative 62.3 Lymphocytes Relative 22.6 Monocytes Relative 10.4 Eosinophils Relative 3.2 Basophils Relative 0.7 Immature Grans % 0.8 Neutrophils Absolute 5.2 Lymphocytes Absolute 1.9 Monocytes Absolute 0.9 Eosinophils Absolute 0.3 Basophils Absolute 0.1 Immature Grans Absolute 0.1 (*) HIGH SENSITIVITY TROPONIN, SERIAL BASELINE - Normal Troponin HS Serial Baseline <3 All other labs were within normal range or not returned as of this dictation. EMERGENCY DEPARTMENT COURSE and DIFFERENTIAL DIAGNOSIS/MDM: Vitals: Vitals: 01/02/25 1836 01/02/25 2142 BP: 113/63 Pulse: 88 Resp: 16 Temp: 36.6 C (97.9 F) TempSrc: Temporal SpO2: 97% Weight: 70.3 kg (155 lb) Height: 1.6 m (5' 3") Medications hydrOXYzine pamoate (Vistaril) capsule 25 mg (25 mg Oral Given 01/02/252036) 64-year-old female present to the ED for nonradiating intermittent chest pain worse with anxiety and stress detailed above. Exam as above. Differential diagnosis includes anxiety, arrhythmia, dehydration, ACS. Patient given hydroxyzine for anxiety. Workup revealed EKG sinus without signs of acute ischemia, chest x-ray without acute findings, undetectable troponin would not repeat this as chest pain had started more than 4 hours ago chest pain-free story not consistent with ACS BMP calcium 8.5 otherwise otherwise unremarkable CBC without leukocytosis leukopenia, microcytic anemia 10.1 otherwise unremarkable. Low heart score. Patient stable for discharge with supportive care, return precautions, outpatient follow-up. Patient in agreement with plan. SCREENINGS HEART Score History: Slightly suspicious ECG: Normal Age: 65+ Risk Factors: 1-2 risk factors Troponin: Less than or equal to normal limit HEART Score: 3 PROCEDURES: Unless otherwise noted below, none Procedures CRITICAL CARE TIME FINAL IMPRESSION 1. Anxiety 2. Chest pain, unspecified type DISPOSITION Discharge 01/02/2025 09:20:20 PM PATIENT REFERRED TO: Yudy Mantilla MD [address] [place] [address] [address] [place] [id number] DISCHARGE MEDICATIONS: Current Discharge Medication List START taking these medications Details !! hydrOXYzine HCl (Atarax) 25 MG tablet Take 1 tablet (25 mg) by mouth every 6 hours as needed for anxiety for up to 3 days. Qty: 12 tablet, Refills: 0 !! - Potential duplicate medications found. Please discuss with provider. (Comment: Please note this report has been produced using speech recognition software and may contain errors related to that system including errors in grammar, punctuation, and spelling, as well as words and phrases that may be inappropriate. If there are any questions or concerns please feel free to contact the dictating provider for clarification.) Sada Samuels, (electronically signed) Emergency Medicine Provider [1] Past Medical History: Diagnosis Date Anxiety Asthma Depression Diabetes mellitus (HCC) Hypertension [2] History reviewed. No pertinent surgical history. [3] No family history on file. [4] Social History Socioeconomic History Marital status: Single Tobacco Use Smoking status: Never Smokeless tobacco: Never Substance and Sexual Activity Alcohol use: Not Currently Drug use: Not Currently Sada Samuels DO 01/02/25 2249 [facility] 12-07-2024 Emergency department Triage note Patient here for chest pain Midsternal radiating to back. Denies SOB [facility] Work Phone: 12-07-2024 Emergency department Note Patient here for chest pain Midsternal radiating to back. Denies SOB documented in this encounter [facility] Work Phone: 10-24-2024 Note Exam Date Time Procedure Performing Provider Status 10/24/24 10:01 PM EKG (ED) - CV OXANA GRAHAM DO; Aut h (Verified) ECG Final Report SINUS RHYTHM ATRIAL PREMATURE COMPLEX LOW VOLTAGE, PRECORDIAL LEADS PROBABLE ANTEROSEPTAL INFARCT, OLD Electronic Signature: OXANA GRAHAM DO 10/24/2024 22:11:07 [id number]* Exam Date Time Procedure Performing Provider Status 10/24/24 8:53 PM XR Chest 1 View RIGOBERTO PAGE MD; [facility] (Verified) [id number] ORIGINAL EXAMINATION: ONE XRAY VIEW OF THE CHEST 10/24/2024 8:53 pm COMPARISON: Radiograph of the chest November 05, 2021. HISTORY: ORDERING SYSTEM PROVIDED HISTORY: Reason for Exam: medical clearance FINDINGS: Suboptimal exam due to patient rotation. Cardiomediastinal silhouette is probably unchanged in size. Costophrenic angles are sharp. No radiographic pneumothorax. No definite focal consolidation. Osseous structures grossly unchanged. IMPRESSION: Suboptimal exam. No definite focal consolidation. Interpreted by: Rigoberto Page Preliminary Report By: Rigoberto Page Electronically signed By Rigoberto Page Dictated Date: 10/24/2024 8:55:10 PM Prelim Date: 10/24/2024 8:55:38 PM Sign Date: 10/24/2024 8:55:38 PM Ordering Provider: OXANA GRAHAM [facility] [id number] Evaluation + Plan note Diagnostic Tests Pending * Urine Drug Screen 10/24/24 * Urinalysis w/ C&S if Indicated 10/24/24 [facility] 05-13-2024 Miscellaneous Notes* Telephone Encounter - Qi Tsang MA - 12/12/2023 2:58 PM EDT Tried to contact patient regarding no show for appointment today. Her phone is not accepting calls at this time. [facility] Note * Telephone Encounter - Qi Tsang MA - 12/12/2023 2:58 PM EDT Tried to contact patient regarding no show for appointment today. Her phone is not accepting calls at this time. Qi Tsang MA [facility]04-07-2022 Hospital Discharge instructions Patient Education 11/05/2021 17:16:41 Abdominal Pain Abdominal Pain Abdominal pain is pain in the stomach or belly area. Everyone has this pain from time to time. In many cases it goes away on its own. But abdominal pain can sometimes be due to a serious problem, such as appendicitis. So it s important to know when to get help. Causes of abdominal pain There are many possible causes of abdominal pain. Common causes in adults include: Constipation, diarrhea, or gas Stomach acid flowing back up into the esophagus (acid reflux or heartburn) Severe acid reflux, called GERD (gastroesophageal reflux disease) A sore in the lining of the stomach or small intestine (peptic ulcer) Inflammation of the gallbladder, liver, or pancreas Gallstones or kidney stones Appendicitis Intestinal blockage An internal organ pushing through a muscle or other tissue (hernia) Urinary tract infections In women, menstrual cramps, fibroids, ovarian cysts, pelvic inflammatory disease, or endometriosis Inflammation or infection of the intestines, including Crohn's disease and ulcerative colitis Irritable bowel syndrome Diagnosing the cause of abdominal pain Your healthcare provider will give you a physical exam help find the cause of your pain. If needed,you will have tests. Belly pain has many possible causes. So it can be hard to find the reason for your pain. Giving details about your pain can help. Tell your provider where and when you feel the pain, and what makes it better or worse. Also let your provider know if you have other symptoms such as: Fever Tiredness Upset stomach (nausea) Vomiting Changes in bathroom habits Blood in the stool or black, tarry stool Weight loss that you can't explain (involuntary weight loss?) Also report any family history of stomach or intestinal problems, or cancers. Tell your provider about all your alcohol use and drug use. Tell your provider about all medicines you use, including herbs, vitamins, and supplements. Treating abdominal pain Some causes of pain need emergency medical treatment right away. These include appendicitis or a bowel blockage. Other problems can be treated with rest, fluids, or medicines. Your healthcare provider can give you specific instructions for treatment or self-care based on what is causing your pain. If you have vomiting or diarrhea, sip water or other clear fluids. When you are ready to eat solid foods again, start with small amounts of vpfy-hx-nwjjfb, low- fat foods. These include apple sauce, toast, or crackers. When to get medical care Call 911 or go to the hospital right away if you: Can t pass stool and are vomiting Are vomiting blood or have bloody diarrhea or black, tarry diarrhea Have chest, neck, or shoulder pain Feel like you might pass out Have pain in your shoulder blades with nausea Have sudden, severe belly pain Have new, severe pain unlike any you have felt before Have a belly that is rigid, hard, and hurts to touch Call your healthcare provider if you have: Pain for more than 5 days Bloating for more than 2 days Diarrhea for more than 5 days A fever of 100.4 F (38 C) or higher, or as directed by your healthcare provider Pain that gets worse Weight loss for no reason Continued lack of appetite Blood in your stool How to prevent abdominal pain Here are some tips to help prevent abdominal pain: Eat smaller amounts of food at each meal. Don't eat greasy, fried, or other high-fat foods. Don't eat foods that give you gas. Exercise regularly. Drink plenty of fluids. To help prevent GERD symptoms: Quit smoking. Reduce alcohol and foods that increase stomach acid. Don't use aspirin or qnng-bmo-lhyjryt pain and fever medicines, if possible. This includes nonsteroidal anti-inflammatory drugs (NSAIDs). Lose excess weight. Finish eating at least 2 hours before you go to bed or lie down. Raise the head of your bed. [id number] [employer]. [address] [place] [address], [place] [address]. All rights reserved. This information is not intended as a substitute for professional medical care. Always follow yourhealthcare professional's instructions. Follow Up Care 11/05/2021 10:42:54 With:Call Physician Referral Address:Unknown When:2-4 days [facility] 01-06-2022 Hospital Discharge instructions Patient Education 08/06/2021 14:20:37 Urinary Tract Infection, Adult, Potp-fe-Iydt Urinary Tract Infection, Adult A urinary tract infection (UTI) is an infection of any part of the urinary tract. The urinary tractincludes: The kidneys. The ureters. The bladder. The urethra. These organs make, store, and get rid of pee (urine) in the body. What are the causes? This is caused by germs (bacteria) in your genital area. These germs grow and cause swelling (inflammation) of your urinary tract. What increases the risk? You are more likely to develop this condition if: You have a small, thin tube (catheter) to drain pee. You cannot control when you pee or poop (incontinence). You are female, and: ?You use these methods to prevent : ?A medicine that kills sperm (spermicide). ?A device that blocks sperm (diaphragm). ?You have low levels of a female hormone (estrogen). ?You are . You have genes that add to your risk. You are sexually active. You take antibiotic medicines. You have trouble peeing because of: ?A prostate that is bigger than normal, if you are male. ?A blockage in the part of your body that drains pee from the bladder (urethra). ?A kidney stone. ?A nerve condition that affects your bladder (neurogenic bladder). ?Not getting enough to drink. ?Not peeing often enough. You have other conditions, such as: ?Diabetes. ?A weak disease-fighting system (immune system). ?Sickle cell disease. ?Gout. ?Injury of the spine. What are the signs or symptoms? Symptoms of this condition include: Needing to pee right away (urgently). Peeing often. Peeing small amounts often. Pain or burning when peeing. Blood in the pee. Pee that smells bad or not like normal. Trouble peeing. Pee that is cloudy. Fluid coming from the vagina, if you are female. Pain in the belly or lower back. Other symptoms include: Throwing up (vomiting). No urge to eat. Feeling mixed up (confused). Being tired and grouchy (irritable). A fever. Watery poop (diarrhea). How is this treated? This condition may be treated with: Antibiotic medicine. Other medicines. Drinking enough water. Follow these instructions at home: Medicines Take mupt-gmc-qyxaahy and prescription medicines only as told by your doctor. If you were prescribed an antibiotic medicine, take it as told by your doctor. Do not stop taking it even if you start to feel better. General instructions Make sure you: ?Pee until your bladder is empty. ?Do not hold pee for a long time. ?Empty your bladder after sex. ?Wipe from front to back after pooping if you are a female. Use each tissue one time when you wipe. Drink enough fluid to keep your pee pale yellow. Keep all follow-up visits as told by your doctor. This is important. Contact a doctor if: You do not get better after 1 2 days. Your symptoms go away and then come back. Get help right away if: You have very bad back pain. You have very bad pain in your lower belly. You have a fever. You are sick to your stomach (nauseous). You are throwing up. Summary A urinary tract infection (UTI) is an infection of any part of the urinary tract. This condition is caused by germs in your genital area. There are many risk factors for a UTI. These include having a small, thin tube to drain pee and notbeing able to control when you pee or poop. Treatment includes antibiotic medicines for germs. Drink enough fluid to keep your pee pale yellow. This information is not intended to replace advice given to you by your health care provider. Make sure you discuss any questions you have with your health care provider. Document Released: 01/03/2009 Document Revised: 07/05/2019 Document Reviewed: 01/25/2019 [employer] Patient Education 2020 [employer]. Follow Up Care 07/24/2021 11:35:11 With:[facility] Address: When: Unknown Comments:skilled [facility] 12-29-2021 Note. MICRO - Microbiology PROCEDURE: Blood Culture (bacterial) [*1] SOURCE: Blood BODY SITE: COLLECTED DATE/TIME: 07/24/2021 12:20 EST RECEIVED DATE/TIME: 07/24/2021 12:53 EST START DATE/TIME: 07/24/2021 12:53 EST FREE TEXT SOURCE: FINAL REPORTS Final Report [] Verified Date/Time/Personnel: 07/29/2021 12:59 EST Blood Culture: No Growth at 5 days. PRELIMINARY REPORTS Preliminary Report [] Verified Date/Time/Personnel: 07/24/2021 13:59 EST Culture has been received in lab and is no growth to date. Routine cultures are held for 5 days. Performing Locations *1: This test was performed at: [facility], [address] [place] [address], [facility] , [facility] ([place])07-29-2021 Note. MICRO - Microbiology PROCEDURE: Blood Culture (bacterial) [*1] SOURCE: Blood BODY SITE: COLLECTED DATE/TIME: 07/24/2021 12:20 EST RECEIVED DATE/TIME: 07/24/2021 12:53 EST START DATE/TIME: 07/24/2021 12:53 EST FREE TEXT SOURCE: FINAL REPORTS Final Report [] Verified Date/Time/Personnel: 07/29/2021 12:59 EST Blood Culture: No Growth at 5 days. PRELIMINARY REPORTS Preliminary Report [] Verified Date/Time/Personnel: 07/24/2021 13:59 EST Culture has been received in lab and is no growth to date. Routine cultures are held for 5 days. Performing Locations *1: This test was performed at: [address], [facility] , [facility] ([place])07-26-2021 Note. MICRO - Microbiology PROCEDURE: Urine Culture [*1] SOURCE: Urine, Clean Catch BODY SITE: COLLECTED DATE/TIME: 07/24/2021 12:20 EST RECEIVED DATE/TIME: 07/24/2021 12:54 EST START DATE/TIME: 07/24/2021 12:54 EST FREE TEXT SOURCE: FINAL REPORTS Final Report [] Verified Date/Time/Personnel: 07/26/2021 08:28 EST No growth at 48 hours. PRELIMINARY REPORTS Preliminary Report [] Verified Date/Time/Personnel: 07/25/2021 09:25 EST No growth to date Performing Locations *1: This test was performed at: [address], [facility] , [facility] ([place])07-24-2021 Evaluation + Plan noteExtracted from: Title:History and Physical Author:DAVID VAUGHAN RA, MD Date:07/24/21 1. UTI - Urinary tract infec tion 2. Altered mental status 3. Hypokalemia Orders: albuterol, Start: 07/24/21 17:00:00 EST, Dose = 180 mcg, = 2 puff(s), Inhalation, q6hr, COVID-19 only Assessment and plan 1: Sepsis most likely secondary to urinary tract infection With fever, confusion, mild lactic acidosis, source of urinary tract infection patient given 330 mL/kg IV fluids we will continue resuscitation with 100 mL normal saline, Rocephin given today will continue tomorrow. Patient also is Covid positive however she is not hypoxic oxygen was placed even though she has a saturation of over 94% on room air. We will continue to monitor her oxygenation status. Patient is not to be put on dexamethasone or remdesivir at this time. Patient urine and blood cultures to be sent. 2. COVID-19 positive I do not see any symptoms though she says she is short of breath with the cough. Chest x-ray does not support acute infection we will repeat a chest x-ray when she is hydrated. Currently hold off on remdesivir and dexamethasone but will go ahead and check Covid labs at least over 1 day. 3. Diabetes mellitus type 2 we will put her on an insulin sliding scale Lantus as needed we will hold oral medications for now. 4. Lung nodule noted on chest x-ray will need follow-up evaluation when she is more hydrated. 5: Morbid obesity. 6: Diarrhea unclear whether this is COVID-19 related versus C. difficile patient will will send stool for C. difficile PCR. 7: Hypokalemia will check magnesium level if not already done, replace potassium with 2 other supplements in addition to that given the emergency room will check a potassium level in about 6 to 8 hours. 8. Obstructive sleep apnea she has been on CPAP however states her ex- broke the machine unclear we will need to obtain her settings in the meantime continue her oxygen. 9. History of COPD will add albuterol. 10: Hyperlipidemia we will continue current medications. high risk due to multiple comorbidities including morbid obesity diabetes mellitus type 2 presenting with what appears to be sepsis with UTI with underlying COVID- 19, she will require more than 2 nights of inpatient stay will obtain further detailed information from family none of which are available. Code status discussed with patient. Patient is full code. Addendum by BLAS DARLING MD on July 24, 2021 23:24:08 EST Nursing staff reported fall, not sure of the mechanism. Patient was lying on the side of bed and reported that she hit her head. No apparent injuries from the fall. Ordered CT head without contrast. [facility] Evaluation note* Diagnosis Chest pain, unspecified type- Primary documented in this encounter [facility] Work Phone: Evaluation note* Diagnosis Anxiety- Primary Anxiety state, unspecified Chest pain, unspecified type [facility] Chest pain, unspecified type- Primary Chronic obstructive pulmonary disease, unspecified COPD type (HCC) [facility] noteNo assessment information availableW[facility] Work Phone: Hospital course Narrative No data available for this section [facility] Hospital Discharge instructions No data available for this section [facility] Hospital Discharge instructions* Attachments The following attachments cannot be sent through Care Everywhere. * Chest Pain Discharge Instructions (Swedish) [facility] Work Phone: Progress note No data available for this section [facility] Reason for referral (narrative)No reason for referral information availableWOhio State [facility] Work Phone: Summary Purpose Family History No Family History Records FoundNo Family History Records Found No data available for this section No Family History Records FoundNo Family History Records FoundNo Family History Records FoundNo Family History Records FoundNo Family History Records Found Advance Directives No Advanced Directives Records FoundNo Advanced Directives Records FoundNo Advanced Directives Records FoundNo Advanced Directives Records FoundNo Advanced Directives Records FoundNo Advanced Directives Records FoundNo Advanced Directives Records Found Chief Complaint and Reason for Visit Chief Complaint Admit Date [facility] LAB WORK December 25, 2024 4:0 0am Additional Source Comments INFORMATION SOURCE (unrecogn ized section and content) DATE CREATED AUTHOR 11/21/2021 [facility] ([place]) DATE CREATED AUTHOR AUTHOR'S ORGANIZ ATION 12/14/2023 [facility] DATE CREATED AUTHOR AUTHOR'S ORGANIZ ATION 11/04/2024 [facility] DATE CREATED AUTHOR AUTHOR'S ORGANIZ ATION 12/15/2024 [facility] DATE CREATED AUTHOR AUTHOR'S ORGANIZ ATION 12/25/2024 [facility] DATE CREATED AUTHOR AUTHOR'S ORGANIZ ATION 01/11/2025 [facility] DATE CREATED AUTHOR AUTHOR'S ORGANIZ ATION 01/12/2025 [facility] Source Comments (unrecognize d section and content) In the event this informatio n is protected by the Federal Confidentiality of Alcohol and Drug Abuse Patient Records regulations: The Federal rules restrict any use of the information to criminally investigate or prosecute any alcohol or drug abuse patient.[facility] Reason for Visit (unrecogniz ed section and content) Reason Comments Appointment No Show #2 Reason Comments Chest Pain Midsternal radiating to back. Reason Comments Chest Pain Anxiety Reason Comments Chest Pain Care Teams (unrecognized sec tion and content) Team Status: Active Member Role Status Dates Dr. Aram Morris DO Family Provider Active Dr. Aram Morris DO Primary Care Provider Active Team Status: Inactive Member Role Status Dates Dr. Aram Morris DO Primary Care Provider Active Start: December 25, 2024 End: December 25, 2024 Yudy LAMBERT Attending Provider Active Star t: December 25, 2024 End: December 25, 2024 Yudy LAMBERT Referring Provider Active Star t: December 25, 2024 End: December 25, 2024 Drums Teacher Relationship Specialty Start Date End Date Yudy Mantilla MD [address] [place] [address] [address] [place] [address] PCP - General Family Medicine 01/02/25 Drums Teacher Relationship Specialty Start Date End Date Cecilia Hassan MD [address] [place] [id number] PCP - General Internal Medicine 12/07/24 Care Team Personnel Name: PHYSICIAN, NONE Position: AH Physician Member Role: Primary Care Physician Care Team Related Persons Name: MAUREEN, BASIL Name: MAUREEN, BASIL L Name: MAUREEN, BASIL L Name: MAUREEN, BASIL L Name: AMUREEN, BASIL L Name: MAUREEN, BASIL L Name: MAUREEN, BASIL L Name: ROHIT REDDY Name: ROHIT REDDY Name: DECLINED, Drums Teacher Relationship Specialty Start Date End Date Dejon Cruz DO PCP - General Family Medicine 07/22/17 Scheduled Active and Recently Administ ered Medications (unrecognized section and content) Medication Order 12/31/2024 01/01/2025 01/02/2025 hydrOXYzine pamoate (Vistaril) capsule 25 mg (COMPLETED) 25 mg, Oral, Once, On Tue01/02/25 at 2014, For 1 dose 2036 (Given - Provid er: Anna Heller RN) Scheduled Medication Order 01/08/2025 01/09/2025 01/10/2025 ipratropium-albuterol (Duo-Neb) 0.5-2.5 mg/3 mL nebulizer solution 3 mL (COMPLETED) 3 mL, Nebulization, Once, On Tue01/09/25 at 2250, For 1 dose 2251 (Given - Provider: Chris Hayes RN) Goals (unrecognized section and content) Goals may be documented in a n alternate section FOR RECORDS PERTAINING TO PATIENTS WHO ARE OR HAVE BEEN ENROLLED IN A CHEMICAL DEPENDENCY/SUBSTANCEABUSE PROGRAM, SOME INFORMATION MAY BE OMITTED. This clinical summary was aggregated from multiple sources. Caution should be exercised in using it in the provision of clinical care. This summary normalizes information from multiple sources, and as a consequence, information in this document may materially change the coding, format and clinical context of patient data. In addition, data may be omitted in some cases. CLINICAL DECISIONS SHOULD BE BASED ON THE PRIMARY CLINICAL RECORDS. [employer] provides no warranty or guarantee of the accuracy or completeness of information in this document.
[2025-01-18 08:26] LABS: Valproic Acid (Depakene) Level 36 ug/mL (50-100)
== END ==
LOC: OLS.ACW300 05:00
PROVIDERS: PCP Student in an Organized Health Care Education/Training Program; Visit Provider Family Medicine
DX: Z79.899 Other long term (current) drug therapy (principal)
CPT/HCPCS: 36415; 80164